=== PATIENT | male | born 1935 | race Caucasian/White ===

== ENCOUNTER 2019-09-13 02:08 | Day surgery (SDC) | payer OTHER, MEDICARE, SELFPAY ==
[2019-08-30 09:38] VITALS: BMI 29.2
--- NOTE | 2019-09-11 16:21 | PM.IMHP ---
H&P: HPI History of Present Illness Chief complaint: BPH with obstruction Narrative: Doni Cavazos is a 84 year old male who's been a part of our practice since 08/1993 with both obstructive and irritable voiding symptoms refractory to both BPH and OAB meds. Recent urodynamics show obstruction without overactive bladder. Cystoscopy shows lateral lobe prostate enlargement without median lobe enlargement. We've discussed options, including TURP, Rezum, Green light laser and Urolift and he's elected for the later. He's aware of risks including, but not limited to, failure to correct his symptoms, hematuria, incontinence. Review of Systems Constitutional: Constitutional: Denies chills, Denies fatigue, Denies fever(s) and Denies headache(s) Eyes: Eyes: Denies blurry vision ENT: Denies vertigo, Denies dizziness, Denies headache(s) and Denies sore throat Cardiovascular: Cardiovascular: Denies chest pain, Denies syncope, Denies lightheadedness, Denies palpitations, Denies dyspnea and Denies dyspnea on exertion Respiratory: Respiratory: Denies hemoptysis, Denies dyspnea and Denies dyspnea on exertion Gastrointestinal: Gastrointestinal: Denies melena, Denies bloating, Denies hematochezia, Denies change in bowel habits, Denies change in stool character, Denies constipation, Denies diarrhea and Denies vomiting Genitourinary: Genitourinary: Denies hematuria, Denies dysuria, Denies testicular pain, Denies urinary frequency, Denies urinary hesitancy and Denies urinary urgency Integumentary/Breasts: Skin/Breast: Denies pruritus, Denies lesions and Denies rash Neurologic: Denies confusion, Denies vertigo, Denies dizziness, Denies syncope and Denies headache(s) Psychiatric: Psychiatric: Denies anxiety, Denies change in appetite and Denies confusion Endocrine: Endocrine: Denies fatigue and Denies palpitations PMFSH Family History Family History Sibling Carcinoma of colon Social History Social History Smoking status: Former smoker Smoking end date: 07/11/94 Alcohol intake: never Gender identity (if verbalized by the patient): Male Meds Home Medications and Allergies Home Medications Medication Instructions Recorded Confirmed Type aspirin 81 mg PO DAILY 08/30/19 08/30/19 History cholecalciferol (vitamin D3) 4,000 unit PO DAILY 08/30/19 08/30/19 History [Vitamin D3] hydroxyurea 500 mg PO DAILY 08/30/19 08/30/19 History lisinopril 20 mg PO DAILY 08/30/19 08/30/19 History tamsulosin 0.4 mg PO DAILY 08/30/19 08/30/19 History vitamin B complex [B 1 tablet PO DAILY 08/30/19 08/30/19 History Complex-Vitamin B12] Allergies Allergy/AdvReac Type Severity Reaction Status Date / Time No Known Allergies Allergy Verified 08/30/19 09:38 Exam Const: General: healthy appearing, comfortable, no acute distress and well developed; No confusion Nutritional Appearance: well nourished Orientation/consciousness: patient oriented x3 and No confusion HENMT: Head: normocephalic and atraumatic Ears: external ears normal Face and sinus: normal facial exam Mouth: Yes lip normal Teeth and gingiva: dentition normal Eyes: General: appearance normal, both eyes and all related structures Alignment and Position: alignment normal Eyelids: eyelids normal Cornea: corneas normal Pupils: Equal, round and reactive pupils present EOM: EOMs intact bilaterally Neck: Neck: normal visual inspection, full ROM and no JVD Chest: Chest palpation & inspection: normal inspection of the chest Resp: Effort & Inspection: normal respiratory effort and no use of accessory muscles Auscultation: clear to auscultation bilaterally Cardio: Jugular venous distension: no JVD Rate: regular rate Rhythm: regular rhythm GI: Inspection: normal to inspection GI Palp: No abdominal tenderness, No Guarding due to palpation present (GI) and No Rebound
--- NOTE | 2019-09-11 16:29 | PM.IMHP ---
H&P: HPI History of Present Illness Chief complaint: BPH with obstruction Narrative: Doni Cavazos is a 84 year old male We've discussed alternative treatment options for bladder outlet obstruction, including TURP, Rezum, Green light laser and Urolift and he's elected for the later. He's aware of risks including, but not limited to, failure to correct his symptoms, hematuria, incontinence and retrograde ejaculation. PMFSH Family History Family History Sibling Carcinoma of colon Social History Social History Smoking status: Former smoker Smoking end date: 07/11/94 Alcohol intake: never Gender identity (if verbalized by the patient): Male Meds Home Medications and Allergies Home Medications Medication Instructions Recorded Confirmed Type aspirin 81 mg PO DAILY 08/30/19 08/30/19 History cholecalciferol (vitamin D3) 4,000 unit PO DAILY 08/30/19 08/30/19 History [Vitamin D3] hydroxyurea 500 mg PO DAILY 08/30/19 08/30/19 History lisinopril 20 mg PO DAILY 08/30/19 08/30/19 History tamsulosin 0.4 mg PO DAILY 08/30/19 08/30/19 History vitamin B complex [B 1 tablet PO DAILY 08/30/19 08/30/19 History Complex-Vitamin B12] Allergies Allergy/AdvReac Type Severity Reaction Status Date / Time No Known Allergies Allergy Verified 08/30/19 09:38
--- NOTE | 2019-09-13 06:36 | WPDHPUPDATE1 ---
History and Physical Update Update Date/Time: 09/13/19 06:36 History and Physical has been reviewed, including an updated exam of the patient. There are NO changes in the patient's condition. Risks, benefits, and alternatives have been discussed and questions answered. Patient agrees to proceed with procedure.
--- NOTE | 2019-09-13 08:07 | P.PNAN_ITS ---
Anes - Initial Pre Proc Eval Procedure: Operation Date: 09/13/19 10:00 Proposed Procedures p Urolift - Griffin Odom MD Date/Time: 09/13/19 08:07 Surgeon: Griffin Odom MD Pre Op Diagnosis: BPH with obstruction Patient Data Age: 84 Gender: M Height: 1.75 m Weight: 89.81 kg Allergies Allergy/AdvReac Type Severity Reaction Status Date / Time No Known Allergies Allergy Verified 08/30/19 09:38 Home Medications Medication Instructions Recorded Confirmed Type aspirin 81 mg PO DAILY 08/30/19 08/30/19 History cholecalciferol (vitamin D3) 4,000 unit PO DAILY 08/30/19 08/30/19 History [Vitamin D3] hydroxyurea 500 mg PO DAILY 08/30/19 08/30/19 History lisinopril 20 mg PO DAILY 08/30/19 08/30/19 History tamsulosin 0.4 mg PO DAILY 08/30/19 08/30/19 History vitamin B complex [B 1 tablet PO DAILY 08/30/19 08/30/19 History Complex-Vitamin B12] Other Studies: Holter/Event Monitor Holter/Event Monitor Date of procedure: 08/03/19 Procedure Type: 24 hour holter monitor Indications: PAF; AV block Conclusion: 1. 24 hour holter monitor on 08/03/19. 2. Predominant rhythm is sinus rhythm. HR range 50-129 bpm; average HR 81 bpm. 3. There are 20 premature supraventricular complexes and 6 supraventricular trigeminy. No supraventricular tachycardia. 4. There are 5,110 premature ventricular complexes, 103 ventricular bigeminy, 3,671 ventricular trigeminy, 295 ventricular couplets, 3 ventricular triplets, one 4 beat polymorphic ventricular tachycardia with variable rate and average HR 124 bpm. 5. 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 No significant pauses greater than 2 seconds. 6. No symptoms available for correlation. Report Initialized date/time: Roldan Bond DO 08/05/19 / 1322 Patient hx anesthesia problems: none Family hx anesthesia problems: none [facility] Past Medical History Medical History (Updated 09/13/19 @ 08:10 by Cl White MD) Aneurysm AAA REPAIR 2016 Arthritis Atrial fibrillation NEW ONSET 07/2019, SAW BPH (benign prostatic hyperplasia) Colon cancer COLON 2001, s/p COLON RESECTION HTN (hypertension) Overweight (BMI 25.0-29.9) Family History Family History Sibling Carcinoma of colon Social History Social History Smoking status: Former smoker Smoking end date: 07/11/94 Alcohol intake: never Gender identity (if verbalized by the patient): Male Anes - Eval Final PreProcedure Day of Procedure 09/13/19 08:07 Patient weight: overweight Heart: regular rate and rhythm Lungs: clear to auscultation and normal air movement Airway: Mallampati scale class II Neurological: alert and oriented Last oral intake: >/= 8 hours ASA classification: III Emergent: no Anesthetic plan: proceed Anesthesia type and monitoring: general GIVS Informed Consent: The patient's anesthetic plan and its attendant risks and benefits were discussed with the patient/family/POA. Questions were solicited and answers provided to the satisfaction of the patient/family/POA.
[2019-09-13] MEDS: LACTATED RINGERS 1,000 ML 30 ML IV CONT (08:39)
[2019-09-13 08:42] VITALS: BP 135/96; PULSE 72; RESP 20; TEMP 36.8; O2SAT 97
[2019-09-13] MEDS: ceFAZolin 2 GM/D5W 50 ML 2 GM/50 ML BAG IVPB (08:57)
[2019-09-13] MEDS: LIDOCAINE HCL 2% GEL UROJET 10 ML PKG MUCOUS MEM (09:10)
--- NOTE | 2019-09-13 09:20 | PM.PROC ---
Procedure Note - Detailed Date of procedure: 09/13/19 Pre-op diagnosis: BPH with obstruction Post-op diagnosis: same Procedure performed: Urolift Description of procedure: The patient was prepped and draped in a routine fashion after the uneventful induction of a general LMA anesthetic. A 20F cystoscope was inserted into the bladder. The cystoscopy bridge was replaced with a UroLift delivery device. The first treatment site was the patient's right side approximately 1.5cm distal to the bladder neck. The distal tip of the delivery device was then angled laterally approximately 20 degrees at this position to compress the lateral lobe. The trigger was pulled, thereby deploying a needle containing the implant through the prostate. The needle was then retracted, allowing one end of the implant to be delivered to the capsular surface of the prostate. The implant was then tensioned to assure capsular seating and removal of slack monofilament. The device was then angled back toward midline and slowly advanced proximally (typically 3 to 4 mm) until cystoscopic verification of the monofilament being centered in the delivery bay. The urethral end piece was then affixed to the monofilament thereby tailoring the size of the implant. Excess filament was then severed. The delivery device was then re-advanced into the bladder. The delivery device was then replaced with cystoscope and bridge and the implant location and opening effect was confirmed cystoscopically. The same procedure was then repeated on the left side, and two additional implants were delivered just proximal to the verumontanum, again one on right and one on left side of the prostate, following the same technique. Therefore, a total of 4 implants were delivered. A final cystoscopy was conducted first to inspect the location and state of each implant and second, to confirm the presence of a continuous anterior channel was present through the prostatic urethra with irrigation flow turned off. The bladder was then filled with 150 cc irrigation fluid to assist the patient in void trial after the procedure, and all instruments were removed. At this point the cystoscope was removed and the patient was taken to the PACU in good condition. Anesthesia: GLMA Surgeon: Griffin Odom MD Estimated blood loss (mL): 0 Drains: No Packing: No Pathology: none sent Complications: No immediate complications Condition: stable Disposition: PACU
[2019-09-13 09:23] VITALS: BP 95/50; PULSE 64; RESP 12
[2019-09-13 09:45] VITALS: BP 98/58; PULSE 52
[2019-09-13 10:10] VITALS: BP 101/68; PULSE 58
== END 2019-09-13 10:17 | disposition home or self-care (01) ==
PROVIDERS: PCP Internal Medicine; Visit Provider Urology
PROC: 0T7D8DZ Dilation of Urethra with Intraluminal Device, Via Natural or Artificial Opening Endoscopic (ICD-10-PCS; CPT 52441; principal; 2019-09-13 10:00)
DX: N40.1 Benign prostatic hyperplasia with lower urinary tract symptoms (principal); N13.8 Other obstructive and reflux uropathy; I48.91 Unspecified atrial fibrillation; I10 Essential (primary) hypertension; M19.90 Unspecified osteoarthritis, unspecified site; Z85.038 Personal history of other malignant neoplasm of large intestine; Z90.49 Acquired absence of other specified parts of digestive tract; Z87.891 Personal history of nicotine dependence; Z79.82 Long term (current) use of aspirin
CPT/HCPCS: C9740; A9270; J0690; J1100; J2405; J2704; J3010; J7120; L8699

== ENCOUNTER 2019-10-16 13:06 | Outpatient (CLI) | payer OTHER, MEDICARE, SELFPAY ==
[2019-10-16 13:19] LABS: Basophils Absolute Auto 0.1 K/mm3 (0.0-0.1); Basophils Percent Auto 1.5 % (0.2-1.2); Eosinophils Absolute Auto 0.2 K/mm3 (0-0.3); Hematocrit 43.6 % (42.0-52.0); Hemoglobin 13.7 g/dL (14.0-18.0); Immature Granulocyte Absolute 0.07 K/mm3 (0.00-0.031); Immature Granulocyte Percent A 0.9 % (0-0.5); Lymphocytes Absolute Auto 0.64 K/mm3 (0.9-3.2); Lymphocytes Percent Auto 7.9 % (18.3-44.2); Mean Corpuscular HGB Conc 31.4 g/dl (32-36); Mean Corpuscular Hemoglobin 29.9 pg (26-34); Mean Corpuscular Volume 95.2 fl (80-100); Monocytes Absolute Auto 0.6 K/mm3 (0.1-0.6); Monocytes Percent Auto 6.8 % (2.6-8.5); Neutrophils Absolute Auto 6.6 K/mm3 (1.3-6.7); Neutrophils Percent Auto 80.9 % (45.5-73.1); Platelet Count Result 289 k/mm3 (150-375); Red Blood Count 4.58 M/mm3 (4.6-6.20); Red Cell Distribution Width 23.7 % (11.5-14.5); White Blood Count 8.1 K/mm3 (4.5-10.0)
[2019-10-16 13:24] LABS: Blood Urea Nitrogen 25 mg/dL (8-26); Carbon Dioxide 28 mmol/L (22-30); Chloride 104 mmol/L (98-109); Estimated Glomerular Filt Rate 26; Glucose 106 mg/dL (70-105); Potassium 4.4 mmol/L (3.5-4.9); Sodium 139 mmol/L (138-146)
== END 2019-10-16 13:07 | disposition home or self-care (01) ==
LOC: ANHLAB 13:07
PROVIDERS: PCP Internal Medicine; Visit Provider Internal Medicine Hematology & Oncology
DX: D47.3 Essential (hemorrhagic) thrombocythemia (principal)
CPT/HCPCS: 36415; 80048; 85025

== ENCOUNTER 2020-01-22 11:12 | Outpatient (CLI) | payer OTHER, MEDICARE, SELFPAY ==
[2020-01-22 11:30] LABS: Basophils Absolute Auto 0.2 K/mm3 (0.0-0.1); Basophils Percent Auto 1.6 % (0.2-1.2); Eosinophils Absolute Auto 0.3 K/mm3 (0-0.3); Eosinophils Percent Auto 2.3 % (0-4.4); Hematocrit 45.8 % (42.0-52.0); Hemoglobin 14.3 g/dL (14.0-18.0); Immature Granulocyte Absolute 0.14 K/mm3 (0.00-0.031); Immature Granulocyte Percent A 1.3 % (0-0.5); Lymphocytes Absolute Auto 0.78 K/mm3 (0.9-3.2); Lymphocytes Percent Auto 7.1 % (18.3-44.2); Mean Corpuscular HGB Conc 31.2 g/dl (32-36); Mean Corpuscular Hemoglobin 29.1 pg (26-34); Mean Corpuscular Volume 93.1 fl (80-100); Monocytes Absolute Auto 0.9 K/mm3 (0.1-0.6); Monocytes Percent Auto 8.3 % (2.6-8.5); Neutrophils Absolute Auto 8.7 K/mm3 (1.3-6.7); Neutrophils Percent Auto 79.4 % (45.5-73.1); Platelet Count Result 808 k/mm3 (150-375); Red Blood Count 4.92 M/mm3 (4.6-6.20); Red Cell Distribution Width 20.4 % (11.5-14.5); White Blood Count 10.9 K/mm3 (4.5-10.0)
[2020-01-22 11:37] LABS: Blood Urea Nitrogen 34 mg/dL (8-26); Carbon Dioxide 24 mmol/L (22-30); Chloride 105 mmol/L (98-109); Estimated Glomerular Filt Rate 53; Glucose 99 mg/dL (70-105); Sodium 140 mmol/L (138-146)
== END 2020-01-22 11:13 | disposition home or self-care (01) ==
PROVIDERS: PCP Internal Medicine; Visit Provider Internal Medicine Hematology & Oncology
DX: D47.3 Essential (hemorrhagic) thrombocythemia (principal)
CPT/HCPCS: 36415; 80048; 85025

== ENCOUNTER 2020-03-28 09:49 | Outpatient (CLI) | payer OTHER, MEDICARE, SELFPAY ==
[2020-03-28 10:15] LABS: Basophils Absolute Auto 0.2 K/mm3 (0.0-0.1); Basophils Percent Auto 1.9 % (0.2-1.2); Eosinophils Absolute Auto 0.3 K/mm3 (0-0.3); Eosinophils Percent Auto 2.5 % (0-4.4); Hematocrit 43.6 % (42.0-52.0); Hemoglobin 13.7 g/dL (14.0-18.0); Immature Granulocyte Absolute 0.21 K/mm3 (0.00-0.031); Immature Granulocyte Percent A 1.7 % (0-0.5); Lymphocytes Absolute Auto 0.66 K/mm3 (0.9-3.2); Lymphocytes Percent Auto 5.3 % (18.3-44.2); Mean Corpuscular HGB Conc 31.4 g/dl (32-36); Mean Corpuscular Hemoglobin 28.1 pg (26-34); Mean Corpuscular Volume 89.5 fl (80-100); Mean Platelet Volume 9.7 fl (7.4-10.4); Monocytes Absolute Auto 0.9 K/mm3 (0.1-0.6); Monocytes Percent Auto 6.8 % (2.6-8.5); Neutrophils Absolute Auto 10.3 K/mm3 (1.3-6.7); Neutrophils Percent Auto 81.8 % (45.5-73.1); Platelet Count Result 701 k/mm3 (150-375); Red Blood Count 4.87 M/mm3 (4.6-6.20); Red Cell Distribution Width 24.3 % (11.5-14.5); White Blood Count 12.6 K/mm3 (4.5-10.0)
[2020-03-28 12:01] LABS: Anion Gap 5 mmol/L (8-16); Blood Urea Nitrogen 28 mg/dL (9-20); Calcium 9.5 mg/dL (8.4-10.2); Carbon Dioxide 28 mmol/L (22-30); Chloride 107 mmol/L (98-107); Estimated Glomerular Filt Rate > 60; Glucose 106 mg/dL (75-110); Lactate Dehydrogenase 626 U/L (313-618); Potassium 5.6 mmol/L (3.4-5.0); Sodium 140 mmol/L (137-145)
== END 2020-03-28 09:50 | disposition home or self-care (01) ==
PROVIDERS: PCP Internal Medicine; Visit Provider Internal Medicine Hematology & Oncology
DX: D47.3 Essential (hemorrhagic) thrombocythemia (principal)
CPT/HCPCS: 36415; 80048; 83615; 85025

== ENCOUNTER 2020-05-22 13:05 | Outpatient (CLI) | payer OTHER, MEDICARE, SELFPAY ==
--- NOTE | 2020-05-22 14:12 | ECHO_ITS ---
Patient Info Name: Doni Cavazos Age: 84 years : 1935 Gender: Male Ht: 69 in Wt: 186 lbs BSA: 2.04 m2 HR: 70 bpm BP: 120 / 62 mmHg Technical Quality: Good Exam Date: 05/22/2020 2:30 PM Exam Location: [facility] Patient Status: Outpatient Admit Date: 05/22/2020 Staff Ordering Physician: Marvin Payan MD Bilingual Sales Assistant: Mundo Adams RDCS, RT Attending Provider: Marvin Payan MD Referring Physician: Schuyler CALVERT; Exam Type: CA echo doppler color flow Study Info Indications I35.0 - Nonrheumatic aortic (valve) stenosis Complete two-dimensional, color flow and Doppler transthoracic echocardiogram is performed. Strain analysis performed. Summary 1. Complete two-dimensional, color flow and Doppler transthoracic echocardiogram is performed. 2. Left ventricular chamber dimension is normal. 3. Left ventricular systolic function is normal, estimated at 55-60%. 4. The left ventricular diastolic function is normal. 5. E/e' 8 is minimally elevated. 6. Left atrial chamber dimension is mildly enlarged. 7. There is moderate aortic valve sclerosis. 8. There is moderate aortic valve stenosis based on a peak velocity of 207 cm/s, mean gradient of 10 mmHg, and aortic valve area of 1.0 cm2. 9. The mitral valve has mildly calcified annulus. 10. There is trace tricuspid valve regurgitation. Left Ventricle E/e' 8 is minimally elevated. Left ventricular chamber dimension is normal. Left ventricular systolic function is normal, estimated at 55-60%. The left ventricular diastolic function is normal. Right Ventricle Right ventricular chamber dimension is normal. Right ventricular systolic function is normal. Left Atria Left atrial chamber dimension is mildly enlarged. Right Atria Right atrial chamber dimension is normal. Aortic Valve There is moderate aortic valve stenosis based on a peak velocity of 207 cm/s, mean gradient of 10 mmHg, and aortic valve area of 1.0 cm2. The aortic valve is probable trileaflet. There is moderate aortic valve sclerosis. There is no aortic valve regurgitation. Pulmonic Valve There is no pulmonic regurgitation. Mitral Valve The mitral valve has mildly calcified annulus. There is no mitral valve stenosis. There is no mitral valve regurgitation. Tricuspid Valve RVSP is not calculated due to an inadequate TR jet. There is trace tricuspid valve regurgitation. Pericardium/Pleural There is no pericardial effusion. Inferior Vena Cava Normal inferior vena cava with >50% collapse upon inspiration consistent with normal right atrial pressure, 5 mmHg. Aorta The aortic root size at the sinus of Valsalva is normal. Left Ventricular Outflow Tract Name Value Normal LVOT 2D LVOT Diameter 2.1 cm LVOT Doppler LVOT Peak Velocity 63 cm/s LVOT Peak Gradient 2 mmHg LVOT Mean Gradient 1 mmHg LVOT VTI 13 cm LVOT VTI/AV VTI Ratio 0.3 LVOT Stroke Volume 46 ml Mitral Valve
== END 2020-05-22 13:06 | disposition home or self-care (01) ==
LOC: CHSIMG 13:09
PROVIDERS: PCP Internal Medicine; Visit Provider Internal Medicine
DX: I35.0 Nonrheumatic aortic (valve) stenosis (principal)
CPT/HCPCS: 93306

== ENCOUNTER 2020-05-30 08:55 | Outpatient (CLI) | payer OTHER, MEDICARE, SELFPAY ==
[2020-05-30 09:30] LABS: Basophils Absolute Auto 0.2 K/mm3 (0.0-0.1); Basophils Percent Auto 1.9 % (0.2-1.2); Eosinophils Absolute Auto 0.3 K/mm3 (0-0.3); Eosinophils Percent Auto 2.9 % (0-4.4); Hematocrit 46.2 % (42.0-52.0); Hemoglobin 14.1 g/dL (14.0-18.0); Immature Granulocyte Absolute 0.14 K/mm3 (0.00-0.031); Immature Granulocyte Percent A 1.4 % (0-0.5); Lymphocytes Absolute Auto 0.53 K/mm3 (0.9-3.2); Lymphocytes Percent Auto 5.4 % (18.3-44.2); Mean Corpuscular HGB Conc 30.5 g/dl (32-36); Mean Corpuscular Hemoglobin 27.1 pg (26-34); Mean Corpuscular Volume 88.8 fl (80-100); Mean Platelet Volume 9.7 fl (7.4-10.4); Monocytes Absolute Auto 0.6 K/mm3 (0.1-0.6); Monocytes Percent Auto 6.5 % (2.6-8.5); Neutrophils Percent Auto 81.9 % (45.5-73.1); Platelet Count Result 589 k/mm3 (150-375); Red Cell Distribution Width 24.9 % (11.5-14.5); White Blood Count 9.8 K/mm3 (4.5-10.0)
[2020-05-30 12:43] LABS: Anion Gap 8 mmol/L (8-16); Blood Urea Nitrogen 27 mg/dL (9-20); Calcium 9.1 mg/dL (8.4-10.2); Carbon Dioxide 30 mmol/L (22-30); Chloride 104 mmol/L (98-107); Estimated Glomerular Filt Rate > 60; Glucose 92 mg/dL (75-110); Lactate Dehydrogenase 564 U/L (313-618); Potassium 4.9 mmol/L (3.4-5.0); Sodium 142 mmol/L (137-145)
== END 2020-05-30 08:56 | disposition home or self-care (01) ==
PROVIDERS: PCP Internal Medicine; Visit Provider Internal Medicine Hematology & Oncology
DX: D47.3 Essential (hemorrhagic) thrombocythemia (principal)
CPT/HCPCS: 36415; 80048; 83615; 85025

== ENCOUNTER 2020-08-05 09:21 | Outpatient (CLI) | payer OTHER, MEDICARE, SELFPAY ==
[2020-08-05 09:42] LABS: Basophils Absolute Auto 0.2 K/mm3 (0.0-0.1); Basophils Percent Auto 1.8 % (0.2-1.2); Eosinophils Absolute Auto 0.2 K/mm3 (0-0.3); Eosinophils Percent Auto 1.9 % (0-4.4); Hematocrit 45.6 % (42.0-52.0); Hemoglobin 13.9 g/dL (14.0-18.0); Immature Granulocyte Absolute 0.11 K/mm3 (0.00-0.031); Lymphocytes Absolute Auto 0.52 K/mm3 (0.9-3.2); Lymphocytes Percent Auto 4.5 % (18.3-44.2); Mean Corpuscular HGB Conc 30.5 g/dl (32-36); Mean Corpuscular Hemoglobin 26.9 pg (26-34); Mean Corpuscular Volume 88.4 fl (80-100); Mean Platelet Volume 9.6 fl (7.4-10.4); Monocytes Absolute Auto 0.4 K/mm3 (0.1-0.6); Monocytes Percent Auto 3.6 % (2.6-8.5); Neutrophils Percent Auto 87.2 % (45.5-73.1); Platelet Count Result 584 k/mm3 (150-375); Red Blood Count 5.16 M/mm3 (4.6-6.20); Red Cell Distribution Width 26.3 % (11.5-14.5); White Blood Count 11.5 K/mm3 (4.5-10.0)
== END 2020-08-05 09:22 | disposition home or self-care (01) ==
PROVIDERS: PCP Internal Medicine; Visit Provider Internal Medicine Hematology & Oncology
DX: D47.3 Essential (hemorrhagic) thrombocythemia (principal)
CPT/HCPCS: 36415; 85025

== ENCOUNTER 2020-10-31 10:14 | Outpatient (CLI) | payer OTHER, MEDICARE, SELFPAY ==
[2020-10-31 11:21] LABS: Basophils Absolute Auto 0.3 K/mm3 (0.0-0.1); Basophils Percent Auto 2.2 % (0.2-1.2); Eosinophils Absolute Auto 0.4 K/mm3 (0-0.3); Eosinophils Percent Auto 2.7 % (0-4.4); Hematocrit 45.1 % (42.0-52.0); Hemoglobin 13.9 g/dL (14.0-18.0); Immature Granulocyte Absolute 0.43 K/mm3 (0.00-0.031); Immature Granulocyte Percent A 3.2 % (0-0.5); Lymphocytes Absolute Auto 0.72 K/mm3 (0.9-3.2); Lymphocytes Percent Auto 5.4 % (18.3-44.2); Mean Corpuscular HGB Conc 30.8 g/dl (32-36); Mean Corpuscular Volume 90.7 fl (80-100); Mean Platelet Volume 9.9 fl (7.4-10.4); Monocytes Absolute Auto 1.1 K/mm3 (0.1-0.6); Monocytes Percent Auto 8.3 % (2.6-8.5); Neutrophils Absolute Auto 10.4 K/mm3 (1.3-6.7); Neutrophils Percent Auto 78.2 % (45.5-73.1); Platelet Count Result 741 k/mm3 (150-375); Red Blood Count 4.97 M/mm3 (4.6-6.20); Red Cell Distribution Width 26.4 % (11.5-14.5); White Blood Count 13.3 K/mm3 (4.5-10.0)
[2020-10-31 14:30] LABS: Alanine Aminotransferase 13 U/L (4-50); Albumin Level 4.3 g/dL (3.5-5.1); Alkaline Phosphatase 56 U/L (38-126); Anion Gap 6 mmol/L (8-16); Aspartate Amino Transferase 22 U/L (17-59); Bilirubin,Total 0.4 mg/dL (0.2-1.3); Blood Urea Nitrogen 30 mg/dL (9-20); Carbon Dioxide 29 mmol/L (22-30); Chloride 107 mmol/L (98-107); Estimated Glomerular Filt Rate > 60; Glucose 95 mg/dL (75-110); Lactate Dehydrogenase 620 U/L (313-618); Potassium 5.6 mmol/L (3.4-5.0); Sodium 142 mmol/L (137-145)
== END 2020-10-31 10:15 | disposition home or self-care (01) ==
LOC: ANHLAB 10:16
PROVIDERS: PCP Internal Medicine; Visit Provider Internal Medicine Hematology & Oncology
DX: D47.3 Essential (hemorrhagic) thrombocythemia (principal)
CPT/HCPCS: 36415; 80053; 83615; 85025

== ENCOUNTER 2021-02-04 09:03 | Outpatient (CLI) | payer OTHER, MEDICARE, SELFPAY ==
[2021-02-04 09:42] LABS: Basophils Absolute Auto 0.2 K/mm3 (0.0-0.1); Basophils Percent Auto 1.8 % (0.2-1.2); Eosinophils Absolute Auto 0.3 K/mm3 (0-0.3); Eosinophils Percent Auto 2.3 % (0-4.4); Hematocrit 40.9 % (42.0-52.0); Hemoglobin 12.7 g/dL (14.0-18.0); Immature Granulocyte Absolute 0.28 K/mm3 (0.00-0.031); Immature Granulocyte Percent A 2.1 % (0-0.5); Lymphocytes Absolute Auto 0.62 K/mm3 (0.9-3.2); Lymphocytes Percent Auto 4.8 % (18.3-44.2); Mean Corpuscular HGB Conc 31.1 g/dl (32-36); Mean Corpuscular Hemoglobin 28.2 pg (26-34); Mean Corpuscular Volume 90.9 fl (80-100); Mean Platelet Volume 10.2 fl (7.4-10.4); Monocytes Percent Auto 7.6 % (2.6-8.5); Neutrophils Absolute Auto 10.6 K/mm3 (1.3-6.7); Neutrophils Percent Auto 81.4 % (45.5-73.1); Platelet Count Result 762 k/mm3 (150-375); Red Cell Distribution Width 25.9 % (11.5-14.5); White Blood Count 13.1 K/mm3 (4.5-10.0)
[2021-02-04 10:35] LABS: Alanine Aminotransferase 12 U/L (4-50); Albumin Level 4.1 g/dL (3.5-5.1); Alkaline Phosphatase 54 U/L (38-126); Anion Gap 8 mmol/L (8-16); Aspartate Amino Transferase 21 U/L (17-59); Bilirubin,Total 0.6 mg/dL (0.2-1.3); Blood Urea Nitrogen 32 mg/dL (9-20); Calcium 9.2 mg/dL (8.4-10.2); Carbon Dioxide 28 mmol/L (22-30); Chloride 103 mmol/L (98-107); Estimated Glomerular Filt Rate 48; Glucose 89 mg/dL (65-110); Lactate Dehydrogenase 580 U/L (313-618); Sodium 139 mmol/L (137-145)
== END 2021-02-04 09:04 | disposition home or self-care (01) ==
LOC: ANHLAB 09:11
PROVIDERS: PCP Internal Medicine; Visit Provider Internal Medicine Hematology & Oncology
DX: D47.3 Essential (hemorrhagic) thrombocythemia (principal)
CPT/HCPCS: 36415; 80053; 83615; 85025

== ENCOUNTER 2021-05-05 10:13 | Outpatient (CLI) | payer OTHER, MEDICARE, SELFPAY ==
[2021-05-05 10:26] LABS: Basophils Absolute Auto 0.3 K/mm3 (0.0-0.1); Eosinophils Absolute Auto 0.3 K/mm3 (0-0.3); Hematocrit 43.8 % (42.0-52.0); Hemoglobin 13.5 g/dL (14.0-18.0); Immature Granulocyte Absolute 0.33 K/mm3 (0.00-0.031); Immature Granulocyte Percent A 2.4 % (0-0.5); Lymphocytes Absolute Auto 0.78 K/mm3 (0.9-3.2); Lymphocytes Percent Auto 5.8 % (18.3-44.2); Mean Corpuscular HGB Conc 30.8 g/dl (32-36); Mean Corpuscular Hemoglobin 29.8 pg (26-34); Mean Corpuscular Volume 96.7 fl (80-100); Monocytes Absolute Auto 0.9 K/mm3 (0.1-0.6); Monocytes Percent Auto 6.9 % (2.6-8.5); Neutrophils Percent Auto 80.9 % (45.5-73.1); Platelet Count Result 800 k/mm3 (150-375); Red Blood Count 4.53 M/mm3 (4.6-6.20); Red Cell Distribution Width 25.2 % (11.5-14.5); White Blood Count 13.6 K/mm3 (4.5-10.0)
[2021-05-05 12:19] LABS: Anion Gap 9 mmol/L (8-16); Blood Urea Nitrogen 32 mg/dL (9-20); Calcium 9.1 mg/dL (8.4-10.2); Carbon Dioxide 29 mmol/L (22-30); Chloride 104 mmol/L (98-107); Estimated Glomerular Filt Rate 58; Glucose 93 mg/dL (65-110); Lactate Dehydrogenase 589 U/L (313-618); Potassium 4.5 mmol/L (3.4-5.0); Sodium 142 mmol/L (137-145)
== END 2021-05-05 10:14 | disposition home or self-care (01) ==
LOC: ANHLAB 10:16
PROVIDERS: PCP Internal Medicine; Visit Provider Internal Medicine Hematology & Oncology
DX: D47.3 Essential (hemorrhagic) thrombocythemia (principal)
CPT/HCPCS: 36415; 80048; 83615; 85025

== ENCOUNTER 2021-06-11 12:20 | Outpatient (CLI) | payer OTHER, MEDICARE, SELFPAY ==
--- NOTE | 2021-06-11 12:28 | ECHO_ITS ---
Patient Info Name: Doni Cavazos Age: 85 years : 1935 Gender: Male Ht: 69 in Wt: 182 lbs BSA: 2.02 m2 HR: 80 bpm BP: 105 / 55 mmHg Exam Date: 06/11/2021 1:17 PM Exam Location: [facility] Patient Status: Outpatient Admit Date: 06/11/2021 Staff Ordering Physician: Marvin Payan MD Cloth Sander: Natalie Yepez Attending Provider: Marvin Payan MD Referring Physician: Schuyler CALVERT; Exam Type: CA echo doppler color flow Study Info Indications I35.0 - Nonrheumatic aortic (valve) stenosis Complete two-dimensional, color flow and Doppler transthoracic echocardiogram is performed. Strain analysis performed. Summary 1. Complete two-dimensional, color flow and Doppler transthoracic echocardiogram is performed. 2. Left ventricular chamber dimension is normal. 3. Left ventricular systolic function is normal, estimated at 60-65%. 4. The left ventricular diastolic function is grade I diastolic dysfunction. 5. E/e' 9 is minimally elevated. 6. Global longitudinal strain is abnormal at -13.6%. 7. There is moderate aortic valve sclerosis. 8. There is mild aortic valve stenosis with a peak velocity of 195 cm/s, mean gradient of 9 mmHg, and aortic valve area of 1.7 cm2. 9. No pulmonary hypertension, estimated pulmonary arterial systolic pressure is 30 mmHg. Left Ventricle E/e' 9 is minimally elevated. Global longitudinal strain is abnormal at -13.6%. Left ventricular chamber dimension is normal. Left ventricular systolic function is normal, estimated at 60-65%. The left ventricular diastolic function is grade I diastolic dysfunction. Right Ventricle Right ventricular systolic function is normal and with normal TAPSE 2.0 cm. Right ventricular chamber dimension is normal. Left Atria Left atrial chamber dimension is normal. Right Atria Right atrial chamber dimension is normal. Aortic Valve The aortic valve is trileaflet. There is moderate aortic valve sclerosis. There is mild aortic valve stenosis with a peak velocity of 195 cm/s, mean gradient of 9 mmHg, and aortic valve area of 1.7 cm2. There is no aortic valve regurgitation. Pulmonic Valve There is no pulmonic regurgitation. Mitral Valve There is no mitral valve stenosis. There is no mitral valve regurgitation. Tricuspid Valve There is no tricuspid valve regurgitation. No pulmonary hypertension, estimated pulmonary arterial systolic pressure is 30 mmHg. Pericardium/Pleural There is no pericardial effusion. Inferior Vena Cava Normal inferior vena cava with >50% collapse upon inspiration consistent with normal right atrial pressure, 5 mmHg. Aorta The aortic root size at the sinus of Valsalva is normal. Left Ventricular Outflow Tract Name Value Normal LVOT 2D LVOT Diameter 1.8 cm LVOT Doppler LVOT Peak Velocity 147 cm/s LVOT Peak Gradient 9 mmHg LVOT Mean Gradient 5 mmHg LVOT VTI 28 cm LVOT VTI/AV VTI Ratio 0.7 LVOT Stroke Volume 68 ml Mitral Valve
== END 2021-06-11 12:21 | disposition home or self-care (01) ==
LOC: CHSIMG 12:21
PROVIDERS: PCP Internal Medicine; Visit Provider Internal Medicine
DX: I35.0 Nonrheumatic aortic (valve) stenosis (principal)
CPT/HCPCS: 93306

== ENCOUNTER 2021-07-28 12:52 | Outpatient (CLI) | payer OTHER, MEDICARE, SELFPAY ==
[2021-07-28 13:22] LABS: Basophils Absolute Auto 0.4 K/mm3 (0.0-0.1); Basophils Percent Auto 2.9 % (0.2-1.2); Eosinophils Absolute Auto 0.3 K/mm3 (0-0.3); Eosinophils Percent Auto 2.4 % (0-4.4); Hematocrit 50.9 % (42.0-52.0); Hemoglobin 15.2 g/dL (14.0-18.0); Immature Granulocyte Absolute 0.16 K/mm3 (0.00-0.031); Immature Granulocyte Percent A 1.3 % (0-0.5); Lymphocytes Absolute Auto 0.69 K/mm3 (0.9-3.2); Lymphocytes Percent Auto 5.7 % (18.3-44.2); Mean Corpuscular HGB Conc 29.9 g/dl (32-36); Mean Corpuscular Volume 90.6 fl (80-100); Mean Platelet Volume 10.3 fl (7.4-10.4); Monocytes Absolute Auto 0.8 K/mm3 (0.1-0.6); Monocytes Percent Auto 6.6 % (2.6-8.5); Neutrophils Absolute Auto 9.8 K/mm3 (1.3-6.7); Neutrophils Percent Auto 81.1 % (45.5-73.1); Platelet Count Result 571 k/mm3 (150-375); Red Blood Count 5.62 M/mm3 (4.6-6.20); Red Cell Distribution Width 24.6 % (11.5-14.5); White Blood Count 12.1 K/mm3 (4.5-10.0)
[2021-07-28 16:23] LABS: Anion Gap 9 mmol/L (8-16); Blood Urea Nitrogen 17 mg/dL (9-20); Calcium 9.2 mg/dL (8.4-10.2); Carbon Dioxide 29 mmol/L (22-30); Chloride 103 mmol/L (98-107); Estimated Glomerular Filt Rate 58; Glucose 96 mg/dL (65-110); Potassium 4.3 mmol/L (3.4-5.0); Sodium 141 mmol/L (137-145)
== END 2021-07-28 12:53 | disposition home or self-care (01) ==
LOC: ANHLAB 12:55
PROVIDERS: PCP Internal Medicine; Visit Provider Internal Medicine Hematology & Oncology
DX: D47.3 Essential (hemorrhagic) thrombocythemia (principal)
CPT/HCPCS: 36415; 80048; 85025

== ENCOUNTER 2021-11-26 09:16 | Outpatient (CLI) | payer OTHER, MEDICARE, SELFPAY ==
[2021-11-26 09:36] LABS: Basophils Absolute Auto 0.7 K/mm3 (0.0-0.1); Basophils Percent Auto 3.1 % (0.2-1.2); Eosinophils Absolute Auto 0.6 K/mm3 (0-0.3); Eosinophils Percent Auto 2.7 % (0-4.4); Hematocrit 49.1 % (42.0-52.0); Hemoglobin 14.5 g/dL (14.0-18.0); Immature Granulocyte Percent A 4.1 % (0-0.5); Lymphocytes Absolute Auto 1.29 K/mm3 (0.9-3.2); Lymphocytes Percent Auto 5.8 % (18.3-44.2); Mean Corpuscular HGB Conc 29.5 g/dl (32-36); Mean Corpuscular Hemoglobin 21.7 pg (26-34); Mean Corpuscular Volume 73.5 fl (80-100); Monocytes Absolute Auto 1.3 K/mm3 (0.1-0.6); Monocytes Percent Auto 5.8 % (2.6-8.5); Neutrophils Absolute Auto 17.3 K/mm3 (1.3-6.7); Neutrophils Percent Auto 78.5 % (45.5-73.1); Nucleated Red Blood Cells Perc 0.1 % (0.0-0.2); Platelet Count Result 1592 k/mm3 (150-375); Red Blood Count 6.68 M/mm3 (4.6-6.20); Red Cell Distribution Width 26.1 % (11.5-14.5); White Blood Count 22.1 K/mm3 (4.5-10.0)
[2021-11-26 09:40] LABS: Blood Urea Nitrogen 30 mg/dL (8-26); Carbon Dioxide 24 mmol/L (22-30); Chloride 107 mmol/L (98-109); Estimated Glomerular Filt Rate 22; Glucose 110 mg/dL (70-105); Ionized Calcium (POC) 1.17 mmol/L (1.11-1.31); Potassium 5.2 mmol/L (3.5-4.9); Sodium 140 mmol/L (138-146)
[2021-11-26 09:48] LABS: Giant Platelets Present; Hypochromasia 1+ (NORMAL); Ovalocytes 1+ (NORMAL); Platelet Estimate Increased (Adequate)
[2021-11-26 09:50] LABS: Poikilocytosis 1+ (NORMAL)
== END 2021-11-26 09:17 | disposition home or self-care (01) ==
PROVIDERS: PCP Internal Medicine; Visit Provider Internal Medicine Hematology & Oncology
DX: D47.3 Essential (hemorrhagic) thrombocythemia (principal)
CPT/HCPCS: 36415; 80047; 85025

== ENCOUNTER 2021-12-14 14:52 | Outpatient (CLI) | payer OTHER, MEDICARE, SELFPAY ==
[2021-12-14 16:16] LABS: Appearance Urine Clear (Clear); Bilirubin Urine 1+ (Negative); Blood Urine 2+ (Negative); Color Urine Yellow (Yellow); Glucose Urine UA Negative (Negative); Ketones Urine Trace mg/dL (Negative); Leukocyte Esterase Ur Negative LEU/UL (Negative); Nitrate Urine Negative (Negative); Protein Urine Negative (Negative); pH Urine 5.5 (5.0-9.0)
[2021-12-14 16:18] LABS: Hematocrit 41.1 % (42.0-52.0); Hemoglobin 11.8 g/dL (14.0-18.0); Immature Platelet Fraction Pct 16.9 % (0.9-11.2); Mean Corpuscular HGB Conc 28.7 g/dl (32-36); Mean Corpuscular Hemoglobin 21.5 pg (26-34); Mean Corpuscular Volume 74.7 fl (80-100); Platelet Count Result 835 k/mm3 (150-375); Red Cell Distribution Width 27.3 % (11.5-14.5); White Blood Count 15.6 K/mm3 (4.5-10.0)
[2021-12-14 16:27] LABS: Mucus Urine Rare /lpf; RBC Urine 51-75 /hpf (0-2); Squamous Epithelial Cell Urine Few /hpf (Few)
[2021-12-14 16:29] LABS: Add Urine Microscopic? YES; Albumin Level 3.9 g/dL (3.5-5.1); Anion Gap 6 mmol/L (8-16); Blood Urea Nitrogen 24 mg/dL (9-20); Calcium 8.5 mg/dL (8.4-10.2); Carbon Dioxide 27 mmol/L (22-30); Chloride 107 mmol/L (98-107); Creatine Kinase 69 U/L (55-170); Estimated Glomerular Filt Rate 52; Glucose 96 mg/dL (65-110); Phosphorus 3.5 mg/dL (2.5-4.5); Potassium 4.1 mmol/L (3.4-5.0); Sodium 140 mmol/L (137-145)
[2021-12-14 16:31] LABS: Creatinine Urine 150.2 mg/dL
[2021-12-14 16:37] LABS: Complement C3 103 mg/dL (88-165)
[2021-12-14 16:40] LABS: Parathyroid Intact 52.4 pg/mL (7.5-53.5)
[2021-12-14 16:49] LABS: Sodium Urine Random 91 meq/L
[2021-12-14 16:56] LABS: Erythrocyte Sedimentation Rate 5 mm/hr (0-20)
[2021-12-15 11:24] LABS: Total Protein Urine Random 7 mg/dL; Ur Ttl Prot Creatinine Ratio 0.05 mg/mg (0-0.20)
[2021-12-18 19:34] LABS: Complement Total CH50 >60 U/mL (31-60)
[2021-12-19 04:07] LABS: Kappa\\Lambda Light Chains 1.33 (0.26-1.65); Lambda Light Chain 15.6 mg/L (5.7-26.3)
== END 2021-12-14 14:53 | disposition home or self-care (01) ==
PROVIDERS: PCP Internal Medicine; Visit Provider Internal Medicine Nephrology
DX: N18.31 Chronic kidney disease, stage 3a (principal); N17.9 Acute kidney failure, unspecified
CPT/HCPCS: 36415; 80069; 81001; 82550; 82570; 83883; 83970; 84156; 84300; 85027; 85055; 85652; 86038; 86160; 86162; 86334

== ENCOUNTER 2021-12-15 10:11 | Outpatient (CLI) | payer OTHER, MEDICARE, SELFPAY ==
[2021-12-15 10:33] LABS: Blood Urea Nitrogen 26 mg/dL (8-26); Carbon Dioxide 23 mmol/L (22-30); Chloride 107 mmol/L (98-109); Estimated Glomerular Filt Rate 48; Glucose 94 mg/dL (70-105); Ionized Calcium (POC) 1.19 mmol/L (1.11-1.31); Potassium 4.5 mmol/L (3.5-4.9); Sodium 141 mmol/L (138-146)
[2021-12-15 10:34] LABS: Basophils Absolute Auto 0.4 K/mm3 (0.0-0.1); Basophils Percent Auto 2.5 % (0.2-1.2); Eosinophils Absolute Auto 0.4 K/mm3 (0-0.3); Eosinophils Percent Auto 2.1 % (0-4.4); Hemoglobin 12.3 g/dL (14.0-18.0); Immature Granulocyte Absolute 0.58 K/mm3 (0.00-0.031); Immature Granulocyte Percent A 3.5 % (0-0.5); Immature Platelet Fraction Pct 14.6 % (0.9-11.2); Lymphocytes Absolute Auto 0.78 K/mm3 (0.9-3.2); Lymphocytes Percent Auto 4.7 % (18.3-44.2); Mean Corpuscular HGB Conc 29.3 g/dl (32-36); Mean Corpuscular Hemoglobin 21.3 pg (26-34); Mean Corpuscular Volume 72.7 fl (80-100); Monocytes Absolute Auto 1.2 K/mm3 (0.1-0.6); Monocytes Percent Auto 7.2 % (2.6-8.5); Neutrophils Absolute Auto 13.4 K/mm3 (1.3-6.7); Nucleated Red Blood Cells Perc 0.1 % (0.0-0.2); Platelet Count Result 868 k/mm3 (150-375); Red Blood Count 5.78 M/mm3 (4.6-6.20); Red Cell Distribution Width 27.7 % (11.5-14.5); White Blood Count 16.8 K/mm3 (4.5-10.0)
[2021-12-15 10:37] LABS: Giant Platelets Present; Hypochromasia 1+ (NORMAL); Ovalocytes 1+ (NORMAL); Platelet Estimate Increased (Adequate)
[2021-12-15 10:38] LABS: Atypical Lymphocytes Present; Poikilocytosis 1+ (NORMAL)
== END 2021-12-15 10:12 | disposition home or self-care (01) ==
PROVIDERS: PCP Internal Medicine; Visit Provider Internal Medicine Hematology & Oncology
DX: D47.3 Essential (hemorrhagic) thrombocythemia (principal)
CPT/HCPCS: 36415; 80047; 85025; 85055

== ENCOUNTER 2021-12-16 09:42 | Outpatient (CLI) | payer OTHER, MEDICARE, SELFPAY ==
[2021-12-16 10:59] LABS: Total Volume 24 Hour Urine 1500 ml
[2021-12-21 15:22] LABS: Measured Kappa Chains 1.01 mg/dL (<2.00); Measured Lambda Chains <1.00 mg/dL (<2.00); Pro/Creat Ratio 145 mg/g creat (<=114); Total Kappa Chains 15.15 mg/24 h
[2022-01-01 15:37] LABS: Protein,total, 24 Hr Ur 180 mg/24h
== END 2021-12-16 09:43 | disposition home or self-care (01) ==
LOC: ANHLAB 09:48
PROVIDERS: PCP Internal Medicine; Visit Provider Internal Medicine Nephrology
DX: N18.31 Chronic kidney disease, stage 3a (principal); N17.9 Acute kidney failure, unspecified
CPT/HCPCS: 81050; 84540; 86335

== ENCOUNTER 2021-12-23 12:16 | Outpatient (CLI) | payer OTHER, MEDICARE, SELFPAY ==
--- NOTE | ~2021-12-23 | US_ITS ---
EXAMINATION: US renal BI DATE: 12/23/2021 13:06 INDICATION: Acute renal failure TECHNIQUE: Multiple ultrasound grayscale images of the kidneys were obtained. COMPARISON: None. FINDINGS: The right kidney measures 10.8 x 5.8 x 5.8 cm. The left kidney measures 11.1 x 5.0 x 6.5 cm cm. The k idneys demonstrate normal echogenicity. There is scattered mild cortical scarring at both kidneys mos t prominent along a portion of the lower pole of the left kidney. 1.8 cm anechoic right renal cyst. T here is no hydronephrosis in either kidney. No stones identified. The bladder is normal. Prostatomeg domonique measuring 4.5 x 4.1 cm. IMPRESSION: 1. Scattered mild cortical scarring at both kidneys most prominent at the lower pole of the left kid anne. No hydronephrosis. Reviewed, dictated and finalized at location A. IMPRESSION: 1. Scattered mild cortical scarring at both kidneys most prominent at the lowe r pole of the left kidney. No hydronephrosis.
== END 2021-12-23 12:17 | disposition home or self-care (01) ==
PROVIDERS: PCP Internal Medicine; Visit Provider Internal Medicine Nephrology
DX: N17.9 Acute kidney failure, unspecified (principal)
CPT/HCPCS: 76775

== ENCOUNTER 2022-01-05 06:15 | Inpatient (IN) | payer OTHER, MEDICARE, SELFPAY ==
[2022-01-05] VITALS (27 sets, daily range): BP systolic 103–136; BP diastolic 53–91; PULSE 96–132; RESP 9–33; TEMP 36.7–37.1; O2SAT 86–99
--- NOTE | 2022-01-05 | ECHO_ITS ---
Patient Info Name: Doni Cavazos Age: 86 years : 1935 Gender: Male Ht: 69 in Wt: 175 lbs BSA: 1.98 m2 HR: 96 bpm BP: 122 / 65 mmHg Heart Rhythm: Atrial Fibrillation Technical Quality: Fair Exam Date: 01/05/2022 4:47 PM Exam Location: [facility] Patient Status: Inpatient Admit Date: 01/05/2022 Staff Ordering Physician: John He MD Escapement Matcher: Nanda Serrato RDCS Attending Provider: John He MD Exam Type: CA echo doppler color flow Study Info Indications - congestive heart failure Complete two-dimensional, color flow and Doppler transthoracic echocardiogram is performed. Summary 1. Complete two-dimensional, color flow and Doppler transthoracic echocardiogram is performed. 2. Normal left ventricular size and thickness. Left ventricular systolic function at the lower end of normal with superimposed basal inferoseptal hypokinesis. Grade 2 diastolic dysfunction is present. 3. Left atrial chamber dimension is mildly enlarged. 4. Severe aortic valve calcification is present, but the leaflets are not well seen. There is probably moderate aortic valve stenosis with a peak velocity of 262 cm/s, mean gradient of 12 mmHg, and aortic valve area of 0.9 cm2. Consider serial Echo evaluation or evaluation of aortic stenosis with another modality such as transesophageal echo to determine the severity of stenosis, if clinically appropriate. 5. There is mild mitral valve regurgitation. 6. No pulmonary hypertension, estimated pulmonary arterial systolic pressure is 27 mmHg. 7. Underlying rhythm appears to be atrial fibrillation. Left Ventricle Left ventricular chamber dimension is normal. Left ventricular systolic function is normal, estimated at 50-55%. There is no increased left ventricular wall thickness. Left ventricular septal wall motion is normal. The left ventricular diastolic function is grade II diastolic dysfunction. Right Ventricle Right ventricular chamber dimension is normal. Right ventricular systolic function is normal. Left Atria Left atrial chamber dimension is mildly enlarged. Right Atria Right atrial chamber dimension is normal. Aortic Valve The aortic valve is trileaflet. There is no aortic valve sclerosis. Severe aortic valve calcification is present, but the leaflets are not well seen. There is probably moderate aortic valve stenosis with a peak velocity of 262 cm/s, mean gradient of 12 mmHg, and aortic valve area of 0.9 cm2. Consider serial Echo evaluation or evaluation of aortic stenosis with another modality such as transesophageal echo to determine the severity of stenosis, if clinically appropriate. There is no aortic valve regurgitation. There is severe aortic valve calcification. Pulmonic Valve The pulmonic valve is normal. There is no pulmonic valve stenosis. There is no pulmonic regurgitation. Mitral Valve The mitral valve has thickened leaflets. There is no mitral valve stenosis. There is mild mitral valve regurgitation. Tricuspid Valve The tricuspid valve leaflets are normal. There is no significant tricuspid valve stenosis. There is trace tricuspid valve regurgitation. No pulmonary hypertension, estimated pulmonary arterial systolic pressure is 27 mmHg. Pericardium/Pleural The pericardium appears normal. There is no pericardial effusion. Inferior Vena Cava Normal inferior vena cava with <50% collapse upon inspiration consistent with Empty right atrial pressure, 10 mmHg. Aorta Th
--- NOTE | ~2022-01-05 | XR_ITS ---
EXAMINATION: XR chest 2V DATE: 01/05/2022 06:46 INDICATION: Tachycardia TECHNIQUE: PA and lateral views of the chest were obtained. COMPARISON: Chest radiograph dated 07/15/2015 FINDINGS: Chronic mild elevation the right hemidiaphragm. Small left pleural effusion with blunting at the post erior sulcus and costophrenic angle. Pulmonary vascular congestion with a few bilateral peripheral Ke rley B-lines consistent with minimal pulmonary edema. No pneumothorax or right-sided pleural effusion . The cardiomediastinal silhouette is normal. Posterior spinal fusion with bilateral Godfrey carson a nd laminar hook fixation extending from the midthoracic spine caudally beyond the inferior margin of the [id number]. 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 Multiple additional o ld left rib fractures. IMPRESSION: 1. Prevascular congestion, minimal pulmonary edema and small left pleural effusion. Reviewed, dictated and finalized at location A. IMPRESSION: 1. Prevascular congestion, minimal pulmonary edema and small left pleural effus ion.
--- NOTE | ~2022-01-05 | XR_ITS ---
EXAMINATION: XR chest 1V portable DATE: 01/07/2022 06:01 INDICATION: Congestive heart failure TECHNIQUE: frontal view of the chest was obtained. COMPARISON: Chest radiograph dated 01/05/22 FINDINGS: Chronic mild elevation the right hemidiaphragm. Decrease in the prior increased interstitial pattern and peripheral Rebecca B-lines consistent with nearly resolved mild pulmonary edema. No pleural effusi on or pneumothorax. The cardiomediastinal silhouette is normal. Likely cholecystectomy clips in right upper quadrant. Wire fixation at chronic malunited left clavicle fracture. Posterior spinal fusion w ith bilateral Godfrey carson and laminar fixation extending from the midthoracic spine caudally beyon d the inferior margin of the [id number]. Multiple old left rib fractures. IMPRESSION: 1. Improvement in now minimal residual pulmonary edema. Reviewed, dictated and finalized at location A.
--- NOTE | 2022-01-05 06:37 | ECG_ITS ---
Measurements Intervals [place] Rate: 133 P: 18 [place]: 156 QRS: 8 QRSD: 130 T: 6 QT: 323 QTc: 480 Interpretive Statements SINUS TACHYCARDIA WITH FREQUENT ECTOPIC PREMATURE COMPLEXES INDETERMINATE AXIS RIGHT BUNDLE BRANCH BLOCK Electronically Signed On 01-05-2022 10:55:58 CDT by Kenney Magallanes M.D.
--- NOTE | 2022-01-05 06:53 | ED.GENADULT ---
HPI - General Adult General Chief complaint: Shortness of Breath/Dyspnea Stated complaint: SOB Time Seen by Provider: 01/05/22 06:33 History of Present Illness HPI narrative: 86-year-old male presenting the emergency department for evaluation of tachycardia. Patient states over the last few days he has had increased exertion and possible dehydration. Patient states this morning he went to urinate and felt like he had to pee significantly but then the stream ceased. Patient does have history of enlarged prostate and does have follow-up with urology, Dr Parham. Patient denies any current lower abdominal pain. Patient's primary complaint is heart palpitations. Patient denies any associated chest pain with this. Patient has no prior history of ID. Patient does take medications for blood pressure. Related Data Home Medications Medication Instructions Recorded Confirmed aspirin 81 mg chewable tablet 81 mg PO DAILY 08/30/19 01/05/22 cholecalciferol (vitamin D3) 100 4,000 unit PO DAILY 08/30/19 01/05/22 mcg (4,000 unit) capsule (Vitamin D3) hydroxyurea 500 mg capsule 1,000 mg PO EVERY OTHER DAY 08/30/19 01/05/22 lisinopril 20 mg tablet 20 mg PO DAILY 08/30/19 01/05/22 tamsulosin 0.4 mg capsule 0.4 mg PO DAILY 08/30/19 01/05/22 vitamin B complex (B 1 tablet PO DAILY 08/30/19 01/05/22 Complex-Vitamin B12 tablet) allopurinol 300 mg tablet 300 tablet DAILY 01/05/22 01/05/22 anagrelide 1 mg capsule 1 mg BID 01/05/22 01/05/22 ketorolac 10 mg tablet 10 mg PO TID 01/05/22 01/05/22 Allergies Allergy/AdvReac Type Severity Reaction Status Date / Time No Known Allergies Allergy Verified 01/05/22 06:30 Review of Systems Review of Systems: CONSTITUTIONAL: Denies fever, chills, or sweats. EYES: Denies visual changes, redness, or discharge. ENT: Denies rhinorrhea, congestion, sore throat, or otalgia. CARDIOVASCULAR: Rapid heart rate but denies any chest pain RESPIRATORY: Denies cough or dyspnea. GASTROINTESTINAL: Denies abdominal pain, nausea, vomiting, or diarrhea. GENITOURINARY: Increasing difficulty with urinary retention SKIN: Denies rash or itching. MUSCULOSKELETAL: Denies back pain, joint pain, or myalgia. NEUROLOGIC: Denies headache, numbness, or weakness. [facility] Past Medical History Medical History (Updated 01/05/22 @ 16:29 by John He MD) Aneurysm AAA REPAIR 2017 Arthritis Atrial fibrillation NEW ONSET 07/2019, SAW BPH (benign prostatic hyperplasia) Colon cancer COLON 2001, s/p COLON RESECTION HTN (hypertension) Overweight (BMI 25.0-29.9) Family History Family History Sibling Carcinoma of colon Social History Social History Smoking packs per day: 2 Smoking cigarettes per day: 40.0 Years smoked: 40 Smoking pack-years: 80.00 Smoking status: Former smoker Tobacco type: cigarettes Smoking end date: 07/11/94 Alcohol intake: former Substance use: never Gender identity (if verbalized by the patient): Male Spiritual care concerns: No Exam Narrative: APPEARANCE: Well appearing, no pain, no distress, well-nourished. HEAD: normocephalic, atraumatic. EYES: PERRLA/EOMI, conjunctivae clear. NOSE: Normal no drainage THROAT: Pharynx clear, no exudate. NECK: Supple. No adenopathy, no masses. RESPIRATORY: Airway patent, respirations nonlabored. Clear to auscultation bilaterally, no rales, rhonchi, wheezing. CARDIOVASCULAR: Tachycardia, no edema ABDOMINAL: Soft, nontender, nondistended, normal bowel sounds MUSCULOSKELETAL: Moves all extremities. No edema NEURO: Alert. Cranial nerves II through XII intact. Grossly intact SKIN: Warm, dry. Normal Color Course Course Emergency Course: Labs, bladder scan and response to rehydration are pending at time of signout to Dr. Garcia. Vital Signs Vital signs: Vital Signs Pulse Rate 124 H 01/05/22 06:22 Respiratory Rat
[2022-01-05 07:01] LABS: Basophils Absolute Auto 0.5 K/mm3 (0.0-0.1); Basophils Percent Auto 2.2 % (0.2-1.2); Eosinophils Absolute Auto 0.2 K/mm3 (0-0.3); Eosinophils Percent Auto 0.7 % (0-4.4); Hemoglobin 10.9 g/dL (14.0-18.0); Immature Granulocyte Absolute 1.12 K/mm3 (0.00-0.031); Immature Granulocyte Percent A 4.9 % (0-0.5); Immature Platelet Fraction Pct 17.5 % (0.9-11.2); Lymphocytes Absolute Auto 0.75 K/mm3 (0.9-3.2); Lymphocytes Percent Auto 3.3 % (18.3-44.2); Mean Corpuscular HGB Conc 29.5 g/dl (32-36); Mean Corpuscular Hemoglobin 21.8 pg (26-34); Mean Corpuscular Volume 73.9 fl (80-100); Monocytes Absolute Auto 0.9 K/mm3 (0.1-0.6); Monocytes Percent Auto 3.8 % (2.6-8.5); Neutrophils Absolute Auto 19.4 K/mm3 (1.3-6.7); Neutrophils Percent Auto 85.1 % (45.5-73.1); Nucleated Red Blood Cells Perc 0.1 % (0.0-0.2); Platelet Count Result 878 k/mm3 (150-375); Red Blood Count 5.01 M/mm3 (4.6-6.20); White Blood Count 22.8 K/mm3 (4.5-10.0)
[2022-01-05 07:14] LABS: INR 1.2
[2022-01-05 07:15] LABS: Partial Thromboplastin Time 44.2 SECONDS (22.3-36.8)
[2022-01-05 07:16] LABS: Anisocytosis 1+ (NORMAL); Hypochromasia 1+ (NORMAL); Ovalocytes 1+ (NORMAL); Platelet Estimate Increased (Adequate)
[2022-01-05] MEDS: SODIUM CHLORIDE 0.9% IV 1,000 ML 999 ML IV CONT (07:16)
[2022-01-05 07:25] LABS: Alanine Aminotransferase 18 U/L (6-50); Albumin Level 3.8 g/dL (3.5-5.1); Alkaline Phosphatase 75 U/L (38-126); Anion Gap 7 mmol/L (8-16); Aspartate Amino Transferase 29 U/L (17-59); Blood Urea Nitrogen 24 mg/dL (9-20); Calcium 8.4 mg/dL (8.4-10.2); Carbon Dioxide 27 mmol/L (22-30); Chloride 107 mmol/L (98-107); Estimated CRCL calculation 34 ml/min; Estimated Glomerular Filt Rate 48; Glucose 128 mg/dL (65-110); NT Pro B Type Natriuretic Pept 2840 pg/mL (5-100); Potassium 4.3 mmol/L (3.4-5.0); Sodium 141 mmol/L (137-145)
[2022-01-05 07:31] LABS: Troponin I 0.209 ng/mL (0.000-0.034)
--- NOTE | 2022-01-05 07:41 | PC.NURSE ---
Pt urinated 100 ml. Post void bladder scan showed 140-198 ml of urine in bladder.
[2022-01-05 07:47] LABS: Appearance Urine Clear (Clear); Bilirubin Urine Negative (Negative); Color Urine Yellow (Yellow); Glucose Urine UA Negative (Negative); Ketones Urine Negative (Negative); Leukocyte Esterase Ur Trace LEU/UL (Negative); Nitrate Urine Negative (Negative); Protein Urine Negative (Negative); pH Urine 5.5 (5.0-9.0)
[2022-01-05 07:51] LABS: Bacteria Urine Trace /hpf; Mucus Urine Rare /lpf; WBC Urine 0-3 /hpf
[2022-01-05 07:52] LABS: Add Urine Microscopic? YES; Blood Urine Trace-Intact (Negative)
[2022-01-05] MEDS: cefTRIAXone 2 GM in SODIUM CHLORIDE 0.9% IV 100 ML 200 ML IVPB (09:13)
[2022-01-05] MEDS: ENOXAPARIN 80 MG/0.8 ML SYRINGE SUB-Q ×2 (09:19→21:34)
[2022-01-05] MEDS: FUROSEMIDE INJ 40 MG/4 ML VIAL IV PUSH (09:19)
--- NOTE | 2022-01-05 10:17 | ADMGEN ---
This patient, Doni Cavazos, was admitted to IMU Room 214-01. Patient/family oriented to hospital policies and general routines including ID bracelet, bed and alarms, visiting hours, pain management, procedures, bathroom and other care routines, personal items, smoking policy, room service/diet, and visiting hours. Information on how to activate the Rapid Response Team has been discussed. Patient/Family are encouraged to report perceived risks to care and to ask questions if they do not understand what they are told or what they should do.
[2022-01-05 13:57] LABS: Troponin I 0.212 ng/mL (0.000-0.034)
--- NOTE | 2022-01-05 16:00 | PM.IMHP ---
H&P: HPI History of Present Illness Date/Time: 01/05/22 16:00 Chief Complaint: Palpitation Narrative: 86 year old male presenting the emergency department for evaluation for shortness of breath. A shortness of breath started earlier today he tried laying down and tossed and turned all night which did help. He got up eventually and that helped a little bit when he laid down again he got short of breath. He denies any leg swelling or any chest pain. He felt like his heart was racing he has been having urinary problem due to his enlarged prostate off and on and has been following up with his urologist. He currently denies any abdominal pain or nausea vomiting. He also denies any urinary symptoms. He also sees a birth attendant for his hematological problem. Denies any cough or fever chills. In the ER he was noted to be tachycardic with sinus tachycardia. His initial troponin was elevated at 0.209. Chest x-ray with congestive changes. He got a dose of Lasix. He also had urinary retention when he hit medical floor here with 600 cc in his bladder on bladder scan. He had a Gutierrez catheter placed. He is seen after this and is currently doing and feeling a lot better. He is breathing much better now. Review of Systems Review of Systems: - CONSTITUTIONAL: Denies weight loss, fever and chills. - HEENT: Denies changes in vision and hearing - RESPIRATORY: Reports SOB and denies cough. - CV: Reports palpitations and denies CP. - GI: Denies abdominal pain, nausea, vomiting and diarrhea. - : Denies dysuria and urinary frequency. Chronic urinary problem with retention due to BPH - MSK: Denies myalgia and joint pain. - SKIN: Denies rash and pruritus. - NEUROLOGICAL: Denies headache and syncope. - PSYCHIATRIC: Denies recent changes in mood. Denies anxiety and depression. All systems reviewed & are unremarkable except as noted in HPI and below Constitutional: Constitutional: Reports fatigue and Reports weakness Neurologic: Reports weakness Endocrine: Endocrine: Reports fatigue PMFSH Past Medical History Medical History (Updated 01/05/22 @ 16:29 by John He MD) Aneurysm AAA REPAIR 2017 Arthritis Atrial fibrillation NEW ONSET 07/2019, SAW BPH (benign prostatic hyperplasia) Colon cancer COLON 2001, s/p COLON RESECTION HTN (hypertension) Overweight (BMI 25.0-29.9) Family History Family History Sibling Carcinoma of colon Social History Social History Smoking packs per day: 2 Smoking cigarettes per day: 40.0 Years smoked: 40 Smoking pack-years: 80.00 Smoking status: Former smoker Tobacco type: cigarettes Smoking end date: 07/11/94 Alcohol intake: former Substance use: never Gender identity (if verbalized by the patient): Male Spiritual care concerns: No Meds Home Medications and Allergies Home Medications Medication Instructions Recorded Confirmed Type aspirin 81 mg chewable tablet 81 mg PO DAILY 08/30/19 01/05/22 History cholecalciferol (vitamin D3) 100 4,000 unit PO DAILY 08/30/19 01/05/22 History mcg (4,000 unit) capsule (Vitamin D3) hydroxyurea 500 mg capsule 1,000 mg PO EVERY OTHER DAY 08/30/19 01/05/22 History lisinopril 20 mg tablet 20 mg PO DAILY 08/30/19 01/05/22 History tamsulosin 0.4 mg capsule 0.4 mg PO DAILY 08/30/19 01/05/22 History vitamin B complex (B 1 tablet PO DAILY 08/30/19 01/05/22 History Complex-Vitamin B12 tablet) allopurinol 300 mg tablet 300 tablet DAILY 01/05/22 01/05/22 History anagrelide 1 mg capsule 1 mg BID 01/05/22 01/05/22 History ketorolac 10 mg tablet 10 mg PO TID 01/05/22 01/05/22 History Allergies Allergy/AdvReac Type Severity Reaction Status Date / Time No Known Allergies Allergy Verified 01/05/22 06:30 Vital Signs Vital Signs - 24 hr 01/05/22 06:22 01/05/22 06:25 01/05/22 06:22 Te
[2022-01-05 17:11] LABS: Cholesterol 119 mg/dL (0-200); HDL Direct 27 mg/dL; Triglycerides 101 mg/dL (<150)
[2022-01-05 17:22] LABS: LDL Cholesterol Direct 57 mg/dL
--- NOTE | 2022-01-05 18:15 | PCCPR ---
CHF teaching given to patient.
--- NOTE | 2022-01-05 18:26 | PHAR ---
The patient's home med of Anagrelide 1mg has been verified.
[2022-01-05] MEDS: ATORVASTATIN 20 MG TABLET PO (21:34)
[2022-01-06] VITALS (12 sets, daily range): BP systolic 90–128; BP diastolic 45–64; PULSE 101–116; RESP 18–24; TEMP 36.6–37.2; O2SAT 90–95
[2022-01-06 05:16] LABS: Basophils Absolute Auto 0.4 K/mm3 (0.0-0.1); Basophils Percent Auto 2.1 % (0.2-1.2); Eosinophils Absolute Auto 0.1 K/mm3 (0-0.3); Eosinophils Percent Auto 0.4 % (0-4.4); Hematocrit 35.2 % (42.0-52.0); Hemoglobin 10.4 g/dL (14.0-18.0); Immature Granulocyte Absolute 0.94 K/mm3 (0.00-0.031); Immature Granulocyte Percent A 5.2 % (0-0.5); Immature Platelet Fraction Pct 16.9 % (0.9-11.2); Lymphocytes Absolute Auto 0.64 K/mm3 (0.9-3.2); Lymphocytes Percent Auto 3.5 % (18.3-44.2); Mean Corpuscular HGB Conc 29.5 g/dl (32-36); Mean Corpuscular Hemoglobin 21.5 pg (26-34); Mean Corpuscular Volume 72.9 fl (80-100); Monocytes Absolute Auto 0.9 K/mm3 (0.1-0.6); Monocytes Percent Auto 4.7 % (2.6-8.5); Neutrophils Absolute Auto 15.3 K/mm3 (1.3-6.7); Neutrophils Percent Auto 84.1 % (45.5-73.1); Platelet Count Result 829 k/mm3 (150-375); Red Blood Count 4.83 M/mm3 (4.6-6.20); Red Cell Distribution Width 28.5 % (11.5-14.5); White Blood Count 18.1 K/mm3 (4.5-10.0)
[2022-01-06 05:25] LABS: Alanine Aminotransferase 16 U/L (6-50); Albumin Level 3.6 g/dL (3.5-5.1); Alkaline Phosphatase 69 U/L (38-126); Anion Gap 3 mmol/L (8-16); Aspartate Amino Transferase 30 U/L (17-59); Bilirubin,Total 0.9 mg/dL (0.2-1.3); Blood Urea Nitrogen 21 mg/dL (9-20); Calcium 8.3 mg/dL (8.4-10.2); Carbon Dioxide 30 mmol/L (22-30); Chloride 104 mmol/L (98-107); Estimated CRCL calculation 39 ml/min; Estimated Glomerular Filt Rate 57; Glucose 101 mg/dL (65-110); Magnesium 2.1 mg/dL (1.6-2.3); Potassium 4.2 mmol/L (3.4-5.0); Sodium 137 mmol/L (137-145)
--- NOTE | 2022-01-06 09:00 | PM.IMPN ---
Progress Note: A&P Assessment and Plan (1) CHF (congestive heart failure): Code(s): I50.9 - Heart failure, unspecified Status: Acute (2) Elevated troponin: Code(s): R77.8 - Other specified abnormalities of plasma proteins Status: Acute (3) BPH (benign prostatic hyperplasia): Code(s): N40.0 - Benign prostatic hyperplasia without lower urinary tract symptoms Status: Acute (4) Atrial fibrillation: Code(s): I48.91 - Unspecified atrial fibrillation Status: Acute (5) Urinary retention: Code(s): R33.9 - Retention of urine, unspecified Status: Acute (6) Leukocytosis: Code(s): D72.829 - Elevated white blood cell count, unspecified Status: Acute Plan # Shortness of breath/Palpitation EKG found to be sinus tachycardia. Continue on telemetry monitoring. Chest x-ray with congestive heart failure. Not hypoxic. Likely due to CHF exacerbation. Improved will recheck chest x-ray in the morning. Continue diuresis. Renal function stable/improved # Acute on chronic congestive heart failure diastolic IV diuresis. BNP elevated at 2840 Cardiology consultation. Reorder echo with moderate aortic stenosis with no other valvular abnormality noted. He will need outpatient follow-up pain workup for his moderate aortic stenosis. # Elevated troponin start full-dose Lovenox. Initial troponin 0.209. On aspirin. Lipid profile LDL is 57. Start atorvastatin. Ischemic evaluation per Cardiology. No prior history of ischemic heart disease. Elevated troponin could be related to his underlying atrial fibrillation and congestive heart failure. # Leukocytosis 26,000. Unclear etiology cover with Rocephin and azithromycin. Patient does have chronic leukocytosis due his underlying history of hematological disorder. Less likely to be infectious. If cultures negative will stop antibiotics tomorrow # CKD stage 3 creatinine 1.4 stable continue to monitor. Plan to see Dr. Prescott as an outpatient basis # Urinary retention acute placed Gutierrez. History of prostate problem in the past.. 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 Repeat echo 01/05/2022 with EF 50-55% grade 2 diastolic dysfunction basal inferoseptal hypokinesis moderate aortic valve stenosis underlying rhythm atrial fibrillation # Atrial fibrillation noted on echo. Telemetry currently reveals mild sinus tachycardia. Overnight telemetry review reveal intermittent atrial fibrillation. Currently on full-dose Lovenox. Consider to switch to Eliquis for paroxysmal atrial fibrillation. This could be the trigger for his congestive heart failure. # DVT prophylaxis Lovenox # Code status full code Subjective Date/time seen: 01/06/22 09:00 Interval history: HPI:86 year old male presenting the emergency department for evaluation for shortness of breath.? A shortness of breath started earlier today he tried laying down and tossed and turned all night which did help.? He got up eventually and that helped a little bit when he laid down again he got short of breath.? He denies any leg swelling or any chest pain.? He felt like his heart was racing he has been having urinary problem due to his enlarged prostate off and on and has been following up with his urologist.? He currently denies any abdominal pain or nausea vomiting.? He also denies any urinary symptoms.? He also sees a wind turbine performance engineer for his hematological problem.? Denies any cough or fever chills.? In the ER he was noted to be tachycardic with sinus tachycardia.? His initial troponin was elevated at 0.209.? Chest x-ray with congestive changes.? He got a dose of Lasix.? He also had urinary retention when he hit medical floor here with 600 cc in his bladder on bladder scan.? He had a Gutierrez catheter placed.? He is seen after this and is currently doing
[2022-01-06] MEDS: ENOXAPARIN 80 MG/0.8 ML SYRINGE SUB-Q ×2 (10:27→21:16)
[2022-01-06] MEDS: allopurinoL 300 MG TABLET BY MOUTH (10:27)
[2022-01-06] MEDS: CHOLECALCIFEROL 1,000 UNITS TABLET 4000 UNITS PO (10:28)
[2022-01-06] MEDS: METOPROLOL TARTRATE 12.5 MG TABLET PO ×2 (10:28→21:16)
[2022-01-06] MEDS: TAMSULOSIN HCL 0.4 MG CAPSULE PO (10:29)
[2022-01-06] MEDS: FUROSEMIDE INJ 40 MG/4 ML VIAL IV PUSH (10:30)
[2022-01-06] MEDS: lisinopriL 20 MG TABLET PO (10:30)
[2022-01-06] MEDS: ASPIRIN 81 MG CHEWABLE TABLET PO (10:30)
[2022-01-06] MEDS: VITAMIN B COMPLEX CAPSULE 1 CAP PO (10:31)
--- NOTE | 2022-01-06 15:52 | PM.CNCAR ---
Assessment and Plan Assessment and plan (1) Acute diastolic CHF (congestive heart failure): Code(s): I50.31 - Acute diastolic (congestive) heart failure Status: Acute Assessment and Plan: Patient was admitted with new onset of diastolic CHF Likely due to aging and chronic diastolic dysfunction However, the echo shows some discrepant valve measurements with a low mean gradient but possibly severe aortic stenosis with small valve area of 0.8 cm2. It is possible he could have low gradient aortic stenosis The patient's murmur is not terribly impressive Recommended transesophageal echo for further evaluation of the aortic valve area, since the patient has new onset CHF. Continue IV Lasix, switch to p.o. on discharge. Agree w/ adding metoprolol if blood pressure tolerates; may need to reduce lisinopril dose Add Farxiga or Jardiance Low-sodium diet Daily BMP (2) Elevated troponin: Code(s): R77.8 - Other specified abnormalities of plasma proteins Status: Acute Assessment and Plan: Elevated but flat troponin curve, due to congestive heart failure. No evidence of ACS. (3) Aortic stenosis: Code(s): I35.0 - Nonrheumatic aortic (valve) stenosis Status: Acute Assessment and Plan: As above, recommend PADDY to planimetry of the valve area and make sure the patient does not have more significant aortic stenosis than is apparent by his mean gradient and his physical exam. (4) Sinus tachycardia: Code(s): R00.0 - Tachycardia, unspecified Status: Acute Assessment and Plan: Recent problems with sinus tachycardia, perhaps due to his CHF. He has frequent APCs as well. I do not see any sustained atrial fibrillation but recommend continuing to monitor for significant AFib. Check TSH Agree with adding metoprolol. History of Present Illness History of Present Illness Consult date/time: 01/06/22 15:52 Reason For Visit: chf/elevated troponin Narrative: Doni marcial is an 86-year-old male whom we were asked to see at the request of Dr. Krystal celaya for advice and opinion regarding his elevated troponin consultation. The patient has noted increasing shortness of breath and BURKS for the past 3 weeks much as blames on working in the heat and cleaning up the garage. However he got worse the day or 2 prior to admission and he had problems with orthopnea as well as fast heartbeats for 1 day. There was no dizziness, chest pain or swelling. He came to the emergency room with shortness of breath, heart racing and urinary problems. He was in sinus tachycardia. He was thought to have new onset CHF with a proBNP of 2800. [place] count was [address]. His troponins have been: 0.209, 0.200, 0.212. Echo as below. Since admission had a Gutierrez catheter placed, given IV Lasix, started on IV antibiotics and is feeling better. Telemetry shows sinus tachycardia with frequent APCs. There is a question as to whether not he is having some atrial fibrillation as well. He does have some very brief spells of some supraventricular tachycardia lasting for a few seconds but no sustained atrial fibrillation. The patient is followed by Dr. Almanza for his aortic stenosis. He was last seen in October 2021 stable. His echo in June 2021 showed a peak aortic valve velocity of 1.95 m/sec, mean gradient of 9 mmHg and a valve area of 1.7 cm2. His echo this admission shows a peak velocity of 2.6 m/sec, mean gradient of 12 mmHg and aortic valve area 0.9 cm2 with heavy aortic valve calcification. Review of Systems Constitutional: Constitutional: Denies fever(s) Cardiovascular: Cardiovascular: Denies chest pain, Denies pedal edema, Denies leg edema, Denies lightheadedness and Reports palpitations Respiratory: Respiratory: Denies chest congestion, Reports dyspnea and Reports dyspnea on exertion Gastrointestinal: Gastrointestinal: Denies abdominal pain and Denies hematochezia Comments: Orthopn
--- NOTE | 2022-01-06 17:16 | WPDURCON ---
Assessment and Plan Assessment and plan (1) Urinary retention: Code(s): R33.9 - Retention of urine, unspecified Status: Acute Assessment and Plan: Keep lucas in for remainder of hospital stay, remove prior to discharge and do a voiding trial to see if patient is able to urinate. IF unable to urinate, call the office and re-place lucas. (2) BPH (benign prostatic hyperplasia): Code(s): N40.0 - Benign prostatic hyperplasia without lower urinary tract symptoms Status: Acute Assessment and Plan: Urolift performed two years ago in 09/27, it is unlikely that BPH is contributing to his retention. However, we will have him follow up in the office for a cystoscopy to further evaluate with Dr. Odom. (3) OAB (overactive bladder): Code(s): N32.81 - Overactive bladder Status: Acute Assessment and Plan: Stop Gemtesa, it is likely causing retention. We discussed that failure of two medications and retention as a side effect doesn't allow him to be a candidate for any other OAB medications or Botox. I did suggest pelvic floor physical therapy or INterstim as those would be the only other options for his OAB. We had a long discussion at the bedside about OAB and that it is something he will have to live with and that sometimes patient's fail all therapies without relief. They will f/u in the office to discuss these options further with Dr. Odom. No further evaluation needed. Urology Consult Note HPI Date Seen: 01/06/22 Time Seen: 16:00 Requesting Physician: John He MD Primary Care Provider: Marvin Payan MD Consult Narrative Reason for consult: Retention Narrative: Doni Cavazos is a 86 year old male who presented to the ER for tachycardia, dehydration, fatigue, urinary hesitancy and straining x 1 day. He was found to have 600cc of urine in his bladder via bladder scan and a lucas was placed on the floor upon arrival. He has a urologic history of BPH and severe OAB and is a patient of Dr. Odom'. He was seen recently in the office to treat epididymitis on 12/14/21 and to trial Gemtesa for his OAB, that has been refractory to Oxybutynin d/t constipation as a side effect. He took Gemtesa for 3 weeks but states it didn't help his frequency or urgency. He had a Urolift on 09/13/2019. He and his are frustrated with his OAB symptoms that are not well controlled and failure of two medications. His creatinine is 1.20, WBC 18.1 and SHASHANK is negative on 12/23/21. Review of Systems Cardiovascular: Cardiovascular: Denies chest pain Respiratory: Respiratory: Reports no additional respiratory complaints Gastrointestinal: Gastrointestinal: Denies abdominal pain, Denies nausea and Denies vomiting Genitourinary: Genitourinary: Denies dysuria, Denies flank pain, Reports urinary frequency, Reports urinary hesitancy, Denies urinary incontinence and Reports urinary urgency [facility] Past Medical History Medical History Aneurysm AAA REPAIR 2016 Arthritis Atrial fibrillation NEW ONSET 07/2019, SAW BPH (benign prostatic hyperplasia) Colon cancer COLON 2001, s/p COLON RESECTION HTN (hypertension) Overweight (BMI 25.0-29.9) Family History Family History Sibling Carcinoma of colon Social History Social History Smoking packs per day: 2 Smoking cigarettes per day: 40.0 Years smoked: 40 Smoking pack-years: 80.00 Smoking status: Former smoker Tobacco type: cigarettes Smoking end date: 07/11/94 Alcohol intake: former Substance use: never Gender identity (if verbalized by the patient): Male Spiritual care concerns: No Meds Home Medications and Allergies Home Medications Medication Instructions Recorded Confirmed Type aspirin 81 mg chewable tablet 81 mg PO DAILY 08/30/19
[2022-01-06] MEDS: ATORVASTATIN 20 MG TABLET PO (21:16)
[2022-01-07] VITALS (15 sets, daily range): BP systolic 82–121; BP diastolic 43–75; PULSE 94–104; RESP 14–31; TEMP 36.5–37.3; O2SAT 92–98
[2022-01-07 05:17] LABS: Anion Gap 4 mmol/L (8-16); Blood Urea Nitrogen 27 mg/dL (9-20); Calcium 8.2 mg/dL (8.4-10.2); Carbon Dioxide 30 mmol/L (22-30); Chloride 104 mmol/L (98-107); Estimated CRCL calculation 37 ml/min; Estimated Glomerular Filt Rate 52; Glucose 103 mg/dL (65-110); Sodium 138 mmol/L (137-145)
[2022-01-07] MEDS: ASPIRIN 81 MG CHEWABLE TABLET PO (08:19)
[2022-01-07] MEDS: METOPROLOL TARTRATE 12.5 MG TABLET PO ×2 (08:19→20:11)
[2022-01-07] MEDS: HYDROXYUREA (*CHEMO) 500 MG CAPSULE 1000 MG PO (08:20)
[2022-01-07] MEDS: TAMSULOSIN HCL 0.4 MG CAPSULE PO (08:20)
[2022-01-07] MEDS: FUROSEMIDE INJ 40 MG/4 ML VIAL IV PUSH (08:20)
[2022-01-07] MEDS: EMPAGLIFLOZIN 10 MG TABLET PO (08:20)
[2022-01-07] MEDS: ENOXAPARIN 80 MG/0.8 ML SYRINGE SUB-Q (08:20)
[2022-01-07] MEDS: lisinopriL 20 MG TABLET PO (08:20)
[2022-01-07] MEDS: allopurinoL 300 MG TABLET BY MOUTH (08:20)
[2022-01-07] MEDS: CHOLECALCIFEROL 1,000 UNITS TABLET 4000 UNITS PO (08:20)
[2022-01-07] MEDS: VITAMIN B COMPLEX CAPSULE 1 CAP PO (08:21)
--- NOTE | 2022-01-07 09:19 | PM.IMPN ---
Progress Note: A&P Assessment and Plan (1) CHF (congestive heart failure): Code(s): I50.9 - Heart failure, unspecified Status: Acute (2) Elevated troponin: Code(s): R77.8 - Other specified abnormalities of plasma proteins Status: Acute (3) BPH (benign prostatic hyperplasia): Code(s): N40.0 - Benign prostatic hyperplasia without lower urinary tract symptoms Status: Acute (4) Atrial fibrillation: Code(s): I48.91 - Unspecified atrial fibrillation Status: Acute (5) Urinary retention: Code(s): R33.9 - Retention of urine, unspecified Status: Acute (6) Leukocytosis: Code(s): D72.829 - Elevated white blood cell count, unspecified Status: Acute Plan # Shortness of breath/Palpitation EKG found to be sinus tachycardia. Continue on telemetry monitoring. Chest x-ray with congestive heart failure. Not hypoxic. Likely due to CHF exacerbation. Improved. Recheck chest x-ray 01/07/2022 with improved congestion. Continue diuresis. Renal function stable/improved # Acute on chronic congestive heart failure diastolic IV diuresis. BNP elevated at 2840 Cardiology consultation. Reorder echo with moderate aortic stenosis with no other valvular abnormality noted. He will need outpatient follow-up pain workup for his moderate aortic stenosis. Plan for manoj today per Cardiology # Elevated troponin start full-dose Lovenox. Initial troponin 0.209. On aspirin. Lipid profile LDL is 57. Started on atorvastatin. Ischemic evaluation per Cardiology. No prior history of ischemic heart disease. Elevated troponin could be related to his underlying atrial fibrillation and congestive heart failure. # Leukocytosis 26,000. Unclear etiology cover with Rocephin and azithromycin. Patient does have chronic leukocytosis due his underlying history of hematological disorder. Less likely to be infectious. If cultures negative will stop antibiotics tomorrow. Awaiting CBC today if improved will stop IV antibiotics # CKD stage 3 creatinine 1.4 stable continue to monitor. Plan to see Dr. Prescott as an outpatient basis # Urinary retention acute placed Gutierrez. History of prostate problem in the past.. Consulted Urology. Appreciate his recommendations # hematuria noted today traumatic versus anticoagulation related. 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 Repeat echo 01/05/2022 with EF 50-55% grade 2 diastolic dysfunction basal inferoseptal hypokinesis moderate aortic valve stenosis underlying rhythm atrial fibrillation # Atrial fibrillation noted on echo. Telemetry currently reveals mild sinus tachycardia. Overnight telemetry review reveal intermittent atrial fibrillation. Currently on full-dose Lovenox. Consider to switch to Eliquis for paroxysmal atrial fibrillation. This could be the trigger for his congestive heart failure. Cardiology note reviewed regarding atrial fibrillation. Will hold Lovenox currently due to hematuria # DVT prophylaxis Lovenox # Code status full code Subjective Date/time seen: 01/07/22 09:19 Interval history: HPI:86 year old male presenting the emergency department for evaluation for shortness of breath.? A shortness of breath started earlier today he tried laying down and tossed and turned all night which did help.? He got up eventually and that helped a little bit when he laid down again he got short of breath.? He denies any leg swelling or any chest pain.? He felt like his heart was racing he has been having urinary problem due to his enlarged prostate off and on and has been following up with his urologist.? He currently denies any abdominal pain or nausea vomiting.? He also denies any urinary symptoms.? 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 Denies a
[2022-01-07 09:36] LABS: Hematocrit 37.3 % (42.0-52.0); Hemoglobin 10.7 g/dL (14.0-18.0); Immature Platelet Fraction Pct 18.6 % (0.9-11.2); Mean Corpuscular HGB Conc 28.7 g/dl (32-36); Mean Corpuscular Hemoglobin 21.4 pg (26-34); Mean Corpuscular Volume 74.6 fl (80-100); Platelet Count Result 848 k/mm3 (150-375); Red Cell Distribution Width 29.1 % (11.5-14.5); White Blood Count 16.1 K/mm3 (4.5-10.0)
[2022-01-07 10:28] LABS: Anisocytosis 2+ (NORMAL); Band Neutrophils Percent 6 % (0-6); Eosinophils Absolute Manual 0.48 K/mm3 (0.02-0.5); Eosinophils Percent Manual 3 % (0-4); Giant Platelets Present; Large Platelets Present; Lymphocytes Absolute Manual 1.28 K/mm3 (1.1-4.5); Monocytes Absolute Manual 0.96 K/mm3 (0.1-0.90); Monocytes Percent Manual 6 % (3-9); Neutrophils Absolute Manual 13.36 K/mm3 (1.3-6.7); Neutrophils Percent Manual 77 % (46-73); Ovalocytes 2+ (NORMAL); Platelet Estimate Increased (Adequate); Total Cells Counted 100
[2022-01-07 10:29] LABS: Atypical Lymphocytes Present; Hypochromasia 2+ (NORMAL)
--- NOTE | 2022-01-07 13:47 | WPDHPUPDATE1 ---
History and Physical Update Update Date/Time: 01/07/22 13:47 History and Physical has been reviewed, including an updated exam of the patient. There are NO changes in the patient's condition. Risks, benefits, and alternatives have been discussed and questions answered. Patient agrees to proceed with procedure.
--- NOTE | 2022-01-07 13:47 | WPDMODSED ---
Moderate Sedation Note-Pt Data Patient Data Diagnosis: aortic stenosis -- Echo has disparate measurements for valve w/ DIONICIO 0.8 but mean gradient of only 12 mmHg New onset CHF Present Complaint: Aortic stenosis, CHF Procedure to be performed/Plan: Conscious sedation Transesophageal echo Allergies Allergy/AdvReac Type Severity Reaction Status Date / Time No Known Allergies Allergy Verified 01/05/22 06:30 Home Medications Medication Instructions Recorded Confirmed Type aspirin 81 mg chewable tablet 81 mg PO DAILY 08/30/19 01/05/22 History cholecalciferol (vitamin D3) 100 4,000 unit PO DAILY 08/30/19 01/05/22 History mcg (4,000 unit) capsule (Vitamin D3) hydroxyurea 500 mg capsule 1,000 mg PO EVERY OTHER DAY 08/30/19 01/05/22 History lisinopril 20 mg tablet 20 mg PO DAILY 08/30/19 01/05/22 History tamsulosin 0.4 mg capsule 0.4 mg PO DAILY 08/30/19 01/05/22 History vitamin B complex (B 1 tablet PO DAILY 08/30/19 01/05/22 History Complex-Vitamin B12 tablet) allopurinol 300 mg tablet 300 tablet DAILY 01/05/22 01/05/22 History anagrelide 1 mg capsule 1 mg BID 01/05/22 01/05/22 History ketorolac 10 mg tablet 10 mg PO TID 01/05/22 01/05/22 History Current Medications: Active Medications Allopurinol (Allopurinol 300 Mg Tablet) 300 mg BY MOUTH DAILY [facility] Last Admin: 01/07/22 08:20 Dose: 300 mg Aspirin (Aspirin 81 Mg Chewable Tablet) 81 mg PO DAILY [facility] Last Admin: 01/07/22 08:19 Dose: 81 mg Atorvastatin Calcium (Atorvastatin 20 Mg Tablet) 20 mg PO HS [facility] Last Admin: 01/06/22 21:16 Dose: 20 mg Empagliflozin (Empagliflozin 10 Mg Tablet) 10 mg PO DAILY [facility] Last Admin: 01/07/22 08:20 Dose: 10 mg Enoxaparin Sodium (Enoxaparin 80 Mg/0.8 Ml Syringe) 80 mg SUB-Q Q12HR [facility] Last Admin: 01/07/22 08:20 Dose: 80 mg Furosemide (Furosemide Inj 40 Mg/4 Ml Vial) 40 mg IV PUSH DAILY [facility] Last Admin: 01/07/22 08:20 Dose: 40 mg Home Med (Home Med Anagrelide 1 Mg Capsule) 1 each PO BID [facility] Stop: 02/04/22 16:59 Last Admin: 01/07/22 08:21 Dose: 1 each Hydroxyurea (Hydroxyurea (*Chemo) 500 Mg Capsule) 1,000 mg PO Q48HR [facility] Last Admin: 01/07/22 08:20 Dose: 1,000 mg Azithromycin (Zithromax) 500 mg in 250 mls @ 250 mls/hr IVPB Q24H [facility] Last Admin: 01/07/22 08:19 Dose: 250 mls/hr Ceftriaxone Sodium/Dextrose (Rocephin 1 Gm/D5w 50 Ml) 1 gm in 50 mls @ 100 mls/hr IVPB DAILY [facility] Last Admin: 01/07/22 08:18 Dose: 100 mls/hr Ketorolac Tromethamine (Ketorolac 10 Mg Tablet) 10 mg PO TIDWM PRN PRN Reason: pain Lisinopril (Lisinopril 20 Mg Tablet) 20 mg PO DAILY [facility] Last Admin: 01/07/22 08:20 Dose: 20 mg Metoprolol Tartrate (Metoprolol Tartrate 12.5 Mg Tablet) 12.5 mg PO Q12HR [facility] Last Admin: 01/07/22 08:19 Dose: 12.5 mg Perflutren Lipid Microsphere (Perflutren Lipid Microspheres 1.5 Ml Vial Diluted To 10 Ml Total Volume) 0 ml IV PUSH ONCE PRN; Protocol PRN Reason: adequate visualization Tamsulosin HCl (Tamsulosin Hcl 0.4 Mg Capsule) 0.4 mg PO DAILY [facility] Last Admin: 01/07/22 08:20 Dose: 0.4 mg Vitamin B Complex (Vitamin B Complex Capsule) 1 cap PO DAILY [facility] Last Admin: 01/07/22 08:21 Dose: 1 cap Vitamin D (Cholecalciferol 1,000 Units Tablet) 4,000 units PO DAILY [facility] Last Admin: 01/07/22 08:20 Dose: 4,000 units Sedation/Anesthesia: No previous sedation/anesthesia problems (including family history). [facility] Past Medical History Medical History Aneurysm AAA REPAIR 2016 Arthritis Atrial fibrillation NEW ONSET 07/2019, SAW BPH (benign prostatic hyperplasia) Colon cancer COLON 2001, s/p COLON RESECTION HTN (hypertension) Overweight (BMI 25.0-29.9) Family History Family History Sibling Carcinoma of colon Social History Social History Smoking packs per day: 2 Smoking cigarettes per day:
--- NOTE | 2022-01-07 14:43 | PM.OP ---
Procedure Note - Brief Procedure Note - Brief Date of procedure: 01/07/22 Pre-op diagnosis: chf/elevated troponin New onset CHF, aortic stenosis Procedure performed: Conscious sedation Transesophageal echo Description of procedure: Uneventful procedure Surgeon: Rashmi Sharma MD Findings: Overall good left ventricular function Preliminary aortic valve area is 1.6 cm2
--- NOTE | 2022-01-07 14:48 | W.PM.PROC2 ---
Procedure Note - Detailed Date of Procedure 01/07/22 Pre-op Diagnosis chf/elevated troponin with a degree of aortic stenosis and disparate echo measurements of aortic stenosis Post-op Diagnosis Same Procedure Performed Conscious sedation Transesophageal echo Surgeon Rashmi Sharma MD Indications New onset of congestive heart failure with a degree of aortic stenosis, being evaluated by this study Findings Normal left ventricular systolic function, ejection fraction 60%, no segmental wall motion abnormalities noted. Left atrial enlargement Moderate aortic stenosis, aortic valve area 1.2-1.3 cm2. Functionally a bicuspid aortic valve with moderate calcification. [id number] mitral regurgitation Mild aortic atherosclerosis Description of Procedure Conscious sedation: Assessment: The patient has no history of anesthesia problems. The patient's oropharynx is clear. The patient was deemed to be a good candidate for conscious sedation. The patient had continuous hemodynamic and oximetric monitoring during the procedure. Start time: 1425 Completion time: 1441 Total conscious sedation time: 16 minutes Medications Used: Versed 2 mg, fentanyl 25 mcg IV push Trained observer: Mateus Felix RN Outcome: The patient tolerated the procedure well with no complications. Procedure: After informed consent the patient had Hurricaine spray the hypopharynx. The patient had conscious sedation as described above. The transesophageal echo probe was introduced in the esophagus without difficulty. Imaging was obtained in multiplane views. Agitated saline was injected to evaluate for intracardiac shunting. The patient tolerated the procedure well with no complications. Findings: The left atrium was mildly enlarged. There is no thrombus present in the left atrium or left atrial appendage. The atrial septum appeared intact. Mitral valve appeared normal, with no stenosis or prolapse. The left ventricle had had normal size and thickness with good contractility of all segments. The ejection fraction is estimated to be: 60%. The aortic root was normal. The aortic valve is moderately calcified and a functionally bileaflet as the left and non coronary cusps are nearly fused. Aortic valve area by planimetry was 1.2-1.3 cm2. Ascending aorta and aortic arch were normal, and descending thoracic aorta had mild atherosclerosis. The right atrium, tricuspid valve, right ventricle, pulmonic valve and pulmonic artery were all normal. There is no pericardial effusion. When agitated saline was injected intravenously there was no evidence of intracardiac shunting during normal respiration and cough. Colorflow Doppler Findings: Mild to moderate mitral regurgitation. In a degree of aortic stenosis is present as there is some color-flow aliasing through the valve. Urine Output 330
[2022-01-07] MEDS: ATORVASTATIN 20 MG TABLET PO (20:12)
[2022-01-08] VITALS (8 sets, daily range): BP systolic 90–104; BP diastolic 41–56; PULSE 88–116; RESP 16–32; TEMP 36.4–37.2; O2SAT 93–96
[2022-01-08 05:05] LABS: Immature Platelet Fraction Pct 17.6 % (0.9-11.2); Mean Corpuscular HGB Conc 29.7 g/dl (32-36); Mean Corpuscular Hemoglobin 21.2 pg (26-34); Mean Corpuscular Volume 71.3 fl (80-100); Platelet Count Result 907 k/mm3 (150-375); Red Blood Count 5.19 M/mm3 (4.6-6.20); Red Cell Distribution Width 29.5 % (11.5-14.5); White Blood Count 17.3 K/mm3 (4.5-10.0)
[2022-01-08 05:15] LABS: Alanine Aminotransferase 19 U/L (6-50); Albumin Level 3.7 g/dL (3.5-5.1); Alkaline Phosphatase 73 U/L (38-126); Anion Gap 5 mmol/L (8-16); Aspartate Amino Transferase 33 U/L (17-59); Bilirubin,Total 0.6 mg/dL (0.2-1.3); Blood Urea Nitrogen 31 mg/dL (9-20); Calcium 8.3 mg/dL (8.4-10.2); Carbon Dioxide 30 mmol/L (22-30); Chloride 103 mmol/L (98-107); Estimated CRCL calculation 34 ml/min; Estimated Glomerular Filt Rate 48; Glucose 92 mg/dL (65-110); Magnesium 2.4 mg/dL (1.6-2.3); Potassium 4.3 mmol/L (3.4-5.0); Sodium 138 mmol/L (137-145)
[2022-01-08 05:38] LABS: Anisocytosis 2+ (NORMAL); Atypical Lymphocytes Present; Band Neutrophils Percent 1 % (0-6); Basophils Absolute Manual 0.69 K/mm3 (0.0-0.1); Basophils Percent Manual 4 % (0-1); Eosinophils Absolute Manual 0.86 K/mm3 (0.02-0.5); Eosinophils Percent Manual 5 % (0-4); Hypochromasia 1+ (NORMAL); Lymphocytes Absolute Manual 0.51 K/mm3 (1.1-4.5); Metamyelocytes Percent 1 %; Monocytes Absolute Manual 0.17 K/mm3 (0.1-0.90); Monocytes Percent Manual 1 % (3-9); Neutrophils Absolute Manual 14.87 K/mm3 (1.3-6.7); Neutrophils Percent Manual 85 % (46-73); Ovalocytes 1+ (NORMAL); Platelet Estimate Increased (Adequate); Total Cells Counted 100
[2022-01-08] MEDS: CHOLECALCIFEROL 1,000 UNITS TABLET 4000 UNITS PO (09:11)
[2022-01-08] MEDS: TAMSULOSIN HCL 0.4 MG CAPSULE PO (09:12)
[2022-01-08] MEDS: VITAMIN B COMPLEX CAPSULE 1 CAP PO (09:12)
[2022-01-08] MEDS: ASPIRIN 81 MG CHEWABLE TABLET PO (09:12)
[2022-01-08] MEDS: METOPROLOL TARTRATE 12.5 MG TABLET PO ×2 (09:12→21:23)
[2022-01-08] MEDS: EMPAGLIFLOZIN 10 MG TABLET PO (09:13)
[2022-01-08] MEDS: allopurinoL 300 MG TABLET BY MOUTH (09:13)
--- NOTE | 2022-01-08 11:12 | PM.IMPN ---
Progress Note: A&P Assessment and Plan (1) CHF (congestive heart failure): Code(s): I50.9 - Heart failure, unspecified Status: Acute (2) Elevated troponin: Code(s): R77.8 - Other specified abnormalities of plasma proteins Status: Acute (3) BPH (benign prostatic hyperplasia): Code(s): N40.0 - Benign prostatic hyperplasia without lower urinary tract symptoms Status: Acute (4) Atrial fibrillation: Code(s): I48.91 - Unspecified atrial fibrillation Status: Acute (5) Urinary retention: Code(s): R33.9 - Retention of urine, unspecified Status: Acute (6) Leukocytosis: Code(s): D72.829 - Elevated white blood cell count, unspecified Status: Acute Plan # Shortness of breath/Palpitation EKG found to be sinus tachycardia. Continue on telemetry monitoring. Chest x-ray with congestive heart failure. Not hypoxic. Likely due to CHF exacerbation. Improved. Recheck chest x-ray 01/07/2022 with improved congestion. Continue diuresis. Renal function stable/improved. Will switch Lasix IV to oral # Acute on chronic congestive heart failure diastolic IV diuresis. BNP elevated at 2840 Cardiology consultation. Reorder echo with moderate aortic stenosis with no other valvular abnormality noted. He will need outpatient follow-up pain workup for his moderate aortic stenosis. Status post PADDY per Cardiology 01/07/2022: Good left ventricular function preliminary aortic valve area 1.6 sq cm suggestive of mild aortic stenosis Change IV Lasix to oral today # Elevated troponin start full-dose Lovenox. Initial troponin 0.209. On aspirin. Lipid profile LDL is 57. Started on atorvastatin. Ischemic evaluation per Cardiology. No prior history of ischemic heart disease. Elevated troponin could be related to his underlying atrial fibrillation and congestive heart failure. # Leukocytosis 26,000. Unclear etiology cover with Rocephin and azithromycin. Patient does have chronic leukocytosis due his underlying history of hematological disorder. Less likely to be infectious. Cultures remain negative. Has chronic leukocytosis. Will stop antibiotics today # CKD stage 3 creatinine 1.4 stable continue to monitor. Plan to see Dr. Prescott as an outpatient basis # Urinary retention acute placed Gutierrez. History of prostate problem in the past.. Consulted Urology. Appreciate his recommendations # hematuria noted today traumatic versus anticoagulation related. Will hold Lovenox given the fact that questionable atrial fibrillation. Patient continues to have hematuria. 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 Repeat echo 01/05/2022 with EF 50-55% grade 2 diastolic dysfunction basal inferoseptal hypokinesis moderate aortic valve stenosis underlying rhythm atrial fibrillation # Atrial fibrillation noted on echo. Telemetry currently reveals mild sinus tachycardia. Overnight telemetry review reveal intermittent atrial fibrillation. Currently on full-dose Lovenox. Consider to switch to Eliquis for paroxysmal atrial fibrillation. This could be the trigger for his congestive heart failure. Cardiology note reviewed regarding atrial fibrillation. Will hold Lovenox currently due to hematuria # DVT prophylaxis Lovenox currently on hold # Code status full code Subjective Date/time seen: 01/08/22 11:12 Interval history: HPI:86 year old male presenting the emergency department for evaluation for shortness of breath.? A shortness of breath started earlier today he tried laying down and tossed and turned all night which did help.? He got up eventually and that helped a little bit when he laid down again he got short of breath.? He denies any leg swelling or any chest pain.? He felt like his heart was racing he has been having u
--- NOTE | 2022-01-08 11:35 | PM.PNCARD ---
Progress Note: A&P Assessment and Plan (1) Aortic stenosis: Code(s): I35.0 - Nonrheumatic aortic (valve) stenosis Status: Acute Plan This is an 86-year-old man with chronic aortic valve stenosis that is being followed longitudinally in the office. There was some discrepancy in terms of exam and transthoracic echo regarding the severity of this. Torey yesterday confirms mild aortic valve stenosis. At this point he clearly does not require aortic valve replacement. From my perspective he can be discharged we will continue provide follow-up in the office longitudinally regarding his aortic valve stenosis. Billy Almanza MD [facility] Subjective Date/time seen: Date of service: 01/08/22 11:35 Interval history: HPI:86 year old male presenting the emergency department for evaluation for shortness of breath.? A shortness of breath started earlier today he tried laying down and tossed and turned all night which did help.? He got up eventually and that helped a little bit when he laid down again he got short of breath.? He denies any leg swelling or any chest pain.? He felt like his heart was racing he has been having urinary problem due to his enlarged prostate off and on and has been following up with his urologist.? He currently denies any abdominal pain or nausea vomiting.? He also denies any urinary symptoms.? 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 Denies any cough or fever chills.? In the ER he was noted to be tachycardic with sinus tachycardia.? His initial troponin was elevated at 0.209.? Chest x-ray with congestive changes.? He got a dose of Lasix.? He also had urinary retention when he hit medical floor here with 600 cc in his bladder on bladder scan.? He had a Gutierrez catheter placed.? He is seen after this and is currently doing and feeling a lot better.? He is breathing much better now. 01/08/2022: Follow-up after transesophageal echocardiogram yesterday. Patient is comfortable today and not experiencing any shortness of breath. Told the patient that TOREY results demonstrate mild aortic valve stenosis at this point he does not require aortic valve replacement. After a lengthy discussion I believe he understands that well. He is seeing Urology for evaluation because of gross hematuria noted in his Gutierrez catheter drainage. Exam Const: General: comfortable and no acute distress Other: Elderly gentleman comfortable no complaints at the moment HENMT: Mouth: Yes moist mucous membranes Eyes: Sclera: sclerae normal Neck: Neck: supple and no JVD Resp: Effort & Inspection: normal respiratory effort Auscultation: clear to auscultation bilaterally Cardio: Rate: regular rate Rhythm: regular rhythm Other: Grade 2/6 crescendo decrescendo murmur audible at the base without radiation no diastolic murmur. GI: GI Palp: Yes Soft to palpation Auscultation: normal bowel sounds Skin: General skin exam: normal color Extrem: General: normal to inspection Objective Data Vital Signs Vital Signs: Vital Signs - 24 hr 01/07/22 14:21 01/07/22 14:25 01/07/22 14:30 Temperature 37.3 C Pulse Rate 94 94 97 Respiratory Rate 24 H 21 H 22 H Blood Pressure 106/61 98/63 L 116/75 Pulse Oximetry 94 94 96 Oxygen Delivery Room Air Nasal Cannula Nasal Cannula Oxygen Flow Rate 3 3 01/07/22 14:35 01/07/22 14:40 01/07/22 14:51 Temperature Pulse Rate 97 97 104 H Respiratory Rate 22 H 21 H 31 H Blood Pressure 109/57 L 104/63 100/67 Pulse Oximetry 98 98 92 Oxygen Delivery Nasal Cannula Room Air Room Air Oxygen Flow Rate 3 01/07/22 15:05 01/07/22 14:55 01/07/22 17:01 Temperature 36.6 C Pulse Rate 98 99 Respiratory Rate 26 H 20 Blood Pressure 82/58 L 117/48 L Pulse Oximetry 93 94 96 Oxygen Delivery Room Air Room Air Oxygen Flow Rate 01/07/22 15:10 01/07/22 20:00 01/07/22 15:25 Temperature Pulse Rate 97 97 Respiratory Rate 24 H 24 H Blood Pressure 105/59 L 110/63 Pulse Oximetry
--- NOTE | 2022-01-08 11:38 | WPDUROPN2 ---
Progress Note: A&P Assessment and Plan (1) Urinary retention: Code(s): R33.9 - Retention of urine, unspecified Status: Acute Assessment and Plan: Overactive bladder medications have been stopped. He has had a procedure done on his prostate in the past. Plan was for voiding trial. This can be done at the discretion of the hospitalist team. If unable void please replace Gutierrez catheter and have him follow-up in the office (2) Gross hematuria: Code(s): R31.0 - Gross hematuria Status: Acute Assessment and Plan: I irrigated out his catheter. There is no clots. The blood the urine is likely a combination of anticoagulation, presence of Gutierrez catheter, BPH. You can proceed with a voiding trial as scheduled. I informed him he will likely have blood in the urine for several days. I encouraged increased hydration to dilute the urine. He should follow-up with Dr Ilene rivero Subjective Subjective Date/Time Seen: 01/08/22 11:38 This is a gentleman with BPH status post prostate procedure. He is anticoagulated. He has a Gutierrez catheter in place. I was asked to evaluate his hematuria. I irrigated his bladder. There is no clots. His urine is blood tinged but flows and irrigates freely. Exam Narrative: No acute distress. Normal phallus. Gutierrez in place. Blood-tinged urine. Irrigates freely Objective Data Vital Signs Vital Signs: Vital Signs - 24 hr 01/07/22 14:21 01/07/22 14:25 01/07/22 14:30 Temperature 99.2 F Pulse Rate 94 94 97 Respiratory Rate 24 H 21 H 22 H Blood Pressure 106/61 98/63 L 116/75 Pulse Oximetry 94 94 96 Oxygen Delivery Room Air Nasal Cannula Nasal Cannula Oxygen Flow Rate 3 3 01/07/22 14:35 01/07/22 14:40 01/07/22 14:51 Temperature Pulse Rate 97 97 104 H Respiratory Rate 22 H 21 H 31 H Blood Pressure 109/57 L 104/63 100/67 Pulse Oximetry 98 98 92 Oxygen Delivery Nasal Cannula Room Air Room Air Oxygen Flow Rate 3 01/07/22 15:05 01/07/22 14:55 01/07/22 17:01 Temperature 97.8 F Pulse Rate 98 99 Respiratory Rate 26 H 20 Blood Pressure 82/58 L 117/48 L Pulse Oximetry 93 94 96 Oxygen Delivery Room Air Room Air Oxygen Flow Rate 01/07/22 15:10 01/07/22 20:00 01/07/22 15:25 Temperature Pulse Rate 97 97 Respiratory Rate 24 H 24 H Blood Pressure 105/59 L 110/63 Pulse Oximetry 92 92 Oxygen Delivery Room Air Room Air Room Air Oxygen Flow Rate 01/07/22 15:45 01/07/22 16:15 01/08/22 00:00 Temperature 97.9 F Pulse Rate 98 97 88 Respiratory Rate 24 H 24 H 16 Blood Pressure 102/61 110/61 104/56 L Pulse Oximetry 92 93 95 Oxygen Delivery Room Air Room Air Oxygen Flow Rate 01/08/22 08:00 01/08/22 09:12 Temperature 97.6 F Pulse Rate 97 104 H Respiratory Rate 16 Blood Pressure 97/55 L Pulse Oximetry 96 Oxygen Delivery Oxygen Flow Rate Intake/Output Intake/Output: Intake & Output 01/05/22 01/06/22 01/07/22 01/08/22 23:59 23:59 23:59 23:59 Intake Total 1830 2110 2260 550 Output Total 2680 3450 4305 1250 [facility] [phone] Meds/Results Medications: Active Medications Generic Name Dose Route Start Last Admin Trade Name Realq PRN Reason Stop Dose Admin Allopurinol 300 mg 01/06/22 09:00 01/08/22 09:13 Allopurinol 300 Mg Tablet BY MOUTH 300 mg DAILY JEFF Administration Aspirin 81 mg 01/06/22 09:00 01/08/22 09:12 Aspirin 81 Mg Chewable Tablet PO 81 mg DAILY JEFF Administration Atorvastatin Calcium 20 mg 01/05/22 21:00 01/07/22 20:12 Atorvastatin 20 Mg Tablet PO 20 mg HS JEFF Administration Empagliflozin 10 mg 01/07/22 09:00 01/08/22 09:13 Empagliflozin 10 Mg Tablet PO 10 mg DAILY JEFF Administration Furosemide 40 mg 01/09/22 09:00 Furosemide 40 Mg Tablet PO DAILY JEFF Home Med 1 each 01/05/22 17:00 01/08/22 09:13 Home Med Anagrelide 1 Mg Capsule PO 02/04/22 16:59 1 each BID JEFF Administration Hydroxy
[2022-01-08] MEDS: ATORVASTATIN 20 MG TABLET PO (21:23)
[2022-01-09] VITALS: BP 100/55; PULSE 98; RESP 16; TEMP 36.3; O2SAT 95
[2022-01-09 04:55] VITALS: BP 98/50; PULSE 61; RESP 24; TEMP 36.4; O2SAT 95
[2022-01-09 05:56] LABS: Alanine Aminotransferase 23 U/L (6-50); Albumin Level 3.4 g/dL (3.5-5.1); Alkaline Phosphatase 70 U/L (38-126); Anion Gap 5 mmol/L (8-16); Aspartate Amino Transferase 39 U/L (17-59); Bilirubin,Total 0.4 mg/dL (0.2-1.3); Blood Urea Nitrogen 32 mg/dL (9-20); Carbon Dioxide 27 mmol/L (22-30); Chloride 107 mmol/L (98-107); Estimated CRCL calculation 34 ml/min; Estimated Glomerular Filt Rate 48; Glucose 99 mg/dL (65-110); Magnesium 2.5 mg/dL (1.6-2.3); Potassium 4.4 mmol/L (3.4-5.0); Sodium 139 mmol/L (137-145)
[2022-01-09 06:00] LABS: Basophils Absolute Auto 0.4 K/mm3 (0.0-0.1); Basophils Percent Auto 2.8 % (0.2-1.2); Eosinophils Absolute Auto 0.4 K/mm3 (0-0.3); Eosinophils Percent Auto 2.9 % (0-4.4); Hemoglobin 10.4 g/dL (14.0-18.0); Immature Granulocyte Absolute 1.18 K/mm3 (0.00-0.031); Immature Granulocyte Percent A 7.8 % (0-0.5); Immature Platelet Fraction Pct 15.6 % (0.9-11.2); Lymphocytes Absolute Auto 0.71 K/mm3 (0.9-3.2); Lymphocytes Percent Auto 4.7 % (18.3-44.2); Mean Corpuscular HGB Conc 29.7 g/dl (32-36); Mean Corpuscular Hemoglobin 21.4 pg (26-34); Monocytes Absolute Auto 0.7 K/mm3 (0.1-0.6); Monocytes Percent Auto 4.7 % (2.6-8.5); Neutrophils Absolute Auto 11.6 K/mm3 (1.3-6.7); Neutrophils Percent Auto 77.1 % (45.5-73.1); Nucleated Red Blood Cells Perc 0.1 % (0.0-0.2); Platelet Count Result 906 k/mm3 (150-375); Red Blood Count 4.86 M/mm3 (4.6-6.20); Red Cell Distribution Width 29.3 % (11.5-14.5); White Blood Count 15.1 K/mm3 (4.5-10.0)
[2022-01-09 07:22] LABS: Hyperchromasia 1+ (NORMAL); Large Platelets Present; Platelet Estimate Increased (Adequate)
[2022-01-09 07:23] LABS: Anisocytosis 1+ (NORMAL); Atypical Lymphocytes Present; Macrocytosis 1+ (NORMAL); Ovalocytes 1+ (NORMAL); Poikilocytosis 1+ (NORMAL)
[2022-01-09 08:00] VITALS: BP 111/58; PULSE 92; RESP 16; TEMP 36.3; O2SAT 95
[2022-01-09] MEDS: HYDROXYUREA (*CHEMO) 500 MG CAPSULE 1000 MG PO (10:07)
[2022-01-09] MEDS: CHOLECALCIFEROL 1,000 UNITS TABLET 4000 UNITS PO (10:07)
[2022-01-09 10:08] VITALS: PULSE 97
[2022-01-09] MEDS: FUROSEMIDE 40 MG TABLET PO (10:08)
[2022-01-09] MEDS: METOPROLOL TARTRATE 12.5 MG TABLET PO (10:08)
[2022-01-09] MEDS: VITAMIN B COMPLEX CAPSULE 1 CAP PO (10:08)
[2022-01-09] MEDS: allopurinoL 300 MG TABLET BY MOUTH (10:08)
[2022-01-09] MEDS: TAMSULOSIN HCL 0.4 MG CAPSULE PO (10:09)
[2022-01-09] MEDS: ASPIRIN 81 MG CHEWABLE TABLET PO (10:09)
[2022-01-09] MEDS: EMPAGLIFLOZIN 10 MG TABLET PO (10:10)
--- NOTE | 2022-01-09 12:23 | PM.DS ---
DS: Admitting Diagnosis Discharge Date 01/09/2022 Admitting Diagnosis shortness of breath DS: Discharge Diagnosis Discharge Diagnosis (1) CHF (congestive heart failure): Code(s): I50.9 - Heart failure, unspecified Status: Acute (2) Elevated troponin: Code(s): R77.8 - Other specified abnormalities of plasma proteins Status: Acute (3) BPH (benign prostatic hyperplasia): Code(s): N40.0 - Benign prostatic hyperplasia without lower urinary tract symptoms Status: Acute (4) Atrial fibrillation: Code(s): I48.91 - Unspecified atrial fibrillation Status: Acute (5) Urinary retention: Code(s): R33.9 - Retention of urine, unspecified Status: Acute (6) Leukocytosis: Code(s): D72.829 - Elevated white blood cell count, unspecified Status: Acute Plan # Shortness of breath/Palpitation EKG found to be sinus tachycardia. Continue on telemetry monitoring. Chest x-ray with congestive heart failure. Not hypoxic. Likely due to CHF exacerbation. Improved. Recheck chest x-ray 01/07/2022 with improved congestion. Continue diuresis. Renal function stable/improved. Will switch Lasix IV to oral which he is tolerating okay. Recheck BMP in 1 week # Acute on chronic congestive heart failure diastolic IV diuresis. BNP elevated at 2840 Cardiology consultation. Reorder echo with moderate aortic stenosis with no other valvular abnormality noted. He will need outpatient follow-up pain workup for his moderate aortic stenosis. Status post PADDY per Cardiology 01/07/2022: Good left ventricular function preliminary aortic valve area 1.6 sq cm suggestive of mild aortic stenosis IV Lasix changed to oral and will follow up with Cardiology on outpatient basis. # Elevated troponin started full-dose Lovenox. Initial troponin 0.209. On aspirin. Lipid profile LDL is 57. Started on atorvastatin. Ischemic evaluation per Cardiology. No prior history of ischemic heart disease. Elevated troponin could be related to his underlying atrial fibrillation and congestive heart failure. # Leukocytosis 26,000. Unclear etiology cover with Rocephin and azithromycin. Patient does have chronic leukocytosis due his underlying history of hematological disorder. Less likely to be infectious. Cultures remain negative. Has chronic leukocytosis. Events today his IV antibiotics were stopped # CKD stage 3 creatinine 1.4 stable continue to monitor. Plan to see Dr. Prescott as an outpatient basis # Urinary retention acute placed Gutierrez. History of prostate problem in the past.. Consulted Urology. Appreciate his recommendations # hematuria noted 01/07/2022 traumatic versus anticoagulation related. held Lovenox given the fact that questionable atrial fibrillation. Patient continues to have hematuria. urology evaluated and flushed and ultimately removed the Gutierrez catheter. 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 Repeat echo 01/05/2022 with EF 50-55% grade 2 diastolic dysfunction basal inferoseptal hypokinesis moderate aortic valve stenosis underlying rhythm atrial fibrillation # Atrial fibrillation noted on echo. Telemetry currently reveals mild sinus tachycardia. Overnight telemetry review reveal intermittent atrial fibrillation. Currently on full-dose Lovenox. Consider to switch to Eliquis for paroxysmal atrial fibrillation. This could be the trigger for his congestive heart failure. Cardiology note reviewed regarding atrial fibrillation in suggest no evidence of atrial fibrillation.. Held Lovenox currently due to hematuria. Since no atrial fibrillation no further need for anticoagulation chronically # DVT prophylaxis Lovenox currently on hold # Code status full code DS: Summary Hospital
== END 2022-01-09 13:40 | disposition home or self-care (01) | DRG 291 ==
LOC: ANHED 09:04 → ANHIMU 09:30
PROVIDERS: Internal Medicine Cardiovascular Disease; Admitting Provider Internal Medicine; Emergency Provider Emergency Medicine; PCP Internal Medicine; Visit Provider Internal Medicine
PROC: B24BZZ4 Ultrasonography of Heart with Aorta, Transesophageal (ICD-10-PCS; CPT 93312; principal; 2022-01-07 14:30)
DX: I13.0 Hypertensive heart and chronic kidney disease with heart failure and stage 1 through stage 4 chronic kidney disease, or unspecified chronic kidney disease (principal); I50.33 Acute on chronic diastolic (congestive) heart failure; N18.30 Chronic kidney disease, stage 3 unspecified; M19.90 Unspecified osteoarthritis, unspecified site; N40.0 Benign prostatic hyperplasia without lower urinary tract symptoms; I48.0 Paroxysmal atrial fibrillation; I35.0 Nonrheumatic aortic (valve) stenosis; N32.81 Overactive bladder; R33.8 Other retention of urine; R31.0 Gross hematuria; D47.3 Essential (hemorrhagic) thrombocythemia; D72.829 Elevated white blood cell count, unspecified; Z85.038 Personal history of other malignant neoplasm of large intestine; Z87.891 Personal history of nicotine dependence; Z79.82 Long term (current) use of aspirin
CPT/HCPCS: 36415; 71045; 71046; 80048; 80053; 80061; 81001; 83735; 83880; 84443; 84484; 85025; 85055; 85610; 85730; 87040; 93005; 93306; 93312; 93320; 93325; 96365; 96366; 96368; 96372; 96375; 99285; A9270; G0378; J0456; J0696; J1650; J1940; J2250; J2310; J3010; J7030; J7040

== ENCOUNTER 2022-01-14 10:41 | Observation (INO) | payer OTHER, MEDICARE, SELFPAY ==
[2022-01-14] VITALS (41 sets, daily range): BP systolic 77–123; BP diastolic 41–95; PULSE 72–101; RESP 12–27; TEMP 36.2–36.8; O2SAT 93–100; BMI 24.4; BMI 25.9
--- NOTE | ~2022-01-14 | XR_ITS ---
XR chest 1V portable 01/14/2022 11:56 Indication: Weakness. History of CHF. Procedure: AP portable chest Comparison: Comparison to multiple prior studies sequentially, with oldest reviewed study dated 04/03. Findings: There are synostosis between multiple left ribs. There are healed left rib fractures. Heart size normal. Godfrey rods partially visualized. No focal air space disease, pulmonary edema, pleu ral effusion or suspected pneumothorax. Impression: 1: No acute cardiopulmonary disease. Reviewed, dictated and finalized at location A. Impression: 1: No acute cardiopulmonary disease.
--- NOTE | 2022-01-14 11:17 | ECG_ITS ---
Measurements Intervals Winder Rate: 80 P: 28 MI: 189 QRS: 3 QRSD: 89 T: 82 QT: 376 QTc: 436 Interpretive Statements SINUS RHYTHM ATRIAL PREMATURE COMPLEX BORDERLINE T WAVE ABNORMALITY- HIGH LATERAL LEADS BASELINE ARTIFACT- I, II, III BORDERLINE ECG Electronically Signed On 01-14-2022 13:03:16 CDT by Roldan Bond D.O.
--- NOTE | 2022-01-14 11:20 | ED.GENADULT ---
HPI - General Adult General Chief complaint: Weakness Stated complaint: low blood pressure Time Seen by Provider: 01/14/22 10:52 History of Present Illness HPI narrative: 86-year-old male brought in to the emergency room secondary to weakness. Patient had recent hospitalization secondary congestive heart failure. Now he is extremely weak at home to the point that if he stands up he feels like he is dizzy and he might fall down. He is noted to be hypotensive. Reviewing the patient's discharge summary he is on Lasix 40 mg a day. He denies any swelling to his lower extremities. Denies any chest pain denies any shortness of breath. He has been taking all his medication as prescribed. Had no associated fevers. He states that prior to coming the hospital last time he was able get up and ambulate around the house without any difficulty. Now when he tries to get up and even get to the bathroom he feels like he is so weak that he might fall. He has not actually had any falls. He does have a walker at home. Related Data Home Medications Medication Instructions Recorded Confirmed aspirin 81 mg chewable tablet 81 mg PO DAILY 08/30/19 01/05/22 cholecalciferol (vitamin D3) 100 4,000 unit PO DAILY 08/30/19 01/05/22 mcg (4,000 unit) capsule (Vitamin D3) hydroxyurea 500 mg capsule 1,000 mg PO EVERY OTHER DAY 08/30/19 01/05/22 tamsulosin 0.4 mg capsule 0.4 mg PO DAILY 08/30/19 01/05/22 vitamin B complex (B 1 tablet PO DAILY 08/30/19 01/05/22 Complex-Vitamin B12 tablet) allopurinol 300 mg tablet 300 tablet DAILY 01/05/22 01/05/22 anagrelide 1 mg capsule 1 mg BID 01/05/22 01/05/22 ketorolac 10 mg tablet 10 mg PO TID 01/05/22 01/05/22 Allergies Allergy/AdvReac Type Severity Reaction Status Date / Time No Known Allergies Allergy Verified 01/05/22 06:30 Review of Systems Review of Systems: CONSTITUTIONAL: Denies fever, chills, or sweats. EYES: Denies visual changes, redness, or discharge. ENT: Denies rhinorrhea, congestion, sore throat, or otalgia. CARDIOVASCULAR: Denies chest pain, palpitations, or edema. RESPIRATORY: Denies cough or dyspnea. GASTROINTESTINAL: Denies abdominal pain, nausea, vomiting, or diarrhea. GENITOURINARY: Denies dysuria or hematuria. SKIN: Denies rash or itching. MUSCULOSKELETAL: Denies back pain, joint pain, or myalgia. NEUROLOGIC: Denies headache, numbness, or weakness. PSYCHIATRIC: Denies anxiety or depression. [facility] Past Medical History Medical History Aneurysm AAA REPAIR 2017 Arthritis Atrial fibrillation NEW ONSET 07/2019, SAW BPH (benign prostatic hyperplasia) Colon cancer COLON 2001, s/p COLON RESECTION HTN (hypertension) Overweight (BMI 25.0-29.9) Family History Family History Sibling Carcinoma of colon Social History Social History Smoking packs per day: 2 Smoking cigarettes per day: 40.0 Years smoked: 40 Smoking pack-years: 80.00 Smoking status: Former smoker Tobacco type: cigarettes Smoking end date: 07/11/94 Alcohol intake: former Substance use: never Gender identity (if verbalized by the patient): Male Spiritual care concerns: No Exam Narrative: APPEARANCE: Well appearing, no pain or distress, well-nourished. More discharge appears extremely fatigued Head normocephalic and atraumatic. EYES: PERRLA/EOMI, conjunctivae very clear. NOSE: Normal with no drainage EARS:TMS clear Laurie Gutierrez, with good light reflex. THROAT: Pharynx clear, no exudate. NECK: Supple. No adenopathy, no masses. RESPIRATORY: Airway patent, respirations nonlabored. Clear to auscultation bilaterally, no rales, rhonchi, wheezing. CARDIOVASCULAR: Regular rate and rhythm without murmurs, rubs, or gallops. ABDOMINAL: Soft, nontender, nondistended, no hepatosplenomegaly Musculoskeletal: Moves all extremities. Strengt
[2022-01-14] MEDS: SODIUM CHLORIDE 0.9% IV 500 ML 999 ML IV CONT (11:45)
--- NOTE | 2022-01-14 11:45 | PC.NURSE ---
PT DOZING OFF AND DESAT TO 87-88% RA. O2 APPLIED AT 2L FOR SUPPORT WHILE SLEEPING
[2022-01-14 11:47] LABS: Basophils Absolute Auto 0.5 K/mm3 (0.0-0.1); Basophils Percent Auto 3.1 % (0.2-1.2); Eosinophils Absolute Auto 0.3 K/mm3 (0-0.3); Eosinophils Percent Auto 1.7 % (0-4.4); Hematocrit 31.4 % (42.0-52.0); Hemoglobin 9.1 g/dL (14.0-18.0); Immature Granulocyte Absolute 1.07 K/mm3 (0.00-0.031); Immature Granulocyte Percent A 7.1 % (0-0.5); Lymphocytes Absolute Auto 1.06 K/mm3 (0.9-3.2); Lymphocytes Percent Auto 7.1 % (18.3-44.2); Mean Corpuscular Hemoglobin 21.8 pg (26-34); Mean Corpuscular Volume 75.1 fl (80-100); Monocytes Absolute Auto 0.8 K/mm3 (0.1-0.6); Monocytes Percent Auto 5.1 % (2.6-8.5); Neutrophils Absolute Auto 11.4 K/mm3 (1.3-6.7); Neutrophils Percent Auto 75.9 % (45.5-73.1); Nucleated Red Blood Cells Perc 0.3 % (0.0-0.2); Platelet Count Result 790 k/mm3 (150-375); Red Blood Count 4.18 M/mm3 (4.6-6.20)
[2022-01-14 12:14] LABS: Hypersegmented Neutrophils Present
[2022-01-14 12:15] LABS: Anisocytosis 1+ (NORMAL); Atypical Lymphocytes Present; Large Platelets Present; Ovalocytes 1+ (NORMAL); Poikilocytosis 1+ (NORMAL)
[2022-01-14 12:17] LABS: Platelet Estimate Increased (Adequate)
[2022-01-14 12:19] LABS: Alanine Aminotransferase 29 U/L (6-50); Albumin Level 3.4 g/dL (3.5-5.1); Alkaline Phosphatase 61 U/L (38-126); Anion Gap 5 mmol/L (8-16); Aspartate Amino Transferase 27 U/L (17-59); Bilirubin,Total 0.4 mg/dL (0.2-1.3); Blood Urea Nitrogen 50 mg/dL (9-20); Calcium 8.3 mg/dL (8.4-10.2); Carbon Dioxide 27 mmol/L (22-30); Chloride 105 mmol/L (98-107); Estimated CRCL calculation 25 ml/min; Estimated Glomerular Filt Rate 32; Glucose 151 mg/dL (65-110); NT Pro B Type Natriuretic Pept 2650 pg/mL (5-100); Sodium 137 mmol/L (137-145)
[2022-01-14 12:32] LABS: Troponin I 0.032 ng/mL (0.000-0.034)
[2022-01-14 12:56] LABS: SARS-CoV-2 RNA PCR Negative
[2022-01-14] MEDS: SODIUM CHLORIDE 0.9% IV 2,300 ML/1,000 ML BAG 999 ML IV CONT ×3 (13:14→15:48)
[2022-01-14 13:29] LABS: CRP 0.7 mg/dL (<1.0)
[2022-01-14 13:30] LABS: INR 1.3; Prothrombin Time 15.2 Seconds (11.1-14.7)
[2022-01-14 13:31] LABS: Partial Thromboplastin Time 37.5 SECONDS (22.3-36.8)
[2022-01-14 13:50] LABS: Appearance Urine Clear (Clear); Bilirubin Urine Negative (Negative); Color Urine Yellow (Yellow); Glucose Urine UA 1+ mg/dL (Negative); Ketones Urine Negative (Negative); Leukocyte Esterase Ur Negative LEU/UL (Negative); Nitrate Urine Negative (Negative); Protein Urine Negative (Negative); Urobilinogen Urine 0.2 mg/dL (<2.0)
[2022-01-14 13:54] LABS: Mucus Urine Rare /lpf; Squamous Epithelial Cell Urine Rare /hpf (Few); WBC Urine 0-3 /hpf
[2022-01-14 13:56] LABS: Add Urine Microscopic? YES; Blood Urine Trace-Intact (Negative)
--- NOTE | 2022-01-14 14:15 | PM.IMHP ---
H&P: HPI History of Present Illness Date/Time: 01/14/22 14:15 Chief Complaint: Weakness. Narrative: This is a very pleasant 86-year-old male with congestive heart failure, aortic stenosis, chronic kidney disease, paroxysmal atrial fibrillation, benign prostatic hyperplasia, essential thrombocytosis, and other comorbidities who presented to the ED from home for evaluation of weakness. He was admitted to the hospital couple of weeks ago with new onset congestive heart failure after presenting with shortness of breath. Echocardiogram at that time showed LV systolic function at the lower end of normal with superimposed basal inferoseptal hypokinesis and grade 2 diastolic dysfunction. He also had a PADDY for evaluation of aortic stenosis which was found to be moderate with an aortic valve area of 1.2 to 1.3 cm2. He was started on furosemide and metoprolol in addition to lisinopril that he was on at home and he was discharged feeling much better in regards to shortness of breath. It is my understanding that he had a couple of episodes of dizziness while in the hospital but it does not sound like he told anyone, and since that time he has had progressive weakness and frequent dizziness/lightheadedness with position changes. Blood pressures have been low at home, anywhere between the 70s to 90s systolic and he came in today for evaluation as he was feeling increasingly weak. Blood pressure was as low as 77/41 the emergency department and he was cautiously hydrated with improvement. His BUN and creatinine are elevated from his baseline and in this setting he is being admitted for further evaluation. Currently he is feeling better after receiving IV fluids. He has no specific concerns aside from the fact that he is hungry. Review of Systems Review of Systems: Twelve systems were reviewed. No fall or syncope. No cold or flu symptoms. No sick contacts. No chest pain or significant shortness of breath. He denies palpitations. No orthopnea, paroxysmal nocturnal dyspnea, or edema. Appetite has been good. No nausea, vomiting, or diarrhea. No dysuria. He has urinary frequency and also endorses nocturia which has been an ongoing problem for many years. At times he feels like he cannot empty his bladder and he reports having a Gutierrez catheter during his most recent stay due to retention. Except as documented, all other systems were reviewed and are negative. [facility] Past Medical History Medical History (Updated 01/14/22 @ 21:03 by Sary Ospina PA-C) Aortic stenosis Arthritis Basal cell carcinoma Benign prostatic hyperplasia Chronic kidney disease Diastolic congestive heart failure Echocardiogram in December 2021 showed low end of normal LV systolic function and diastolic dysfunction with superimposed basal inferoseptal hypokinesis. Essential thrombocytosis Glaucoma Hypertension Paroxysmal atrial fibrillation Vitamin D deficiency Surgical History Surgical History (Updated 01/14/22 @ 20:58 by Sary Ospina PA-C) History of abdominal aortic aneurysm repair (2016) History of basal cell carcinoma excision History of colon resection (2001) History of incisional hernia repair History of left hip replacement (2006) History of right hip replacement (2004) Family History Family History Sibling Carcinoma of colon Social History Social History (Updated 01/14/22 @ 20:59 by Sary Ospina PA-C) Social History: Surrogate decision maker: Vianey Carmen, spouse. Code status: Full code. Smoking packs per day: 2 Smoking cigarettes per day: 40.0 Years smoked: 40 Smoking pack-years: 80.00 Smoking status: Former smoker Tobacco type: cigarettes Second hand tobacco smoke exposure: No Smoking end date: 07/11/94 Alcohol intake: former Substance use: never Living arrangements: with family Additional living arrangements comments: The patient lives with his in [place]. Donte
[2022-01-14 14:16] LABS: Lactic Acid Reflex 1.2 mmol/L (0.7-2.0)
[2022-01-14 21:25] LABS: Hematocrit 30.9 % (42.0-52.0)
[2022-01-14 21:56] LABS: Iron 97 ug/dL (49-181)
[2022-01-14] MEDS: METOPROLOL TARTRATE 12.5 MG TABLET PO (21:59)
[2022-01-14 22:05] LABS: Percent Iron Saturation 37 % (20-50)
[2022-01-14 23:39] LABS: Folic Acid 9.3 ng/mL (2.76->20)
[2022-01-15] VITALS (13 sets, daily range): BP systolic 98–121; BP diastolic 41–58; PULSE 8–94; RESP 16–20; TEMP 36.3–36.7; O2SAT 95–99; BMI 25.3
[2022-01-15 05:03] LABS: Hematocrit 32.2 % (42.0-52.0); Hemoglobin 9.5 g/dL (14.0-18.0); Immature Platelet Fraction Pct 10.9 % (0.9-11.2); Mean Corpuscular HGB Conc 29.5 g/dl (32-36); Mean Corpuscular Volume 74.5 fl (80-100); Mean Platelet Volume 10.2 fl (7.4-10.4); Platelet Count Result 852 k/mm3 (150-375); Red Blood Count 4.32 M/mm3 (4.6-6.20); Red Cell Distribution Width 28.9 % (11.5-14.5); White Blood Count 13.3 K/mm3 (4.5-10.0)
[2022-01-15 05:15] LABS: Anion Gap 3 mmol/L (8-16); Blood Urea Nitrogen 41 mg/dL (9-20); Calcium 7.9 mg/dL (8.4-10.2); Carbon Dioxide 24 mmol/L (22-30); Chloride 110 mmol/L (98-107); Estimated CRCL calculation 32 ml/min; Estimated Glomerular Filt Rate 44; Glucose 85 mg/dL (65-110); Magnesium 2.4 mg/dL (1.6-2.3); Potassium 4.9 mmol/L (3.4-5.0); Sodium 137 mmol/L (137-145)
[2022-01-15] MEDS: METOPROLOL TARTRATE 12.5 MG TABLET PO (09:55)
[2022-01-15] MEDS: EMPAGLIFLOZIN 10 MG TABLET PO (09:56)
[2022-01-15] MEDS: TAMSULOSIN HCL 0.4 MG CAPSULE PO (09:56)
[2022-01-15] MEDS: ASPIRIN 81 MG CHEWABLE TABLET PO (09:56)
[2022-01-15] MEDS: CHOLECALCIFEROL 1,000 UNITS TABLET 4000 UNITS PO (09:56)
[2022-01-15] MEDS: VITAMIN B COMPLEX CAPSULE 1 CAP PO (09:56)
[2022-01-15] MEDS: allopurinoL 300 MG TABLET BY MOUTH (09:56)
--- NOTE | 2022-01-15 10:36 | PM.IMPN ---
Progress Note: A&P Assessment and Plan (1) Hypotension: Code(s): I95.9 - Hypotension, unspecified Status: Acute (2) Diastolic congestive heart failure: Code(s): I50.30 - Unspecified diastolic (congestive) heart failure Status: Acute (3) Acute on chronic kidney failure: Code(s): N17.9 - Acute kidney failure, unspecified; N18.9 - Chronic kidney disease, unspecified Status: Acute (4) Microcytic anemia: Code(s): D50.9 - Iron deficiency anemia, unspecified Status: Acute (5) Paroxysmal atrial fibrillation: Code(s): I48.0 - Paroxysmal atrial fibrillation Status: Acute (6) Benign prostatic hyperplasia: Code(s): N40.0 - Benign prostatic hyperplasia without lower urinary tract symptoms Status: Acute (7) Essential thrombocytosis: Code(s): D47.3 - Essential (hemorrhagic) thrombocythemia Status: Acute (8) Aortic stenosis: Code(s): I35.0 - Nonrheumatic aortic (valve) stenosis Status: Acute Plan Patient presents to emergency room with complaints weakness. Systolic blood pressure was in the 70-80 range. Patient is given IV fluids. Blood pressure improved. Lasix and lisinopril were held. He does have diastolic CHF. He was continued on his metoprolol and tolerated this well. Maintaining NSR by tele. Continue to hold Lisinopril. Consider adding lower dose lasix back in 1-2 days given the SILVESTRE. Creatinine 2.0 on admission felt related to SILVESTRE from dehydration. Cr better with IV fluids. Creatinine back to baseline. Repeat labs after discharge. White count was elevated at 15K felt to be chronic and has improved on no antibiotics. Chest x-ray was clear. UA was not consistent with UTI. Microcytic anemia noted. Iron studies normal. Folate and TSH normal. B12 pending. He has chronically elevated platelet count and within his baseline here. He follows with Dr. Lu. We continued his anagrelide and hydroxyurea. He has BPH and tamsulosin was continued. No clinical evidence of urine retention. Plan to monitor today. If he remains hemodynamically stable, plan discharge home later this afternoon. Subjective Date/time seen: 01/15/22 10:36 Interval history: 86yo male with history of CHF, , CKD, pAFib and essential thrombocytosis presents with weakness and found to be hypotensive. Assuming care. Chart reviewed. Patient feels well today. He has been up walking to the bathroom. No symptoms with walking to the bathroom. No nausea or vomiting. No chest pain, shortness of breath or lightheadedness. He has been compliant with his medications at home. Exam Narrative: AF 97.9 121/57 87 16 95% ra Gen - NARD Chest - CTA bilaterally, nml RR CV -irregularly irregular. 2/6 systolic murmur heard loudest in the rightUSB. Telemetry showing PVCs and PACs. Abd - Soft, NT/ND, Positive BS Ext - No pedal edema Psych - Nml mood and affect Skin - Warm and dry Objective Data Vital Signs Vital Signs: Vital Signs - 24 hr 01/14/22 10:47 01/14/22 10:51 01/14/22 11:19 Temperature 97.6 F Pulse Rate 82 85 Respiratory Rate 20 13 Blood Pressure 80/45 L Pulse Oximetry 95 93 Oxygen Delivery Room Air 01/14/22 11:34 01/14/22 11:42 01/14/22 11:45 Temperature Pulse Rate 81 78 78 Respiratory Rate 18 21 H 12 Blood Pressure 77/41 L Pulse Oximetry 93 97 97 Oxygen Delivery 01/14/22 11:46 01/14/22 12:00 01/14/22 12:01 Temperature Pulse Rate 77 76 76 Respiratory Rate 21 H 18 19 Blood Pressure 78/44 L 80/46 L Pulse Oximetry 99 100 Oxygen Delivery 01/14/22 12:15 01/14/22 12:16 01/14/22 12:30 Temperature Pulse Rate 72 82 81 Respiratory Rate 18 14 19 Blood Pressure 81/45 L Pulse Oximetry 100 99 96 Oxygen Delivery 01/14/22 12:45 01/14/22 12:46 01/14/22 13:01 Temperature Pulse Rate 75 81 74 Respiratory Rate 21 H 19 15 Blood Pressure 86/45 L 85/51 L Pulse Oximetry 96 98 98 Oxygen Delivery 0
[2022-01-15 12:36] LABS: Vitamin B12 > 1000.0 pg/mL (239-931)
--- NOTE | 2022-01-15 13:55 | PCNSR ---
On 01/15/22, the student, Андрей Jordan, provided care and completed [facility] documentation on this patient. I have reviewed the student's documentation and agree with the findings.
--- NOTE | 2022-01-15 15:13 | PM.DS ---
DS: Admitting Diagnosis Discharge Date 01/15/22 Admitting Diagnosis Hypotension. DS: Discharge Diagnosis Discharge Diagnosis (1) Hypotension: Code(s): I95.9 - Hypotension, unspecified Status: Acute (2) Diastolic congestive heart failure: Code(s): I50.30 - Unspecified diastolic (congestive) heart failure Status: Acute (3) Acute on chronic kidney failure: Code(s): N17.9 - Acute kidney failure, unspecified; N18.9 - Chronic kidney disease, unspecified Status: Acute (4) Microcytic anemia: Code(s): D50.9 - Iron deficiency anemia, unspecified Status: Acute (5) Paroxysmal atrial fibrillation: Code(s): I48.0 - Paroxysmal atrial fibrillation Status: Acute (6) Benign prostatic hyperplasia: Code(s): N40.0 - Benign prostatic hyperplasia without lower urinary tract symptoms Status: Acute (7) Essential thrombocytosis: Code(s): D47.3 - Essential (hemorrhagic) thrombocythemia Status: Acute (8) Aortic stenosis: Code(s): I35.0 - Nonrheumatic aortic (valve) stenosis Status: Acute DS: Summary Hospital Course Reason for hospitalization: 86yo male with history of CHF, , CKD, pAFib and essential thrombocytosis presents with weakness and found to be hypotensive. Please see H&P for details. Hospital Course: Patient presents to emergency room with complaints of weakness. Systolic blood pressure was in the 70-80 range. Patient was given IV fluids. Blood pressure improved. Lasix and lisinopril were held. He does have diastolic CHF. He was continued on his metoprolol and tolerated this well. He maintained NSR by telemetry. Creatinine 2.0 on admission felt related to SILVESTRE from dehydration. Cr better with IV fluids and now back to baseline. IV fluids stopped. White count was elevated at 15K felt to be chronic and has improved on no antibiotics. Chest x-ray was clear. UA was not consistent with UTI. Microcytic anemia noted. Iron studies normal. B12, Folate and TSH normal. He has chronically elevated platelet count and within his baseline here. He follows with Dr. Lu. We continued his anagrelide and hydroxyurea.He has BPH and tamsulosin was continued. No clinical evidence of urine retention. He remained hemodynamically stable off fluids on only on metoprolol. He had orthostatic vital signs showing low but stable; patient remained asymptomatic. Home today. Status at Discharge Cognitive/behavioral status at discharge: Stable Time Spent with Patient Time attestation: Total time spent providing and/or coordinating discharge services: 35 minutes Time spent: Greater than 30 minutes Exam Narrative: AF 97.9 121/57 87 16 95% ra Gen - NARD Chest - CTA bilaterally, nml RR CV -irregularly irregular. 2/6 systolic murmur heard loudest in the rightUSB. Telemetry showing PVCs and PACs. Abd - Soft, NT/ND, Positive BS Ext - No pedal edema Psych - Nml mood and affect Skin - Warm and dry DS: Data Data Completed and Pending Labs on day of discharge: Labs from last 24 hours 01/15/22 01/15/22 01/14/22 04:40 04:40 21:17 WBC 13.3 H RBC 4.32 L Hgb 9.5 L Hct 32.2 L MCV 74.5 L MCH 22.0 L MCHC 29.5 L RDW 28.9 H Plt Count 852 H MPV 10.2 % Immature Plt Fraction 10.9 Sodium 137 Potassium 4.9 Chloride 110 H Carbon Dioxide 24 Anion Gap 3 L BUN 41 H Creatinine 1.50 H Estim Creat Clear Calc 32 Estimated GFR 44 L Glucose 85 Calcium 7.9 L Magnesium 2.4 H Iron TIBC % Saturation Ferritin Vitamin B12 Folate TSH (Reflex) 2.300 01/14/22 01/14/22 01/14/22 21:17 21:17 21:16 WBC RBC Hgb 9.0 L Hct 30.9 L MCV MCH MCHC RDW Plt Count MPV % Immature Plt Fraction Sodium Potassium Chloride Carbon Dioxide Anion Gap BUN Creatinine Estim Creat Clear Calc Estimated GFR Glu
--- NOTE | 2022-01-26 10:14 | PC.NURSE ---
Blood cx are negative. Dr. John kemp.
== END 2022-01-15 17:03 | disposition home or self-care (01) ==
LOC: ANHED 11:44 → ANHIMU 15:15
PROVIDERS: Physician Assistant; Admitting Provider Internal Medicine; Emergency Provider Emergency Medicine; PCP Internal Medicine; Visit Provider Internal Medicine
DX: I95.9 Hypotension, unspecified (principal); N17.9 Acute kidney failure, unspecified; I13.0 Hypertensive heart and chronic kidney disease with heart failure and stage 1 through stage 4 chronic kidney disease, or unspecified chronic kidney disease; I50.30 Unspecified diastolic (congestive) heart failure; N18.9 Chronic kidney disease, unspecified; D50.9 Iron deficiency anemia, unspecified; D72.829 Elevated white blood cell count, unspecified; I48.0 Paroxysmal atrial fibrillation; R53.1 Weakness; I35.0 Nonrheumatic aortic (valve) stenosis; D47.3 Essential (hemorrhagic) thrombocythemia; N40.0 Benign prostatic hyperplasia without lower urinary tract symptoms; E55.9 Vitamin D deficiency, unspecified; H40.9 Unspecified glaucoma; Z85.038 Personal history of other malignant neoplasm of large intestine; Z90.49 Acquired absence of other specified parts of digestive tract; Z79.82 Long term (current) use of aspirin; Z87.891 Personal history of nicotine dependence; Z20.822 Contact with and (suspected) exposure to COVID-19
CPT/HCPCS: 36415; 71045; 80048; 80053; 81001; 82607; 82728; 82746; 83540; 83550; 83605; 83735; 83880; 84443; 84484; 85014; 85018; 85025; 85027; 85055; 85610; 85730; 86140; 87040; 93005; 96361; 96365; 99285; A9270; C9803; G0378; J0696; J7030; J7040; U0003; U0005

== ENCOUNTER 2022-01-16 08:26 | Outpatient (CLI) | payer OTHER, MEDICARE, SELFPAY ==
[2022-01-16 08:53] LABS: Basophils Absolute Auto 0.5 K/mm3 (0.0-0.1); Basophils Percent Auto 3.2 % (0.2-1.2); Eosinophils Absolute Auto 0.3 K/mm3 (0-0.3); Hematocrit 33.5 % (42.0-52.0); Hemoglobin 10.1 g/dL (14.0-18.0); Immature Granulocyte Percent A 6.5 % (0-0.5); Lymphocytes Absolute Auto 0.93 K/mm3 (0.9-3.2); Mean Corpuscular HGB Conc 30.1 g/dl (32-36); Mean Corpuscular Hemoglobin 22.3 pg (26-34); Mean Platelet Volume 10.5 fl (7.4-10.4); Monocytes Absolute Auto 0.8 K/mm3 (0.1-0.6); Monocytes Percent Auto 4.9 % (2.6-8.5); Neutrophils Percent Auto 77.4 % (45.5-73.1); Nucleated Red Blood Cells Perc 0.2 % (0.0-0.2); Platelet Count Result 872 k/mm3 (150-375); Red Blood Count 4.53 M/mm3 (4.6-6.20); Red Cell Distribution Width 29.4 % (11.5-14.5); White Blood Count 15.5 K/mm3 (4.5-10.0)
[2022-01-16 08:55] LABS: Anion Gap 6 mmol/L (8-16); Blood Urea Nitrogen 34 mg/dL (9-20); Calcium 8.5 mg/dL (8.4-10.2); Carbon Dioxide 28 mmol/L (22-30); Chloride 105 mmol/L (98-107); Estimated Glomerular Filt Rate 44; Glucose 140 mg/dL (65-110); Potassium 4.6 mmol/L (3.4-5.0); Sodium 139 mmol/L (137-145)
[2022-01-16 09:16] LABS: Anisocytosis 1+ (NORMAL); Ovalocytes 1+ (NORMAL); Platelet Estimate Increased (Adequate)
== END 2022-01-16 08:27 | disposition home or self-care (01) ==
PROVIDERS: PCP Internal Medicine; Visit Provider Internal Medicine
DX: I50.31 Acute diastolic (congestive) heart failure (principal); R31.0 Gross hematuria
CPT/HCPCS: 36415; 80048; 85025

== ENCOUNTER 2022-01-16 08:51 | Emergency (ER) | payer OTHER, MEDICARE, SELFPAY ==
[2022-01-16] VITALS (8 sets, daily range): BP systolic 92–103; BP diastolic 47–68; PULSE 95–102; RESP 13–26; TEMP 36.8; O2SAT 93–100
--- NOTE | 2022-01-16 09:24 | PC.NURSE ---
Contacting lab to see if the labs that were drawn outpatient can be changed to STAT status.
--- NOTE | 2022-01-16 09:55 | ED.DIZZY ---
HPI - Dizziness General Chief Complaint: Weakness Stated Complaint: hypotenstion Time Seen by Provider: 01/16/22 09:02 History of Present Illness HPI Narrative: 86-year-old male presents emergency room accompanied by his . I actually saw this patient a few days ago admitted to the hospital secondary to some persistent hypotension. At that time was also had of elevated white count and had fluid resuscitation done for possible sepsis. However it was determined that he is This chronic elevation his white blood cell count and there is no signs of sepsis. After stay in the hospital for approximately 24 to 36 hours he was able to be discharged to home care. It was felt that a lot of his hypotension was medication induced because he was on Lasix and lisinopril. Those medications are due to be held. Came back to the hospital today to have some outpatient lab work done. And the checked his blood pressure this morning the systolic pressure was about 88 and so she went to have it rechecked. They could not recheck in the lab so she came back down to the emergency room. His blood pressure at this time is running 98/47. His heart rates are approximately 95. He just has minimal symptoms associated with this. Advised the patient to call his regular physician to get a prompt follow-up. I printed the discharge instructions from when he left the hospital went through each one of the medications to make sure that is not taking the Lasix or the lisinopril. Related Data Home Medications Medication Instructions Recorded Confirmed aspirin 81 mg chewable tablet 81 mg PO DAILY 08/30/19 01/14/22 cholecalciferol (vitamin D3) 100 4,000 unit PO DAILY 08/30/19 01/14/22 mcg (4,000 unit) capsule (Vitamin D3) hydroxyurea 500 mg capsule 1,000 mg PO EVERY OTHER DAY 08/30/19 01/14/22 tamsulosin 0.4 mg capsule 0.4 mg PO DAILY 08/30/19 01/14/22 vitamin B complex (B 1 tablet PO DAILY 08/30/19 01/14/22 Complex-Vitamin B12 tablet) allopurinol 300 mg tablet 300 tablet DAILY 01/05/22 01/14/22 anagrelide 1 mg capsule 1 mg BID 01/05/22 01/14/22 Allergies Allergy/AdvReac Type Severity Reaction Status Date / Time No Known Allergies Allergy Verified 01/16/22 09:15 Review of Systems Review of Systems: CONSTITUTIONAL: Denies fever, chills, or sweats. EYES: Denies visual changes, redness, or discharge. ENT: Denies rhinorrhea, congestion, sore throat, or otalgia. CARDIOVASCULAR: Denies chest pain, palpitations, or edema. RESPIRATORY: Denies cough or dyspnea. GASTROINTESTINAL: Denies abdominal pain, nausea, vomiting, or diarrhea. GENITOURINARY: Denies dysuria or hematuria. SKIN: Denies rash or itching. MUSCULOSKELETAL: Denies back pain, joint pain, or myalgia. NEUROLOGIC: Denies headache, numbness, or weakness. Mild dizziness at times PSYCHIATRIC: Denies anxiety or depression. [facility]LY [facility] Past Medical History Medical History Aortic stenosis Arthritis Basal cell carcinoma Benign prostatic hyperplasia Chronic kidney disease Diastolic congestive heart failure Echocardiogram in December 2021 showed low end of normal LV systolic function and diastolic dysfunction with superimposed basal inferoseptal hypokinesis. Essential thrombocytosis Glaucoma Hypertension Paroxysmal atrial fibrillation Vitamin D deficiency Surgical History Surgical History History of abdominal aortic aneurysm repair (2016) History of basal cell carcinoma excision History of colon resection (2001) History of incisional hernia repair History of left hip replacement (2006) History of right hip replacement (2004) Family History Family History Sibling Carcinoma of colon Social History Social History Social History: Surrogate decision maker: Vianey Carmen, spouse. Code sta
== END 2022-01-16 10:08 | disposition home or self-care (01) ==
PROVIDERS: Emergency Provider Emergency Medicine; PCP Internal Medicine
DX: I95.9 Hypotension, unspecified (principal); I35.0 Nonrheumatic aortic (valve) stenosis; I13.0 Hypertensive heart and chronic kidney disease with heart failure and stage 1 through stage 4 chronic kidney disease, or unspecified chronic kidney disease; N18.9 Chronic kidney disease, unspecified; I50.30 Unspecified diastolic (congestive) heart failure; I48.0 Paroxysmal atrial fibrillation; N40.0 Benign prostatic hyperplasia without lower urinary tract symptoms; E55.9 Vitamin D deficiency, unspecified; H40.9 Unspecified glaucoma; Z85.828 Personal history of other malignant neoplasm of skin; Z87.891 Personal history of nicotine dependence; Z79.84 Long term (current) use of oral hypoglycemic drugs; Z79.82 Long term (current) use of aspirin
CPT/HCPCS: 99283

== ENCOUNTER 2022-01-22 07:37 | Outpatient (CLI) | payer OTHER, MEDICARE, SELFPAY ==
[2022-01-22 08:34] LABS: Anion Gap 2 mmol/L (8-16); Blood Urea Nitrogen 26 mg/dL (9-20); Calcium 8.6 mg/dL (8.4-10.2); Carbon Dioxide 30 mmol/L (22-30); Chloride 109 mmol/L (98-107); Estimated Glomerular Filt Rate 48; Glucose 101 mg/dL (65-110); Potassium 4.4 mmol/L (3.4-5.0); Sodium 141 mmol/L (137-145)
== END 2022-01-22 07:38 | disposition home or self-care (01) ==
PROVIDERS: PCP Internal Medicine; Visit Provider Internal Medicine
DX: N17.9 Acute kidney failure, unspecified (principal); N18.9 Chronic kidney disease, unspecified
CPT/HCPCS: 36415; 80048

== ENCOUNTER 2022-03-06 14:39 | Emergency (ER) | payer OTHER, MEDICARE, SELFPAY ==
--- NOTE | ~2022-03-06 | CT_ITS ---
EXAMINATION: CT pelvis wo con DATE: 03/06/2022 16:46 INDICATION: TECHNIQUE: Computed tomography (CT) of the pelvis was performed without intravenous contrast. Automat ed exposure control and iterative reconstruction technique were employed. The dose-length product was 670.79 mGy-cm. COMPARISON: CT abdomen pelvis 11/05/2015. FINDINGS: Incompletely visualized bilateral hip arthroplasties create metal artifact in the pelvis. V isualized portions are intact. No definite perihardware fracture. No osseous fracture. Osteopenia. Ao rtobifemoral graft. Incompletely visualized thoracolumbar fusion hardware. Surgically absent appendix . Diverticulosis without diverticulitis. Renal hypodensities that are too small to characterize. Punc hanley nonobstructive left renal calcification. Uncomplicated appearing rectal anastomosis. Bladder dis tention likely secondary to outlet compromise from prostatomegaly. IMPRESSION: Bilateral total hip arthroplasties without definite hardware-related complication. No osseous pelvic fracture detected. Reviewed, dictated and finalized at location K. IMPRESSION: Bilateral total hip arthroplasties without definite hardware-related complicati on. No osseous pelvic fracture detected.
--- NOTE | ~2022-03-06 | XR_ITS ---
EXAM: XR elbow LT min 3V DATE: 03/06/2022 17:26 HISTORY: LEFT ELBOW PAIN AFTER FALL. . COMPARISON: None available. FINDINGS: Decreased mineralization. No fracture or dislocation. No lytic or blastic lesion. Degenera tive changes in the elbow joint. No erosion or periosteal change. Possible soft tissue swelling and/l aceration. Displaced anterior fat pad. IMPRESSION: Left elbow joint effusion, which may herald the presence of an occult radial head fractur e. Reviewed, dictated and finalized at location K. IMPRESSION: Left elbow joint effusion, which may herald the presence of an occu lt radial head fracture.
--- NOTE | ~2022-03-06 | CT_ITS ---
EXAMINATION: CT brain wo con DATE: 03/06/2022 16:45 INDICATION: FALL. . TECHNIQUE: Computed tomography (CT) of the head was performed without intravenous contrast. The mA wa s adjusted according to patient size. Iterative reconstruction technique was employed. The dose-lengt h product was 605.33 mGy-cm. COMPARISON: None FINDINGS: No acute intracranial hemorrhage or extra-axial fluid collection. No hydrocephalus, mass, or herniation. No acute ischemic infarct. Unremarkable dural venous sinus attenuation. No acute osseous abnormality. Minimal right ethmoid air cell mucosal thickening. Trace right mastoid fluid, otherwise the aerated s paces are clear. Mild atrophy and chronic white matter change. Atherosclerotic intracranial calcification. Bilateral v ascular calcification. Bilateral lens replacements. IMPRESSION: No acute intracranial process. Reviewed, dictated and finalized at location K.
--- NOTE | ~2022-03-06 | XR_ITS ---
EXAM: XR forearm LT 2V DATE: 03/06/2022 16:47 HISTORY: FALL, BANDAGED LACERATION TO LEFT ELBOW. . COMPARISON: None available. FINDINGS: Decreased mineralization. Degenerative changes in the elbow and wrist. Possible displaceme nt of the anterior fat pad in the elbow. No definite acute fracture or dislocation. Olecranon entheso manolo. Old ulnar styloid fracture. IMPRESSION: Possible elbow joint effusion, recommend dedicated elbow radiographs for further evaluati on. Reviewed, dictated and finalized at location K. IMPRESSION: Possible elbow joint effusion, recommend dedicated elbow radiograph s for further evaluation.
--- NOTE | ~2022-03-06 | XR_ITS ---
EXAM: XR shoulder LT min 2V DATE: 03/06/2022 16:48 HISTORY: LATERAL LEFT SHOULDER PAIN AFTER FALL. . COMPARISON: CT chest, same date. FINDINGS: Osteopenia. Old left clavicular fracture with intact cerclage wires. The glenohumeral join t is aligned. Degenerative change in the acromioclavicular and glenohumeral joints. Slightly displace d triangular fragment off the medial aspect of the acromion likely extending to the AC joint, partial ly visualized prior CT with apparent osseous bridging, probably representing old fracture. IMPRESSION: No definite acute finding in the left shoulder. Slightly displaced medial condyle fractur e, likely chronic, unless accompanied by point tenderness at the AC joint. Reviewed, dictated and finalized at location K. IMPRESSION: No definite acute finding in the left shoulder. Slightly displaced medial condyle fracture, likely chronic, unless accompanied by point tenderness at the AC joint.
--- NOTE | ~2022-03-06 | CT_ITS ---
EXAMINATION: CT diagnostic chest wo con DATE: 03/06/2022 16:46 INDICATION: left melita-lateral ribs painful AFTER FALL. TECHNIQUE: Computed tomography (CT) of the chest was performed with 100 mL Omnipaque-350 intravenous contrast. Automated exposure control and iterative reconstruction technique were employed. The dose-l ength product was 468.29 mGy-cm. COMPARISON: None. FINDINGS: CHEST: Thoracic aorta: Mild arch ectasia. Moderate arch calcification.. Lung parenchyma and airways: Emphysematous and senescent changes. Bilateral dependent atelectasis. Thoracic inlet, axillae and chest wall: No thyroid or soft tissue mass. No axillary lymphadenopathy. Mediastinum: No mass or lymphadenopathy. Heart and pericardium: Normal heart size. No pericardial effusion. Aortic valve calcification. Coronary artery calcifications: Heavy. Pleura: No effusion or mass. Upper abdomen: Hepatosplenomegaly. Cholecystectomy. Right adrenal adenoma. Thoracic bones: Nondisplaced anterolateral rib fractures on the left at ribs 4 and 6. Nondisplaced po sterior left second rib fracture. Multiple old healed rib fractures. Incompletely visualized thoracol umbar fusion hardware. Visualized portions are intact. IMPRESSION: Nondisplaced anterolateral left fourth and sixth rib fractures. Nondisplaced left second posterior ri b fracture. No other acute traumatic finding in the chest. Reviewed, dictated and finalized at location K. IMPRESSION: Nondisplaced anterolateral left fourth and sixth rib fractures. Nondisplaced le ft second posterior rib fracture. No other acute traumatic finding in the chest .
[2022-03-06 14:50] VITALS: BP 151/81; PULSE 94; RESP 18; TEMP 36.6; O2SAT 97
--- NOTE | 2022-03-06 15:30 | ECG_ITS ---
Measurements Intervals [place] Rate: 102 P: 133 DC: 192 QRS: -33 QRSD: 99 T: 101 QT: 329 QTc: 429 Interpretive Statements SINUS TACHYCARDIA WITH OCCASIONAL VENTRICULAR PREMATURE COMPLEXES WITH OCCASIONAL SUPRAVENTRICULAR PREMATURE COMPLEXES INDETERMINATE AXIS ABNORMAL ECG Electronically Signed On 03-06-2022 17:20:47 CDT by Tonio Damon M.D.
[2022-03-06] MEDS: SODIUM CHLORIDE 0.9% IV 500 ML 999 ML IV CONT (15:54)
[2022-03-06] MEDS: ONDANSETRON INJ 4 MG/2 ML VIAL IV PUSH (15:55)
[2022-03-06 15:56] LABS: Hematocrit 37.7 % (37.0-46.0); Hemoglobin 11.3 g/dL (12.4-15.3); Immature Platelet Fraction Pct 10.6 % (1.0-7.0); Mean Corpuscular Hemoglobin 24.7 pg (27.0-31.0); Mean Corpuscular Volume 82.5 fL (78.0-102.0); Mean Platelet Volume 10.7 fl (8.7-11.0); Platelet Count Result 749 K/mm3 (150-420); Red Blood Count 4.57 M/mm3 (4.70-6.10); White Blood Count 18.9 K/mm3 (4.8-10.8)
[2022-03-06] MEDS: MORPHINE SULFATE (*CRX) 2 MG/ML INJ IV PUSH (15:56)
[2022-03-06 16:00] VITALS: BP 150/76; PULSE 88; RESP 16; O2SAT 97
[2022-03-06 16:14] LABS: Alanine Aminotransferase 16 U/L (16-63); Albumin Level 3.6 g/dL (3.4-5.0); Alkaline Phosphatase 60 U/L (46-116); Anion Gap 5 mmol/L (8-16); Aspartate Amino Transferase 20 U/L (15-37); Bilirubin,Total 0.7 mg/dL (0.00-1.00); Blood Urea Nitrogen 20 mg/dL (7-18); Calcium 8.7 mg/dL (8.5-10.1); Carbon Dioxide 26 mmol/L (21-32); Chloride 107 mmol/L (98-108); Estimated CRCL calculation 36 ml/min; Estimated Glomerular Filt Rate 56; Glucose 108 mg/dL (70-99); Lactic Acid Reflex 0.8 mmol/L (0.4-2.0); Osmolality Calculated 289 mOsm/kg (285-295); Sodium 138 mmol/L (136-145); Total Protein 6.5 g/dL (6.4-8.2); Troponin I 22.8 ng/L (0.00-60.4)
[2022-03-06 16:19] LABS: Band Neutrophils Percent 4 % (0-6); Basophils Absolute Manual 0.18 K/mm3 (0-0.1); Basophils Percent Manual 1 % (0-1); Eosinophils Absolute Manual 0.18 K/mm3 (0.02-0.5); Eosinophils Percent Manual 1 % (1-6); Lymphocytes Absolute Manual 1.51 K/mm3 (1.1-4.5); Lymphocytes Percent Manual 8 % (18-44); Monocytes Absolute Manual 0.56 K/mm3 (0.1-0.90); Monocytes Percent Manual 3 % (3-9); Neutrophils Absolute Manual 16.44 K/mm3 (1.3-6.7); Neutrophils Percent Manual 83 % (46-73); Platelet Estimate Increased (Adequate); Total Cells Counted 100
[2022-03-06 16:20] LABS: Anisocytosis 3+ (NORMAL); Large Platelets Present; Microcytosis 2+ (NORMAL); Poikilocytosis 3+ (NORMAL); Schistocytes 2+ (NORMAL)
[2022-03-06 17:07] LABS: Appearance Urine Clear (Clear); Bilirubin Urine Negative (Negative); Color Urine Yellow (Yellow); Glucose Urine UA Negative (Negative); Ketones Urine 1+ (Negative); Leukocyte Esterase Ur Trace (Negative); Nitrate Urine Negative (Negative); Protein Urine Negative (Negative); Urobilinogen Urine 0.2 mg/dL (0.2-1.0)
[2022-03-06 17:10] LABS: Add Urine Microscopic? YES; Blood Urine Trace-Intact (Negative)
[2022-03-06 17:12] VITALS: BP 140/87; PULSE 91; RESP 16; TEMP 36.6; O2SAT 99
[2022-03-06 17:18] LABS: Amorphous Sediment Urine Few; RBC Urine 0-2 /hpf (0-2); Squamous Epithelial Cell Urine Moderate /hpf (Few); WBC Clumps Urine Present /hpf
[2022-03-06 17:19] LABS: Bacteria Urine Trace /hpf; Mucus Urine Few /lpf
[2022-03-06] MEDS: ACETAMINOPHEN 325 MG TABLET 650 MG PO (17:22)
--- NOTE | 2022-03-06 18:26 | ED.FALL ---
HPI - Fall General Chief Complaint: Fall Stated Complaint: Left arm/shoulder/side pain-Fall Time Seen by Provider: 03/06/22 14:44 Source: patient and RN notes reviewed Mode of arrival: wheelchair Limitations: no limitations History of Present Illness HPI Narrative: Pt fell while doing yard work. denied chest pain, dizziness MD complaint: fall Onset (ago): hour(s) (2) Fall from: standing Fall witnessed: no Place fall occurred: street Loss of consciousness: none Prolonged down time: no Symptoms prior to fall: none Context: tripped/slipped Location of injury: chest Location of injury - extremities: Left: shoulder, elbow and forearm Severity: moderate Severity scale (1-10): 7 Quality: dull and aching Related Data Home Medications Medication Instructions Recorded Confirmed aspirin 81 mg chewable tablet 81 mg PO DAILY 08/30/19 03/06/22 cholecalciferol (vitamin D3) 100 4,000 unit PO DAILY 08/30/19 03/06/22 mcg (4,000 unit) capsule (Vitamin D3) vitamin B complex (B 1 tablet PO DAILY 08/30/19 03/06/22 Complex-Vitamin B12 tablet) allopurinol 300 mg tablet 300 tablet PO DAILY 01/05/22 03/06/22 anagrelide 1 mg capsule 1 mg PO BID 01/05/22 03/06/22 Allergies Allergy/AdvReac Type Severity Reaction Status Date / Time No Known Allergies Allergy Verified 03/06/22 15:13 Review of Systems Review of Systems: All systems reviewed & are unremarkable except as noted in HPI and below Constitutional: Constitutional: Reports no additional constitutional complaints Eyes: Eyes: Reports no additional eye complaints ENT: Reports system reviewed and no additional complaints, except as documented Cardiovascular: Cardiovascular: Reports no additional cardiovascular complaints Respiratory: Respiratory: Reports no additional respiratory complaints Gastrointestinal: Gastrointestinal: Reports no additional gastrointestinal complaints Musculoskeletal: Musculoskeletal: Reports arthralgias Integumentary/Breasts: Skin/Breast: Reports system reviewed and no additional complaints, except as docu Neurologic: Reports system reviewed and no additional complaints, except as documented Psychiatric: Psychiatric: Reports no additional psychiatric complaints Endocrine: Endocrine: Reports no additional endocrine complaints Hematologic/Lymphatic: Hematologic/Lymphatic: Reports no additional hematologic/lymphatic complaints Allergic/Immunologic: Allergic/Immunologic: Reports no additional allergic/immunologic complaints PMFSH Past Medical History Medical History Aortic stenosis Arthritis Basal cell carcinoma Benign prostatic hyperplasia Chronic kidney disease Closed fracture of left elbow Diastolic congestive heart failure Echocardiogram in December 2021 showed low end of normal LV systolic function and diastolic dysfunction with superimposed basal inferoseptal hypokinesis. Essential thrombocytosis Fracture of left shoulder Glaucoma Hypertension Paroxysmal atrial fibrillation Vitamin D deficiency Surgical History Surgical History History of abdominal aortic aneurysm repair (2016) History of basal cell carcinoma excision History of colon resection (2001) History of incisional hernia repair History of left hip replacement (2006) History of right hip replacement (2004) Family History Family History Sibling Carcinoma of colon Social History Social History Social History: Surrogate decision maker: Vianey RodriguezNeil, spouse. Code status: Full code. Smoking packs per day: 2 Smoking cigarettes per day: 40.0 Years smoked: 40 Smoking pack-years: 80.00 Smoking status: Former smoker Tobacco type: cigarettes Second hand tobacco smoke exposure: No Smoking end date: 07/11/94 Alcohol intake: former S
[2022-03-06 18:30] VITALS: BP 159/88; PULSE 89; RESP 18; TEMP 36.6; O2SAT 97
[2022-03-06] MEDS: cefTRIAXone 1 GM, LIDOCAINE HCL 1% LOCAL INJ 2.1 ML IM (18:41)
== END 2022-03-06 18:47 | disposition home or self-care (01) ==
PROVIDERS: Emergency Provider Emergency Medicine; PCP Internal Medicine
DX: N39.0 Urinary tract infection, site not specified (principal); S42.92XA Fracture of left shoulder girdle, part unspecified, initial encounter for closed fracture; S42.402A Unspecified fracture of lower end of left humerus, initial encounter for closed fracture; S22.32XA Fracture of one rib, left side, initial encounter for closed fracture; S51.812A Laceration without foreign body of left forearm, initial encounter; W19.XXXA Unspecified fall, initial encounter; I12.9 Hypertensive chronic kidney disease with stage 1 through stage 4 chronic kidney disease, or unspecified chronic kidney disease; N18.9 Chronic kidney disease, unspecified; I48.0 Paroxysmal atrial fibrillation; E55.9 Vitamin D deficiency, unspecified; Z87.891 Personal history of nicotine dependence
CPT/HCPCS: 36415; 70450; 71250; 72192; 73030; 73080; 73090; 80053; 81001; 83605; 84484; 85025; 85055; 93005; 96361; 96372; 96374; 96375; 99284; A4565; A9270; J0696; J2270; J2405; J7040

== ENCOUNTER 2022-04-05 07:59 | Outpatient (CLI) | payer OTHER, MEDICARE, SELFPAY ==
--- NOTE | ~2022-04-05 | XR_ITS ---
EXAMINATION: XR elbow LT min 3V DATE: 04/05/2022 08:51 INDICATION: Left elbow pain TECHNIQUE: Anteroposterior, oblique and lateral views of the left elbow were obtained. COMPARISON: 03/06/2022. FINDINGS: Bone alignment is normal. No fracture is identified. An elbow joint effusion is present. 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 Posterior soft tissue swelling is present. IMPRESSION: 1. Persistent elbow joint effusion which could reflect radiographically occult fracture. Reviewed, dictated and finalized at location A.
--- NOTE | ~2022-04-05 | XR_ITS ---
EXAMINATION: XR shoulder LT min 2V INDICATION: Left shoulder pain TECHNIQUE: Four views of the left shoulder are submitted. COMPARISON: 03/06/2022 FINDINGS: No acute fracture is identified. There is an old healed fracture of the mid clavicle. There is moderate osteoarthritis of the glenohumeral joint and mild osteoarthritis of the acromioclavicula r joint. Healed left rib fractures are also noted. There are surgical changes in the thoracic spine. Soft tissues are unremarkable. IMPRESSION: 1. No acute osseous abnormality. Reviewed, dictated and finalized at location A.
== END 2022-04-05 08:00 | disposition home or self-care (01) ==
LOC: CHSIMG 08:01
PROVIDERS: PCP Internal Medicine; Visit Provider Orthopaedic Surgery
DX: M25.522 Pain in left elbow (principal); M25.512 Pain in left shoulder
CPT/HCPCS: 73030; 73080

== ENCOUNTER 2022-04-07 08:18 | Outpatient (CLI) | payer OTHER, MEDICARE, SELFPAY ==
[2022-04-07 08:38] LABS: Basophils Absolute Auto 0.4 K/mm3 (0.0-0.1); Basophils Percent Auto 2.6 % (0.2-1.2); Eosinophils Absolute Auto 0.4 K/mm3 (0-0.3); Eosinophils Percent Auto 2.7 % (0-4.4); Hematocrit 40.9 % (42.0-52.0); Hemoglobin 12.2 g/dL (14.0-18.0); Immature Granulocyte Absolute 0.87 K/mm3 (0.00-0.031); Immature Granulocyte Percent A 5.5 % (0-0.5); Immature Platelet Fraction Pct 13.8 % (0.9-11.2); Lymphocytes Absolute Auto 0.63 K/mm3 (0.9-3.2); Mean Corpuscular HGB Conc 29.8 g/dl (32-36); Mean Corpuscular Hemoglobin 24.8 pg (26-34); Mean Corpuscular Volume 83.1 fl (80-100); Monocytes Absolute Auto 0.8 K/mm3 (0.1-0.6); Monocytes Percent Auto 4.7 % (2.6-8.5); Neutrophils Absolute Auto 12.8 K/mm3 (1.3-6.7); Neutrophils Percent Auto 80.5 % (45.5-73.1); Nucleated Red Blood Cells Perc 0.3 % (0.0-0.2); Platelet Count Result 757 k/mm3 (150-375); Red Blood Count 4.92 M/mm3 (4.6-6.20); Red Cell Distribution Width 27.4 % (11.5-14.5); White Blood Count 15.9 K/mm3 (4.5-10.0)
[2022-04-07 08:40] LABS: Blood Urea Nitrogen 21 mg/dL (8-26); Carbon Dioxide 28 mmol/L (22-30); Chloride 104 mmol/L (98-109); Estimated Glomerular Filt Rate 52; Glucose 131 mg/dL (70-105); Ionized Calcium (POC) 1.19 mmol/L (1.11-1.31); Potassium 4.1 mmol/L (3.5-4.9); Sodium 143 mmol/L (138-146)
[2022-04-07 08:41] LABS: Platelet Estimate Increased (Adequate)
[2022-04-07 08:42] LABS: Hypochromasia 1+ (NORMAL); Ovalocytes 1+ (NORMAL); Poikilocytosis 1+ (NORMAL); Schistocytes None Seen (NORMAL)
== END 2022-04-07 08:19 | disposition home or self-care (01) ==
PROVIDERS: PCP Internal Medicine; Visit Provider Internal Medicine Hematology & Oncology
DX: D47.3 Essential (hemorrhagic) thrombocythemia (principal)
CPT/HCPCS: 36415; 80047; 85025; 85055

== ENCOUNTER 2022-05-19 16:53 | Emergency (ER) | payer OTHER, MEDICARE, SELFPAY ==
--- NOTE | 2022-05-19 17:43 | PC.NURSE ---
patient left with out being seen
== END 2022-05-19 17:30 | disposition left against medical advice (07) ==
LOC: CHSED 05-20 07:53
PROVIDERS: Emergency Provider Family Medicine; PCP Internal Medicine
DX: Z53.8 Procedure and treatment not carried out for other reasons (principal)
CPT/HCPCS: 99199

== ENCOUNTER 2022-05-20 11:15 | Outpatient (CLI) | payer OTHER, MEDICARE, SELFPAY ==
--- NOTE | ~2022-05-20 | XR_ITS ---
EXAMINATION: XR elbow LT min 3V DATE: 05/20/2022 11:42 INDICATION: Left elbow pain TECHNIQUE: Anteroposterior, two oblique and lateral views of the left elbow were obtained. COMPARISON: 04/05/2022 FINDINGS: There are no productive changes of bony healing. The previously described elbow joint effus ion is nearly completely resolved. 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 There is do rsal soft tissue swelling overlying the olecranon. IMPRESSION: 1. Near complete resolution of elbow joint effusion without acute or healing osseous abnormality iden tified. 2. Posterior soft tissue swelling over the olecranon. Reviewed, dictated and finalized at location B. PER FEEDER IMPRESSION: 1. Near complete resolution of elbow joint effusion without acute or healing os seous abnormality identified. 2. Posterior soft tissue swelling over the olecranon.
== END 2022-05-20 11:16 | disposition home or self-care (01) ==
PROVIDERS: PCP Internal Medicine; Visit Provider Internal Medicine
DX: M25.522 Pain in left elbow (principal)
CPT/HCPCS: 73080

== ENCOUNTER 2022-06-08 09:48 | Outpatient (CLI) | payer OTHER, MEDICARE, SELFPAY ==
[2022-06-08 10:10] LABS: Hematocrit 38.7 % (42.0-52.0); Hemoglobin 11.6 g/dL (14.0-18.0); Mean Corpuscular Hemoglobin 23.9 pg (26-34); Mean Corpuscular Volume 79.6 fl (80-100); Mean Platelet Volume 10.9 fl (7.4-10.4); Platelet Count Result 780 k/mm3 (150-375); Red Blood Count 4.86 M/mm3 (4.6-6.20); Red Cell Distribution Width 26.9 % (11.5-14.5); White Blood Count 18.3 K/mm3 (4.5-10.0)
[2022-06-08 10:25] LABS: Band Neutrophils Percent 2 % (0-6); Lymphocytes Absolute Manual 0.73 K/mm3 (1.1-4.5); Monocytes Absolute Manual 0.54 K/mm3 (0.1-0.90); Monocytes Percent Manual 3 % (3-9); Neutrophils Absolute Manual 17.01 K/mm3 (1.3-6.7); Neutrophils Percent Manual 91 % (46-73); Platelet Estimate Increased (Adequate); Schistocytes None Seen (NORMAL); Total Cells Counted 100
[2022-06-08 10:26] LABS: Ovalocytes 1+ (NORMAL); Poikilocytosis 1+ (NORMAL)
[2022-06-08 11:08] LABS: INR 1.3; Prothrombin Time 15.2 Seconds (11.1-14.7)
[2022-06-08 11:09] LABS: Fibrinogen 475 mg/dl (215-510); Partial Thromboplastin Time 41.3 SECONDS (22.3-36.8)
[2022-06-08 11:12] LABS: Anion Gap 9 mmol/L (8-16); Blood Urea Nitrogen 23 mg/dL (9-20); Calcium 8.5 mg/dL (8.4-10.2); Carbon Dioxide 28 mmol/L (22-30); Chloride 104 mmol/L (98-107); Estimated Glomerular Filt Rate 57; Glucose 113 mg/dL (65-110); Potassium 4.1 mmol/L (3.4-5.0); Sodium 141 mmol/L (137-145)
== END 2022-06-08 09:49 | disposition home or self-care (01) ==
PROVIDERS: PCP Internal Medicine; Visit Provider Internal Medicine Hematology & Oncology
DX: D47.3 Essential (hemorrhagic) thrombocythemia (principal)
CPT/HCPCS: 36415; 80048; 85025; 85240; 85245; 85246; 85247; 85384; 85610; 85730

== ENCOUNTER 2022-06-15 14:53 | Outpatient (CLI) | payer OTHER, MEDICARE, SELFPAY ==
--- NOTE | ~2022-06-15 | XR_ITS ---
XR chest 2V 06/15/2022 15:36 Indication: Productive cough and drainage. Procedure: PA and lateral views of the chest Comparison: Comparison to multiple prior studies sequentially, with oldest reviewed study dated 11/2015. Findings: The lungs are hyperinflated which is consistent with, but not diagnostic of chronic obstruc tive pulmonary disease. No focal air space disease, pulmonary edema, pleural effusion or suspected pn eumothorax. There are Godfrey rods overlying the lower thoracic spine. There are multiple healed l eft rib fractures. Impression: 1: No acute cardiopulmonary disease. Reviewed, dictated and finalized at location A. OM PAINTER Impression: 1: No acute cardiopulmonary disease.
[2022-06-15 15:50] LABS: Hematocrit 41.9 % (37.0-46.0); Hemoglobin 12.3 g/dL (12.4-15.3); Immature Platelet Fraction Pct 8.7 % (1.0-7.0); Mean Corpuscular HGB Conc 29.4 g/dL (32.0-36.0); Mean Corpuscular Hemoglobin 23.2 pg (27.0-31.0); Mean Corpuscular Volume 78.9 fL (78.0-102.0); Mean Platelet Volume 10.6 fl (8.7-11.0); Platelet Count Result 1257 K/mm3 (150-420); Red Blood Count 5.31 M/mm3 (4.70-6.10); Red Cell Distribution Width 27.2 % (11.6-14.4)
[2022-06-15 15:58] LABS: White Blood Count 25.1 K/mm3 (4.8-10.8)
[2022-06-15 16:08] LABS: Alanine Aminotransferase 18 U/L (16-63); Albumin Level 3.6 g/dL (3.4-5.0); Alkaline Phosphatase 79 U/L (46-116); Anion Gap 8 mmol/L (8-16); Aspartate Amino Transferase 15 U/L (15-37); Bilirubin,Total 0.5 mg/dL (0.00-1.00); Blood Urea Nitrogen 21 mg/dL (7-18); Calcium 9.2 mg/dL (8.5-10.1); Carbon Dioxide 31 mmol/L (21-32); Chloride 105 mmol/L (98-108); Estimated Glomerular Filt Rate 51; Glucose 103 mg/dL (70-99); Osmolality Calculated 301 mOsm/kg (285-295); Potassium 4.6 mmol/L (3.5-5.1); Sodium 144 mmol/L (136-145); Total Protein 7.3 g/dL (6.4-8.2)
[2022-06-15 16:55] LABS: Band Neutrophils Percent 3 % (0-6); Basophils Absolute Manual 0.25 K/mm3 (0-0.1); Basophils Percent Manual 1 % (0-1); Eosinophils Percent Manual 2 % (1-6); Lymphocytes Absolute Manual 0.75 K/mm3 (1.1-4.5); Lymphocytes Percent Manual 3 % (18-44); Metamyelocytes Percent 3 %; Monocytes Absolute Manual 0.75 K/mm3 (0.1-0.90); Monocytes Percent Manual 3 % (3-9); Myelocytes Percent 5 %; Neutrophils Absolute Manual 20.83 K/mm3 (1.3-6.7); Neutrophils Percent Manual 80 % (46-73); Total Cells Counted 100
[2022-06-15 16:56] LABS: Platelet Estimate Increased (Adequate)
== END 2022-06-15 14:54 | disposition home or self-care (01) ==
LOC: CHSLAB 14:56
PROVIDERS: PCP Internal Medicine; Visit Provider Internal Medicine
DX: R05.9 Cough, unspecified (principal)
CPT/HCPCS: 36415; 71046; 80053; 85025; 85055; 87040

== ENCOUNTER 2022-06-21 09:20 | Outpatient (CLI) | payer OTHER, MEDICARE, SELFPAY ==
[2022-06-21 09:58] LABS: Basophils Absolute Auto 0.7 K/mm3 (0.0-0.1); Basophils Percent Auto 3.1 % (0.2-1.2); Eosinophils Absolute Auto 0.1 K/mm3 (0-0.3); Eosinophils Percent Auto 0.3 % (0-4.4); Hematocrit 40.8 % (42.0-52.0); Hemoglobin 12.2 g/dL (14.0-18.0); Immature Granulocyte Absolute 2.37 K/mm3 (0.00-0.031); Immature Granulocyte Percent A 10.3 % (0-0.5); Lymphocytes Percent Auto 4.4 % (18.3-44.2); Mean Corpuscular HGB Conc 29.9 g/dl (32-36); Mean Corpuscular Hemoglobin 23.5 pg (26-34); Mean Corpuscular Volume 78.5 fl (80-100); Mean Platelet Volume 9.9 fl (7.4-10.4); Monocytes Absolute Auto 1.2 K/mm3 (0.1-0.6); Monocytes Percent Auto 5.4 % (2.6-8.5); Neutrophils Absolute Auto 17.6 K/mm3 (1.3-6.7); Neutrophils Percent Auto 76.5 % (45.5-73.1); Nucleated Red Blood Cells Perc 0.2 % (0.0-0.2); Platelet Count Result 1097 k/mm3 (150-375); Red Cell Distribution Width 27.2 % (11.5-14.5)
[2022-06-21 10:07] LABS: Hypochromasia 1+ (NORMAL); Platelet Estimate Increased (Adequate); Schistocytes None Seen (NORMAL)
[2022-06-21 10:08] LABS: Anisocytosis 1+ (NORMAL); Ovalocytes 1+ (NORMAL); Poikilocytosis 1+ (NORMAL)
== END 2022-06-21 09:21 | disposition home or self-care (01) ==
LOC: ANHLAB 09:21
PROVIDERS: PCP Internal Medicine; Visit Provider Internal Medicine Hematology & Oncology
DX: D47.3 Essential (hemorrhagic) thrombocythemia (principal)
CPT/HCPCS: 36415; 85025

== ENCOUNTER 2022-06-24 01:00 | Emergency (ER) | payer OTHER, MEDICARE, SELFPAY ==
[2022-06-24 01:06] VITALS: BP 128/77; PULSE 100; RESP 16; O2SAT 100
--- NOTE | 2022-06-24 01:20 | ED.EPISTAXIS ---
HPI - Epistaxis General Chief complaint: Epistaxis Stated complaint: epitaxis Time Seen by Provider: 06/24/22 01:10 Source: patient Mode of arrival: ambulatory Limitations: no limitations History of Present Illness HPI Narrative: 86-year-old male presents today with complaints of bleeding from a wound to his nose. Patient in May had surgery to remove cancer from his nose and has intermittently had some bleeding issues. Patient has had sutures put in his nares due to bleeding. Patient saw Dr. Tao at [place] with original surgery. Patient states this evening he was gently cleaning his nose when it started bleeding. He denies any anticoagulant usage. Denies any lightheadedness, dizziness, chest pain. Wound noted to nose with bleeding currently not under control. Related Data Home Medications Medication Instructions Recorded Confirmed aspirin 81 mg chewable tablet 81 mg PO DAILY 08/30/19 04/05/22 cholecalciferol (vitamin D3) 100 4,000 unit PO DAILY 08/30/19 04/05/22 mcg (4,000 unit) capsule (Vitamin D3) vitamin B complex (B 1 tablet PO DAILY 08/30/19 04/05/22 Complex-Vitamin B12 tablet) allopurinol 300 mg tablet 300 tablet PO DAILY 01/05/22 04/05/22 anagrelide 1 mg capsule 1 mg PO BID 01/05/22 04/05/22 Allergies Allergy/AdvReac Type Severity Reaction Status Date / Time No Known Allergies Allergy Verified 04/05/22 09:03 Review of Systems Review of Systems: CONSTITUTIONAL: Denies fever, chills, or sweats. EYES: Denies visual changes, redness, or discharge. ENT: Bleeding from wound on nose. Denies rhinorrhea, congestion, sore throat, or otalgia. CARDIOVASCULAR: Denies chest pain, palpitations, or edema. RESPIRATORY: Denies cough or dyspnea. SKIN: Denies rash or itching. [facility] Past Medical History Medical History Acromioclavicular (joint) (ligament) sprain Aortic stenosis Arthritis Basal cell carcinoma Benign prostatic hyperplasia Chronic kidney disease Closed fracture of left elbow Diastolic congestive heart failure Echocardiogram in December 2021 showed low end of normal LV systolic function and diastolic dysfunction with superimposed basal inferoseptal hypokinesis. Elbow abrasion Essential thrombocytosis Fracture of left shoulder Glaucoma Hypertension Left elbow pain Left shoulder pain Left wrist pain Paroxysmal atrial fibrillation Rib fractures Vitamin D deficiency Surgical History Surgical History History of abdominal aortic aneurysm repair (2017) History of basal cell carcinoma excision History of colon resection (2001) History of incisional hernia repair History of left hip replacement (2006) History of right hip replacement (2004) Family History Family History Sibling Carcinoma of colon Social History Social History Social History: Surrogate decision maker: Vianey Carmen, spouse. Code status: Full code. Smoking packs per day: 2 Smoking cigarettes per day: 40.0 Years smoked: 40 Smoking pack-years: 80.00 Smoking status: Former smoker Tobacco type: cigarettes Second hand tobacco smoke exposure: No Smoking end date: 07/11/94 Alcohol intake: former Substance use: never Additional living arrangements comments: The patient lives with his in [place]. 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 Spiritual care concerns: No Exam Narrative: GENERAL: Well-appearing, well-nourished, and in no acute distress. HEAD: Normocephalic, atraumatic. EYES: PERRLA and EOMI. ENT: Bleeding noted from wound at the medial aileen. Per patient this is where he has had issues in the past. Nares clear, no rhinorrhea or epistaxis. Mucous membranes moist. Oropharynx without tonsillar hypertrophy exudate or other
[2022-06-24] MEDS: CELLULOSE OXIDIZED 2 x 14 INCH 1 PKT XX (01:34)
--- NOTE | 2022-06-24 02:23 | PC.NURSE ---
noted no longer bleeding at this time dressing in place
== END 2022-06-24 02:25 | disposition home or self-care (01) ==
PROVIDERS: Emergency Provider Nurse Practitioner Family; PCP Internal Medicine
DX: L76.22 Postprocedural hemorrhage of skin and subcutaneous tissue following other procedure (principal); I35.0 Nonrheumatic aortic (valve) stenosis; I13.0 Hypertensive heart and chronic kidney disease with heart failure and stage 1 through stage 4 chronic kidney disease, or unspecified chronic kidney disease; N18.9 Chronic kidney disease, unspecified; I50.30 Unspecified diastolic (congestive) heart failure; I48.0 Paroxysmal atrial fibrillation; N40.0 Benign prostatic hyperplasia without lower urinary tract symptoms; H40.9 Unspecified glaucoma; E55.9 Vitamin D deficiency, unspecified; M19.90 Unspecified osteoarthritis, unspecified site; Z96.643 Presence of artificial hip joint, bilateral; Z90.49 Acquired absence of other specified parts of digestive tract; Z85.828 Personal history of other malignant neoplasm of skin; Z87.891 Personal history of nicotine dependence; Z79.82 Long term (current) use of aspirin; Z79.84 Long term (current) use of oral hypoglycemic drugs
CPT/HCPCS: 99281

== ENCOUNTER 2022-07-08 08:31 | Outpatient (CLI) | payer OTHER, MEDICARE, SELFPAY ==
[2022-07-08 08:46] LABS: Basophils Absolute Auto 0.4 K/mm3 (0.0-0.1); Basophils Percent Auto 1.8 % (0.2-1.2); Eosinophils Absolute Auto 0.3 K/mm3 (0-0.3); Eosinophils Percent Auto 1.7 % (0-4.4); Hematocrit 35.5 % (42.0-52.0); Hemoglobin 10.5 g/dL (14.0-18.0); Immature Granulocyte Absolute 0.47 K/mm3 (0.00-0.031); Immature Granulocyte Percent A 2.3 % (0-0.5); Immature Platelet Fraction Pct 13.6 % (0.9-11.2); Lymphocytes Absolute Auto 0.69 K/mm3 (0.9-3.2); Lymphocytes Percent Auto 3.4 % (18.3-44.2); Mean Corpuscular HGB Conc 29.6 g/dl (32-36); Mean Corpuscular Volume 77.7 fl (80-100); Monocytes Absolute Auto 0.9 K/mm3 (0.1-0.6); Monocytes Percent Auto 4.5 % (2.6-8.5); Neutrophils Absolute Auto 17.5 K/mm3 (1.3-6.7); Neutrophils Percent Auto 86.3 % (45.5-73.1); Nucleated Red Blood Cells Perc 0.1 % (0.0-0.2); Platelet Count Result 558 k/mm3 (150-375); Red Blood Count 4.57 M/mm3 (4.6-6.20); Red Cell Distribution Width 27.5 % (11.5-14.5); White Blood Count 20.2 K/mm3 (4.5-10.0)
[2022-07-08 08:47] LABS: Blood Urea Nitrogen 21 mg/dL (8-26); Carbon Dioxide 25 mmol/L (22-30); Chloride 105 mmol/L (98-109); Estimated Glomerular Filt Rate 52; Glucose 146 mg/dL (70-105); Ionized Calcium (POC) 1.18 mmol/L (1.11-1.31); Potassium 3.9 mmol/L (3.5-4.9); Sodium 142 mmol/L (138-146)
[2022-07-08 08:47] LABS: Atypical Lymphocytes Present; Platelet Estimate Increased (Adequate); Schistocytes None Seen (NORMAL)
[2022-07-08 08:48] LABS: Anisocytosis 1+ (NORMAL); Ovalocytes 1+ (NORMAL); Poikilocytosis 1+ (NORMAL)
== END 2022-07-08 08:32 | disposition home or self-care (01) ==
PROVIDERS: PCP Internal Medicine; Visit Provider Internal Medicine Hematology & Oncology
DX: D47.3 Essential (hemorrhagic) thrombocythemia (principal)
CPT/HCPCS: 36415; 80047; 85025; 85055

== ENCOUNTER 2022-07-16 08:56 | Outpatient (CLI) | payer OTHER, MEDICARE, SELFPAY ==
[2022-07-16 09:15] LABS: Hematocrit 33.4 % (42.0-52.0); Hemoglobin 9.9 g/dL (14.0-18.0); Immature Platelet Fraction Pct 16.8 % (0.9-11.2); Mean Corpuscular HGB Conc 29.6 g/dl (32-36); Mean Corpuscular Hemoglobin 22.2 pg (26-34); Mean Corpuscular Volume 75.1 fl (80-100); Platelet Count Result 709 k/mm3 (150-375); Red Blood Count 4.45 M/mm3 (4.6-6.20); Red Cell Distribution Width 28.1 % (11.5-14.5); White Blood Count 20.1 K/mm3 (4.5-10.0)
[2022-07-16 09:15] LABS: Blood Urea Nitrogen 21 mg/dL (8-26); Carbon Dioxide 25 mmol/L (22-30); Chloride 105 mmol/L (98-109); Estimated Glomerular Filt Rate 52; Glucose 135 mg/dL (70-105); Ionized Calcium (POC) 1.14 mmol/L (1.11-1.31); Potassium 4.2 mmol/L (3.5-4.9); Sodium 142 mmol/L (138-146)
[2022-07-16 09:17] LABS: Band Neutrophils Percent 3 % (0-6); Hypochromasia 2+ (NORMAL); Monocytes Percent Manual 2 % (3-9); Neutrophils Absolute Manual 18.89 K/mm3 (1.3-6.7); Neutrophils Percent Manual 91 % (46-73); Platelet Estimate Increased (Adequate); Schistocytes None Seen (NORMAL); Total Cells Counted 100
[2022-07-16 09:18] LABS: Anisocytosis 1+ (NORMAL); Ovalocytes 1+ (NORMAL); Poikilocytosis 1+ (NORMAL)
[2022-07-16 12:58] LABS: Iron 13 ug/dL (49-181)
[2022-07-16 13:08] LABS: Percent Iron Saturation 3 % (20-50)
== END 2022-07-16 08:57 | disposition home or self-care (01) ==
PROVIDERS: PCP Internal Medicine; Visit Provider Internal Medicine Hematology & Oncology
DX: D47.3 Essential (hemorrhagic) thrombocythemia (principal)
CPT/HCPCS: 36415; 80047; 82607; 82728; 83540; 83550; 85025; 85055

== ENCOUNTER 2022-08-25 12:15 | Outpatient (CLI) | payer OTHER, MEDICARE, SELFPAY ==
[2022-08-25 12:38] LABS: Add Urine Microscopic? NO; Appearance Urine Clear (Clear); Bilirubin Urine Negative (Negative); Blood Urine Negative (Negative); Color Urine Light Yellow (Yellow); Glucose Urine UA Negative (Negative); Ketones Urine Negative (Negative); Leukocyte Esterase Ur Negative (Negative); Nitrate Urine Negative (Negative); Protein Urine Negative (Negative); Urobilinogen Urine 0.2 mg/dL (0.2-1.0); pH Urine 5.5 (5.0-8.0)
== END 2022-08-25 12:16 | disposition home or self-care (01) ==
LOC: CHSLAB 12:20
PROVIDERS: PCP Internal Medicine; Visit Provider Internal Medicine
DX: N39.0 Urinary tract infection, site not specified (principal)
CPT/HCPCS: 81003; 87086

== ENCOUNTER 2022-08-31 09:23 | Outpatient (CLI) | payer OTHER, MEDICARE, SELFPAY ==
[2022-08-31 09:57] LABS: Hematocrit 39.4 % (42.0-52.0); Hemoglobin 11.4 g/dL (14.0-18.0); Immature Platelet Fraction Pct 16.1 % (0.9-11.2); Mean Corpuscular HGB Conc 28.9 g/dl (32-36); Mean Corpuscular Hemoglobin 21.7 pg (26-34); Mean Corpuscular Volume 74.9 fl (80-100); Platelet Count Result 678 k/mm3 (150-375); Red Blood Count 5.26 M/mm3 (4.6-6.20); Red Cell Distribution Width 31.1 % (11.5-14.5); White Blood Count 19.1 K/mm3 (4.5-10.0)
[2022-08-31 09:59] LABS: Band Neutrophils Percent 6 % (0-6); Lymphocytes Absolute Manual 1.33 K/mm3 (1.1-4.5); Metamyelocytes Percent 1 %; Monocytes Absolute Manual 0.57 K/mm3 (0.1-0.90); Monocytes Percent Manual 3 % (3-9); Neutrophils Absolute Manual 16.99 K/mm3 (1.3-6.7); Neutrophils Percent Manual 83 % (46-73); Total Cells Counted 100
[2022-08-31 10:00] LABS: Giant Platelets Present; Hypochromasia 1+ (NORMAL); Ovalocytes 1+ (NORMAL); Platelet Estimate Increased (Adequate); Poikilocytosis 1+ (NORMAL); Schistocytes None Seen (NORMAL)
[2022-08-31 12:18] LABS: Anion Gap 5 mmol/L (8-16); Blood Urea Nitrogen 22 mg/dL (9-20); Calcium 8.7 mg/dL (8.4-10.2); Carbon Dioxide 29 mmol/L (22-30); Chloride 108 mmol/L (98-107); Estimated Glomerular Filt Rate 52; Glucose 90 mg/dL (65-110); Potassium 4.4 mmol/L (3.4-5.0); Sodium 142 mmol/L (137-145)
[2022-08-31 12:26] LABS: Iron 99 ug/dL (49-181)
[2022-08-31 12:37] LABS: Percent Iron Saturation 22 % (20-50)
== END 2022-08-31 09:24 | disposition home or self-care (01) ==
LOC: ANHLAB 09:25
PROVIDERS: PCP Internal Medicine; Visit Provider Internal Medicine Hematology & Oncology
DX: D47.3 Essential (hemorrhagic) thrombocythemia (principal)
CPT/HCPCS: 36415; 80048; 82607; 82728; 83540; 83550; 85025; 85055

== ENCOUNTER 2022-11-05 11:04 | Outpatient (CLI) | payer OTHER, MEDICARE, SELFPAY ==
[2022-11-05 11:25] LABS: Hematocrit 40.5 % (42.0-52.0); Immature Platelet Fraction Pct 22.9 % (0.9-11.2); Mean Corpuscular HGB Conc 29.6 g/dl (32-36); Mean Corpuscular Hemoglobin 22.1 pg (26-34); Mean Corpuscular Volume 74.7 fl (80-100); Platelet Count Result 385 k/mm3 (150-375); Red Blood Count 5.42 M/mm3 (4.6-6.20); White Blood Count 16.7 K/mm3 (4.5-10.0)
[2022-11-05 12:39] LABS: Iron 21 ug/dL (49-181)
[2022-11-05 12:40] LABS: Anion Gap 6 mmol/L (8-16); Blood Urea Nitrogen 25 mg/dL (9-20); Calcium 8.7 mg/dL (8.4-10.2); Carbon Dioxide 26 mmol/L (22-30); Chloride 107 mmol/L (98-107); Estimated Glomerular Filt Rate 57; Glucose 90 mg/dL (65-110); Potassium 4.2 mmol/L (3.4-5.0); Sodium 139 mmol/L (137-145)
[2022-11-05 12:49] LABS: Percent Iron Saturation 5 % (20-50)
[2022-11-05 13:53] LABS: Folic Acid > 20.0 ng/mL (2.76->20); Vitamin B12 > 1000.0 pg/mL (239-931)
== END 2022-11-05 11:05 | disposition home or self-care (01) ==
LOC: ANHLAB 11:06
PROVIDERS: PCP Family Medicine; Visit Provider Internal Medicine Hematology & Oncology
DX: D47.3 Essential (hemorrhagic) thrombocythemia (principal)
CPT/HCPCS: 36415; 80048; 82607; 82728; 82746; 83540; 83550; 85027; 85055

== ENCOUNTER 2022-11-09 11:06 | Inpatient (IN) | payer OTHER, MEDICARE, SELFPAY ==
[2022-11-09] VITALS (32 sets, daily range): BP systolic 96–152; BP diastolic 65–91; PULSE 83–109; RESP 16–28; TEMP 36.3–36.8; O2SAT 89–98; BMI 57.9
--- NOTE | ~2022-11-09 | XR_ITS ---
Clinical Indication: Shortness of breath PA and lateral views of the chest: Comparison: 06/15/2022 Findings: Probable minimal right pleural effusion present. Left lung clear. Cardiomediastinal silhou ette is within normal limits. Stable thoracolumbar spinal fixation hardware. Impression: Minimal right pleural effusion. Stable spinal fixation hardware. Reviewed, dictated and finalized at [facility]. Impression: Minimal right pleural effusion. Stable spinal fixation hardware.
--- NOTE | 2022-11-09 11:16 | ECG_ITS ---
Measurements Intervals [place] Rate: 107 P: 14 [place]: 190 QRS: -32 QRSD: 84 T: 60 QT: 190 QTc: 254 Interpretive Statements SINUS TACHYCARDIA ATRIAL AND VENTRICULAR PREMATURE COMPLEXES POSSIBLE LEFT ATRIAL ENLARGEMENT INCOMPLETE RIGHT BUNDLE BRANCH BLOCK BORDERLINE T WAVE ABNORMALITY- DIFFUSE LEADS BASELINE ARTIFACT- I, II, AVR, AVL, AVF ABNORMAL ECG COMPARED TO ECG 03/06/2022 15:44:10 NO SIGNIFICANT CHANGES Electronically Signed On 11-09-2022 11:28:48 CDT by Roldan Bond D.O.
[2022-11-09 11:35] LABS: Hematocrit 41.9 % (42.0-52.0); Hemoglobin 12.3 g/dL (14.0-18.0); Immature Platelet Fraction Pct 26.5 % (0.9-11.2); Mean Corpuscular HGB Conc 29.4 g/dl (32-36); Mean Corpuscular Hemoglobin 22.2 pg (26-34); Mean Corpuscular Volume 75.6 fl (80-100); Platelet Count Result 374 k/mm3 (150-375); Red Blood Count 5.54 M/mm3 (4.6-6.20); Red Cell Distribution Width 32.3 % (11.5-14.5); White Blood Count 16.4 K/mm3 (4.5-10.0)
[2022-11-09 11:43] LABS: Alanine Aminotransferase 21 U/L (6-50); Albumin Level 3.8 g/dL (3.5-5.1); Alkaline Phosphatase 102 U/L (38-126); Anion Gap 7 mmol/L (8-16); Aspartate Amino Transferase 35 U/L (17-59); Bilirubin,Total 1.1 mg/dL (0.2-1.3); Blood Urea Nitrogen 24 mg/dL (9-20); Calcium 8.3 mg/dL (8.4-10.2); Carbon Dioxide 28 mmol/L (22-30); Chloride 106 mmol/L (98-107); Estimated CRCL calculation 36 ml/min; Estimated Glomerular Filt Rate 52; Glucose 102 mg/dL (65-110); Potassium 4.4 mmol/L (3.4-5.0); Sodium 141 mmol/L (137-145)
[2022-11-09 11:44] LABS: Band Neutrophils Percent 3 % (0-6); Eosinophils Absolute Manual 0.32 K/mm3 (0.02-0.5); Eosinophils Percent Manual 2 % (0-4); Lymphocytes Absolute Manual 0.49 K/mm3 (1.1-4.5); Monocytes Absolute Manual 1.47 K/mm3 (0.1-0.90); Monocytes Percent Manual 9 % (3-9); Myelocytes Percent 1 %; Neutrophils Absolute Manual 13.94 K/mm3 (1.3-6.7); Neutrophils Percent Manual 82 % (46-73); Platelet Estimate Adequate (Adequate); Total Cells Counted 100
[2022-11-09 11:45] LABS: Anisocytosis 2+ (NORMAL); Large Platelets Present; Schistocytes None Seen (NORMAL)
[2022-11-09 11:46] LABS: Burr Cells 1+ (NORMAL); Ovalocytes 1+ (NORMAL); Poikilocytosis 1+ (NORMAL); Target Cells 1+ (NORMAL)
[2022-11-09] MEDS: FUROSEMIDE INJ 40 MG/4 ML VIAL IV PUSH (12:48)
[2022-11-09 12:49] LABS: NT Pro B Type Natriuretic Pept 12500 pg/mL (19.9-100)
--- NOTE | 2022-11-09 13:32 | ED.SOB ---
HPI - SOB/Dyspnea General Chief Complaint: Shortness of Breath/Dyspnea Stated Complaint: abnormal ekg, sob Time Seen by Provider: 11/09/22 11:39 History of Present Illness HPI Narrative: Patient sent by PCP due to concern for EKG changes, patient has been having increasing shortness of breath, abdominal distention, bilateral lower extremity edema for the past month, he denies chest pain at any point in time. Related Data Home Medications Medication Instructions Recorded Confirmed aspirin 81 mg chewable tablet 81 mg PO DAILY 08/30/19 11/09/22 vitamin B complex (B 1 tablet PO DAILY 08/30/19 11/09/22 Complex-Vitamin B12 tablet) anagrelide 1 mg capsule 1 mg PO BID 01/05/22 11/09/22 ascorbate calcium (vitamin C) 500 500 mg PO DAILY 09/03/22 11/09/22 mg tablet cholecalciferol (vitamin D3) 100 25 mcg PO DAILY 09/03/22 11/09/22 mcg (4,000 unit) capsule (Vitamin D3) ferrous sulfate 325 mg (65 mg 325 mg PO DAILY 09/03/22 11/09/22 iron) tablet (iron) anagrelide 1 mg capsule 1 mg PO Q12H 11/09/22 11/09/22 vibegron 75 mg tablet (Gemtesa) 75 mg PO DAILY 11/09/22 11/09/22 Allergies Allergy/AdvReac Type Severity Reaction Status Date / Time No Known Allergies Allergy Verified 11/09/22 09:54 Review of Systems Review of Systems: CONST: No fever. HEENT: No sore throat C/V: No chest pain RESP: Shortness of breath GI: Reports abdominal distention : No dysuria. M/S: Bilateral lower extremity edema SKIN: No rash. NEURO: [No headache or focal numbness or weakness] PSYCH: [No depression] [facility] Past Medical History Medical History Acromioclavicular (joint) (ligament) sprain Aortic stenosis Arthritis Basal cell carcinoma Benign prostatic hyperplasia Chronic fatigue Chronic kidney disease Closed fracture of left elbow Colon cancer screening Decreased hearing of left ear Diastolic congestive heart failure Echocardiogram in December 2021 showed low end of normal LV systolic function and diastolic dysfunction with superimposed basal inferoseptal hypokinesis. Elbow abrasion Encounter for screening for cardiovascular disorders Essential hypertension Essential thrombocytosis Fracture of left shoulder Glaucoma Hordeolum externum right upper eyelid Hypertension Impacted cerumen of left ear Left chronic serous otitis media Left elbow pain Left shoulder pain Left wrist pain Non-recurrent acute serous otitis media of left ear Paroxysmal atrial fibrillation Rib fractures Vitamin D deficiency Surgical History Surgical History History of abdominal aortic aneurysm repair (2016) History of basal cell carcinoma excision History of colon resection (2001) History of incisional hernia repair History of left hip replacement (2006) History of right hip replacement (2004) Previous back surgery lower thoracic spine moyer's rods S/P AAA repair Family History Family History Sibling Carcinoma of colon Social History Social History Social History: Surrogate decision maker: Vianey RodriguezNeil, spouse. Code status: Full code. Smoking packs per day: 2 Smoking cigarettes per day: 40.0 Years smoked: 40 Smoking pack-years: 80.00 Smoking status: Former smoker Tobacco type: cigarettes Second hand tobacco smoke exposure: No Smoking end date: 07/11/94 Alcohol intake: former Substance use: never Substance use type: does not use Living arrangements: with family Additional living arrangements comments: The patient lives with his in [place]. 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 Gender identity (if verbalized by the patient): Male Sexual Orientation (if Verbalized by the Patient): Straight or Heterosexual Spiritual care co
--- NOTE | 2022-11-09 18:04 | PC.NURSE ---
This patient, Doni Cavazos, was admitted to IMU Room 206-01 From ED at 1658 . Patient/family oriented to hospital policies and general routines including ID bracelet, bed and alarms, visiting hours, pain management, procedures, bathroom and other care routines, personal items, smoking policy, room service/diet, and visiting hours. Information on how to activate the Rapid Response Team has been discussed. Patient/Family are encouraged to report perceived risks to care and to ask questions if they do not understand what they are told or what they should do.
[2022-11-09 18:22] LABS: Troponin I 0.099 ng/mL (0.000-0.034)
--- NOTE | 2022-11-09 19:02 | PM.IMHP ---
H&P: HPI History of Present Illness Date/Time: 11/09/22 17:00 Chief Complaint: Shortness of breath. Narrative: This is a very pleasant 87-year-old male with diastolic congestive heart failure, aortic stenosis, chronic kidney disease, paroxysmal atrial fibrillation, benign prostatic hyperplasia, essential thrombocytosis, and other comorbidities who presented to the ED from home for evaluation of shortness of breath. The patient provides the following history. He saw his doctor in office today for evaluation of progressive shortness of breath over the past month or so. He is now getting short of breath with everyday activities. Shortness of breath is worse when lying flat and he has been sleeping in a recliner. His appetite has been poor though he has not had any nausea or vomiting. His thinks that his abdomen looks like it is more distended than usual. Additionally he reports some swelling of his ankles. EKG done in office was reportedly abnormal and he was sent to the ER. EKG did show sinus tachycardia with both atrial and ventricular premature complexes and some borderline T-wave abnormalities throughout all leads; this is not significantly changed when compared to prior tracings. Labs were significant for a troponin of 0.[address] [place] [address]. Chest x-ray showed minimal right pleural effusion. He was given a dose of furosemide 40 mg x 1 in the ED and he is being admitted to the IMU in this setting for close monitoring and diuresis. At the time my evaluation he does not have any specific complaints. He states compliance with his home medications. He has not noticed any significant weight gain but he has had some swelling as above. No fever, chills, or sweats. He denies recent cold and flu symptoms. He has an occasional cough but not anything significant. He denies calf pain. No syncope or near syncope. He has not had chest pain, pleuritic pain, or sensations of racing heart. Review of Systems Review of Systems: Twelve systems were reviewed and are negative except for as per HPI. [facility] Past Medical History Medical History (Updated 11/09/22 @ 22:49 by Sary Ospina PA-C) Aortic stenosis Arthritis Basal cell carcinoma Benign prostatic hyperplasia Chronic kidney disease Decreased hearing of left ear Diastolic congestive heart failure Echocardiogram in December 2021 showed low end of normal LV systolic function and diastolic dysfunction with superimposed basal inferoseptal hypokinesis. Essential thrombocytosis Glaucoma Hypertension Iron deficiency anemia Overactive bladder Paroxysmal atrial fibrillation Vitamin D deficiency Surgical History Surgical History (Updated 11/09/22 @ 22:44 by Sary Ospina PA-C) History of abdominal aortic aneurysm repair (2016) History of back surgery Godfrey rods in the lower thoracic spine. History of basal cell carcinoma excision History of colon resection (2001) History of incisional hernia repair History of left hip replacement (2006) History of right hip replacement (2004) Family History Family History Sibling Carcinoma of colon Social History Social History (Updated 11/09/22 @ 22:45 by Sary Ospina PA-C) Social History: Surrogate decision maker: Vianey Carmen, spouse. Code status: Full code. Smoking packs per day: 40 Smoking cigarettes per day: 800.0 Years smoked: 35 Smoking pack-years: 1400.00 Smoking status: Former smoker Tobacco type: cigarettes Second hand tobacco smoke exposure: No Smoking end date: 07/11/94 Alcohol intake: never Substance use: never Substance use type: does not use Lack of Transportation: No Lack of Food: Never True Current Housing: I Have Housing Concerned About Future Housing: No Difficulty Paying Gas/Electric Bills: No Difficulty Paying for Meds: No Currently Unemployed: No Education: High School Diploma/GED Difficulty w/ Childcar
[2022-11-10] VITALS (11 sets, daily range): BP systolic 105–119; BP diastolic 64–75; PULSE 99–112; RESP 18–20; TEMP 36.3–36.6; O2SAT 93–97
[2022-11-10] MEDS: ACETAMINOPHEN 325 MG TABLET 650 MG PO ×2 (00:38→20:10)
[2022-11-10] MEDS: FUROSEMIDE INJ 40 MG/4 ML VIAL 20 MG IV PUSH ×3 (00:38→17:29)
[2022-11-10 05:17] LABS: Hematocrit 43.1 % (42.0-52.0); Hemoglobin 12.8 g/dL (14.0-18.0); Mean Corpuscular HGB Conc 29.7 g/dl (32-36); Mean Corpuscular Hemoglobin 22.2 pg (26-34); Mean Corpuscular Volume 74.7 fl (80-100); Platelet Count Result 374 k/mm3 (150-375); Red Blood Count 5.77 M/mm3 (4.6-6.20); White Blood Count 15.2 K/mm3 (4.5-10.0)
[2022-11-10 05:35] LABS: Anion Gap 5 mmol/L (8-16); Blood Urea Nitrogen 24 mg/dL (9-20); Calcium 8.7 mg/dL (8.4-10.2); Carbon Dioxide 30 mmol/L (22-30); Chloride 104 mmol/L (98-107); Estimated CRCL calculation 33 ml/min; Estimated Glomerular Filt Rate 48; Glucose 96 mg/dL (65-110); Magnesium 2.2 mg/dL (1.6-2.3); Potassium 4.5 mmol/L (3.4-5.0); Sodium 139 mmol/L (137-145)
[2022-11-10] MEDS: CHOLECALCIFEROL 1,000 UNITS TABLET 1000 UNITS PO (08:25)
[2022-11-10] MEDS: POTASSIUM CHLORIDE 20 MEQ TABLET.ER 40 MEQ PO (08:25)
[2022-11-10] MEDS: ASCORBIC ACID 500 MG TABLET PO (08:25)
[2022-11-10] MEDS: VITAMIN B COMPLEX CAPSULE 1 CAP PO (08:25)
[2022-11-10] MEDS: FERROUS SULFATE 324 MG TABLET PO ×2 (08:26→17:29)
--- NOTE | 2022-11-10 12:59 | PHAR ---
HOME MED VERIFIED = [facility] [id number] ANAGRELIDE 1 MG CAPSULE (WHITE CAPSULE IMPRINTED 5240 1MG)
--- NOTE | 2022-11-10 14:35 | PM.IMPN ---
Progress Note: A&P Assessment and Plan (1) Acute on chronic diastolic heart failure: Code(s): I50.33 - Acute on chronic diastolic (congestive) heart failure Status: Acute Assessment and Plan: Patient has acute on chronic congestive heart failure and has been increasingly symptomatic over the last month with progressive dyspnea, increasing lower extremity edema, and orthopnea. continue to watch bmp and bnp watch daily weights continue diuresis with iv lasix sparingly due to (2) Elevated troponin: Code(s): R77.8 - Other specified abnormalities of plasma proteins Status: Acute Assessment and Plan: Troponin is elevated but has remained flat. These are likely elevated in the setting of congestive heart failure. (3) Aortic stenosis: Code(s): I35.0 - Nonrheumatic aortic (valve) stenosis Status: Acute Assessment and Plan: He has moderate aortic stenosis by PADDY in January 2022 with an DIONICIO of 1.2 to 1.3 centimeter squared (functionally a bicuspid aortic valve with moderate calcification as the left and non coronary cusps are nearly fused). Avoid over-diuresis. (4) Essential thrombocytosis: Code(s): D47.3 - Essential (hemorrhagic) thrombocythemia Status: Acute Assessment and Plan: Platelet count is well within normal limits. Continue anagrelide. (5) Iron deficiency anemia: Code(s): D50.9 - Iron deficiency anemia, unspecified Status: Acute Assessment and Plan: Hemoglobin is stable on review of previous labs. Continue ferrous sulfate. (6) Overactive bladder: Code(s): N32.81 - Overactive bladder Status: Acute Assessment and Plan: No evidence of urinary retention at this time. Continue vibegron. Subjective Date/time seen: 11/10/22 14:35 Interval history: 87-year-old male with diastolic congestive heart failure, aortic stenosis, chronic kidney disease, paroxysmal atrial fibrillation, benign prostatic hyperplasia, essential thrombocytosis, and other comorbidities who presented to the ED from home for evaluation of shortness of breath. The patient provides the following history. He saw his doctor in office today for evaluation of progressive shortness of breath over the past month or so. He is now getting short of breath with everyday activities. Shortness of breath is worse when lying flat and he has been sleeping in a recliner. His appetite has been poor though he has not had any nausea or vomiting. His thinks that his abdomen looks like it is more distended than usual. Additionally he reports some swelling of his ankles. Admitted for shortness of breath secondary to chf exacerbation, with and elevated troponin. Pt is having alot of swelling of abdomen and legs. Review of Systems Review of Systems: Twelve systems were reviewed and are negative except for as per HPI. Exam Narrative: General:?Well-developed male sitting up in bed eating in no distress. Neck:??Supple. No significant JVD. Respiratory:?Lungs are clear to auscultation bilaterally. Cardiovascular:??Regular rate and rhythm with S1-S2. Occasional ectopy. High-pitched 2/6 systolic murmur at upper sternal border. Gastrointestinal:??Abdomen is soft, nontender, and nondistended with positive bowel sounds. Skin:??Warm and dry.? No rash or lesions on limited exam. Extremities:??No cyanosis or clubbing. 1+ hansel ankle edema bilaterally. Neurological:??Alert.? Cranial nerves 2-12 are grossly intact. No gross focal deficits to casual conversation. Psychiatric:??Pleasant and cooperative with normal mood and affect. Objective Data Vital Signs Vital Signs: Vital Signs - 24 hr 11/09/22 14:36 11/09/22 14:49 11/09/22 15:02 Temperature Pulse Rate 92 Respiratory Rate Blood Pressure 138/91 H 114/65 Pulse Oximetry 95 93 11/09/22 15:05 11/09/22 15:15 11/09/22 15:33 Temperature Pulse Rate Respiratory Rate Bl
--- NOTE | 2022-11-10 18:44 | ADMGEN ---
This patient, Doni Cavazos, was admitted to Medical Room 346-. Patient/family oriented to hospital policies and general routines including ID bracelet, bed and alarms, visiting hours, pain management, procedures, bathroom and other care routines, personal items, smoking policy, room service/diet, and visiting hours. Information on how to activate the Rapid Response Team has been discussed. Patient/Family are encouraged to report perceived risks to care and to ask questions if they do not understand what they are told or what they should do.
[2022-11-11] VITALS (9 sets, daily range): BP systolic 96–123; BP diastolic 63–80; PULSE 102–130; RESP 14–18; TEMP 36.2–37; O2SAT 92–94
--- NOTE | 2022-11-11 | ECHO_ITS ---
Patient Info Name: Doni Cavazos Age: 87 years : 1935 Gender: Male Ht: 69 in Wt: 165 lbs BSA: 1.92 m2 HR: 108 bpm BP: 123 / 79 mmHg Heart Rhythm: Sinus Rhythm Technical Quality: Good Exam Date: 11/11/2022 2:51 PM Exam Location: [facility]monary Patient Status: Inpatient Admit Date: 11/10/2022 Staff Ordering Physician: John He MD Clinical Cytogeneticist Scientist: Evelyn Betancourt RDCS Attending Provider: Linda Segovia MD Exam Type: CA echo doppler color flow Study Info Indications I50.9 - Heart failure, unspecified Complete two-dimensional, color flow and Doppler transthoracic echocardiogram is performed. Summary 1. Complete two-dimensional, color flow and Doppler transthoracic echocardiogram is performed. 2. Left ventricular chamber dimension is normal. 3. Left ventricular systolic function is normal, estimated at 45-50%. 4. There is moderately increased left ventricular wall thickness. 5. Left ventricular septal wall motion is abnormal with septal motion related to bundle branch block. 6. Right ventricular chamber dimension is severely enlarged. 7. Right ventricular systolic function is reduced. 8. Flattening of the septum in diastole and systole consistent with right ventricular volume and pressure overload. 9. Left atrial chamber dimension is moderately enlarged. 10. Right atrial chamber dimension is severely enlarged. 11. There is severe aortic valve calcification. 12. There is moderate aortic valve stenosis with a peak velocity of 239 cm/s, mean gradient of 14 mmHg, and aortic valve area of 1.3 cm2. 13. There is mild mitral valve regurgitation. 14. There is mild tricuspid valve regurgitation. 15. Dilated inferior vena cava with <50% collapse upon inspiration consistent with elevated right atrial pressure, 15 mmHg. Left Ventricle Left ventricular chamber dimension is normal. Left ventricular systolic function is normal, estimated at 45-50%. There is moderately increased left ventricular wall thickness. Left ventricular septal wall motion is abnormal with septal motion related to bundle branch block. Global longitudinal strain is abnormal at -10 %. Right Ventricle Flattening of the septum in diastole and systole consistent with right ventricular volume and pressure overload. Right ventricular chamber dimension is severely enlarged. Right ventricular systolic function is reduced. Left Atria Left atrial chamber dimension is moderately enlarged. Right Atria Right atrial chamber dimension is severely enlarged. Atrial Septum Intact interatrial septum visualized by color flow imaging. Aortic Valve There is moderate aortic valve stenosis with a peak velocity of 239 cm/s, mean gradient of 14 mmHg, and aortic valve area of 1.3 cm2. There is no aortic valve regurgitation. There is severe aortic valve calcification. Pulmonic Valve The pulmonic valve is not well visualized. Mitral Valve The mitral valve has thickened leaflets. There is mild mitral valve regurgitation. Tricuspid Valve There is mild tricuspid valve regurgitation. Pericardium/Pleural There is no pericardial effusion. Inferior Vena Cava Dilated inferior vena cava with <50% collapse upon inspiration consistent with elevated right atrial pressure, 15 mmHg. Aorta The aortic root size at the sinus of Valsalva is normal. Left Ventricular Outflow Tract Name Value Normal LVOT 2D
[2022-11-11 06:31] LABS: Anion Gap 2 mmol/L (8-16); Blood Urea Nitrogen 26 mg/dL (9-20); Calcium 8.5 mg/dL (8.4-10.2); Carbon Dioxide 34 mmol/L (22-30); Chloride 104 mmol/L (98-107); Estimated CRCL calculation 31 ml/min; Estimated Glomerular Filt Rate 44; Glucose 99 mg/dL (65-110); Potassium 4.3 mmol/L (3.4-5.0); Sodium 140 mmol/L (137-145)
[2022-11-11 06:40] LABS: NT Pro B Type Natriuretic Pept 15000 pg/mL (19.9-100)
--- NOTE | 2022-11-11 09:25 | PM.IMPN ---
Progress Note: A&P Assessment and Plan (1) Acute on chronic diastolic heart failure: Code(s): I50.33 - Acute on chronic diastolic (congestive) heart failure Status: Acute Assessment and Plan: Patient has acute on chronic congestive heart failure and has been increasingly symptomatic over the last month with progressive dyspnea, increasing lower extremity edema, and orthopnea. continue to watch bmp and bnp watch daily weights continue diuresis with iv lasix sparingly due to Resume metoprolol (2) Elevated troponin: Code(s): R77.8 - Other specified abnormalities of plasma proteins Status: Acute Assessment and Plan: Troponin is elevated but has remained flat. These are likely elevated in the setting of congestive heart failure. (3) Aortic stenosis: Code(s): I35.0 - Nonrheumatic aortic (valve) stenosis Status: Acute Assessment and Plan: He has moderate aortic stenosis by PADDY in January 2022 with an DIONICIO of 1.2 to 1.3 centimeter squared (functionally a bicuspid aortic valve with moderate calcification as the left and non coronary cusps are nearly fused). Avoid over-diuresis. (4) Essential thrombocytosis: Code(s): D47.3 - Essential (hemorrhagic) thrombocythemia Status: Acute Assessment and Plan: Platelet count is well within normal limits. Continue anagrelide. (5) Iron deficiency anemia: Code(s): D50.9 - Iron deficiency anemia, unspecified Status: Acute Assessment and Plan: Hemoglobin is stable on review of previous labs. Continue ferrous sulfate. (6) Overactive bladder: Code(s): N32.81 - Overactive bladder Status: Acute Assessment and Plan: No evidence of urinary retention at this time. Continue vibegron. Subjective Date/time seen: 11/11/22 09:25 Interval history: 87-year-old male with diastolic congestive heart failure, aortic stenosis, chronic kidney disease, paroxysmal atrial fibrillation, benign prostatic hyperplasia, essential thrombocytosis, and other comorbidities who presented to the ED from home for evaluation of shortness of breath. The patient provides the following history. He saw his doctor in office today for evaluation of progressive shortness of breath over the past month or so. He is now getting short of breath with everyday activities. Shortness of breath is worse when lying flat and he has been sleeping in a recliner. His appetite has been poor though he has not had any nausea or vomiting. His thinks that his abdomen looks like it is more distended than usual. Additionally he reports some swelling of his ankles. Admitted for shortness of breath secondary to chf exacerbation, with and elevated troponin. Pt is having alot of swelling of abdomen and legs. No 11/11/2022: Feeling better. No leg swelling. Overnight he has been tachycardic 120 s to 1 50s at times. Medication reviewed and takes metoprolol at home. Recently saw Dr. Diaz. No cough or chest pain Review of Systems Review of Systems: Twelve systems were reviewed and are negative except for as per HPI. Exam Narrative: General:?Well-developed male sitting up in bed eating in no distress. Neck:??Supple. No significant JVD. Respiratory:?Lungs are clear to auscultation bilaterally. Cardiovascular:??Regular rate and rhythm with S1-S2. Occasional ectopy. High-pitched 2/6 systolic murmur at upper sternal border. Gastrointestinal:??Abdomen is soft, nontender, and nondistended with positive bowel sounds. Skin:??Warm and dry.? No rash or lesions on limited exam. Extremities:??No cyanosis or clubbing. No edema Neurological:??Alert.? Cranial nerves 2-12 are grossly intact. No gross focal deficits to casual conversation. Psychiatric:??Pleasant and cooperative with normal mood and affect. Objective Data Vital Signs Vital Signs: Vital Signs - 24 hr 11/10/22 11:39 11/10/22 10:00 11/10/22 12:00 Temper
[2022-11-11] MEDS: POTASSIUM CHLORIDE 20 MEQ TABLET.ER 40 MEQ PO (09:54)
[2022-11-11] MEDS: VITAMIN B COMPLEX CAPSULE 1 CAP PO (09:54)
[2022-11-11] MEDS: ASCORBIC ACID 500 MG TABLET PO (09:54)
[2022-11-11] MEDS: FERROUS SULFATE 324 MG TABLET PO ×2 (09:55→17:48)
[2022-11-11] MEDS: FUROSEMIDE INJ 40 MG/4 ML VIAL 20 MG IV PUSH ×2 (09:55→17:48)
[2022-11-11] MEDS: CHOLECALCIFEROL 1,000 UNITS TABLET 1000 UNITS PO (09:55)
[2022-11-11] MEDS: METOPROLOL TARTRATE 12.5 MG TABLET PO ×2 (10:07→20:17)
--- NOTE | 2022-11-11 12:29 | PM.CNCAR ---
Assessment and Plan Assessment and plan (1) Acute on chronic diastolic heart failure: Code(s): I50.33 - Acute on chronic diastolic (congestive) heart failure Status: Acute Assessment and Plan: Improving with intermittent IV Lasix, continue for now. Please monitor strict I/Os. Restart home beta anjali. (2) Aortic stenosis: Code(s): I35.0 - Nonrheumatic aortic (valve) stenosis Status: Acute Assessment and Plan: PADDY 01/07/2022: Moderate aortic stenosis, aortic valve area 1.2-1.3 cm2.? Functionally a bicuspid aortic valve with moderate calcification. Patient to continue follow-up with Dr. Almanza. History of Present Illness History of Present Illness Consult date/time: 11/11/22 12:29 Requesting physician: John He MD Consult reason: congestive heart failure Reason For Visit: CHF Exacerbation Narrative: We are consulted for congestive heart failure. This is an 87-year-old male who follows with Dr. Almanza in clinic. Patient was initially referred to Dr. Almanza for aortic stenosis. He had an echocardiogram done in 2018 which demonstrated mild . Patient also has RBBB and first-degree AV block. In the summer of 2021, he was hospitalized a couple times with dyspnea and was felt to have some CHF. A PADDY was done which demonstrated his aortic valve stenosis to be moderate, not severe. He was felt to have some diastolic dysfunction and placed on GDMT. HE then had problematic hypotension for which ACEi was stopped. Patient last saw Dr. Almanza on 10/14/2022. Patient presented to [facility] for shortness of breath that has been progressive over the past month. Gets short of breath with activity. Has been having lower extremity edema as well. BNP of 12,500. Patient admitted 11/09. Since admission he has been getting intermittent IV Lasix with improvement in his symptoms. He states his lower extremity swelling has improved and he is much less short of breath now. Never had any chest pain. Review of Systems Review of Systems: All systems reviewed & are unremarkable except as noted in HPI and below (HPI) FORMERLY [facility], [facility] Past Medical History Medical History Aortic stenosis Arthritis Basal cell carcinoma Benign prostatic hyperplasia Chronic kidney disease Decreased hearing of left ear Diastolic congestive heart failure Echocardiogram in December 2021 showed low end of normal LV systolic function and diastolic dysfunction with superimposed basal inferoseptal hypokinesis. Essential thrombocytosis Glaucoma Hypertension Iron deficiency anemia Overactive bladder Paroxysmal atrial fibrillation Vitamin D deficiency Surgical History Surgical History History of abdominal aortic aneurysm repair (2016) History of back surgery Godfrey rods in the lower thoracic spine. History of basal cell carcinoma excision History of colon resection (2001) History of incisional hernia repair History of left hip replacement (2006) History of right hip replacement (2004) Family History Family History Sibling Carcinoma of colon Social History Social History Social History: Surrogate decision maker: Vianey Carmen, spouse. Code status: Full code. Smoking packs per day: 40 Smoking cigarettes per day: 800.0 Years smoked: 35 Smoking pack-years: 1400.00 Smoking status: Former smoker Tobacco type: cigarettes Second hand tobacco smoke exposure: No Smoking end date: 07/11/94 Alcohol intake: never Substance use: never Substance use type: does not use Lack of Transportation: No Lack of Food: Never True Current Housing: I Have Housing Concerned About Future Housing: No Difficulty Paying Gas/Electric Bills: No Difficulty Paying for Meds: No Currently Unemployed: No Education: Hi
[2022-11-11] MEDS: ACETAMINOPHEN 325 MG TABLET 650 MG PO (20:17)
[2022-11-12] VITALS (15 sets, daily range): BP systolic 102–121; BP diastolic 58–71; PULSE 62–115; RESP 16–18; TEMP 36.1–36.8; O2SAT 93–96
[2022-11-12 05:47] LABS: Hematocrit 43.4 % (42.0-52.0); Hemoglobin 12.7 g/dL (14.0-18.0); Immature Platelet Fraction Pct 26.9 % (0.9-11.2); Mean Corpuscular HGB Conc 29.3 g/dl (32-36); Mean Corpuscular Hemoglobin 21.9 pg (26-34); Mean Corpuscular Volume 74.7 fl (80-100); Platelet Count Result 379 k/mm3 (150-375); Red Blood Count 5.81 M/mm3 (4.6-6.20); Red Cell Distribution Width 31.7 % (11.5-14.5); White Blood Count 16.1 K/mm3 (4.5-10.0)
[2022-11-12 05:54] LABS: Alanine Aminotransferase 20 U/L (6-50); Albumin Level 3.9 g/dL (3.5-5.1); Alkaline Phosphatase 114 U/L (38-126); Anion Gap 6 mmol/L (8-16); Aspartate Amino Transferase 30 U/L (17-59); Blood Urea Nitrogen 27 mg/dL (9-20); Calcium 8.2 mg/dL (8.4-10.2); Carbon Dioxide 31 mmol/L (22-30); Chloride 103 mmol/L (98-107); Estimated CRCL calculation 33 ml/min; Estimated Glomerular Filt Rate 48; Glucose 103 mg/dL (65-110); Magnesium 2.2 mg/dL (1.6-2.3); Sodium 140 mmol/L (137-145)
[2022-11-12 06:57] LABS: Band Neutrophils Percent 2 % (0-6); Eosinophils Absolute Manual 0.64 K/mm3 (0.02-0.5); Eosinophils Percent Manual 4 % (0-4); Lymphocytes Absolute Manual 0.16 K/mm3 (1.1-4.5); Lymphocytes Percent Manual 1 % (18-44); Metamyelocytes Percent 1 %; Monocytes Absolute Manual 0.32 K/mm3 (0.1-0.90); Monocytes Percent Manual 2 % (3-9); Neutrophils Absolute Manual 14.81 K/mm3 (1.3-6.7); Neutrophils Percent Manual 90 % (46-73); Total Cells Counted 100
[2022-11-12 06:58] LABS: Anisocytosis 3+ (NORMAL); Hypochromasia 1+ (NORMAL); Microcytosis 1+ (NORMAL); Platelet Estimate Adequate (Adequate); Schistocytes None Seen (NORMAL)
[2022-11-12 06:59] LABS: Ovalocytes 1+ (NORMAL)
[2022-11-12] MEDS: FERROUS SULFATE 324 MG TABLET PO ×2 (08:11→17:00)
[2022-11-12] MEDS: ASCORBIC ACID 500 MG TABLET PO (08:11)
[2022-11-12] MEDS: POTASSIUM CHLORIDE 20 MEQ TABLET.ER 40 MEQ PO (08:11)
[2022-11-12] MEDS: VITAMIN B COMPLEX CAPSULE 1 CAP PO (08:11)
[2022-11-12] MEDS: CHOLECALCIFEROL 1,000 UNITS TABLET 1000 UNITS PO (08:11)
[2022-11-12] MEDS: FUROSEMIDE INJ 40 MG/4 ML VIAL 20 MG IV PUSH (08:13)
[2022-11-12] MEDS: METOPROLOL TARTRATE 12.5 MG TABLET PO ×2 (08:13→20:52)
--- NOTE | 2022-11-12 10:29 | PM.IMPN ---
Progress Note: A&P Assessment and Plan (1) Acute on chronic diastolic heart failure: Code(s): I50.33 - Acute on chronic diastolic (congestive) heart failure Status: Acute Assessment and Plan: Patient has acute on chronic congestive heart failure and has been increasingly symptomatic over the last month with progressive dyspnea, increasing lower extremity edema, and orthopnea. continue to watch bmp and bnp watch daily weights continue diuresis with iv lasix sparingly due to Resume metoprolol Echo 11/11/2022: EF 45-50% moderate aortic stenosis. Slightly reduced right ventricular systolic function. Right ventricular chamber severely enlarged. Change Lasix to oral (2) Elevated troponin: Code(s): R77.8 - Other specified abnormalities of plasma proteins Status: Acute Assessment and Plan: Troponin is elevated but has remained flat. These are likely elevated in the setting of congestive heart failure. (3) Aortic stenosis: Code(s): I35.0 - Nonrheumatic aortic (valve) stenosis Status: Acute Assessment and Plan: He has moderate aortic stenosis by PADDY in January 2022 with an DIONICIO of 1.2 to 1.3 centimeter squared (functionally a bicuspid aortic valve with moderate calcification as the left and non coronary cusps are nearly fused). Avoid over-diuresis. Echo with moderate aortic stenosis 11/11/2022: Aortic valve area 1.3 cm2 (4) Essential thrombocytosis: Code(s): D47.3 - Essential (hemorrhagic) thrombocythemia Status: Acute Assessment and Plan: Platelet count is well within normal limits. Continue anagrelide. (5) Iron deficiency anemia: Code(s): D50.9 - Iron deficiency anemia, unspecified Status: Acute Assessment and Plan: Hemoglobin is stable on review of previous labs. Continue ferrous sulfate. (6) Overactive bladder: Code(s): N32.81 - Overactive bladder Status: Acute Assessment and Plan: No evidence of urinary retention at this time. Continue vibegron. Subjective Date/time seen: 11/12/22 10:29 Interval history: 87-year-old male with diastolic congestive heart failure, aortic stenosis, chronic kidney disease, paroxysmal atrial fibrillation, benign prostatic hyperplasia, essential thrombocytosis, and other comorbidities who presented to the ED from home for evaluation of shortness of breath. The patient provides the following history. He saw his doctor in office today for evaluation of progressive shortness of breath over the past month or so. He is now getting short of breath with everyday activities. Shortness of breath is worse when lying flat and he has been sleeping in a recliner. His appetite has been poor though he has not had any nausea or vomiting. His thinks that his abdomen looks like it is more distended than usual. Additionally he reports some swelling of his ankles. Admitted for shortness of breath secondary to chf exacerbation, with and elevated troponin. Pt is having alot of swelling of abdomen and legs. No 11/11/2022: Feeling better. No leg swelling. Overnight he has been tachycardic 120 s to 1 50s at times. Medication reviewed and takes metoprolol at home. Recently saw Dr. Diaz. No cough or chest pain 11/12/2022: Feeling better. No new complaints. Heart is improved. Discussed with director learning. Echo with EF 45-50% moderate aortic valve stenosis. Systolic function right-sided used. Review of Systems Review of Systems: Twelve systems were reviewed and are negative except for as per HPI. Exam Narrative: General:?Well-developed male sitting up in bed eating in no distress. Neck:??Supple. No significant JVD. Respiratory:?Lungs are clear to auscultation bilaterally. Cardiovascular:??Regular rate and rhythm with S1-S2. Occasional ectopy. High-pitched 2/6 systolic murmur at upper sternal border. Gastrointestinal:??Abdomen is soft, nontender, and nondistended with
--- NOTE | 2022-11-12 10:55 | PM.PNCARD ---
Progress Note: A&P Assessment and Plan (1) Acute on chronic diastolic heart failure: Code(s): I50.33 - Acute on chronic diastolic (congestive) heart failure Status: Acute Assessment and Plan: Echocardiogram this admission showed LVEF 45-50%, his RV is now severely enlarged with reduced RVSF, which are new findings compared to his prior echocardiogram. Improved with intermittent IV Lasix. Change IV Lasix to oral 20mg PO daily. Continue beta anjali. Will not start ACEi/ARB at this time given his CKD. Okay to discharge home from a cardiac standpoint today. Will arrange outpatient follow up with Dr. Almanza. (2) Aortic stenosis: Code(s): I35.0 - Nonrheumatic aortic (valve) stenosis Status: Acute Assessment and Plan: Moderate on echo. Outpatient follow up. Subjective Date/time seen: 11/12/22 10:55 Interval history: Reason for visit: Congestive heart failure HPI: This is an 87-year-old male who follows with Dr. Almanza in clinic. Patient was initially referred to Dr. Almanza for aortic stenosis. He had an echocardiogram done in 2018 which demonstrated mild . Patient also has RBBB and first-degree AV block. In the summer of 2021, he was hospitalized a couple times with dyspnea and was felt to have some CHF. A PADDY was done which demonstrated his aortic valve stenosis to be moderate, not severe. He was felt to have some diastolic dysfunction and placed on GDMT. HE then had problematic hypotension for which ACEi was stopped. Patient last saw Dr. Almanza on 10/14/2022. Patient presented to [facility] for shortness of breath that has been progressive over the past month. Gets short of breath with activity. Has been having lower extremity edema as well. BNP of 12,500. Patient admitted 11/09. Since admission he has been getting intermittent IV Lasix with improvement in his symptoms. He states his lower extremity swelling has improved and he is much less short of breath now. Never had any chest pain. Date of service: Feeling much better. No shortness of breath. Review of Systems Review of Systems: 8 point ROS obtained. Negative, unless stated in HPI. Exam Const: General: comfortable and no acute distress Other: Elderly man who is hard of hearing HENMT: Mouth: Yes moist mucous membranes Eyes: General: appearance normal, both eyes and all related structures Sclera: sclerae normal Neck: Neck: supple Resp: Effort & Inspection: normal respiratory effort Auscultation: clear to auscultation bilaterally Cardio: Rate: regular rate Rhythm: regular rhythm Heart sounds: Murmur heart sound present systolic Other: Trace bilateral lower extremity edema GI: GI Palp: Yes Soft to palpation and No Tenderness to palpation present (GI) Neuro: Speech: normal speech Other: Hard of hearing Psych: Mental Status: mental status grossly normal Affect: normal affect Objective Data Vital Signs Vital Signs: Vital Signs - 24 hr 11/11/22 12:00 11/11/22 12:00 11/11/22 16:00 Temperature 37.0 C Pulse Rate 110 H 107 H 103 H Respiratory Rate 18 Blood Pressure 96/63 L Pulse Oximetry 92 Oxygen Delivery 11/11/22 16:00 11/11/22 20:00 11/11/22 20:17 Temperature 36.8 C Pulse Rate 106 H 116 H 116 H Respiratory Rate 14 Blood Pressure 111/73 Pulse Oximetry 92 Oxygen Delivery 11/11/22 20:00 11/12/22 00:11 11/12/22 05:32 Temperature 36.4 C 36.3 C L Pulse Rate 94 62 Respiratory Rate 18 16 Blood Pressure 105/64 110/70 Pulse Oximetry 96 95 Oxygen Delivery Room Air 11/11/22 20:00 11/12/22 00:00 11/12/22 04:00 Temperature Pulse Rate 130 H 96 111 H Respiratory Rate Blood Pressure Pulse Oximetry Oxygen Delivery 11/12/22 08:13 Temperature Pulse Rate 104 H Respiratory Rate Blood Pressure Pulse Oximetry Oxygen Delivery Intake/Output Intake/Output: Intake & Output 11/09/22 11/10/22 11/11/22 11/12/22
[2022-11-12] MEDS: ACETAMINOPHEN 325 MG TABLET 650 MG PO (20:52)
[2022-11-13] VITALS: PULSE 118
[2022-11-13 04:00] VITALS: BP 111/76; PULSE 104; PULSE 110; RESP 18; TEMP 36.9; O2SAT 92
[2022-11-13 05:44] LABS: Hematocrit 43.7 % (42.0-52.0); Hemoglobin 12.7 g/dL (14.0-18.0); Immature Platelet Fraction Pct 24.8 % (0.9-11.2); Mean Corpuscular HGB Conc 29.1 g/dl (32-36); Mean Corpuscular Volume 75.7 fl (80-100); Platelet Count Result 479 k/mm3 (150-375); Red Blood Count 5.77 M/mm3 (4.6-6.20); Red Cell Distribution Width 31.8 % (11.5-14.5); White Blood Count 15.8 K/mm3 (4.5-10.0)
[2022-11-13 06:08] LABS: Alanine Aminotransferase 19 U/L (6-50); Albumin Level 3.8 g/dL (3.5-5.1); Alkaline Phosphatase 110 U/L (38-126); Anion Gap 5 mmol/L (8-16); Aspartate Amino Transferase 40 U/L (17-59); Blood Urea Nitrogen 26 mg/dL (9-20); Calcium 8.3 mg/dL (8.4-10.2); Carbon Dioxide 32 mmol/L (22-30); Chloride 105 mmol/L (98-107); Estimated CRCL calculation 33 ml/min; Estimated Glomerular Filt Rate 48; Glucose 102 mg/dL (65-110); Magnesium 2.2 mg/dL (1.6-2.3); Potassium 4.1 mmol/L (3.4-5.0); Sodium 142 mmol/L (137-145)
[2022-11-13 07:10] LABS: Band Neutrophils Percent 4 % (0-6); Basophils Absolute Manual 0.79 K/mm3 (0.0-0.1); Basophils Percent Manual 5 % (0-1); Lymphocytes Absolute Manual 0.94 K/mm3 (1.1-4.5); Lymphocytes Percent Manual 6 % (18-44); Metamyelocytes Percent 2 %; Monocytes Absolute Manual 0.79 K/mm3 (0.1-0.90); Monocytes Percent Manual 5 % (3-9); Myelocytes Percent 1 %; Neutrophils Absolute Manual 12.79 K/mm3 (1.3-6.7); Neutrophils Percent Manual 77 % (46-73); Total Cells Counted 100
[2022-11-13 07:11] LABS: Anisocytosis 3+ (NORMAL); Hypochromasia 1+ (NORMAL); Microcytosis 1+ (NORMAL); Ovalocytes 2+ (NORMAL); Platelet Estimate Increased (Adequate); Schistocytes None Seen (NORMAL)
[2022-11-13 08:00] VITALS: BP 120/80; PULSE 104; RESP 20; TEMP 36.6; O2SAT 93
[2022-11-13] MEDS: POTASSIUM CHLORIDE 20 MEQ TABLET.ER 40 MEQ PO (09:00)
[2022-11-13] MEDS: FERROUS SULFATE 324 MG TABLET PO (09:00)
[2022-11-13 09:01] VITALS: PULSE 107
[2022-11-13] MEDS: FUROSEMIDE 20 MG TABLET PO (09:01)
[2022-11-13] MEDS: METOPROLOL TARTRATE 12.5 MG TABLET PO (09:01)
[2022-11-13] MEDS: CHOLECALCIFEROL 1,000 UNITS TABLET 1000 UNITS PO (09:02)
[2022-11-13] MEDS: VITAMIN B COMPLEX CAPSULE 1 CAP PO (09:02)
[2022-11-13] MEDS: ASCORBIC ACID 500 MG TABLET PO (09:02)
--- NOTE | 2022-11-13 11:09 | PM.DS ---
DS: Admitting Diagnosis Discharge Date 11/13/2022 Admitting Diagnosis shortness of breath DS: Discharge Diagnosis Discharge Diagnosis (1) Acute on chronic diastolic heart failure: Code(s): I50.33 - Acute on chronic diastolic (congestive) heart failure Status: Acute (2) Elevated troponin: Code(s): R77.8 - Other specified abnormalities of plasma proteins Status: Acute (3) Aortic stenosis: Code(s): I35.0 - Nonrheumatic aortic (valve) stenosis Status: Acute (4) Essential thrombocytosis: Code(s): D47.3 - Essential (hemorrhagic) thrombocythemia Status: Acute (5) Iron deficiency anemia: Code(s): D50.9 - Iron deficiency anemia, unspecified Status: Acute (6) Overactive bladder: Code(s): N32.81 - Overactive bladder Status: Acute DS: Summary Hospital Course Hospital Course: # acute on chronic diastolic heart failure: Echocardiogram showed LVEF 45-50% RV severely enlarged with reduced systolic function which are new compared to prior echocardiogram. He was diuresed with IV Lasix with marked improvement in his symptoms. Is more treat aortic stenosis of looked stable on the repeat echocardiogram. His Lasix is transition to oral. Continue beta-anjali. Due to CKD ASHLEE inhibitor or Arb was not started during the hospital stay and will be followed up as an outpatient basis. # moderate aortic stenosis: stable on echocardiogram. Moderate aortic stenosis by PADDY in January of 2022 with a DIONICIO of 1.2-1.3 centimeter sq. Repeat echo on 11/11/2022 with aortic valve area of 1.3 centimeter sq # essential thrombocytosis: Platelet count within normal limit. Continue anagrelide # iron deficiency anemia: Hemoglobin stable continue ferrous sulfate # overactive bladder: Continue Viva grown. Time Spent with Patient Time attestation: Total time spent providing and/or coordinating discharge services:35 minutes Exam Narrative: General:?Well-developed male sitting up in bed eating in no distress. Neck:??Supple. No significant JVD. Respiratory:?Lungs are clear to auscultation bilaterally. Cardiovascular:??Regular rate and rhythm with S1-S2. Occasional ectopy. High-pitched 2/6 systolic murmur at upper sternal border. Gastrointestinal:??Abdomen is soft, nontender, and nondistended with positive bowel sounds. Skin:??Warm and dry.? No rash or lesions on limited exam. Extremities:??No cyanosis or clubbing. No edema Neurological:??Alert.? Cranial nerves 2-12 are grossly intact. No gross focal deficits to casual conversation. Psychiatric:??Pleasant and cooperative with normal mood and affect. DS: Data Data Completed and Pending Completed studies during hospitalization: Exam Type: ? ? CA echo doppler color flow Study Info Indications ? ? I50.9 - Heart failure,? unspecified Complete two-dimensional, color flow and Doppler transthoracic echocardiogram is performed. Account #: ? ? [id number] Summary ? 1. Complete two-dimensional, color flow and Doppler transthoracic echocardiogram is performed. ? 2. Left ventricular chamber dimension is normal. ? 3. Left ventricular systolic function is normal, estimated at 45-50%. ? 4. There is moderately increased left ventricular wall thickness. ? 5. Left ventricular septal wall motion is abnormal with septal motion related to bundle branch block. ? 6. Right ventricular chamber dimension is severely enlarged. ? 7. Right ventricular systolic function is reduced. ? 8. Flattening of the septum in diastole and systole consistent with right ventricular volume and pressure overload. ? 9. Left atrial chamber dimension is moderately enlarged. ? 10. Right atrial chamber dimension is severely enlarged. ? 11. There is severe aortic valve calcification. ? 12. There is moderate aortic valve stenosis with a peak velocity of 239 cm/s, mean gradient of 14 mmHg, and aortic valve area of 1.3 cm2. ? 13. There is mild mitral valve regurgi
--- NOTE | 2022-11-13 11:39 | PCOTNOTE ---
Attempted OT evaluation, RN reports discharge orders in and was independent.
== END 2022-11-13 13:11 | disposition home or self-care (01) | DRG 291 ==
LOC: ANHED 13:43 → ANHIMU 15:34 → ANH3MED 11-12 15:57 → ANHIMU 11-15 11:05
PROVIDERS: Family Medicine; Physician Assistant; Admitting Provider Family Medicine; Emergency Provider Emergency Medicine; PCP Family Medicine; Visit Provider Internal Medicine
DX: I13.0 Hypertensive heart and chronic kidney disease with heart failure and stage 1 through stage 4 chronic kidney disease, or unspecified chronic kidney disease (principal); I50.33 Acute on chronic diastolic (congestive) heart failure; N18.9 Chronic kidney disease, unspecified; I48.0 Paroxysmal atrial fibrillation; I35.0 Nonrheumatic aortic (valve) stenosis; D50.9 Iron deficiency anemia, unspecified; D47.3 Essential (hemorrhagic) thrombocythemia; E55.9 Vitamin D deficiency, unspecified; N40.0 Benign prostatic hyperplasia without lower urinary tract symptoms; N32.81 Overactive bladder; R53.82 Chronic fatigue, unspecified; Z79.82 Long term (current) use of aspirin; Z87.891 Personal history of nicotine dependence
CPT/HCPCS: 36415; 71046; 80048; 80053; 83735; 83880; 84443; 84484; 85025; 85027; 85055; 93005; 93306; 96374; 96376; 97161; 99285; A9270; G0378; J1940

== ENCOUNTER 2022-11-24 09:48 | Outpatient (RCR) | payer OTHER, MEDICARE, SELFPAY ==
--- NOTE | 2022-11-24 13:58 | PTOPEVAL1 ---
Assessment and note entered by JT File, PT Evaluation Information Assessment Status Evaluation Diagnosis malaise, generalized weakness, fatigue Onset 11/19/22 Subjective Information patient reports he is not able to move his legs too well. he reports he just got out of the hosptial this past tuesday. he reports he was in the hopsital for several days due to an exxacerbation of CHF. he reports he feels weak. he reports he did not have any therapy while he was in the hospital. he reports he has not had any falls since being home. he reports he feels he cannot move as quick as he did befor.e. he reports he was in the hospital for 5 days. he reports he was at [facility]. he reports he lives at home with his . he reports she just had knee surgery yesterday. he reports her daughter is living in home with the two of them currently. he reports he does not use any AD. he reports he has a ramp into the back of the home and steps in the front of the home. he reports he has a finished basement where the laundry room is. he reports prior to his most recent hospital he was getting around slow and was weak in the legs. he reports he has been weaker and slower moving for a couple of months since an injury with a falling tree in his yard. he reports he had no therapy after this accident. Reported Pain Level Pain Score 8: Self Report Assessment PT Clinical Summary mr. barrett is an 87 yo man who presents to skilled PT services for evaluation and treatment of weakness, decreased balance, and malaise. he presents this date with deficits in balance, strength, endurance, and functional activity participation. he would benefit from continued skilled PT to improve his objective/functional deficits and progress towards a return to his prior level functional activity performance and quality of life. Plan of Care Interventions Gait Training,Neuro Re-education,Patient/Caregiver Educati,Therapeutic Activities,Therapeutic Exercise PT Services Indicated Yes Treatment Frequency and 3x weekly for 12 visits Duration These treatments will address the objective and functional deficits as defined above. The patient will be advanced safely and appropriately in order for the patient to progress towards his/her prior level of function. Additional exercises will be int
--- NOTE | 2022-12-27 08:49 | PTOPPROG ---
Assessment and note entered by JT File, PT Evaluation Information Assessment Status Progress Diagnosis malaise, generalized weakness, fatigue Onset 11/19/22 Subjective Information patient reports he has not been to therapy in a few weeks due to a reaction on the R LE from a bandage. he reports the leg was red and swollen but is now much better. he reports he is moving slow since his R LE issues. Assessment PT Clinical Summary mr. barrett has not been to therapy in a little over 2 weeks. he had some complications with a wound on his R LE and a reaction to the dressing. he is now back to therapy and reports still feeling fatigued and weak. he has met goals for pain and HEP education as of today, but continues to lack achievement of goals from strength, endurance, and balance. he would benefit from continued skilled PT with update POC to achieve his remaining goals and functional deficits. Plan of Care Interventions Gait Training,Neuro Re-education,Patient/Caregiver Educati,Therapeutic Activities,Therapeutic Exercise PT Services Indicated Yes Treatment Frequency and continue skilled PT 3x weekly for 8 more visits Duration These treatments will address the objective and functional deficits as defined above. The patient will be advanced safely and appropriately in order for the patient to progress towards his/her prior level of function. Additional exercises will be introduced and as well as a comprehensive home exercise program upon discharge, if needed, ?to ensure carryover of functional gains achieved in the clinic. This treatment plan has been reviewed and agreement upon by the patient.
== END 2023-01-14 13:43 | disposition home or self-care (01) ==
LOC: CHSPT 09:48
PROVIDERS: PCP Family Medicine; Visit Provider Family Medicine
DX: I50.9 Heart failure, unspecified (principal); I35.0 Nonrheumatic aortic (valve) stenosis; I48.0 Paroxysmal atrial fibrillation; R53.81 Other malaise; R33.9 Retention of urine, unspecified
CPT/HCPCS: 97110; 97112; 97150; 97161; 97530

== ENCOUNTER 2022-12-13 15:12 | Outpatient (CLI) | payer OTHER, MEDICARE, SELFPAY ==
--- NOTE | ~2022-12-13 | XR_ITS ---
EXAMINATION: XR tibia fibula RT 2V INDICATION: Right leg pain, contusion TECHNIQUE: Two views of the right tibia and fibula are obtained. COMPARISON: None available FINDINGS: Bone alignment is normal. There is no fracture. There is anterior soft tissue swelling over lying the distal leg. No underlying osseous abnormality is identified. There is moderate osteoarthrit is of the ankle. IMPRESSION: 1. Soft tissue swelling overlying the distal leg without acute osseous abnormality. Reviewed, dictated and finalized at location F. IMPRESSION: 1. Soft tissue swelling overlying the distal leg without acute osseous abnormal ity.
== END 2022-12-13 15:13 | disposition home or self-care (01) ==
PROVIDERS: PCP Family Medicine; Visit Provider Nurse Practitioner Gerontology
DX: S80.10XA Contusion of unspecified lower leg, initial encounter (principal); X58.XXXA Exposure to other specified factors, initial encounter
CPT/HCPCS: 73590

== ENCOUNTER 2023-01-18 07:34 | Inpatient (IN) | payer OTHER, MEDICARE, SELFPAY ==
[2023-01-18] VITALS (33 sets, daily range): BP systolic 90–109; BP diastolic 62–80; PULSE 99–128; RESP 17–29; TEMP 36.3–37.4; O2SAT 82–98; BMI 25.7
--- NOTE | ~2023-01-18 | XR_ITS ---
XR ankle LT min 3V DATE: 01/25/2023 14:45 INDICATION: Left ankle swelling TECHNIQUE: 4 views including crosstable lateral COMPARISON: None FINDINGS: No soft tissue swelling is appreciated. No fracture or dislocation, periosteal reaction or bone destruction of the ankle or disruption of the ankle mortise is detected. Mild plantar and posterior calcaneal enthesopathy. IMPRESSION: Mild plantar and posterior calcaneal enthesopathy Reviewed, dictated and finalized at location L.
--- NOTE | ~2023-01-18 | US_ITS ---
US abdomen limited DATE: 01/23/2023 13:33 INDICATION: Elevated liver function tests. Nausea. TECHNIQUE: Real-time imaging of liver, pancreas, gallbladder fossa COMPARISON: 01/18/2023 CT abdomen pelvis FINDINGS: Right pleural effusion and ascites are noted. Status post cholecystectomy. The common bile duct measures 5 mm, within normal range. No hepatic space-occupying mass lesion is evident. No surface nodularity of the liver is detected. No rmal hepatopedal portal venous flow direction. No pancreatic mass lesion is detected. IMPRESSION: Status post cholecystectomy Right pleural effusion and ascites Reviewed, dictated and finalized at Location A. Reviewed, dictated and finalized at location A.
--- NOTE | ~2023-01-18 | XR_ITS ---
XR abdomen/kub 1V DATE: 01/23/2023 08:22 INDICATION: Vomiting TECHNIQUE: Portable supine AP view on 01/23/2023 at 0800 hours COMPARISON: 01/18/2023 CT abdomen pelvis FINDINGS: Surgical clips overlie the right upper quadrant due to cholecystectomy. Prominent gaseous distention of the stomach. No bowel obstruction is evident. Aorto-biiliac endovascular stent. Osteopenia. Thoracolumbar spinal rods and pedicle screws. Degenerative change of the lumbar spine. Status post bilateral total hip arthroplasty. IMPRESSION: Nonspecific abdomen Reviewed, dictated and finalized at Location A. Reviewed, dictated and finalized at location A. IMPRESSION: Nonspecific abdomen
--- NOTE | ~2023-01-18 | XR_ITS ---
EXAMINATION: XR chest 1V portable DATE: 01/23/2023 15:15 INDICATION: Shortness of breath. TECHNIQUE: A single frontal view of the chest was obtained. COMPARISON: Chest single view at 8:02 AM, CT abdomen and pelvis 01/18/2023 FINDINGS: There is a small right pleural effusion. There are mild airspace opacities in the lower michele g zones. No pneumothorax. The heart size is normal. There are rods in the spine. Surgical clips in th e right upper quadrant are likely from cholecystectomy. There are old healed left rib fractures. IMPRESSION: 1. Small right pleural effusion. 2. Stable airspace opacities in the lower lung zones, likely atelectasis. Reviewed, dictated and finalized at location E.
--- NOTE | ~2023-01-18 | XR_ITS ---
EXAMINATION: XR md joint inject/asp w image DATE: 01/26/2023 15:51 INDICATION: Left ankle swelling. Leukocytosis. TECHNIQUE: The procedure including the risks, benefits, and alternatives was discussed with the patie nt. Risks discussed included bleeding and infection. The patient understood the risks and agreed to p roceed. The skin overlying the left ankle joint was prepped and draped in usual sterile fashion. An esthetic was administered with 1% lidocaine subcutaneously. An 18 G needle was advanced under fluoro scopic guidance into the joint. Fluid was aspirated. The needle was removed and the entry site was cleaned and dressed. There were no immediate complications. Fluoroscopy exposure time was 0.1 minute s. The total number of images was 1. FINDINGS: Real-time fluoroscopy demonstrates the needle in the left ankle joint. IMPRESSION: 1. Fluoroscopy guided left ankle joint aspiration yielding 3 mL opaque, dark red fluid. Reviewed, dictated and finalized at location A. IMPRESSION: 1. Fluoroscopy guided left ankle joint aspiration yielding 3 mL opaque, dark re d fluid.
--- NOTE | ~2023-01-18 | XR_ITS ---
EXAMINATION: XR chest 1V portable DATE: 01/25/2023 09:51 INDICATION: Shortness of breath. TECHNIQUE: A single frontal view of the chest was obtained. COMPARISON: Chest single view 01/23/2023 FINDINGS: There are airspace opacities in the lower lung zones. There is a small right pleural effusi on. No pneumothorax. The heart size is normal. There are old healed left rib fractures. There are fix ation rods in the spine. IMPRESSION: 1. Worsened airspace opacities in the lower lung zones, consistent with atelectasis versus pneumonia. 2. Small right pleural effusion. Reviewed, dictated and finalized at location A. IMPRESSION: 1. Worsened airspace opacities in the lower lung zones, consistent with atelect asis versus pneumonia. 2. Small right pleural effusion.
--- NOTE | ~2023-01-18 | CT_ITS ---
EXAMINATION: CT abdomen pelvis wo con DATE: 01/18/2023 08:41 INDICATION: Abdominal distention TECHNIQUE: Computed tomography (CT) of the abdomen and pelvis was performed without intravenous contr ast. Automated exposure control and iterative reconstruction technique were employed. The dose-length product was 1002.46 mGy-cm. COMPARISON: 11/05/2015 and 03/06/2022 FINDINGS: Moderate-sized right and trace left pleural effusions with with passive dependent atelectasis in the visualized lower lungs. Heart size is normal. Atherosclerotic coronary artery calcific location. Aort ic valve calcification. No pericardial effusion. Cholecystectomy clips at the gallbladder fossa. 7 mm hepatic cyst near the gallbladder fossa. Splenomegaly measuring 15 cm in craniocaudal length. There are few small dystrophic calcifications at the head and uncinate process of the pancreas which are li clint sequela of chronic pancreatitis. No significant interval change in bilateral adrenal adenomas at herosclerotic calcifications at the bilateral renal kelton. 1 cm high attenuation complex proteinaceous /hemorrhagic cyst at the lower pole of the left kidney. Small region of cortical scarring anteriorly at the lower pole of the left kidney likely sequela of prior infarction. Again seen is an aortobiilia c stent graft beginning between the takeoff of the superior mesenteric artery and the bilateral renal arteries and extending to the bifurcation of the common iliac arteries. The prior aneurysmal dilatio n of the infrarenal aorta has significantly improved with maximal diameter decreasing from 5.3 cm to currently measuring 3.3 cm. Portions of the posterior bladder and prostate are obscured by dense meta llic streak artifact from bilateral total hip arthroplasties. There appear to be several surgical cli ps versus brachytherapy seeds region of the prostate. Prior colon surgery with rectosigmoid anastomot ic suture line. There are a few scattered colonic diverticula without adjacent inflammatory stranding to suggest diverticulitis. No bowel obstruction. There is diffuse body wall, mesenteric and retroper itoneal edema along with small amount of ascites scattered throughout the abdomen and pelvis. No absc ess or free intraperitoneal gas. No pathologically enlarged abdominal or pelvic lymphadenopathy. Inst rumented thoracolumbar posterior spinal fusion with bilateral vertical rods beginning at L2 where the re are laminar hooks, bilateral pedicle screws at L1 and extending a few additional lumbar hooks thro ugh at least level of T7 at the cephalad margin of the [id number]. There is anterior fusion at T11 -L1 spanning a chronic T12 burst fracture. Additional chronic L4 compression fracture with 20% right- sided vertebral body height loss. Right-sided L5 pars interarticularis defect with L5 anteriorly fuse d to S1 with 7 mm anterolisthesis. IMPRESSION: 1. Anasarca with diffuse body wall, mesenteric and retroperitoneal edema, moderate right and trace le ft pleural effusions and small amount of ascites. 2. Splenomegaly. 3. Dystrophic calcifications at the head and uncinate process of the pancreas likely sequela of chron ic pancreatitis. 4. Significant improvement post aortobiiliac stent grafting of an infrarenal abdominal aortic aneurys m which is decreased from 5.3 to 3.3 cm in maximal diameter. Reviewed, dictated and finalized at location A. IMPRESSION: 1. Anasarca with diffuse body wall, mesenteric and retroperitoneal edema, moder ate right and trace left pleural effusions and small amount of ascites. 2. Splenomegaly. 3. Dystrophic calcifications at the head and uncinate process of the pancreas l ikely sequela of chronic pancreatitis. 4. Significant improvement post aortobiiliac stent grafting of an infrarenal ab dominal aortic aneurysm which is dec
--- NOTE | ~2023-01-18 | XR_ITS ---
XR chest 1V portable DATE: 01/23/2023 08:22 INDICATION: Wheezing. Vomiting. TECHNIQUE: Portable upright AP chest on 01/23/2023 at 0802 hours COMPARISON: 01/18/2023 2 view chest FINDINGS: Cardiomegaly. Aortic calcification. There is pulmonary vascular congestion. There is bilateral pulmonary interstitial prominence includin g Rebecca B-lines, consistent with pulmonary interstitial edema. Bilateral lower lung infiltrate and/or atelectasis. Thoracolumbar spinal rods. Osteopenia. IMPRESSION: Congestive heart failure, pulmonary interstitial edema Bibasilar infiltrate and/atelectasis Reviewed, dictated and finalized at location A.
--- NOTE | ~2023-01-18 | XR_ITS ---
Clinical Indication: Shortness of breath PA and lateral views of the chest: Comparison: 11/09/2022 Findings: There is minimal blunting of the costophrenic angles. There is mild haziness at the right l dionisio base. Cardiomediastinal silhouette is stable. Extensive thoracolumbar spinal fixation hardware is unchanged. Impression: Probable minimal pleural effusions and minimal right basilar pulmonary edema/atelectasis. Correlate c linically for pneumonia. Stable extensive thoracolumbar spinal fixation hardware. Reviewed, dictated and finalized at location M. Impression: Probable minimal pleural effusions and minimal right basilar pulmonary edema/at electasis. Correlate clinically for pneumonia. Stable extensive thoracolumbar spinal fixation hardware.
--- NOTE | 2023-01-18 07:54 | ECG_ITS ---
Measurements Intervals [place] Rate: 114 P: 70 UT: 200 QRS: 236 QRSD: 93 T: 103 QT: 357 QTc: 492 Interpretive Statements MULTIFOCAL ATRIAL TACHYCARDIA ATRIAL PREMATURE COMPLEXES INCOMPLETE RIGHT BUNDLE BRANCH BLOCK CANNOT RULE OUT SEPTAL INFARCT, AGE INDETERMINATE BORDERLINE T WAVE ABNORMALITY- ANTEROLAT/HIGH LAT LEADS BASELINE ARTIFACT- I, II, III, AVR, AVL, AVF, V1, V4 ABNORMAL ECG COMPARED TO ECG 11/09/2022 11:25:40 NO SIGNIFICANT CHANGES Electronically Signed On 01-18-2023 8:45:16 CDT by Roldan Bond D.O.
[2023-01-18 08:17] LABS: INR 1.4; Partial Thromboplastin Time 36.7 SECONDS (22.3-36.8); Prothrombin Time 17.7 Seconds (11.1-14.7)
[2023-01-18 08:24] LABS: Alanine Aminotransferase 22 U/L (6-50); Albumin Level 3.7 g/dL (3.5-5.1); Alkaline Phosphatase 128 U/L (38-126); Anion Gap 2 mmol/L (8-16); Aspartate Amino Transferase 38 U/L (17-59); Bilirubin,Total 1.3 mg/dL (0.2-1.3); Blood Urea Nitrogen 34 mg/dL (9-20); Calcium 8.3 mg/dL (8.4-10.2); Carbon Dioxide 28 mmol/L (22-30); Chloride 106 mmol/L (98-107); Estimated Glomerular Filt Rate 44; Glucose 131 mg/dL (65-110); Sodium 136 mmol/L (137-145)
[2023-01-18 08:31] LABS: NT Pro B Type Natriuretic Pept 16600 pg/mL (19.9-100)
[2023-01-18 08:52] LABS: Basophils Absolute Auto 0.4 K/mm3 (0.0-0.1); Basophils Percent Auto 2.3 % (0.2-1.2); Eosinophils Absolute Auto 0.2 K/mm3 (0-0.3); Hematocrit 44.9 % (42.0-52.0); Hemoglobin 13.3 g/dL (14.0-18.0); Lymphocytes Absolute Auto 0.51 K/mm3 (0.9-3.2); Lymphocytes Percent Auto 3.2 % (18.3-44.2); Mean Corpuscular HGB Conc 29.6 g/dl (32-36); Mean Corpuscular Hemoglobin 23.5 pg (26-34); Mean Corpuscular Volume 79.2 fl (80-100); Monocytes Absolute Auto 0.7 K/mm3 (0.1-0.6); Monocytes Percent Auto 4.1 % (2.6-8.5); Neutrophils Absolute Auto 13.4 K/mm3 (1.3-6.7); Neutrophils Percent Auto 84.4 % (45.5-73.1); Nucleated Red Blood Cells Perc 0.1 % (0.0-0.2); Platelet Count Result 239 k/mm3 (150-375); Red Blood Count 5.67 M/mm3 (4.6-6.20); Red Cell Distribution Width 31.1 % (11.5-14.5); White Blood Count 15.9 K/mm3 (4.5-10.0)
[2023-01-18 09:14] LABS: Giant Platelets Present; Platelet Estimate Adequate (Adequate)
[2023-01-18 09:15] LABS: Anisocytosis 2+ (NORMAL)
[2023-01-18 09:16] LABS: Macrocytosis 1+ (NORMAL); Ovalocytes 2+ (NORMAL); Schistocytes None Seen (NORMAL)
--- NOTE | 2023-01-18 09:17 | PC.NURSE ---
no change in pt condition. remains at bedside. all results back. pending further orders.
--- NOTE | 2023-01-18 10:12 | ED.SOB ---
HPI - SOB/Dyspnea General Chief Complaint: Shortness of Breath/Dyspnea Stated Complaint: ABD SWELLING, HX CHF Time Seen by Provider: 01/18/23 07:59 History of Present Illness HPI Narrative: This is an 87-year-old male with past history of CHF, brought in by family for a 10 pound weight gain over the past day and abdominal swelling. The patient notes his abdomen became enlarged and causing some shortness of breath. He denies pain, nausea or vomiting. His , at bedside notes he has gained 10 pounds in the last day. She states she is otherwise compliant with his medications. He has no other complaints today. Related Data Home Medications Medication Instructions Recorded Confirmed anagrelide 1 mg capsule 1 mg PO BID 01/05/22 01/14/23 ascorbate calcium (vitamin C) 500 500 mg PO DAILY 09/03/22 01/14/23 mg tablet cholecalciferol (vitamin D3) 100 25 mcg PO DAILY 09/03/22 01/14/23 mcg (4,000 unit) capsule (Vitamin D3) ferrous sulfate 325 mg (65 mg 325 mg PO BID 09/03/22 01/14/23 iron) tablet (iron) acetaminophen 325 mg capsule 650 mg PO HS 11/09/22 01/14/23 (Tylenol) vibegron 75 mg tablet (Gemtesa) 75 mg PO DAILY 11/09/22 01/14/23 Allergies Allergy/AdvReac Type Severity Reaction Status Date / Time No Known Allergies Allergy Verified 01/18/23 07:48 Review of Systems Review of Systems: CONSTITUTIONAL: Denies fever, chills, or sweats. CARDIOVASCULAR: Denies chest pain, palpitations, or edema. RESPIRATORY: Dyspnea denies cough GASTROINTESTINAL: Abdominal distention denies abdominal pain, nausea, vomiting, or diarrhea. GENITOURINARY: Denies dysuria or hematuria. SKIN: Denies rash or itching. MUSCULOSKELETAL: Denies back pain, joint pain, or myalgia. NEUROLOGIC: Denies headache, numbness, dizziness, or weakness. PSYCHIATRIC: Denies anxiety or depression. [facility] Past Medical History Medical History Aortic stenosis Arthritis Basal cell carcinoma Benign prostatic hyperplasia Chronic kidney disease Decreased hearing of left ear Diastolic congestive heart failure Echocardiogram in December 2021 showed low end of normal LV systolic function and diastolic dysfunction with superimposed basal inferoseptal hypokinesis. Essential thrombocytosis Glaucoma Hypertension Iron deficiency anemia Overactive bladder Paroxysmal atrial fibrillation Vitamin D deficiency Surgical History Surgical History History of abdominal aortic aneurysm repair (2016) History of back surgery Godfrey rods in the lower thoracic spine. History of basal cell carcinoma excision History of colon resection (2001) History of incisional hernia repair History of left hip replacement (2006) History of right hip replacement (2004) Family History Family History Sibling Carcinoma of colon Social History Social History Social History: Surrogate decision maker: Vianey Carmen, spouse. Code status: Full code. Smoking packs per day: 2 Smoking cigarettes per day: 40.0 Years smoked: 45 Smoking pack-years: 90.00 Smoking status: Former smoker Tobacco type: cigarettes Second hand tobacco smoke exposure: No Smoking end date: 07/11/94 Alcohol intake: never Substance use: never Substance use type: does not use Lack of Transportation: No Lack of Food: Never True Current Housing: I Have Housing Concerned About Future Housing: No Difficulty Paying Gas/Electric Bills: No Difficulty Paying for Meds: No Currently Unemployed: No Education: Grade School Difficulty w/ Childcare or Family Care: No Living arrangements: with family Additional living arrangements comments: The patient lives with his in [place]. Occupation/Education: retired Additional occupation/education comments: Ret
[2023-01-18] MEDS: FUROSEMIDE INJ 40 MG/4 ML VIAL 20 MG IV PUSH (10:45)
[2023-01-18 10:59] LABS: Troponin I 0.109 ng/mL (0.000-0.034)
--- NOTE | 2023-01-18 11:27 | ADMGEN ---
This patient, Doni Cavazos, was admitted to IMU Room 202-. Patient/family oriented to hospital policies and general routines including ID bracelet, bed and alarms, visiting hours, pain management, procedures, bathroom and other care routines, personal items, smoking policy, room service/diet, and visiting hours. Information on how to activate the Rapid Response Team has been discussed. Patient/Family are encouraged to report perceived risks to care and to ask questions if they do not understand what they are told or what they should do.
[2023-01-18 11:56] LABS: Troponin I 0.104 ng/mL (0.000-0.034)
--- NOTE | 2023-01-18 13:10 | PM.IMHP ---
H&P: HPI History of Present Illness Date/Time: 01/18/23 13:10 Chief Complaint: Shortness of breath. Narrative: This is a very pleasant 87-year-old male with diastolic congestive heart failure, aortic stenosis, chronic kidney disease, paroxysmal atrial fibrillation, benign prostatic hyperplasia, essential thrombocytosis, and other comorbidities who presented to the ED from home for evaluation of shortness of breath. The patient provides the following history. He had a routine follow-up appointment with Dr. Almanza at the end of December at which time he indicated that he had been out of his metoprolol and furosemide for a couple of weeks. His prescriptions were refilled and he states compliance with his medications since that time. He is diligent about monitoring his weight and diet and over the past 36 hours he has put on almost 12 lb. With further questioning he endorses chronic orthopnea and mild lower extremity edema however it has been worse the last couple of days and swelling is now up into his abdomen. He is also feeling more short of breath than usual. He denies syncope, near syncope, chest pain, pleuritic pain, palpitations, nausea, and vomiting. Preliminary workup is consistent with acute CHF exacerbation with a moderately elevated troponin. He is being admitted in this setting for diuresis and Cardiology consultation. Review of Systems Review of Systems: Twelve systems were reviewed and are negative except for as per HPI. [facility] Past Medical History Medical History Aortic stenosis Arthritis Basal cell carcinoma Benign prostatic hyperplasia Chronic kidney disease Decreased hearing of left ear Diastolic congestive heart failure Echocardiogram in December 2021 showed low end of normal LV systolic function and diastolic dysfunction with superimposed basal inferoseptal hypokinesis. Essential thrombocytosis Glaucoma Hypertension Iron deficiency anemia Overactive bladder Paroxysmal atrial fibrillation Vitamin D deficiency Surgical History Surgical History History of abdominal aortic aneurysm repair (2016) History of back surgery Godfrey rods in the lower thoracic spine. History of basal cell carcinoma excision History of colon resection (2001) History of incisional hernia repair History of left hip replacement (2006) History of right hip replacement (2004) Family History Family History Sibling Carcinoma of colon Social History Social History Social History: Surrogate decision maker: Vianey Carmen, spouse. Code status: Full code. Smoking packs per day: 2 Smoking cigarettes per day: 40.0 Years smoked: 45 Smoking pack-years: 90.00 Smoking status: Former smoker Tobacco type: cigarettes Second hand tobacco smoke exposure: No Smoking end date: 07/11/94 Alcohol intake: never Substance use: never Substance use type: does not use Lack of Transportation: No Lack of Food: Never True Current Housing: I Have Housing Concerned About Future Housing: No Difficulty Paying Gas/Electric Bills: No Difficulty Paying for Meds: No Currently Unemployed: No Education: Grade School Difficulty w/ Childcare or Family Care: No Living arrangements: with family Additional living arrangements comments: The patient lives with his in [place]. 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 Spiritual care concerns: No Meds Home Medications and Allergies Home Medications Medication Instructions Recorded Confirmed Type anagrelide 1 mg capsule 1 mg PO BID 01/05/22 01/18/23 History ascorbate calcium (vitamin C) 500 500 mg PO DAILY 09/03/22 01/18/23 History mg tablet cholecalciferol (vitami
--- NOTE | 2023-01-18 14:57 | PM.CNCAR ---
Assessment and Plan Assessment and plan (1) Acute exacerbation of CHF (congestive heart failure): Code(s): I50.9 - Heart failure, unspecified Status: Acute Assessment and Plan: Started on IV Lasix 20mg BID, will increase to 40mg BID. Please monitor strict I/Os and monitor renal function and electrolytes closely. (2) Elevated troponin: Code(s): R77.8 - Other specified abnormalities of plasma proteins Status: Acute Assessment and Plan: Minimally elevated and flat. No chest pain. Likely due to decompensated heart failure rather than an acute coronary syndrome. History of Present Illness History of Present Illness Consult date/time: 01/18/23 14:57 Requesting physician: Wilmer Boyle MD Consult reason: congestive heart failure Reason For Visit: CHF exacerbation Narrative: We are consulted for congestive heart failure. This is an 87 year old male who follows with Dr. Almanza. He was last admitted in November 2022 for decompensated heart failure. Echocardiogram at that time showed mildly reduced LVEF 45-50% with reduced RV function. He had improvement with IV Lasix and was discharged on Lasix 20mg PO. He also has chronic moderate aortic stenosis. He followed up with Dr. Almanza in clinic on 12/28/2022. Patient stated at that visit, he had run out of his Metoprolol and Lasix becuase he was only given 30 day supply with no refills and had been out of them for about 2 weeks, and had recurrence of shortness of breath, orthopnea. His Metoprolol and Lasix was refilled at that visit. Patient reports swelling in his abdomen and shortness of breath over the past couple of days. Patient's reports that he gained 10 pounds just over the past day. BNP significantly elevated at 16,600. Abdomen/Pelvis CT showed anasarca with diffuse body wall, mesenteric and retroperitoneal edema, moderate right and trace left pleural effusions and small amount of ascites. CXR with minimal pleural effusions and minimal right basilar pulmonary edema/atelectasis. Review of Systems Review of Systems: All systems reviewed & are unremarkable except as noted in HPI and below (HPI) [facility], [facility] Past Medical History Medical History Aortic stenosis Arthritis Basal cell carcinoma Benign prostatic hyperplasia Chronic kidney disease Decreased hearing of left ear Diastolic congestive heart failure Echocardiogram in December 2021 showed low end of normal LV systolic function and diastolic dysfunction with superimposed basal inferoseptal hypokinesis. Essential thrombocytosis Glaucoma Hypertension Iron deficiency anemia Overactive bladder Paroxysmal atrial fibrillation Vitamin D deficiency Surgical History Surgical History History of abdominal aortic aneurysm repair (2016) History of back surgery Godfrey rods in the lower thoracic spine. History of basal cell carcinoma excision History of colon resection (2001) History of incisional hernia repair History of left hip replacement (2006) History of right hip replacement (2004) Family History Family History Sibling Carcinoma of colon Social History Social History Social History: Surrogate decision maker: Vianey RodriguezNeil, spouse. Code status: Full code. Smoking packs per day: 2 Smoking cigarettes per day: 40.0 Years smoked: 45 Smoking pack-years: 90.00 Smoking status: Former smoker Tobacco type: cigarettes Second hand tobacco smoke exposure: No Smoking end date: 07/11/94 Alcohol intake: never Substance use: never Substance use type: does not use Lack of Transportation: No Lack of Food: Never True Current Housing: I Have Housing Concerned About Future Housing: No Difficulty Paying Gas/Electric Bills: No Difficulty Paying for Meds: No Currently Un
[2023-01-18 16:29] LABS: Troponin I 0.083 ng/mL (0.000-0.034)
[2023-01-18] MEDS: FUROSEMIDE INJ 40 MG/4 ML VIAL IV PUSH (18:05)
[2023-01-18] MEDS: METOPROLOL TARTRATE 12.5 MG TABLET PO (21:32)
[2023-01-18] MEDS: ACETAMINOPHEN 325 MG TABLET 650 MG PO (21:32)
[2023-01-19] VITALS (14 sets, daily range): BP systolic 93–115; BP diastolic 56–73; PULSE 79–128; RESP 15–19; TEMP 36.2–36.8; O2SAT 92–100
[2023-01-19 05:11] LABS: Basophils Absolute Auto 0.4 K/mm3 (0.0-0.1); Basophils Percent Auto 2.8 % (0.2-1.2); Eosinophils Absolute Auto 0.2 K/mm3 (0-0.3); Eosinophils Percent Auto 1.5 % (0-4.4); Hematocrit 45.5 % (42.0-52.0); Hemoglobin 13.4 g/dL (14.0-18.0); Immature Granulocyte Absolute 0.84 K/mm3 (0.00-0.031); Immature Granulocyte Percent A 5.3 % (0-0.5); Immature Platelet Fraction Pct 33.7 % (0.9-11.2); Lymphocytes Absolute Auto 0.65 K/mm3 (0.9-3.2); Lymphocytes Percent Auto 4.1 % (18.3-44.2); Mean Corpuscular HGB Conc 29.5 g/dl (32-36); Mean Corpuscular Hemoglobin 23.1 pg (26-34); Mean Corpuscular Volume 78.4 fl (80-100); Monocytes Absolute Auto 0.9 K/mm3 (0.1-0.6); Monocytes Percent Auto 5.5 % (2.6-8.5); Neutrophils Absolute Auto 12.9 K/mm3 (1.3-6.7); Neutrophils Percent Auto 80.8 % (45.5-73.1); Nucleated Red Blood Cells Perc 0.1 % (0.0-0.2); Platelet Count Result 250 k/mm3 (150-375); Red Cell Distribution Width 30.7 % (11.5-14.5)
[2023-01-19 05:26] LABS: Anion Gap 3 mmol/L (8-16); Blood Urea Nitrogen 40 mg/dL (9-20); Calcium 8.4 mg/dL (8.4-10.2); Carbon Dioxide 29 mmol/L (22-30); Chloride 105 mmol/L (98-107); Estimated CRCL calculation 28 ml/min; Estimated Glomerular Filt Rate 38; Glucose 100 mg/dL (65-110); Magnesium 2.2 mg/dL (1.6-2.3); Potassium 3.8 mmol/L (3.4-5.0); Sodium 137 mmol/L (137-145)
[2023-01-19 05:40] LABS: Ovalocytes 2+ (NORMAL); Platelet Estimate Adequate (Adequate)
[2023-01-19 05:41] LABS: Hypochromasia 2+ (NORMAL); Schistocytes None Seen (NORMAL)
--- NOTE | 2023-01-19 08:10 | PM.IMPN ---
Progress Note: A&P Assessment and Plan (1) Acute on chronic diastolic heart failure: Code(s): I50.33 - Acute on chronic diastolic (congestive) heart failure Status: Acute Assessment and Plan: improving, strict Is/Os, daily weights appreciate cardio consult, cont IV diuresis (2) Elevated troponin: Code(s): R77.8 - Other specified abnormalities of plasma proteins Status: Acute Assessment and Plan: flattened, do not suspect acs (3) Aortic stenosis: Qualifiers: Cardiac valve disease etiology: nonrheumatic Qualified Code(s): I35.0 - Nonrheumatic aortic (valve) stenosis Code(s): I35.0 - Nonrheumatic aortic (valve) stenosis Status: Acute (4) Essential thrombocytosis: Code(s): D47.3 - Essential (hemorrhagic) thrombocythemia Status: Acute (5) Iron deficiency anemia: Qualifiers: Iron deficiency anemia type: other iron deficiency Qualified Code(s): D50.8 - Other iron deficiency anemias Code(s): D50.9 - Iron deficiency anemia, unspecified Status: Acute (6) Overactive bladder: Code(s): N32.81 - Overactive bladder Status: Acute (7) Chronic kidney disease: Code(s): N18.9 - Chronic kidney disease, unspecified Status: Acute Plan DVT prophylaxis with lovenox GI prophylaxis not indicated Code status full code Subjective Date/time seen: 01/19/23 08:10 Interval history: No overnight events noted. No chest pain or shortness of breath. No nausea, vomiting or diarrhea. No fevers or chills. Still with swelling in his abdomen and legs. Review of Systems Review of Systems: 12 point review of systems was assessed and was negative except as noted in the HPI Exam Narrative: General: No acute distress, alert and oriented per baseline HEENT: Atraumatic, normocephalic, mucous membranes moist CV: Regular rate and rhythm, S1, S2 Lungs: Clear to auscultation bilaterally, no rales or crackles noted, no wheezes, good air entry Abdomen: Soft, nontender, nondistended Extremities: Normal to inspection, 2+ pitting edema B/L Skin: No rashes noted, no lesions or wounds seen Psych: Euthymic, normal affect Objective Data Vital Signs Vital Signs: Vital Signs - 24 hr 01/18/23 08:15 01/18/23 08:16 01/18/23 08:30 Temperature Pulse Rate 104 H 117 H 104 H Respiratory Rate 29 H 23 H 25 H Blood Pressure 103/71 Pulse Oximetry 91 92 92 Oxygen Delivery Oxygen Flow Rate 01/18/23 08:31 01/18/23 08:52 01/18/23 09:00 Temperature Pulse Rate 120 H 128 H 104 H Respiratory Rate 23 H 25 H 17 Blood Pressure 92/62 L Pulse Oximetry 92 82 L 93 Oxygen Delivery Oxygen Flow Rate 01/18/23 09:15 01/18/23 09:16 01/18/23 09:30 Temperature Pulse Rate 111 H 115 H 110 H Respiratory Rate 28 H 26 H 27 H Blood Pressure 99/68 L Pulse Oximetry 97 95 94 Oxygen Delivery Oxygen Flow Rate 01/18/23 09:31 01/18/23 09:45 01/18/23 09:46 Temperature Pulse Rate 108 H 107 H 109 H Respiratory Rate 29 H 28 H 24 H Blood Pressure 95/75 L 97/73 L Pulse Oximetry 94 94 92 Oxygen Delivery Oxygen Flow Rate 01/18/23 10:01 01/18/23 10:03 01/18/23 10:16 Temperature Pulse Rate Respiratory Rate Blood Pressure 90/69 L 96/72 L Pulse Oximetry 92 Oxygen Delivery Oxygen Flow Rate 01/18/23 10:31 01/18/23 10:46 01/18/23 11:01 Temperature Pulse Rate 126 H Respiratory Rate 18 Blood Pressure 98/68 L 103/77 103/77 Pulse Oximetry 94 Oxygen Delivery Oxygen Flow Rate 01/18/23 11:57 01/18/23 12:00 01/18/23 12:00 Temperature 97.3 F L Pulse Rate 102 H 108 H Respiratory Rate 22 H Blood Pressure 103/80 Pulse Oximetry 94 Oxygen Delivery Room Air Oxygen Flow Rate 01/18/23 14:00 01/18/23 17:20 01/18/23 16:00 Temperature 98.4 F Pulse Rate 108 H 103 H 112 H Respiratory Rate 20 Blood Pressure 97/68 L Pulse Oximetry
[2023-01-19] MEDS: METOPROLOL SUCCINATE EXT REL 25 MG TABCR PO (08:50)
[2023-01-19] MEDS: POTASSIUM CHLORIDE 20 MEQ ER TABLET PO (08:50)
[2023-01-19] MEDS: FERROUS SULFATE 325 MG TABLET DR 324 MG PO (08:50)
[2023-01-19] MEDS: ASCORBIC ACID 500 MG TABLET PO (08:50)
[2023-01-19] MEDS: ENOXAPARIN 40 MG/0.4 ML SYRINGE SUB-Q (08:50)
[2023-01-19] MEDS: CHOLECALCIFEROL 1,000 UNITS TABLET 1000 UNITS PO (08:50)
[2023-01-19] MEDS: FUROSEMIDE INJ 40 MG/4 ML VIAL IV PUSH (08:51)
--- NOTE | 2023-01-19 10:00 | PHAR ---
HOME MEDICATION VERIFIED BY PHARMACY: ANAGRELIDE 1MG CAPSULES TAKE 1 CAPSULES PO TWICE DAILY RX#[id number]
--- NOTE | 2023-01-19 12:12 | PM.PNCARD ---
Progress Note: A&P Assessment and Plan (1) Acute exacerbation of CHF (congestive heart failure): Code(s): I50.9 - Heart failure, unspecified Status: Acute Assessment and Plan: Continue Lasix IV 40mg BID. Please monitor strict I/Os and monitor renal function and electrolytes closely. (2) Elevated troponin: Code(s): R77.8 - Other specified abnormalities of plasma proteins Status: Acute Assessment and Plan: Minimally elevated and flat. No chest pain. Likely due to decompensated heart failure rather than an acute coronary syndrome. (3) Chronic kidney disease: Code(s): N18.9 - Chronic kidney disease, unspecified Status: Acute Assessment and Plan: Monitor renal function closely while diuresing. Subjective Date/time seen: 01/19/23 12:12 Interval history: Reason For Visit: Congestive heart failure HPI: We are consulted for congestive heart failure. This is an 87 year old male who follows with Dr. Almanza. He was last admitted in November 2022 for decompensated heart failure. Echocardiogram at that time showed mildly reduced LVEF 45-50% with reduced RV function. He had improvement with IV Lasix and was discharged on Lasix 20mg PO. He also has chronic moderate aortic stenosis. He followed up with Dr. Almanza in clinic on 12/28/2022. Patient stated at that visit, he had run out of his Metoprolol and Lasix because he was only given 30 day supply with no refills and had been out of them for about 2 weeks, and had recurrence of shortness of breath, orthopnea.? His Metoprolol and Lasix was refilled at that visit. Patient reports swelling in his abdomen and shortness of breath over the past couple of days. Patient's reports that he gained 10 pounds just over the past day.? BNP significantly elevated at 16,600. Abdomen/Pelvis CT showed anasarca with diffuse body wall, mesenteric and retroperitoneal edema, moderate right and trace left pleural effusions and small amount of ascites. CXR with minimal pleural effusions and minimal right basilar pulmonary edema/atelectasis. Date of service 01/19: Making urine. No chest pain. Feeling a little better. Review of Systems Review of Systems: All systems reviewed & are unremarkable except as noted in HPI and below (HPI) Exam Const: General: comfortable and no acute distress Other: Elderly frail gentleman. Eyes: General: appearance normal, both eyes and all related structures Sclera: sclerae normal Resp: Effort & Inspection: normal respiratory effort Auscultation: diminished lung sounds Cardio: Rate: regular rate Rhythm: regular rhythm Heart sounds: Murmur heart sound present systolic Other: 2+ bilateral lower extremity edema GI: Inspection: distended GI Palp: No Tenderness to palpation present (GI) Skin: General skin exam: normal color Neuro: Speech: normal speech Psych: Mental Status: mental status grossly normal Affect: normal affect Objective Data Vital Signs Vital Signs: Vital Signs - 24 hr 01/18/23 14:00 01/18/23 17:20 01/18/23 16:00 Temperature 36.9 C Pulse Rate 108 H 103 H 112 H Respiratory Rate 20 Blood Pressure 97/68 L Pulse Oximetry 95 Oxygen Delivery Oxygen Flow Rate 01/18/23 18:00 01/18/23 20:00 01/18/23 21:32 Temperature 37.4 C Pulse Rate 116 H 117 H 110 H Respiratory Rate 20 Blood Pressure 100/65 Pulse Oximetry 92 Oxygen Delivery Oxygen Flow Rate 01/18/23 20:00 01/19/23 00:00 01/19/23 00:00 Temperature 36.2 C L Pulse Rate 115 H 98 98 Respiratory Rate 18 18 Blood Pressure 94/67 L Pulse Oximetry 95 95 Oxygen Delivery Nasal Cannula Oxygen Flow Rate 2 01/18/23 22:00 01/19/23 00:00 01/19/23 04:00 Temperature 36.4 C L Pulse Rate 110 H 97 79 Respiratory Rate 18 Blood Pressure 93/65 L Pulse Oximetry 100 Oxygen Delivery Oxygen Flow Rate 01/19/23 02:00 01/19/23 04:00 01/19/23 04:00 Temperature Pulse Rate 101 H 10
[2023-01-19] MEDS: ACETAMINOPHEN 325 MG TABLET 650 MG PO (20:04)
[2023-01-20] VITALS (8 sets, daily range): BP systolic 100–109; BP diastolic 58–66; PULSE 93–113; RESP 20–22; TEMP 36.4–37.6; O2SAT 94–96
[2023-01-20] MEDS: OPTI-GEN TAB 1 TABLET PO (09:15)
[2023-01-20] MEDS: ASCORBIC ACID 500 MG TABLET PO (09:15)
[2023-01-20] MEDS: POTASSIUM CHLORIDE 20 MEQ ER TABLET PO (09:15)
[2023-01-20] MEDS: FOLIC ACID 0.4 MG TABLET PO (09:16)
[2023-01-20] MEDS: METOPROLOL SUCCINATE EXT REL 25 MG TABCR PO (09:16)
[2023-01-20] MEDS: FERROUS SULFATE 325 MG TABLET DR 324 MG PO (09:16)
[2023-01-20] MEDS: FUROSEMIDE 20 MG TABLET PO (09:16)
[2023-01-20] MEDS: ENOXAPARIN 40 MG/0.4 ML SYRINGE SUB-Q (09:17)
[2023-01-20] MEDS: CHOLECALCIFEROL 1,000 UNITS TABLET 1000 UNITS PO (09:17)
--- NOTE | 2023-01-20 09:59 | PM.IMPN ---
Progress Note: A&P Assessment and Plan (1) Acute on chronic diastolic heart failure: Code(s): I50.33 - Acute on chronic diastolic (congestive) heart failure Status: Acute Assessment and Plan: improving, strict Is/Os, daily weights appreciate cardio consult, cont IV diuresis monitor creat with lasix, increase dose 01/20 due to unchanged edema (2) Elevated troponin: Code(s): R77.8 - Other specified abnormalities of plasma proteins Status: Acute Assessment and Plan: flattened, do not suspect acs (3) Aortic stenosis: Qualifiers: Cardiac valve disease etiology: nonrheumatic Qualified Code(s): I35.0 - Nonrheumatic aortic (valve) stenosis Code(s): I35.0 - Nonrheumatic aortic (valve) stenosis Status: Acute Assessment and Plan: per outpatient management (4) Essential thrombocytosis: Code(s): D47.3 - Essential (hemorrhagic) thrombocythemia Status: Acute Assessment and Plan: stable (5) Iron deficiency anemia: Qualifiers: Iron deficiency anemia type: other iron deficiency Qualified Code(s): D50.8 - Other iron deficiency anemias Code(s): D50.9 - Iron deficiency anemia, unspecified Status: Acute Assessment and Plan: stable (6) Overactive bladder: Code(s): N32.81 - Overactive bladder Status: Acute Assessment and Plan: stable (7) Chronic kidney disease: Code(s): N18.9 - Chronic kidney disease, unspecified Status: Acute Assessment and Plan: worsening with diuresis, monitor closely Plan DVT prophylaxis with lovenox GI prophylaxis not indicated Code status full code Subjective Date/time seen: 01/20/23 09:59 Interval history: 87-year-old male with diastolic congestive heart failure, aortic stenosis, chronic kidney disease, paroxysmal atrial fibrillation, benign prostatic hyperplasia, essential thrombocytosis, and other comorbidities who presented to the ED from home for evaluation of shortness of breath and being treated for heart failure exacerbation. No overnight events noted. No chest pain or shortness of breath. No nausea, vomiting or diarrhea. No fevers or chills. Swelling noted B/L LE, similar to yesterday. Review of Systems Review of Systems: 12 point review of systems was assessed and was negative except as noted in the HPI Exam Narrative: General: No acute distress, alert and oriented per baseline HEENT: Atraumatic, normocephalic, mucous membranes moist CV: Regular rate and rhythm, S1, S2 Lungs: Clear to auscultation bilaterally, no rales or crackles noted, no wheezes, good air entry Abdomen: Soft, nontender, nondistended Extremities: Normal to inspection, 2+ pitting edema B/L Skin: No rashes noted, no lesions or wounds seen Psych: Euthymic, normal affect Objective Data Vital Signs Vital Signs: Vital Signs - 24 hr 01/19/23 10:10 01/19/23 12:00 01/19/23 10:00 Temperature 97.5 F L Pulse Rate 87 101 H Respiratory Rate 19 Blood Pressure 115/70 Pulse Oximetry 93 93 Oxygen Delivery Room Air 01/19/23 12:00 01/19/23 14:00 01/19/23 12:00 Temperature Pulse Rate 92 98 Respiratory Rate Blood Pressure Pulse Oximetry Oxygen Delivery Room Air 01/19/23 16:00 01/19/23 16:00 01/19/23 19:41 Temperature 97.7 F 98.3 F Pulse Rate 100 98 114 H Respiratory Rate 17 18 Blood Pressure 101/67 105/67 Pulse Oximetry 97 93 Oxygen Delivery 01/19/23 20:00 01/19/23 20:00 01/19/23 23:27 Temperature 98.3 F Pulse Rate 110 H 110 H 114 H Respiratory Rate 18 18 Blood Pressure 106/56 L Pulse Oximetry 93 94 Oxygen Delivery Room Air 01/20/23 00:00 01/20/23 04:00 01/20/23 08:00 Temperature 98.1 F Pulse Rate 113 H 107 H 98 Respiratory Rate 22 H Blood Pressure 106/66 Pulse Oximetry 94 Oxygen Delivery 01/20/23 09:16 Temperature Pulse Rate 107 H Respiratory Rate Blood Pr
[2023-01-20] MEDS: LORATADINE 10 MG TABLET PO (10:10)
[2023-01-20 10:24] LABS: Hematocrit 45.3 % (42.0-52.0); Hemoglobin 13.4 g/dL (14.0-18.0); Immature Platelet Fraction Pct 32.2 % (0.9-11.2); Mean Corpuscular HGB Conc 29.6 g/dl (32-36); Mean Corpuscular Hemoglobin 23.6 pg (26-34); Mean Corpuscular Volume 79.6 fl (80-100); Platelet Count Result 262 k/mm3 (150-375); Red Blood Count 5.69 M/mm3 (4.6-6.20); Red Cell Distribution Width 31.3 % (11.5-14.5); White Blood Count 13.7 K/mm3 (4.5-10.0)
[2023-01-20 10:35] LABS: Alanine Aminotransferase 22 U/L (6-50); Albumin Level 3.8 g/dL (3.5-5.1); Alkaline Phosphatase 129 U/L (38-126); Anion Gap 4 mmol/L (8-16); Aspartate Amino Transferase 30 U/L (17-59); Bilirubin,Total 1.5 mg/dL (0.2-1.3); Blood Urea Nitrogen 41 mg/dL (9-20); Calcium 8.6 mg/dL (8.4-10.2); Carbon Dioxide 31 mmol/L (22-30); Chloride 101 mmol/L (98-107); Estimated CRCL calculation 31 ml/min; Estimated Glomerular Filt Rate 44; Glucose 176 mg/dL (65-110); Potassium 4.3 mmol/L (3.4-5.0); Sodium 136 mmol/L (137-145)
[2023-01-20 11:23] LABS: Band Neutrophils Percent 5 % (0-6); Basophils Absolute Manual 0.54 K/mm3 (0.0-0.1); Basophils Percent Manual 4 % (0-1); Lymphocytes Absolute Manual 1.37 K/mm3 (1.1-4.5); Monocytes Absolute Manual 0.41 K/mm3 (0.1-0.90); Monocytes Percent Manual 3 % (3-9); Neutrophils Absolute Manual 11.37 K/mm3 (1.3-6.7); Neutrophils Percent Manual 78 % (46-73); Platelet Estimate Adequate (Adequate); Total Cells Counted 100
[2023-01-20 11:24] LABS: Anisocytosis 2+ (NORMAL); Ovalocytes 2+ (NORMAL); Schistocytes None Seen (NORMAL)
[2023-01-20] MEDS: FUROSEMIDE INJ 40 MG/4 ML VIAL 80 MG IV PUSH ×2 (12:48→17:59)
--- NOTE | 2023-01-20 13:03 | PM.PNCARD ---
Progress Note: A&P Assessment and Plan (1) Acute exacerbation of CHF (congestive heart failure): Code(s): I50.9 - Heart failure, unspecified Status: Acute Assessment and Plan: Improving with diuresis, however was a little net positive yesterday. Will increase Lasix IV to 80mg BID. Please monitor strict I/Os and monitor renal function and electrolytes closely. (2) Elevated troponin: Code(s): R77.8 - Other specified abnormalities of plasma proteins Status: Acute Assessment and Plan: Minimally elevated and flat. No chest pain. Likely due to decompensated heart failure rather than an acute coronary syndrome. (3) Chronic kidney disease: Code(s): N18.9 - Chronic kidney disease, unspecified Status: Acute Assessment and Plan: Monitor renal function closely while diuresing. Subjective Date/time seen: 01/20/23 13:03 Interval history: Reason For Visit: Congestive heart failure HPI: We are consulted for congestive heart failure. This is an 87 year old male who follows with Dr. Almanza. He was last admitted in November 2022 for decompensated heart failure. Echocardiogram at that time showed mildly reduced LVEF 45-50% with reduced RV function. He had improvement with IV Lasix and was discharged on Lasix 20mg PO. He also has chronic moderate aortic stenosis. He followed up with Dr. Almanza in clinic on 12/28/2022. Patient stated at that visit, he had run out of his Metoprolol and Lasix because he was only given 30 day supply with no refills and had been out of them for about 2 weeks, and had recurrence of shortness of breath, orthopnea.? His Metoprolol and Lasix was refilled at that visit. Patient reports swelling in his abdomen and shortness of breath over the past couple of days. Patient's reports that he gained 10 pounds just over the past day.? BNP significantly elevated at 16,600. Abdomen/Pelvis CT showed anasarca with diffuse body wall, mesenteric and retroperitoneal edema, moderate right and trace left pleural effusions and small amount of ascites. CXR with minimal pleural effusions and minimal right basilar pulmonary edema/atelectasis. Date of service 01/19: Making urine. No chest pain. Feeling a little better. Date of service 01/20: Feeling okay, abdomen feels a little less swollen. No shortness of breath. No chest pain. Review of Systems Review of Systems: 8 point ROS obtained. Negative, unless stated in HPI. Exam Const: General: comfortable and no acute distress Other: Elderly frail gentleman. Eyes: General: appearance normal, both eyes and all related structures Sclera: sclerae normal Resp: Effort & Inspection: normal respiratory effort Auscultation: diminished lung sounds Cardio: Rate: regular rate Rhythm: regular rhythm Heart sounds: Murmur heart sound present systolic Other: 2+ bilateral lower extremity edema GI: Inspection: distended GI Palp: No Tenderness to palpation present (GI) Skin: General skin exam: normal color Neuro: Speech: normal speech Psych: Mental Status: mental status grossly normal Affect: normal affect Objective Data Vital Signs Vital Signs: Vital Signs - 24 hr 01/19/23 14:00 01/19/23 16:00 01/19/23 16:00 Temperature 36.5 C Pulse Rate 98 100 98 Respiratory Rate 17 Blood Pressure 101/67 Pulse Oximetry 97 Oxygen Delivery 01/19/23 19:41 01/19/23 20:00 01/19/23 20:00 Temperature 36.8 C Pulse Rate 114 H 110 H 110 H Respiratory Rate 18 18 Blood Pressure 105/67 Pulse Oximetry 93 93 Oxygen Delivery Room Air 01/19/23 23:27 01/20/23 00:00 01/20/23 04:00 Temperature 36.8 C Pulse Rate 114 H 113 H 107 H Respiratory Rate 18 Blood Pressure 106/56 L Pulse Oximetry 94 Oxygen Delivery 01/20/23 08:00 01/20/23 09:16 01/20/23 08:00 Temperature 36.7 C Pulse Rate 98 107 H 106 H Respiratory Rate 22 H Blood Pressure 106/66 Pulse Oximetry 94 Oxygen Delivery 07
[2023-01-20 14:08] LABS: Glucose Point of Care 110 mg/dl (65-105)
[2023-01-20 17:16] LABS: Glucose Point of Care 118 mg/dl (65-105)
[2023-01-20] MEDS: ACETAMINOPHEN 325 MG TABLET 650 MG PO (20:38)
[2023-01-21] VITALS (10 sets, daily range): BP systolic 91–109; BP diastolic 54–72; PULSE 103–139; RESP 16–20; TEMP 36.1–36.9; O2SAT 93–95
[2023-01-21 05:13] LABS: Basophils Absolute Auto 0.4 K/mm3 (0.0-0.1); Basophils Percent Auto 2.9 % (0.2-1.2); Eosinophils Absolute Auto 0.2 K/mm3 (0-0.3); Eosinophils Percent Auto 1.7 % (0-4.4); Hematocrit 43.3 % (42.0-52.0); Immature Granulocyte Absolute 0.85 K/mm3 (0.00-0.031); Immature Granulocyte Percent A 6.4 % (0-0.5); Immature Platelet Fraction Pct 32.6 % (0.9-11.2); Lymphocytes Absolute Auto 0.57 K/mm3 (0.9-3.2); Lymphocytes Percent Auto 4.3 % (18.3-44.2); Mean Corpuscular Hemoglobin 23.3 pg (26-34); Mean Corpuscular Volume 77.6 fl (80-100); Monocytes Absolute Auto 0.7 K/mm3 (0.1-0.6); Monocytes Percent Auto 5.4 % (2.6-8.5); Neutrophils Absolute Auto 10.5 K/mm3 (1.3-6.7); Neutrophils Percent Auto 79.3 % (45.5-73.1); Platelet Count Result 277 k/mm3 (150-375); Red Blood Count 5.58 M/mm3 (4.6-6.20); Red Cell Distribution Width 30.8 % (11.5-14.5); White Blood Count 13.3 K/mm3 (4.5-10.0)
[2023-01-21 05:30] LABS: Alanine Aminotransferase 21 U/L (6-50); Albumin Level 3.7 g/dL (3.5-5.1); Alkaline Phosphatase 126 U/L (38-126); Anion Gap 6 mmol/L (8-16); Aspartate Amino Transferase 39 U/L (17-59); Bilirubin,Total 1.6 mg/dL (0.2-1.3); Blood Urea Nitrogen 45 mg/dL (9-20); Calcium 9.2 mg/dL (8.4-10.2); Carbon Dioxide 32 mmol/L (22-30); Chloride 98 mmol/L (98-107); Estimated CRCL calculation 29 ml/min; Estimated Glomerular Filt Rate 41; Glucose 84 mg/dL (65-110); Potassium 3.8 mmol/L (3.4-5.0); Sodium 136 mmol/L (137-145)
[2023-01-21 05:39] LABS: Anisocytosis 1+ (NORMAL); Platelet Estimate Adequate (Adequate); Poikilocytosis 1+ (NORMAL); Schistocytes Rare (NORMAL)
[2023-01-21] MEDS: METOPROLOL SUCCINATE EXT REL 25 MG TABCR PO (09:36)
[2023-01-21] MEDS: OPTI-GEN TAB 1 TABLET PO (09:36)
[2023-01-21] MEDS: CHOLECALCIFEROL 1,000 UNITS TABLET 1000 UNITS PO (09:37)
[2023-01-21] MEDS: FERROUS SULFATE 325 MG TABLET DR 324 MG PO (09:37)
[2023-01-21] MEDS: FOLIC ACID 0.4 MG TABLET PO (09:37)
[2023-01-21] MEDS: POTASSIUM CHLORIDE 20 MEQ ER TABLET PO (09:37)
[2023-01-21] MEDS: LORATADINE 10 MG TABLET PO (09:38)
[2023-01-21] MEDS: ENOXAPARIN 40 MG/0.4 ML SYRINGE SUB-Q (09:38)
[2023-01-21] MEDS: ASCORBIC ACID 500 MG TABLET PO (09:38)
[2023-01-21] MEDS: FUROSEMIDE INJ 40 MG/4 ML VIAL 80 MG IV PUSH ×2 (09:39→16:40)
--- NOTE | 2023-01-21 14:10 | PM.IMPN ---
Progress Note: A&P Assessment and Plan (1) Acute on chronic diastolic heart failure: Code(s): I50.33 - Acute on chronic diastolic (congestive) heart failure Status: Acute Assessment and Plan: improving, strict Is/Os, daily weights appreciate cardio consult, cont IV diuresis monitor creat with lasix, increase dose 01/20 due to unchanged edema Appears somewhat improved with increased diuresis, will continue this dose (2) Elevated troponin: Code(s): R77.8 - Other specified abnormalities of plasma proteins Status: Acute Assessment and Plan: flattened, do not suspect acs (3) Aortic stenosis: Qualifiers: Cardiac valve disease etiology: nonrheumatic Qualified Code(s): I35.0 - Nonrheumatic aortic (valve) stenosis Code(s): I35.0 - Nonrheumatic aortic (valve) stenosis Status: Acute Assessment and Plan: per outpatient management (4) Essential thrombocytosis: Code(s): D47.3 - Essential (hemorrhagic) thrombocythemia Status: Acute Assessment and Plan: stable (5) Iron deficiency anemia: Qualifiers: Iron deficiency anemia type: other iron deficiency Qualified Code(s): D50.8 - Other iron deficiency anemias Code(s): D50.9 - Iron deficiency anemia, unspecified Status: Acute Assessment and Plan: stable (6) Overactive bladder: Code(s): N32.81 - Overactive bladder Status: Acute Assessment and Plan: stable (7) Chronic kidney disease: Code(s): N18.9 - Chronic kidney disease, unspecified Status: Acute Assessment and Plan: worsening with diuresis, monitor closely Appears somewhat stable, fluctuating around 1.5-1.7 Plan DVT prophylaxis with lovenox GI prophylaxis not indicated Code status full code Subjective Date/time seen: 01/21/23 14:10 Interval history: 87-year-old male with diastolic congestive heart failure, aortic stenosis, chronic kidney disease, paroxysmal atrial fibrillation, benign prostatic hyperplasia, essential thrombocytosis, and other comorbidities who presented to the ED from home for evaluation of shortness of breath and being treated for heart failure exacerbation. No overnight events noted. No chest pain, still with some shortness of breath on exertion. No nausea, vomiting or diarrhea. No fevers or chills. Review of Systems Review of Systems: 12 point review of systems was assessed and was negative except as noted in the HPI Exam Narrative: General: No acute distress, alert and oriented per baseline HEENT: Atraumatic, normocephalic, mucous membranes moist CV: Regular rate and rhythm, S1, S2 Lungs: Clear to auscultation bilaterally, no rales or crackles noted, no wheezes, good air entry Abdomen: Soft, nontender, nondistended Extremities: Normal to inspection, 2+ pitting edema B/L Skin: No rashes noted, no lesions or wounds seen Psych: Euthymic, normal affect Objective Data Vital Signs Vital Signs: Vital Signs - 24 hr 01/20/23 16:00 01/20/23 16:00 01/20/23 20:31 Temperature 99.6 F 97.5 F L Pulse Rate 103 H 102 H 93 Respiratory Rate 20 20 Blood Pressure 100/61 100/62 Pulse Oximetry 95 96 Oxygen Delivery 01/20/23 20:00 01/20/23 20:00 01/21/23 00:00 Temperature Pulse Rate 112 H 112 H 104 H Respiratory Rate 20 Blood Pressure Pulse Oximetry 96 Oxygen Delivery Room Air 01/21/23 04:00 01/21/23 05:11 01/21/23 08:00 Temperature 97.8 F 97 F L Pulse Rate 105 H 106 H 103 H Respiratory Rate 18 20 Blood Pressure 91/54 L 102/72 Pulse Oximetry 94 95 Oxygen Delivery 01/21/23 09:36 01/21/23 08:00 01/21/23 12:00 Temperature Pulse Rate 112 H 125 H 139 H Respiratory Rate Blood Pressure Pulse Oximetry Oxygen Delivery Intake/Output Intake/Output: Intake & Output 01/18/23 01/19/23 01/20/23 01/21/23 23:59 23:59 23:59 23:59 Intake Total 780 8151 8590 720 Output
--- NOTE | 2023-01-21 14:44 | PC.NURSE ---
This patient, Doni Cavazos, was transferred to [facility] on 01/21/23 at 1444. Personal belongings sent with patient. Report given to WENDY Scruggs. Appropriate documentation sent with patient.
--- NOTE | 2023-01-21 14:56 | ADMGEN ---
This patient, Doni Cavazos, was admitted to Medical Room [facility] @ [facility]. Patient/family oriented to hospital policies and general routines including ID bracelet, bed and alarms, visiting hours, pain management, procedures, bathroom and other care routines, personal items, smoking policy, room service/diet, and visiting hours. Information on how to activate the Rapid Response Team has been discussed. Patient/Family are encouraged to report perceived risks to care and to ask questions if they do not understand what they are told or what they should do.
[2023-01-21] MEDS: diphenhydrAMINE HCl CAP 25 MG CAPSULE PO (20:20)
[2023-01-21] MEDS: ACETAMINOPHEN 325 MG TABLET 650 MG PO (20:20)
[2023-01-21] MEDS: DIGOXIN INJ 250 MCG/ML 2 ML AMP (*BKC) IV PUSH (23:43)
[2023-01-22] VITALS (9 sets, daily range): BP systolic 102–122; BP diastolic 61–69; PULSE 91–120; RESP 16–20; TEMP 36.6–37.1; O2SAT 92–95
[2023-01-22 05:24] LABS: Alanine Aminotransferase 21 U/L (6-50); Albumin Level 3.9 g/dL (3.5-5.1); Alkaline Phosphatase 137 U/L (38-126); Anion Gap 6 mmol/L (8-16); Aspartate Amino Transferase 36 U/L (17-59); Bilirubin,Total 1.8 mg/dL (0.2-1.3); Blood Urea Nitrogen 52 mg/dL (9-20); Calcium 9.6 mg/dL (8.4-10.2); Carbon Dioxide 37 mmol/L (22-30); Chloride 97 mmol/L (98-107); Estimated CRCL calculation 29 ml/min; Estimated Glomerular Filt Rate 41; Glucose 88 mg/dL (65-110); Potassium 4.1 mmol/L (3.4-5.0); Sodium 140 mmol/L (137-145)
[2023-01-22 05:32] LABS: Basophils Absolute Auto 0.5 K/mm3 (0.0-0.1); Basophils Percent Auto 3.3 % (0.2-1.2); Eosinophils Absolute Auto 0.2 K/mm3 (0-0.3); Eosinophils Percent Auto 1.6 % (0-4.4); Hematocrit 43.9 % (42.0-52.0); Hemoglobin 13.6 g/dL (14.0-18.0); Immature Granulocyte Absolute 1.01 K/mm3 (0.00-0.031); Immature Granulocyte Percent A 7.2 % (0-0.5); Lymphocytes Absolute Auto 0.62 K/mm3 (0.9-3.2); Lymphocytes Percent Auto 4.4 % (18.3-44.2); Mean Corpuscular Hemoglobin 23.6 pg (26-34); Mean Corpuscular Volume 76.1 fl (80-100); Monocytes Absolute Auto 0.7 K/mm3 (0.1-0.6); Monocytes Percent Auto 4.7 % (2.6-8.5); Neutrophils Percent Auto 78.8 % (45.5-73.1); Nucleated Red Blood Cells Perc 0.1 % (0.0-0.2); Platelet Count Result 315 k/mm3 (150-375); Red Blood Count 5.77 M/mm3 (4.6-6.20); Red Cell Distribution Width 30.5 % (11.5-14.5)
[2023-01-22 06:10] LABS: Platelet Estimate Adequate (Adequate)
[2023-01-22 06:11] LABS: Poikilocytosis 2+ (NORMAL)
[2023-01-22 06:22] LABS: Ovalocytes 2+ (NORMAL); Schistocytes 1+ (NORMAL)
--- NOTE | 2023-01-22 08:02 | PM.IMPN ---
Progress Note: A&P Assessment and Plan (1) Acute on chronic diastolic heart failure: Code(s): I50.33 - Acute on chronic diastolic (congestive) heart failure Status: Acute Assessment and Plan: Improving, strict Is/Os, daily weights Appreciate cardio consult, cont IV diuresis Monitor creat with lasix, increase dose 01/20 due to unchanged edema and positive fluid balance Appears somewhat improved with increased diuresis, will continue this dose for now 01/22: appears to be fluid balance -2940 ml the last 24 hours, creat stable, cont current dose for now of lasix 80 mg IV BID (2) Elevated troponin: Code(s): R77.8 - Other specified abnormalities of plasma proteins Status: Acute Assessment and Plan: Flattened, do not suspect acs (3) Aortic stenosis: Qualifiers: Cardiac valve disease etiology: nonrheumatic Qualified Code(s): I35.0 - Nonrheumatic aortic (valve) stenosis Code(s): I35.0 - Nonrheumatic aortic (valve) stenosis Status: Acute Assessment and Plan: Per outpatient management (4) Essential thrombocytosis: Code(s): D47.3 - Essential (hemorrhagic) thrombocythemia Status: Acute Assessment and Plan: Stable (5) Iron deficiency anemia: Qualifiers: Iron deficiency anemia type: other iron deficiency Qualified Code(s): D50.8 - Other iron deficiency anemias Code(s): D50.9 - Iron deficiency anemia, unspecified Status: Acute Assessment and Plan: Stable (6) Overactive bladder: Code(s): N32.81 - Overactive bladder Status: Acute Assessment and Plan: Stable (7) Chronic kidney disease: Code(s): N18.9 - Chronic kidney disease, unspecified Status: Acute Assessment and Plan: Worsening with diuresis, monitor closely Appears somewhat stable, fluctuating around 1.5-1.7 Plan DVT prophylaxis with lovenox GI prophylaxis not indicated Code status full code Subjective Date/time seen: 01/22/23 08:02 Interval history: 87-year-old male with diastolic congestive heart failure, aortic stenosis, chronic kidney disease, paroxysmal atrial fibrillation, benign prostatic hyperplasia, essential thrombocytosis, and other comorbidities who presented to the ED from home for evaluation of shortness of breath and being treated for heart failure exacerbation. No overnight events noted. No chest pain, less sob than yesterday. No nausea, vomiting or diarrhea. No fevers or chills. Review of Systems Review of Systems: 12 point review of systems was assessed and was negative except as noted in the HPI Exam Narrative: General: No acute distress, alert and oriented per baseline HEENT: Atraumatic, normocephalic, mucous membranes moist CV: Regular rate and rhythm, S1, S2 Lungs: Clear to auscultation bilaterally, no wheeze or crackles noted Abdomen: Soft, nontender, nondistended Extremities: Normal to inspection, 1+ pitting edema B/L Skin: No rashes noted, no lesions or wounds seen Psych: Euthymic, normal affect Objective Data Vital Signs Vital Signs: Vital Signs - 24 hr 01/21/23 09:36 01/21/23 12:00 01/21/23 12:00 Temperature 97.2 F L Pulse Rate 112 H 139 H 108 H Respiratory Rate 18 Blood Pressure 109/62 Pulse Oximetry 95 Oxygen Delivery 01/21/23 16:00 01/21/23 20:41 01/21/23 20:00 Temperature 98.4 F Pulse Rate 120 H 108 H 133 H Respiratory Rate 16 Blood Pressure 96/68 L Pulse Oximetry 93 Oxygen Delivery 01/21/23 20:00 01/21/23 23:43 01/22/23 00:00 Temperature Pulse Rate 108 H 120 H Respiratory Rate Blood Pressure Pulse Oximetry Oxygen Delivery Room Air 01/22/23 04:00 01/22/23 05:33 Temperature 98.1 F Pulse Rate 100 91 Respiratory Rate 20 Blood Pressure 107/69 Pulse Oximetry 92 Oxygen Delivery Intake/Output Intake/Output: Intake & Output 01/19/23 01/20/23
[2023-01-22] MEDS: OPTI-GEN TAB 1 TABLET PO (09:15)
[2023-01-22] MEDS: FERROUS SULFATE 325 MG TABLET DR 324 MG PO (09:15)
[2023-01-22] MEDS: LORATADINE 10 MG TABLET PO (09:16)
[2023-01-22] MEDS: METOPROLOL SUCCINATE EXT REL 25 MG TABCR PO (09:16)
[2023-01-22] MEDS: ASCORBIC ACID 500 MG TABLET PO (09:16)
[2023-01-22] MEDS: FOLIC ACID 0.4 MG TABLET PO (09:16)
[2023-01-22] MEDS: CHOLECALCIFEROL 1,000 UNITS TABLET 1000 UNITS PO (09:16)
[2023-01-22] MEDS: POTASSIUM CHLORIDE 20 MEQ ER TABLET PO (09:17)
[2023-01-22] MEDS: ENOXAPARIN 40 MG/0.4 ML SYRINGE SUB-Q (09:17)
[2023-01-22] MEDS: FUROSEMIDE INJ 40 MG/4 ML VIAL 80 MG IV PUSH (09:17)
--- NOTE | 2023-01-22 09:29 | PC.NURSE ---
Patient refusing the bed alarm, wanting to ambulate on his own. Educated patient on the risk of ambulating without an assist, but understand that he has the right to refuse. Explained to patient that it is possible that he may fall and cause serious injury to self. Patient understands and wishes to proceed without alarm.
--- NOTE | 2023-01-22 10:59 | PM.PNCARD ---
Progress Note: A&P Assessment and Plan (1) CHF exacerbation: Qualifiers: Heart failure type: unspecified Qualified Code(s): I50.9 - Heart failure, unspecified Code(s): I50.9 - Heart failure, unspecified Status: Acute (2) A-fib: Qualifiers: Atrial fibrillation type: longstanding persistent Qualified Code(s): I48.11 - Longstanding persistent atrial fibrillation Code(s): I48.91 - Unspecified atrial fibrillation Status: Acute Plan 87-year-old man with chronic diastolic dysfunction and CHF decompensation. His volume status is nearly optimized. I am going to reduce his furosemide and change back to a p.o. regimen as he is approaching a state of euvolemia. Consider discharge in the next 24-48 hours if he remains stable. Outpatient follow-up in my clinic as already arranged. Billy Almanza MD [facility] Subjective Date/time seen: Date of service: 01/22/23 10:59 Interval history: Reason For Visit: Congestive heart failure HPI: We are consulted for congestive heart failure. This is an 87 year old male who follows with Dr. Almanza. He was last admitted in November 2022 for decompensated heart failure. Echocardiogram at that time showed mildly reduced LVEF 45-50% with reduced RV function. He had improvement with IV Lasix and was discharged on Lasix 20mg PO. He also has chronic moderate aortic stenosis. He followed up with Dr. Almanza in clinic on 12/28/2022. Patient stated at that visit, he had run out of his Metoprolol and Lasix because he was only given 30 day supply with no refills and had been out of them for about 2 weeks, and had recurrence of shortness of breath, orthopnea.? His Metoprolol and Lasix was refilled at that visit. Patient reports swelling in his abdomen and shortness of breath over the past couple of days. Patient's reports that he gained 10 pounds just over the past day.? BNP significantly elevated at 16,600. Abdomen/Pelvis CT showed anasarca with diffuse body wall, mesenteric and retroperitoneal edema, moderate right and trace left pleural effusions and small amount of ascites. CXR with minimal pleural effusions and minimal right basilar pulmonary edema/atelectasis. Date of service 01/19: Making urine. No chest pain. Feeling a little better. Date of service 01/20: Feeling okay, abdomen feels a little less swollen. No shortness of breath. No chest pain. Date of service 01/22/2023: Patient no longer having any shortness of breath. Has some mild persistent lower extremity edema at this time. Ambulating in the room without any complaints or problems. Exam Const: General: comfortable and no acute distress Other: Elderly frail gentleman. HENMT: Mouth: Yes moist mucous membranes Eyes: General: appearance normal, both eyes and all related structures Sclera: sclerae normal Resp: Effort & Inspection: normal respiratory effort Auscultation: diminished lung sounds Cardio: Rate: regular rate Rhythm: regular rhythm Heart sounds: Murmur heart sound present systolic Other: 2+ bilateral lower extremity edema GI: Inspection: distended Skin: General skin exam: normal color Neuro: Speech: normal speech Psych: Mental Status: mental status grossly normal Affect: normal affect Objective Data Vital Signs Vital Signs: Vital Signs - 24 hr 01/21/23 12:00 01/21/23 12:00 01/21/23 16:00 Temperature 36.2 C L Pulse Rate 139 H 108 H 120 H Respiratory Rate 18 Blood Pressure 109/62 Pulse Oximetry 95 Oxygen Delivery 01/21/23 20:41 01/21/23 20:00 01/21/23 20:00 Temperature 36.9 C Pulse Rate 108 H 133 H Respiratory Rate 16 Blood Pressure 96/68 L Pulse Oximetry 93 Oxygen Delivery Room Air 01/21/23 23:43 01/22/23 00:00 01/22/23 04:00 Temperature Pulse Rate 108 H 120 H 100 Respiratory Rate Blood Pressure Pulse Oximetry Oxygen Delivery 01/22/23 05:33 01/22/23 09:16 Temperature 36.7 C Pulse Rate 9
[2023-01-22] MEDS: ACETAMINOPHEN 325 MG TABLET 650 MG PO (20:59)
[2023-01-22] MEDS: diphenhydrAMINE HCl CAP 25 MG CAPSULE PO (20:59)
[2023-01-23] VITALS (10 sets, daily range): BP systolic 94–116; BP diastolic 54–67; PULSE 99–120; RESP 16–18; TEMP 36.6; O2SAT 90–97
[2023-01-23] MEDS: ONDANSETRON INJ 4 MG/2 ML VIAL IV PUSH (03:34)
[2023-01-23 05:21] LABS: Basophils Absolute Auto 0.7 K/mm3 (0.0-0.1); Basophils Percent Auto 2.1 % (0.2-1.2); Eosinophils Percent Auto 0.1 % (0-4.4); Hematocrit 54.2 % (42.0-52.0); Hemoglobin 16.5 g/dL (14.0-18.0); Immature Granulocyte Absolute 1.95 K/mm3 (0.00-0.031); Immature Granulocyte Percent A 5.7 % (0-0.5); Lymphocytes Absolute Auto 0.63 K/mm3 (0.9-3.2); Lymphocytes Percent Auto 1.8 % (18.3-44.2); Mean Corpuscular HGB Conc 30.4 g/dl (32-36); Mean Corpuscular Hemoglobin 23.5 pg (26-34); Mean Corpuscular Volume 77.1 fl (80-100); Monocytes Absolute Auto 1.4 K/mm3 (0.1-0.6); Monocytes Percent Auto 4.1 % (2.6-8.5); Neutrophils Absolute Auto 29.7 K/mm3 (1.3-6.7); Neutrophils Percent Auto 86.2 % (45.5-73.1); Nucleated Red Blood Cells Perc 0.1 % (0.0-0.2); Platelet Count Result 473 k/mm3 (150-375); Red Blood Count 7.03 M/mm3 (4.6-6.20); White Blood Count 34.4 K/mm3 (4.5-10.0)
[2023-01-23 05:36] LABS: Alanine Aminotransferase 23 U/L (6-50); Albumin Level 4.7 g/dL (3.5-5.1); Alkaline Phosphatase 163 U/L (38-126); Aspartate Amino Transferase 41 U/L (17-59); Bilirubin,Total 2.1 mg/dL (0.2-1.3); Blood Urea Nitrogen 61 mg/dL (9-20); Calcium 10.5 mg/dL (8.4-10.2); Carbon Dioxide > 40 mmol/L (22-30); Chloride 86 mmol/L (98-107); Estimated CRCL calculation 27 ml/min; Estimated Glomerular Filt Rate 38; Glucose 141 mg/dL (65-110); Potassium 4.3 mmol/L (3.4-5.0); Sodium 141 mmol/L (137-145)
[2023-01-23 07:12] LABS: Large Platelets Present; Platelet Estimate Increased (Adequate); Poikilocytosis 2+ (NORMAL)
[2023-01-23 07:13] LABS: Giant Platelets Present
[2023-01-23 07:14] LABS: Ovalocytes 1+ (NORMAL); Schistocytes 1+ (NORMAL); Target Cells 1+ (NORMAL)
--- NOTE | 2023-01-23 07:46 | ECG_ITS ---
Measurements Intervals [place] Rate: 107 P: 58 IA: 177 QRS: -87 QRSD: 94 T: 119 QT: 417 QTc: 557 Interpretive Statements SINUS TACHYCARDIA LEFT AXIS DEVIATION INCOMPLETE RIGHT BUNDLE BRANCH BLOCK CONSIDER ANTEROSEPTAL INFARCT, AGE INDETERMINATE BORDERLINE T WAVE ABNORMALITY- HIGH LATERAL LEADS BASELINE WANDER- V4 ABNORMAL ECG COMPARED TO ECG 01/18/2023 08:01:32 SINUS TACHYCARDIA NOW PRESENT LEFT-AXIS DEVIATION NOW PRESENT Electronically Signed On 01-23-2023 8:41:42 CDT by Roldan Bond D.O.
--- NOTE | 2023-01-23 08:20 | PM.IMPN ---
Progress Note: A&P Assessment and Plan (1) Hypoxia: Code(s): R09.02 - Hypoxemia Status: Acute Assessment and Plan: new onset hypoxia overnight 01/22-01/23 going from RA to 3L nc with associated nausea/vomiting, ddx includes PE, GI bleed with possible aspiration pna, ACS/HI, gastroenteritis, hepatitis also noted elevated LFTs, check RUQ US, hepatitis panel, KUB, initiate PPI BID, occult blood emesis hypoxia + leukocytosis, indicates possible infection, check CRP/PCT/CXR, blood cultures, consider broad spectrum abx update: CXR showed significant infiltrates concerning for aspiration vs flash pulm edema, initiate broad spectrum abx with vanc/cefepime/levaquin, MRSA screen sent, hold anagrelide for now, monitor closely KUB wnl (2) Acute on chronic diastolic heart failure: Code(s): I50.33 - Acute on chronic diastolic (congestive) heart failure Status: Acute Assessment and Plan: Improving, strict Is/Os, daily weights Appreciate cardio consult, cont IV diuresis Monitor creat with lasix, increase dose 01/20 due to unchanged edema and positive fluid balance Appears somewhat improved with increased diuresis, will continue this dose for now 01/22: appears to be fluid balance -2940 ml the last 24 hours, creat stable, cont current dose for now of lasix 80 mg IV BID 01/23: -1L yesterday, but CXR with significant volume overload concerning for flash pulm edema, see above for details (3) Elevated troponin: Code(s): R77.8 - Other specified abnormalities of plasma proteins Status: Acute Assessment and Plan: Initially was flattened, after episode of emesis, nausea, and sob with hypoxia, troponin bumped up to 0.124 from 0.083. Consult cardiology regarding these changes, trend troponins, check ECG update: ecg looks like there might be some new changes in lateral leads concerning for ischemia, defer to cardio for further management (4) Chronic kidney disease: Code(s): N18.9 - Chronic kidney disease, unspecified Status: Acute Assessment and Plan: Worsening with diuresis, monitor closely Appears somewhat stable, fluctuating around 1.5-1.7 (5) Aortic stenosis: Qualifiers: Cardiac valve disease etiology: nonrheumatic Qualified Code(s): I35.0 - Nonrheumatic aortic (valve) stenosis Code(s): I35.0 - Nonrheumatic aortic (valve) stenosis Status: Acute Assessment and Plan: Per outpatient management (6) Essential thrombocytosis: Code(s): D47.3 - Essential (hemorrhagic) thrombocythemia Status: Acute Assessment and Plan: Stable, hold anagrelide while on levaquin, monitor platelets closely (7) Iron deficiency anemia: Qualifiers: Iron deficiency anemia type: other iron deficiency Qualified Code(s): D50.8 - Other iron deficiency anemias Code(s): D50.9 - Iron deficiency anemia, unspecified Status: Acute Assessment and Plan: Stable (8) Overactive bladder: Code(s): N32.81 - Overactive bladder Status: Acute Assessment and Plan: Stable Plan DVT prophylaxis with lovenox--hold until emesis occult confirmed GI prophylaxis not indicated Code status full code Subjective Date/time seen: 01/23/23 08:20 Interval history: 87-year-old male with diastolic congestive heart failure, aortic stenosis, chronic kidney disease, paroxysmal atrial fibrillation, benign prostatic hyperplasia, essential thrombocytosis, and other comorbidities who presented to the ED from home for evaluation of shortness of breath and being treated for heart failure exacerbation. Overnight patient began to have sudden onset nausea with emesis, possibly coffee ground in appearance, as well as changes on telemetry strip. Nursing staff also noted patient began to have audible wheezing and hypoxia requiring 3L nc. Review of Systems Review of Systems: 12 point review of systems was asse
[2023-01-23 08:21] LABS: Troponin I 0.124 ng/mL (0.000-0.034)
[2023-01-23] MEDS: FUROSEMIDE INJ 100 MG/10 ML VIAL 80 MG IV PUSH (09:33)
[2023-01-23] MEDS: CEFEPIME 2 GM/NS 50 ML 2 GM/50 ML BAG IVPB (09:33)
[2023-01-23] MEDS: PANTOPRAZOLE SODIUM IV 40 MG VIAL IV PUSH ×2 (09:34→22:15)
[2023-01-23] MEDS: ASCORBIC ACID 500 MG TABLET PO (09:34)
[2023-01-23] MEDS: OPTI-GEN TAB 1 TABLET PO (09:34)
[2023-01-23] MEDS: FOLIC ACID 0.4 MG TABLET PO (09:34)
[2023-01-23] MEDS: FERROUS SULFATE 325 MG TABLET DR 324 MG PO (09:34)
[2023-01-23] MEDS: CHOLECALCIFEROL 1,000 UNITS TABLET 1000 UNITS PO (09:34)
[2023-01-23] MEDS: POTASSIUM CHLORIDE 20 MEQ ER TABLET PO (09:34)
[2023-01-23] MEDS: LORATADINE 10 MG TABLET PO (09:35)
[2023-01-23] MEDS: METOPROLOL SUCCINATE EXT REL 25 MG TABCR PO (09:35)
[2023-01-23 09:45] LABS: CRP 1.5 mg/dL (<1.0)
[2023-01-23] MEDS: levoFLOXacin 750 MG/D5W 150 ML 750 MG/150 ML BAG 150 MG IVPB (10:23)
[2023-01-23 11:01] LABS: Procalcitonin 0.2 ng/mL
[2023-01-23 11:24] LABS: HAV RESULT Negative (Negative); Hepatitis B Surface Antigen Negative (Negative)
[2023-01-23 11:28] LABS: Hepatitis C Virus Antibody Negative (Negative)
[2023-01-23 11:33] LABS: Troponin I 0.128 ng/mL (0.000-0.034)
[2023-01-23 14:12] LABS: Basophils Absolute Auto 0.4 K/mm3 (0.0-0.1); Basophils Percent Auto 1.5 % (0.2-1.2); Hematocrit 47.7 % (42.0-52.0); Hemoglobin 14.5 g/dL (14.0-18.0); Immature Granulocyte Absolute 1.34 K/mm3 (0.00-0.031); Immature Granulocyte Percent A 4.8 % (0-0.5); Immature Platelet Fraction Pct 26.6 % (0.9-11.2); Lymphocytes Absolute Auto 0.39 K/mm3 (0.9-3.2); Lymphocytes Percent Auto 1.4 % (18.3-44.2); Mean Corpuscular HGB Conc 30.4 g/dl (32-36); Mean Corpuscular Hemoglobin 23.8 pg (26-34); Mean Corpuscular Volume 78.2 fl (80-100); Monocytes Absolute Auto 1.2 K/mm3 (0.1-0.6); Monocytes Percent Auto 4.3 % (2.6-8.5); Neutrophils Absolute Auto 24.6 K/mm3 (1.3-6.7); Nucleated Red Blood Cells Perc 0.1 % (0.0-0.2); Platelet Count Result 365 k/mm3 (150-375); Red Cell Distribution Width 30.4 % (11.5-14.5)
--- NOTE | 2023-01-23 14:20 | PM.PNCARD ---
Progress Note: A&P Assessment and Plan (1) CHF exacerbation: Qualifiers: Heart failure type: unspecified Qualified Code(s): I50.9 - Heart failure, unspecified Code(s): I50.9 - Heart failure, unspecified Status: Acute Plan 87-year-old man with paroxysmal AFib and CHF. As I mentioned yesterday he appears to be essentially euvolemic. I do not believe the distress that he had last night is likely to be a cardiac problem principal complaints were some abdominal discomfort nausea and a lot of vomiting. It is certainly possible that he aspirated in this setting. By exam I do not see any evidence of decompensated heart failure at this time. Hopefully with symptomatic treatment his abdominal distress and nausea will resolve. Will continue to follow with you but at this point I believe his CHF remains compensated Billy Almanza MD [facility] Subjective Date/time seen: Date of service: 01/23/23 14:20 Interval history: Reason For Visit: Congestive heart failure HPI: We are consulted for congestive heart failure. This is an 87 year old male who follows with Dr. Almanza. He was last admitted in November 2022 for decompensated heart failure. Echocardiogram at that time showed mildly reduced LVEF 45-50% with reduced RV function. He had improvement with IV Lasix and was discharged on Lasix 20mg PO. He also has chronic moderate aortic stenosis. He followed up with Dr. Almanza in clinic on 12/28/2022. Patient stated at that visit, he had run out of his Metoprolol and Lasix because he was only given 30 day supply with no refills and had been out of them for about 2 weeks, and had recurrence of shortness of breath, orthopnea.? His Metoprolol and Lasix was refilled at that visit. Patient reports swelling in his abdomen and shortness of breath over the past couple of days. Patient's reports that he gained 10 pounds just over the past day.? BNP significantly elevated at 16,600. Abdomen/Pelvis CT showed anasarca with diffuse body wall, mesenteric and retroperitoneal edema, moderate right and trace left pleural effusions and small amount of ascites. CXR with minimal pleural effusions and minimal right basilar pulmonary edema/atelectasis. Date of service 01/19: Making urine. No chest pain. Feeling a little better. Date of service 01/20: Feeling okay, abdomen feels a little less swollen. No shortness of breath. No chest pain. Date of service 01/22/2023: Patient no longer having any shortness of breath. Has some mild persistent lower extremity edema at this time. Ambulating in the room without any complaints or problems. Date of service 01/23/2023: Patient resting in his room relatively comfortable at this time watching television. Had a bad night last night with some abdominal discomfort nausea a lot of vomiting and some diarrhea. Following this it was noticed that his FiO2 requirements increased he is now on 3 L of nasal cannula oxygen from room air. No cardiac symptoms. Exam Const: General: comfortable and no acute distress Other: Elderly frail gentleman. HENMT: Mouth: Yes moist mucous membranes Eyes: General: appearance normal, both eyes and all related structures Sclera: sclerae normal Resp: Effort & Inspection: normal respiratory effort Auscultation: diminished lung sounds Cardio: Rate: regular rate Rhythm: regular rhythm Heart sounds: Murmur heart sound present systolic Other: 2+ bilateral lower extremity edema GI: Inspection: distended Skin: General skin exam: normal color Neuro: Speech: normal speech Psych: Mental Status: mental status grossly normal Affect: normal affect Objective Data Vital Signs Vital Signs: Vital Signs - 24 hr 01/22/23 16:00 01/22/23 16:00 01/22/23 19:56 Temperature 36.6 C 37.1 C Pulse Rate 99 98 110 H Respiratory Rate 20 16 Blood Pressure 102/64 122/61 Pulse Oximetry 95 93 Oxygen Delivery Oxygen Flow Rate 01/22/23 20:00 01/22/23 20:00
[2023-01-23 14:31] LABS: Alanine Aminotransferase 22 U/L (6-50); Albumin Level 4.1 g/dL (3.5-5.1); Alkaline Phosphatase 116 U/L (38-126); Aspartate Amino Transferase 35 U/L (17-59); Bilirubin,Total 1.8 mg/dL (0.2-1.3); Blood Urea Nitrogen 68 mg/dL (9-20); Carbon Dioxide > 40 mmol/L (22-30); Chloride 90 mmol/L (98-107); Estimated CRCL calculation 27 ml/min; Estimated Glomerular Filt Rate 38; Glucose 143 mg/dL (65-110); Potassium 4.4 mmol/L (3.4-5.0); Sodium 138 mmol/L (137-145)
[2023-01-23 14:36] LABS: Anisocytosis 1+ (NORMAL); Ovalocytes 2+ (NORMAL); Platelet Estimate Adequate (Adequate); Poikilocytosis 2+ (NORMAL); Schistocytes None Seen (NORMAL)
[2023-01-23 14:51] LABS: Troponin I 0.133 ng/mL (0.000-0.034)
[2023-01-23 17:22] LABS: IFOB Positive Control Positive; Immunochemical Fecal Occult Bl Negative (N)
[2023-01-23] MEDS: ACETAMINOPHEN 325 MG TABLET 650 MG PO (22:11)
[2023-01-23] MEDS: diphenhydrAMINE HCl CAP 25 MG CAPSULE PO (22:12)
[2023-01-24] VITALS (14 sets, daily range): BP systolic 92–103; BP diastolic 54–66; PULSE 93–101; RESP 16–20; TEMP 36.4–36.9; O2SAT 92–100
[2023-01-24 02:32] LABS: Hepatitis B Core IgM Result Negative (Negative)
[2023-01-24 05:50] LABS: Basophils Absolute Auto 0.4 K/mm3 (0.0-0.1); Basophils Percent Auto 1.8 % (0.2-1.2); Eosinophils Absolute Auto 0.1 K/mm3 (0-0.3); Eosinophils Percent Auto 0.5 % (0-4.4); Hematocrit 47.4 % (42.0-52.0); Hemoglobin 13.8 g/dL (14.0-18.0); Immature Granulocyte Absolute 0.91 K/mm3 (0.00-0.031); Immature Granulocyte Percent A 4.4 % (0-0.5); Lymphocytes Absolute Auto 0.46 K/mm3 (0.9-3.2); Lymphocytes Percent Auto 2.2 % (18.3-44.2); Mean Corpuscular HGB Conc 29.1 g/dl (32-36); Mean Corpuscular Hemoglobin 23.4 pg (26-34); Mean Corpuscular Volume 80.3 fl (80-100); Monocytes Absolute Auto 1.2 K/mm3 (0.1-0.6); Monocytes Percent Auto 5.5 % (2.6-8.5); Neutrophils Absolute Auto 17.9 K/mm3 (1.3-6.7); Neutrophils Percent Auto 85.6 % (45.5-73.1); Nucleated Red Blood Cells Perc 0.1 % (0.0-0.2); Platelet Count Result 325 k/mm3 (150-375); Red Cell Distribution Width 30.1 % (11.5-14.5); White Blood Count 20.9 K/mm3 (4.5-10.0)
[2023-01-24 06:03] LABS: Alanine Aminotransferase 20 U/L (6-50); Alkaline Phosphatase 127 U/L (38-126); Aspartate Amino Transferase 33 U/L (17-59); Bilirubin,Total 1.8 mg/dL (0.2-1.3); Blood Urea Nitrogen 67 mg/dL (9-20); Calcium 8.4 mg/dL (8.4-10.2); Carbon Dioxide > 40 mmol/L (22-30); Chloride 89 mmol/L (98-107); Estimated CRCL calculation 22 ml/min; Estimated Glomerular Filt Rate 32; Glucose 96 mg/dL (65-110); Potassium 4.4 mmol/L (3.4-5.0); Sodium 141 mmol/L (137-145)
[2023-01-24 06:41] LABS: Anisocytosis 1+ (NORMAL); Hypochromasia 1+ (NORMAL); Large Platelets Present; Ovalocytes 2+ (NORMAL); Schistocytes Rare (NORMAL)
--- NOTE | 2023-01-24 07:48 | PM.IMPN ---
Progress Note: A&P Assessment and Plan (1) Hypoxia: Code(s): R09.02 - Hypoxemia Status: Acute Assessment and Plan: New onset hypoxia 01/22-01/23 going from RA to 3L nc with associated nausea/vomiting, suspect overdiuresis with aspiration pneumonia, hold lasix, start abx, CXR showed significant interstitial edema, improved on repeat CXR, gentle fluid resuscitation given, monitor closely. (2) Acute on chronic diastolic heart failure: Code(s): I50.33 - Acute on chronic diastolic (congestive) heart failure Status: Acute Assessment and Plan: Improving, strict Is/Os, daily weights Appreciate cardio consult, cont IV diuresis Monitor creat with lasix, increase dose 01/20 due to unchanged edema and positive fluid balance Appears somewhat improved with increased diuresis, will continue this dose for now 01/22: appears to be fluid balance -2940 ml the last 24 hours, creat stable, cont current dose for now of lasix 80 mg IV BID 01/23: -1L yesterday, but CXR with significant volume overload concerning for flash pulm edema, see above for details 01/24: up 265 ml today, will give gentle IVF bolus and reassess status (3) Elevated troponin: Code(s): R77.8 - Other specified abnormalities of plasma proteins Status: Acute Assessment and Plan: Initially was flattened, after episode of emesis, nausea, and sob with hypoxia, troponin bumped up to 0.124 from 0.083. Consult cardiology regarding these changes, trend troponins, check ECG ECG looks like there might be some new changes in lateral leads concerning for ischemia, defer to cardio for further management (4) Chronic kidney disease: Code(s): N18.9 - Chronic kidney disease, unspecified Status: Acute Assessment and Plan: bumped up to 2, concern for overdiuresis, monitor off lasix gentle IVF given today, reassess this afternoon (5) Aortic stenosis: Qualifiers: Cardiac valve disease etiology: nonrheumatic Qualified Code(s): I35.0 - Nonrheumatic aortic (valve) stenosis Code(s): I35.0 - Nonrheumatic aortic (valve) stenosis Status: Acute Assessment and Plan: Per outpatient management (6) Essential thrombocytosis: Code(s): D47.3 - Essential (hemorrhagic) thrombocythemia Status: Acute Assessment and Plan: Stable, hold anagrelide while on levaquin, monitor platelets closely (7) Iron deficiency anemia: Qualifiers: Iron deficiency anemia type: other iron deficiency Qualified Code(s): D50.8 - Other iron deficiency anemias Code(s): D50.9 - Iron deficiency anemia, unspecified Status: Acute Assessment and Plan: Stable (8) Overactive bladder: Code(s): N32.81 - Overactive bladder Status: Acute Assessment and Plan: Stable Plan DVT prophylaxis with lovenox--hold until emesis occult confirmed GI prophylaxis not indicated Code status full code Subjective Date/time seen: 01/24/23 07:48 Interval history: 87-year-old male with diastolic congestive heart failure, aortic stenosis, chronic kidney disease, paroxysmal atrial fibrillation, benign prostatic hyperplasia, essential thrombocytosis, and other comorbidities who presented to the ED from home for evaluation of shortness of breath and being treated for heart failure exacerbation. No overnight events noted. No chest pain or shortness of breath. No nausea, vomiting or diarrhea. No fevers or chills. Patient states he feels much better than yesterday. Review of Systems Review of Systems: 12 point review of systems was assessed and was negative except as noted in the HPI Exam Narrative: General: No acute distress, alert and oriented per baseline, comfortable on 3L nc HEENT: Atraumatic, normocephalic, mucous membranes moist CV: Regular rate and rhythm, S1, S2 Lungs: Scattered crackles with decreased BS throughout Abdomen: Soft, nontend
--- NOTE | 2023-01-24 09:51 | PM.PNCARD ---
Progress Note: A&P Assessment and Plan (1) CHF exacerbation: Qualifiers: Heart failure type: unspecified Qualified Code(s): I50.9 - Heart failure, unspecified Code(s): I50.9 - Heart failure, unspecified Status: Acute Assessment and Plan: Hold further Lasix. Continue metoprolol. No renal function (2) Elevated troponin: Code(s): R77.8 - Other specified abnormalities of plasma proteins Status: Acute Assessment and Plan: Not related a acute coronary syndrome (3) Acute renal failure: Code(s): N17.9 - Acute kidney failure, unspecified Status: Acute Assessment and Plan: Creatinine continues to rise and is at 2.0 today. Patient does not appear to be volume overloaded. Increasing creatinine is likely related to diuresis. Hold further diuretics at this point. Subjective Date/time seen: 01/24/23 09:51 Interval history: Reason For Visit: Congestive heart failure HPI: We are consulted for congestive heart failure. This is an 87 year old male who follows with Dr. Almanza. He was last admitted in November 2022 for decompensated heart failure. Echocardiogram at that time showed mildly reduced LVEF 45-50% with reduced RV function. He had improvement with IV Lasix and was discharged on Lasix 20mg PO. He also has chronic moderate aortic stenosis. He followed up with Dr. Almanza in clinic on 12/28/2022. Patient stated at that visit, he had run out of his Metoprolol and Lasix because he was only given 30 day supply with no refills and had been out of them for about 2 weeks, and had recurrence of shortness of breath, orthopnea.? His Metoprolol and Lasix was refilled at that visit. Patient reports swelling in his abdomen and shortness of breath over the past couple of days. Patient's reports that he gained 10 pounds just over the past day.? BNP significantly elevated at 16,600. Abdomen/Pelvis CT showed anasarca with diffuse body wall, mesenteric and retroperitoneal edema, moderate right and trace left pleural effusions and small amount of ascites. CXR with minimal pleural effusions and minimal right basilar pulmonary edema/atelectasis. Date of service 01/19: Making urine. No chest pain. Feeling a little better. Date of service 01/20: Feeling okay, abdomen feels a little less swollen. No shortness of breath. No chest pain. Date of service 01/22/2023: Patient no longer having any shortness of breath. Has some mild persistent lower extremity edema at this time. Ambulating in the room without any complaints or problems. Date of service 01/23/2023: Patient resting in his room relatively comfortable at this time watching television. Had a bad night last night with some abdominal discomfort nausea a lot of vomiting and some diarrhea. Following this it was noticed that his FiO2 requirements increased he is now on 3 L of nasal cannula oxygen from room air. No cardiac symptoms. Date of service 01/24/2023: Still on nasal cannula. No chest pain or shortness of breath. Very mild ankle edema Review of Systems Review of Systems: All systems reviewed & are unremarkable except as noted in HPI and below Eyes: Eyes: Denies blurry vision ENT: Reports Normal hearing present Cardiovascular: Cardiovascular: Denies chest pain Respiratory: Respiratory: Denies dyspnea Gastrointestinal: Gastrointestinal: Denies abdominal pain Hematologic/Lymphatic: Hematologic/Lymphatic: Denies easy bruising Exam Const: General: comfortable and no acute distress Other: Elderly frail gentleman. HENMT: Mouth: Yes moist mucous membranes Eyes: General: appearance normal, both eyes and all related structures Sclera: sclerae normal Neck: Neck: supple Resp: Effort & Inspection: normal respiratory effort Auscultation: diminished lung sounds Cardio: Rate: regular rate Rhythm: regular rhythm Heart sounds: Murmur heart sound present systolic Other: Mild bilateral lower extremity edema
[2023-01-24] MEDS: SODIUM CHLORIDE 0.9% IV 500 ML IV CONT (10:04)
[2023-01-24] MEDS: CEFEPIME 2 GM/NS 50 ML 2 GM/50 ML BAG IVPB (10:05)
[2023-01-24] MEDS: CHOLECALCIFEROL 1,000 UNITS TABLET 1000 UNITS PO (10:08)
[2023-01-24] MEDS: FOLIC ACID 0.4 MG TABLET PO (10:08)
[2023-01-24] MEDS: OPTI-GEN TAB 1 TABLET PO (10:08)
[2023-01-24] MEDS: LORATADINE 10 MG TABLET PO (10:09)
[2023-01-24] MEDS: PANTOPRAZOLE SODIUM IV 40 MG VIAL IV PUSH (10:10)
[2023-01-24] MEDS: ASCORBIC ACID 500 MG TABLET PO (11:01)
[2023-01-24] MEDS: METOPROLOL SUCCINATE EXT REL 25 MG TABCR PO (11:01)
[2023-01-24] MEDS: ENOXAPARIN 40 MG/0.4 ML SYRINGE SUB-Q (11:02)
[2023-01-24 14:49] LABS: Blood Urea Nitrogen 68 mg/dL (9-20); Calcium 8.2 mg/dL (8.4-10.2); Carbon Dioxide > 40 mmol/L (22-30); Chloride 91 mmol/L (98-107); Estimated CRCL calculation 25 ml/min; Estimated Glomerular Filt Rate 36; Glucose 99 mg/dL (65-110); Potassium 4.2 mmol/L (3.4-5.0); Sodium 140 mmol/L (137-145)
--- NOTE | 2023-01-24 15:11 | PCCCNOTE ---
On 01/24/23, the student, [Jennifer Shipman], provided care and completed [facility] documentation on this patient. I have reviewed the student's documentation and agree with the findings.
[2023-01-24 17:59] LABS: Magnesium 2.3 mg/dL (1.6-2.3); Phosphorus 4.9 mg/dL (2.5-4.5)
[2023-01-24] MEDS: ACETAMINOPHEN 325 MG TABLET 650 MG PO (20:32)
[2023-01-24] MEDS: diphenhydrAMINE HCl CAP 25 MG CAPSULE PO (20:33)
[2023-01-24] MEDS: VANCOMYCIN 1,000 MG/NS 250 ML 1,000 MG/250 ML BAG 250 MG IVPB (23:51)
[2023-01-25] VITALS (11 sets, daily range): BP systolic 98–102; BP diastolic 52–65; PULSE 88–98; RESP 17–18; TEMP 36.5–36.7; O2SAT 94–100
[2023-01-25 05:58] LABS: Basophils Absolute Auto 0.5 K/mm3 (0.0-0.1); Basophils Percent Auto 2.8 % (0.2-1.2); Eosinophils Absolute Auto 0.1 K/mm3 (0-0.3); Eosinophils Percent Auto 0.6 % (0-4.4); Hematocrit 43.1 % (42.0-52.0); Hemoglobin 12.6 g/dL (14.0-18.0); Immature Granulocyte Absolute 0.94 K/mm3 (0.00-0.031); Immature Granulocyte Percent A 5.3 % (0-0.5); Immature Platelet Fraction Pct 25.9 % (0.9-11.2); Lymphocytes Absolute Auto 0.46 K/mm3 (0.9-3.2); Lymphocytes Percent Auto 2.6 % (18.3-44.2); Mean Corpuscular HGB Conc 29.2 g/dl (32-36); Mean Corpuscular Hemoglobin 23.3 pg (26-34); Mean Corpuscular Volume 79.8 fl (80-100); Monocytes Absolute Auto 0.9 K/mm3 (0.1-0.6); Monocytes Percent Auto 4.9 % (2.6-8.5); Neutrophils Absolute Auto 14.8 K/mm3 (1.3-6.7); Neutrophils Percent Auto 83.8 % (45.5-73.1); Nucleated Red Blood Cells Perc 0.1 % (0.0-0.2); Platelet Count Result 289 k/mm3 (150-375); Red Cell Distribution Width 29.7 % (11.5-14.5); White Blood Count 17.7 K/mm3 (4.5-10.0)
[2023-01-25 06:23] LABS: Alanine Aminotransferase 18 U/L (6-50); Albumin Level 3.6 g/dL (3.5-5.1); Alkaline Phosphatase 108 U/L (38-126); Aspartate Amino Transferase 33 U/L (17-59); Bilirubin,Total 1.5 mg/dL (0.2-1.3); Blood Urea Nitrogen 62 mg/dL (9-20); Carbon Dioxide > 40 mmol/L (22-30); Chloride 92 mmol/L (98-107); Estimated CRCL calculation 26 ml/min; Estimated Glomerular Filt Rate 38; Glucose 114 mg/dL (65-110); Potassium 3.8 mmol/L (3.4-5.0); Sodium 139 mmol/L (137-145)
[2023-01-25 07:34] LABS: Platelet Estimate Adequate (Adequate)
[2023-01-25 07:36] LABS: Poikilocytosis 2+ (NORMAL)
[2023-01-25 07:37] LABS: Acanthocytes 1+ (NORMAL); Burr Cells 1+ (NORMAL); Ovalocytes 1+ (NORMAL)
[2023-01-25 07:38] LABS: Large Platelets Present; Schistocytes None Seen (NORMAL)
--- NOTE | 2023-01-25 09:12 | PM.IMPN ---
Progress Note: A&P Assessment and Plan (1) Hypoxia: Code(s): R09.02 - Hypoxemia Status: Acute Assessment and Plan: New onset hypoxia 01/22-01/23 going from RA to 3L nc with associated nausea/vomiting, suspect overdiuresis with aspiration pneumonia, hold lasix, start abx, CXR showed significant interstitial edema, improved on repeat CXR, gentle fluid resuscitation given, monitor closely. 01/25: improving, on 2L nc, suspect 2/2 aspiration pneumonia, recheck CXR today, cont abx, started 01/23, de-escalate to oral abx with levaquin alone and monitor (2) Acute on chronic diastolic heart failure: Code(s): I50.33 - Acute on chronic diastolic (congestive) heart failure Status: Acute Assessment and Plan: Improving, strict Is/Os, daily weights Appreciate cardio consult, cont IV diuresis Monitor creat with lasix, increase dose 01/20 due to unchanged edema and positive fluid balance Appears somewhat improved with increased diuresis, will continue this dose for now 01/22: appears to be fluid balance -2940 ml the last 24 hours, creat stable, cont current dose for now of lasix 80 mg IV BID 01/23: -1L yesterday, but CXR with significant volume overload concerning for flash pulm edema, see above for details 01/24: up 265 ml today, will give gentle IVF bolus and reassess status 01/25: up 179 ml today, cr improving, hold IVF, hold diuretics, observe on po fluids essentially resolved, observe off diuretics for now, restart when appropriate, on lasix 20 mg po daily at home, being held (3) Elevated troponin: Code(s): R77.8 - Other specified abnormalities of plasma proteins Status: Acute Assessment and Plan: Initially was flattened, after episode of emesis, nausea, and sob with hypoxia, troponin bumped up to 0.124 from 0.083. Consult cardiology regarding these changes, trend troponins, check ECG ECG looks like there might be some new changes in lateral leads concerning for ischemia, defer to cardio for further management (4) Chronic kidney disease: Code(s): N18.9 - Chronic kidney disease, unspecified Status: Acute Assessment and Plan: bumped up to 2, concern for overdiuresis, monitor off lasix gentle IVF given x 1, improved cr, see above euvolemic, cr trending down, monitor (5) Aortic stenosis: Qualifiers: Cardiac valve disease etiology: nonrheumatic Qualified Code(s): I35.0 - Nonrheumatic aortic (valve) stenosis Code(s): I35.0 - Nonrheumatic aortic (valve) stenosis Status: Acute Assessment and Plan: Per outpatient management (6) Essential thrombocytosis: Code(s): D47.3 - Essential (hemorrhagic) thrombocythemia Status: Acute Assessment and Plan: Stable, hold anagrelide while on levaquin, monitor platelets closely (7) Iron deficiency anemia: Qualifiers: Iron deficiency anemia type: other iron deficiency Qualified Code(s): D50.8 - Other iron deficiency anemias Code(s): D50.9 - Iron deficiency anemia, unspecified Status: Acute Assessment and Plan: Stable (8) Overactive bladder: Code(s): N32.81 - Overactive bladder Status: Acute Assessment and Plan: Stable Plan DVT prophylaxis with lovenox GI prophylaxis not indicated Code status full code Subjective Date/time seen: 01/25/23 09:12 Interval history: 87-year-old male with diastolic congestive heart failure, aortic stenosis, chronic kidney disease, paroxysmal atrial fibrillation, benign prostatic hyperplasia, essential thrombocytosis, and other comorbidities who presented to the ED from home for evaluation of shortness of breath and being treated for heart failure exacerbation. No overnight events noted. No chest pain or shortness of breath. No nausea, vomiting or diarrhea. No fevers or chills. Patient continues to improve each day. He is complaining of some left ankle swelling and pain, no
[2023-01-25] MEDS: CEFEPIME 2 GM/NS 50 ML 2 GM/50 ML BAG IVPB (09:34)
[2023-01-25] MEDS: ENOXAPARIN 40 MG/0.4 ML SYRINGE SUB-Q (09:35)
[2023-01-25] MEDS: CHOLECALCIFEROL 1,000 UNITS TABLET 1000 UNITS PO (09:35)
[2023-01-25] MEDS: POTASSIUM CHLORIDE 20 MEQ ER TABLET PO (09:35)
[2023-01-25] MEDS: ASCORBIC ACID 500 MG TABLET PO (09:35)
[2023-01-25] MEDS: LORATADINE 10 MG TABLET PO (09:36)
[2023-01-25] MEDS: FERROUS SULFATE 325 MG TABLET DR PO (09:36)
[2023-01-25] MEDS: METOPROLOL SUCCINATE EXT REL 25 MG TABCR PO (09:36)
[2023-01-25] MEDS: FOLIC ACID 0.4 MG TABLET PO (09:36)
[2023-01-25] MEDS: PANTOPRAZOLE 40 MG TABLET PO (09:37)
[2023-01-25] MEDS: OPTI-GEN TAB 1 TABLET PO (09:37)
[2023-01-25] MEDS: levoFLOXacin 750 MG/D5W 150 ML 750 MG/150 ML BAG 150 MG IVPB (11:00)
--- NOTE | 2023-01-25 13:26 | PCNWS ---
Weekly nutritional screen. Patient is tolerating current heart healthy diet with adequate intake at 75-100% most all meals. No weight loss reported. No nutritional needs at this time.
[2023-01-25] MEDS: ACETAMINOPHEN 325 MG TABLET 650 MG PO ×2 (15:55→20:18)
--- NOTE | 2023-01-25 17:09 | PCRCNOTE ---
RT notified Sheba Car RN of [facility] at 1323 and 1644. RN called lab at 1648 in order to obtain the [facility].
[2023-01-25] MEDS: diphenhydrAMINE HCl CAP 25 MG CAPSULE PO (22:48)
[2023-01-26] VITALS (12 sets, daily range): BP systolic 93–101; BP diastolic 52–65; PULSE 89–98; RESP 16–18; TEMP 36.5–36.6; O2SAT 94–99
[2023-01-26 05:22] LABS: Hematocrit 43.9 % (42.0-52.0); Hemoglobin 12.6 g/dL (14.0-18.0); Immature Platelet Fraction Pct 24.8 % (0.9-11.2); Mean Corpuscular HGB Conc 28.7 g/dl (32-36); Mean Corpuscular Hemoglobin 23.6 pg (26-34); Mean Corpuscular Volume 82.1 fl (80-100); Platelet Count Result 336 k/mm3 (150-375); Red Blood Count 5.35 M/mm3 (4.6-6.20); Red Cell Distribution Width 29.8 % (11.5-14.5); White Blood Count 14.8 K/mm3 (4.5-10.0)
[2023-01-26 05:46] LABS: Alanine Aminotransferase 19 U/L (6-50); Albumin Level 3.7 g/dL (3.5-5.1); Alkaline Phosphatase 117 U/L (38-126); Aspartate Amino Transferase 35 U/L (17-59); Bilirubin,Total 1.5 mg/dL (0.2-1.3); Blood Urea Nitrogen 53 mg/dL (9-20); Calcium 8.2 mg/dL (8.4-10.2); Carbon Dioxide > 40 mmol/L (22-30); Chloride 94 mmol/L (98-107); Estimated CRCL calculation 27 ml/min; Estimated Glomerular Filt Rate 38; Glucose 86 mg/dL (65-110); Potassium 4.2 mmol/L (3.4-5.0); Sodium 138 mmol/L (137-145)
[2023-01-26 06:30] LABS: Band Neutrophils Percent 5 % (0-6); Basophils Absolute Manual 0.44 K/mm3 (0.0-0.1); Basophils Percent Manual 3 % (0-1); Eosinophils Absolute Manual 0.14 K/mm3 (0.02-0.5); Eosinophils Percent Manual 1 % (0-4); Lymphocytes Absolute Manual 0.29 K/mm3 (1.1-4.5); Metamyelocytes Percent 2 %; Monocytes Absolute Manual 0.44 K/mm3 (0.1-0.90); Monocytes Percent Manual 3 % (3-9); Myelocytes Percent 1 %; Neutrophils Absolute Manual 12.87 K/mm3 (1.3-6.7); Neutrophils Percent Manual 82 % (46-73); Promyelocytes Percent 1 %; Total Cells Counted 100
[2023-01-26 06:31] LABS: Anisocytosis 1+ (NORMAL); Giant Platelets Present; Large Platelets Present; Ovalocytes 2+ (NORMAL); Platelet Estimate Increased (Adequate); Poikilocytosis 2+ (NORMAL)
[2023-01-26 06:32] LABS: Hypochromasia 2+ (NORMAL); Schistocytes Rare (NORMAL); Tear Drop Cells 1+ (NORMAL)
[2023-01-26] MEDS: ENOXAPARIN 40 MG/0.4 ML SYRINGE SUB-Q (09:11)
[2023-01-26] MEDS: CHOLECALCIFEROL 1,000 UNITS TABLET 1000 UNITS PO (09:12)
[2023-01-26] MEDS: ASCORBIC ACID 500 MG TABLET PO (09:12)
[2023-01-26] MEDS: POTASSIUM CHLORIDE 20 MEQ ER TABLET PO (09:12)
[2023-01-26] MEDS: FOLIC ACID 0.4 MG TABLET PO (09:13)
[2023-01-26] MEDS: PANTOPRAZOLE 40 MG TABLET PO (09:14)
[2023-01-26] MEDS: LORATADINE 10 MG TABLET PO (09:14)
[2023-01-26] MEDS: OPTI-GEN TAB 1 TABLET PO (09:14)
[2023-01-26] MEDS: METOPROLOL SUCCINATE EXT REL 25 MG TABCR PO (09:14)
--- NOTE | 2023-01-26 11:15 | PM.PNCARD ---
Progress Note: A&P Assessment and Plan (1) CHF exacerbation: Qualifiers: Heart failure type: unspecified Qualified Code(s): I50.9 - Heart failure, unspecified Code(s): I50.9 - Heart failure, unspecified Status: Acute Assessment and Plan: Hold further Lasix. Continue metoprolol. Wean oxygen (2) Elevated troponin: Code(s): R77.8 - Other specified abnormalities of plasma proteins Status: Acute Assessment and Plan: Not related a acute coronary syndrome (3) Acute renal failure: Code(s): N17.9 - Acute kidney failure, unspecified Status: Acute Assessment and Plan: Creatinine is down to 1.7 but still above baseline. Will continue hold furosemide for now but restarted upon discharge. Plan Regarding his left ankle pain, defer to hospitalist. Subjective Date/time seen: 01/26/23 11:15 Interval history: Reason For Visit: Congestive heart failure HPI: We are consulted for congestive heart failure. This is an 87 year old male who follows with Dr. Almanza. He was last admitted in November 2022 for decompensated heart failure. Echocardiogram at that time showed mildly reduced LVEF 45-50% with reduced RV function. He had improvement with IV Lasix and was discharged on Lasix 20mg PO. He also has chronic moderate aortic stenosis. He followed up with Dr. Almanza in clinic on 12/28/2022. Patient stated at that visit, he had run out of his Metoprolol and Lasix because he was only given 30 day supply with no refills and had been out of them for about 2 weeks, and had recurrence of shortness of breath, orthopnea.? His Metoprolol and Lasix was refilled at that visit. Patient reports swelling in his abdomen and shortness of breath over the past couple of days. Patient's reports that he gained 10 pounds just over the past day.? BNP significantly elevated at 16,600. Abdomen/Pelvis CT showed anasarca with diffuse body wall, mesenteric and retroperitoneal edema, moderate right and trace left pleural effusions and small amount of ascites. CXR with minimal pleural effusions and minimal right basilar pulmonary edema/atelectasis. Date of service 01/19: Making urine. No chest pain. Feeling a little better. Date of service 01/20: Feeling okay, abdomen feels a little less swollen. No shortness of breath. No chest pain. Date of service 01/22/2023: Patient no longer having any shortness of breath. Has some mild persistent lower extremity edema at this time. Ambulating in the room without any complaints or problems. Date of service 01/23/2023: Patient resting in his room relatively comfortable at this time watching television. Had a bad night last night with some abdominal discomfort nausea a lot of vomiting and some diarrhea. Following this it was noticed that his FiO2 requirements increased he is now on 3 L of nasal cannula oxygen from room air. No cardiac symptoms. Date of service 01/24/2023: Still on nasal cannula. No chest pain or shortness of breath. Very mild ankle edema Date of service 01/26/2023: Complains of left ankle pain with movement and with walking otherwise no significant edema, shortness breath or chest pain Review of Systems Review of Systems: 8 point ROS obtained. Negative, unless stated in HPI. All systems reviewed & are unremarkable except as noted in HPI and below Eyes: Eyes: Denies blurry vision ENT: Reports Normal hearing present Cardiovascular: Cardiovascular: Denies chest pain and Denies dyspnea Respiratory: Respiratory: Denies dyspnea Gastrointestinal: Gastrointestinal: Denies abdominal pain Neurologic: Reports Normal hearing present Hematologic/Lymphatic: Hematologic/Lymphatic: Denies easy bruising Exam Const: General: comfortable and no acute distress Other: Elderly frail gentleman. HENMT: Mouth: Yes moist mucous membranes Eyes: General: appearance normal, both eyes and all related structures Sclera: sclerae normal Neck:
[2023-01-26] MEDS: FERROUS SULFATE 325 MG TABLET DR PO (11:27)
[2023-01-26] MEDS: ACETAMINOPHEN 325 MG TABLET 650 MG PO ×2 (11:27→20:30)
[2023-01-26 14:03] LABS: Uric Acid 11.4 mg/dL (3.5-8.5)
--- NOTE | 2023-01-26 14:13 | PM.IMPN ---
Progress Note: A&P Assessment and Plan (1) Hypoxia: Code(s): R09.02 - Hypoxemia Status: Acute Assessment and Plan: New onset hypoxia 01/22-01/23 going from RA to 3L nc with associated nausea/vomiting, suspect possible aspiration pneumonia. CXR 01/23 showed interstitial edema and bibasilar infiltrates. Was treated with IV abx but not transtioned to oral Levaquin. He is on room air now. WBC peaked at 34K but better today at 14.8K Speech to assess swallowing ability (2) Acute on chronic diastolic heart failure: Code(s): I50.33 - Acute on chronic diastolic (congestive) heart failure Status: Acute Assessment and Plan: Patient presents with SOB and found to have anasarca by CT. CXR showing minimal pleural effusions and minimal right basilar pulmonary edema. ProBNP was 16.6K. He started on IV diuretics with good results. Echocardiogram from November shows EF of 45-50%, septal wall motion abnormalities consistent with bundle branch block, severely enlarged right ventricle with reduced systolic function, biatrial enlargement moderate aortic stenosis. Cardiology was consulted. Patient had good diuresis with the Lasix with negative fluid balance. Lasix is currently held. Creatinine stable. Will resume Lasix at discharge (3) Ankle pain, left: Code(s): M25.572 - Pain in left ankle and joints of left foot Status: Acute Assessment and Plan: Patient with new onset left ankle pain. No trauma. Uric acid level is 11.4. Probably gout. Order arthrocentesis. Prednisone x1. (4) Elevated troponin: Code(s): R77.8 - Other specified abnormalities of plasma proteins Status: Acute Assessment and Plan: Initially was flattened, after episode of emesis, nausea, and sob with hypoxia, troponin bumped up to 0.124 from 0.083. Cardiology was aware. Related to CHF> Plan for medical management. (5) Chronic kidney disease: Code(s): N18.9 - Chronic kidney disease, unspecified Status: Acute Assessment and Plan: Baseline Cr 1.3-1.5 Cr increased to 2 with concern for overdiuresis. Euvolemic so Lasix held and gentle IVF given x 1 Cr better at 1.7 Follow. (6) Aortic stenosis: Qualifiers: Cardiac valve disease etiology: nonrheumatic Qualified Code(s): I35.0 - Nonrheumatic aortic (valve) stenosis Code(s): I35.0 - Nonrheumatic aortic (valve) stenosis Status: Acute Assessment and Plan: Per outpatient management (7) Essential thrombocytosis: Code(s): D47.3 - Essential (hemorrhagic) thrombocythemia Status: Acute Assessment and Plan: Stable, hold anagrelide while on levaquin, monitor platelets closely (8) Iron deficiency anemia: Qualifiers: Iron deficiency anemia type: other iron deficiency Qualified Code(s): D50.8 - Other iron deficiency anemias Code(s): D50.9 - Iron deficiency anemia, unspecified Status: Acute Assessment and Plan: Stable (9) Overactive bladder: Code(s): N32.81 - Overactive bladder Status: Acute Assessment and Plan: Stable Plan DVT prophylaxis with lovenox GI prophylaxis not indicated Code status full code Subjective Date/time seen: 01/26/23 14:13 Interval history: 87-year-old male with diastolic congestive heart failure, aortic stenosis, CKD, pAFib, BPH and HTN who presented to the ED from home for evaluation of shortness of breath and being treated for heart failure exacerbation. Assuming care. Chart reviewed. Patient does not have a history of gout. His left ankle has been painful for the past 4-5 days. No change in the pain scale. No chest pain. No shortness of breath. Having difficulty walking on the left ankle. Exam Narrative: AF 97.7 92/53 89 19 94% ra Gen - NARD Chest -left base inspiratory crackles otherwise clear. CV - RRR S1/S2. Telemetry showing no significant dysrhythmias Abd - So
--- NOTE | 2023-01-26 15:20 | PCPTNOTE ---
Pt out of room for procedure. Will Follow.
[2023-01-26] MEDS: predniSONE 20 MG TABLET 40 MG PO (17:02)
[2023-01-26 18:46] LABS: Appearance Synovial Fluid Bloody (Clear); Color Synovial Fluid Red (Colorless); Nucleated Cell Synovial Fluid 10955 /uL (0-200); Source Synovial Fluid Synovial fluid
[2023-01-26 18:47] LABS: Lymphocytes Synovial Fluid 5 %; Monocytes Synovial Fluid 2 %; Neutrophils Synovial Fluid 93 % (0-25)
[2023-01-26 18:49] LABS: Crystals Synovial Fluid None Seen (None Seen)
[2023-01-26] MEDS: diphenhydrAMINE HCl CAP 25 MG CAPSULE PO (20:30)
[2023-01-27] VITALS (10 sets, daily range): BP systolic 102–124; BP diastolic 54–63; PULSE 84–99; RESP 16–18; TEMP 36.6; O2SAT 94–100
[2023-01-27 05:39] LABS: Basophils Absolute Auto 0.3 K/mm3 (0.0-0.1); Basophils Percent Auto 1.7 % (0.2-1.2); Eosinophils Percent Auto 0.1 % (0-4.4); Hemoglobin 12.9 g/dL (14.0-18.0); Immature Granulocyte Percent A 7.5 % (0-0.5); Immature Platelet Fraction Pct 22.6 % (0.9-11.2); Lymphocytes Percent Auto 2.3 % (18.3-44.2); Mean Corpuscular HGB Conc 29.3 g/dl (32-36); Mean Corpuscular Hemoglobin 23.6 pg (26-34); Mean Corpuscular Volume 80.6 fl (80-100); Monocytes Absolute Auto 0.4 K/mm3 (0.1-0.6); Monocytes Percent Auto 2.3 % (2.6-8.5); Neutrophils Absolute Auto 14.8 K/mm3 (1.3-6.7); Neutrophils Percent Auto 86.1 % (45.5-73.1); Nucleated Red Blood Cells Perc 0.1 % (0.0-0.2); Platelet Count Result 382 k/mm3 (150-375); Red Blood Count 5.46 M/mm3 (4.6-6.20); Red Cell Distribution Width 30.1 % (11.5-14.5); White Blood Count 17.2 K/mm3 (4.5-10.0)
[2023-01-27 06:00] LABS: Alanine Aminotransferase 21 U/L (6-50); Albumin Level 3.8 g/dL (3.5-5.1); Alkaline Phosphatase 143 U/L (38-126); Anion Gap 3 mmol/L (8-16); Aspartate Amino Transferase 34 U/L (17-59); Bilirubin,Total 1.5 mg/dL (0.2-1.3); Blood Urea Nitrogen 46 mg/dL (9-20); Calcium 8.2 mg/dL (8.4-10.2); Carbon Dioxide 39 mmol/L (22-30); Chloride 96 mmol/L (98-107); Estimated CRCL calculation 30 ml/min; Estimated Glomerular Filt Rate 44; Glucose 149 mg/dL (65-110); Potassium 4.2 mmol/L (3.4-5.0); Sodium 138 mmol/L (137-145)
[2023-01-27 06:19] LABS: Anisocytosis 2+ (NORMAL); Hypochromasia 1+ (NORMAL); Large Platelets Present; Ovalocytes 2+ (NORMAL); Platelet Estimate Increased (Adequate); Poikilocytosis 2+ (NORMAL)
[2023-01-27 06:21] LABS: Burr Cells 1+ (NORMAL); Schistocytes Rare (NORMAL); Tear Drop Cells 1+ (NORMAL)
[2023-01-27] MEDS: METOPROLOL SUCCINATE EXT REL 25 MG TABCR PO (08:40)
[2023-01-27] MEDS: OPTI-GEN TAB 1 TABLET PO (08:40)
[2023-01-27] MEDS: CHOLECALCIFEROL 1,000 UNITS TABLET 1000 UNITS PO (08:41)
[2023-01-27] MEDS: ASCORBIC ACID 500 MG TABLET PO (08:41)
[2023-01-27] MEDS: LORATADINE 10 MG TABLET PO (08:41)
[2023-01-27] MEDS: FOLIC ACID 0.4 MG TABLET PO (08:41)
[2023-01-27] MEDS: PANTOPRAZOLE 40 MG TABLET PO (08:41)
[2023-01-27] MEDS: POTASSIUM CHLORIDE 20 MEQ ER TABLET PO (08:41)
[2023-01-27] MEDS: levoFLOXacin 750 MG TABLET PO (08:41)
[2023-01-27] MEDS: ENOXAPARIN 40 MG/0.4 ML SYRINGE SUB-Q (08:48)
--- NOTE | 2023-01-27 09:11 | PM.PNCARD ---
Progress Note: A&P Assessment and Plan (1) CHF exacerbation: Qualifiers: Heart failure type: unspecified Qualified Code(s): I50.9 - Heart failure, unspecified Code(s): I50.9 - Heart failure, unspecified Status: Acute Assessment and Plan: Improved with diuresis. He is euvolemic at this point. Lasix has been held because of SILVESTRE, but should be resumed on discharge. (2) Elevated troponin: Code(s): R77.8 - Other specified abnormalities of plasma proteins Status: Acute Assessment and Plan: Not related a acute coronary syndrome (3) Acute renal failure: Code(s): N17.9 - Acute kidney failure, unspecified Status: Acute Assessment and Plan: Creatinine is down to 1.5, looks like baseline is ~1.3 Will continue hold furosemide for now but restarted upon discharge. Subjective Date/time seen: 01/27/23 09:11 Interval history: Reason For Visit: Congestive heart failure HPI: We are consulted for congestive heart failure. This is an 87 year old male who follows with Dr. Almanza. He was last admitted in November 2022 for decompensated heart failure. Echocardiogram at that time showed mildly reduced LVEF 45-50% with reduced RV function. He had improvement with IV Lasix and was discharged on Lasix 20mg PO. He also has chronic moderate aortic stenosis. He followed up with Dr. Almanza in clinic on 12/28/2022. Patient stated at that visit, he had run out of his Metoprolol and Lasix because he was only given 30 day supply with no refills and had been out of them for about 2 weeks, and had recurrence of shortness of breath, orthopnea.? His Metoprolol and Lasix was refilled at that visit. Patient reports swelling in his abdomen and shortness of breath over the past couple of days. Patient's reports that he gained 10 pounds just over the past day.? BNP significantly elevated at 16,600. Abdomen/Pelvis CT showed anasarca with diffuse body wall, mesenteric and retroperitoneal edema, moderate right and trace left pleural effusions and small amount of ascites. CXR with minimal pleural effusions and minimal right basilar pulmonary edema/atelectasis. Date of service 01/19: Making urine. No chest pain. Feeling a little better. Date of service 01/20: Feeling okay, abdomen feels a little less swollen. No shortness of breath. No chest pain. Date of service 01/22/2023: Patient no longer having any shortness of breath. Has some mild persistent lower extremity edema at this time. Ambulating in the room without any complaints or problems. Date of service 01/23/2023: Patient resting in his room relatively comfortable at this time watching television. Had a bad night last night with some abdominal discomfort nausea a lot of vomiting and some diarrhea. Following this it was noticed that his FiO2 requirements increased he is now on 3 L of nasal cannula oxygen from room air. No cardiac symptoms. Date of service 01/24/2023: Still on nasal cannula. No chest pain or shortness of breath. Very mild ankle edema Date of service 01/26/2023: Complains of left ankle pain with movement and with walking otherwise no significant edema, shortness breath or chest pain Date of service 01/27/2023: Feeling well today. States ankle pain is better today. No shortness of breath, chest pain, or swelling Review of Systems Review of Systems: 8 point ROS obtained. Negative, unless stated in HPI. All systems reviewed & are unremarkable except as noted in HPI and below Eyes: Eyes: Denies blurry vision ENT: Reports Normal hearing present Cardiovascular: Cardiovascular: Denies chest pain and Denies dyspnea Respiratory: Respiratory: Denies dyspnea Gastrointestinal: Gastrointestinal: Denies abdominal pain Neurologic: Reports Normal hearing present Hematologic/Lymphatic: Hematologic/Lymphatic: Denies easy bruising Exam Const: General: comfortable and no acute distress Other: Elderly frail gentleman.
[2023-01-27 09:27] LABS: Erythrocyte Sedimentation Rate 3 mm/hr (0-20)
--- NOTE | 2023-01-27 09:47 | PCSTNOTE ---
Please refer to the Bedside Swallow Evaluation in the EMR. Please note, silent aspiration cannot be ruled out at bedside.
[2023-01-27 09:54] LABS: CRP 1.8 mg/dL (<1.0)
[2023-01-27] MEDS: FERROUS SULFATE 325 MG TABLET DR PO (12:20)
--- NOTE | 2023-01-27 16:19 | PCPTNOTE ---
On 01/27/23, the student, RICARDO Schulz, provided care and completed [facility] documentation on this patient. I have reviewed the student's documentation and agree with the findings.
[2023-01-27] MEDS: methylPREDNISolone (MEDROL) DOSEPACK 4 MG TABLETS 8 MG PO (17:33)
--- NOTE | 2023-01-27 17:39 | PM.IMPN ---
Progress Note: A&P Assessment and Plan (1) Hypoxia: Code(s): R09.02 - Hypoxemia Status: Acute Assessment and Plan: New onset hypoxia 01/22-01/23 going from RA to 3L nc with associated nausea/vomiting, suspect possible aspiration pneumonia. CXR 01/23 showed interstitial edema and bibasilar infiltrates. Was treated with IV abx but now transitioned to oral Levaquin. He is on room air now. WBC peaked at 34K but down to 14.8K (17K today due to steroids). Speech therapy assessment showing no concerns (2) Acute on chronic diastolic heart failure: Code(s): I50.33 - Acute on chronic diastolic (congestive) heart failure Status: Acute Assessment and Plan: Patient presents with SOB and found to have anasarca by CT. CXR showing minimal pleural effusions and minimal right basilar pulmonary edema. ProBNP was 16.6K. He started on IV diuretics with good results. Echocardiogram from November shows EF of 45-50%, septal wall motion abnormalities consistent with bundle branch block, severely enlarged right ventricle with reduced systolic function, biatrial enlargement moderate aortic stenosis. Cardiology was consulted. Patient had good diuresis with the Lasix with negative fluid balance. Lasix is currently held. Creatinine stable. Will resume Lasix at discharge (3) Ankle pain, left: Code(s): M25.572 - Pain in left ankle and joints of left foot Status: Acute Assessment and Plan: Patient with new onset left ankle pain. No trauma. Uric acid level is 11.4. Arthrocentesis with 3mL dark red fluid removed. Appears to be hemarthrosis with 4M RBC and 11K WBC mostly neutrophils. No crystals seen. Would still consider gout. Prednisone x1 given yesterday and clinically much better. Ortho consult. (4) Elevated troponin: Code(s): R77.8 - Other specified abnormalities of plasma proteins Status: Acute Assessment and Plan: Initially was flattened. after episode of emesis, nausea, and sob with hypoxia, troponin bumped up to 0.124 from 0.083. Cardiology was aware. Related to CHF. Plan for medical management. (5) Chronic kidney disease: Code(s): N18.9 - Chronic kidney disease, unspecified Status: Acute Assessment and Plan: Baseline Cr 1.3-1.5 Cr increased to 2 with concern for overdiuresis. Euvolemic so Lasix held and gentle IVF given x 1 Cr better at 1.5 Follow. (6) Aortic stenosis: Qualifiers: Cardiac valve disease etiology: nonrheumatic Qualified Code(s): I35.0 - Nonrheumatic aortic (valve) stenosis Code(s): I35.0 - Nonrheumatic aortic (valve) stenosis Status: Acute Assessment and Plan: Per outpatient management (7) Essential thrombocytosis: Code(s): D47.3 - Essential (hemorrhagic) thrombocythemia Status: Acute Assessment and Plan: Stable, hold anagrelide while on levaquin, monitor platelets closely (8) Iron deficiency anemia: Qualifiers: Iron deficiency anemia type: other iron deficiency Qualified Code(s): D50.8 - Other iron deficiency anemias Code(s): D50.9 - Iron deficiency anemia, unspecified Status: Acute Assessment and Plan: Stable (9) Overactive bladder: Code(s): N32.81 - Overactive bladder Status: Acute Assessment and Plan: Stable Plan DVT prophylaxis with lovenox GI prophylaxis not indicated Code status full code Subjective Date/time seen: 01/27/23 0830 Interval history: 87-year-old male with diastolic congestive heart failure, aortic stenosis, CKD, pAFib, BPH and HTN who presented to the ED from home for evaluation of shortness of breath and being treated for heart failure exacerbation. Ankle pain much better. No CP or SOB. Requesting discharge. He had not been walking at the time of this visit. Exam Narrative: AF 97.8 124/54 84 18 100% ra Gen - NARD Chest - mild left base inspiratory crackles o
[2023-01-27] MEDS: methylPREDNISolone (MEDROL) DOSEPACK 4 MG TABLETS PO ×3 (18:47→21:40)
--- NOTE | 2023-01-27 19:22 | PC.NURSE ---
Medrol dose pack started at [address] Fleming orders.
[2023-01-27] MEDS: ACETAMINOPHEN 325 MG TABLET 650 MG PO (21:40)
[2023-01-27] MEDS: diphenhydrAMINE HCl CAP 25 MG CAPSULE PO (21:44)
[2023-01-28] VITALS: PULSE 90
[2023-01-28 07:47] LABS: Alanine Aminotransferase 31 U/L (6-50); Albumin Level 3.9 g/dL (3.5-5.1); Alkaline Phosphatase 136 U/L (38-126); Anion Gap 5 mmol/L (8-16); Aspartate Amino Transferase 45 U/L (17-59); Bilirubin,Total 1.4 mg/dL (0.2-1.3); Blood Urea Nitrogen 47 mg/dL (9-20); Calcium 8.5 mg/dL (8.4-10.2); Carbon Dioxide 35 mmol/L (22-30); Chloride 97 mmol/L (98-107); Estimated CRCL calculation 36 ml/min; Estimated Glomerular Filt Rate 52; Glucose 130 mg/dL (65-110); Potassium 4.6 mmol/L (3.4-5.0); Sodium 137 mmol/L (137-145)
[2023-01-28 08:00] VITALS: PULSE 98
[2023-01-28 09:29] LABS: Basophils Absolute Auto 0.2 K/mm3 (0.0-0.1); Eosinophils Percent Auto 0.1 % (0-4.4); Hematocrit 42.6 % (42.0-52.0); Hemoglobin 12.5 g/dL (14.0-18.0); Immature Granulocyte Absolute 1.16 K/mm3 (0.00-0.031); Immature Granulocyte Percent A 6.2 % (0-0.5); Immature Platelet Fraction Pct 22.3 % (0.9-11.2); Lymphocytes Percent Auto 2.1 % (18.3-44.2); Mean Corpuscular HGB Conc 29.3 g/dl (32-36); Mean Corpuscular Hemoglobin 23.3 pg (26-34); Mean Corpuscular Volume 79.3 fl (80-100); Monocytes Absolute Auto 0.6 K/mm3 (0.1-0.6); Monocytes Percent Auto 3.4 % (2.6-8.5); Neutrophils Absolute Auto 16.2 K/mm3 (1.3-6.7); Neutrophils Percent Auto 87.2 % (45.5-73.1); Nucleated Red Blood Cells Perc 0.2 % (0.0-0.2); Platelet Count Result 418 k/mm3 (150-375); Red Blood Count 5.37 M/mm3 (4.6-6.20); Red Cell Distribution Width 30.2 % (11.5-14.5); White Blood Count 18.6 K/mm3 (4.5-10.0)
[2023-01-28] MEDS: ENOXAPARIN 40 MG/0.4 ML SYRINGE SUB-Q (09:45)
[2023-01-28] MEDS: CHOLECALCIFEROL 1,000 UNITS TABLET 1000 UNITS PO (09:45)
[2023-01-28] MEDS: OPTI-GEN TAB 1 TABLET PO (09:45)
[2023-01-28 09:46] VITALS: BP 113/57; PULSE 89
[2023-01-28] MEDS: METOPROLOL SUCCINATE EXT REL 25 MG TABCR PO (09:46)
[2023-01-28] MEDS: FOLIC ACID 0.4 MG TABLET PO (09:46)
[2023-01-28] MEDS: PANTOPRAZOLE 40 MG TABLET PO (09:46)
[2023-01-28] MEDS: LORATADINE 10 MG TABLET PO (09:46)
[2023-01-28] MEDS: ASCORBIC ACID 500 MG TABLET PO (09:46)
[2023-01-28 10:10] LABS: Ovalocytes 1+ (NORMAL); Platelet Estimate Adequate (Adequate); Schistocytes Rare (NORMAL)
[2023-01-28 10:11] LABS: Anisocytosis 1+ (NORMAL); Burr Cells 1+ (NORMAL); Microcytosis 1+ (NORMAL)
[2023-01-28 10:12] LABS: Poikilocytosis 2+ (NORMAL)
[2023-01-28 10:38] VITALS: O2SAT 95
[2023-01-28 12:00] VITALS: PULSE 90
[2023-01-28] MEDS: methylPREDNISolone (MEDROL) DOSEPACK 4 MG TABLETS PO (12:05)
[2023-01-28] MEDS: FERROUS SULFATE 325 MG TABLET DR PO (12:05)
--- NOTE | 2023-01-28 12:51 | PM.CNOR ---
History of Present Illness HPI Consult date: 01/28/23 Chief complaint: CHF exacerbation Narrative: He is have year old male who we were consulted to see regarding left ankle pain. Patient was admitted for fluid overload has been getting diuresed. He developed sudden onset pain and swelling in the left ankle. The did do an aspiration the ankle yesterday and most this was blood. No crystals were seen. His uric acid level was 11.4. He was started on a Medrol Dosepak last night. At this point patient is having minimal symptoms. He has been up walking to the restroom with minimal pain in the ankle. He states overall he is feeling much better. He has been completely diuresed at this point is comfortable overall. Physical exam: 87-year-old male very alert pleasant. He has trace swelling in the left ankle none on the right. He has no tenderness to the left ankle. Again no pain with weight-bearing. No swelling in the foot. Skin is all intact. Impression: 87-year-old male who had a gout attack to the left ankle following diuresis fluid overload. This is not an uncommon situation to happen when patients are diuresed and have gout. They will get gout flares from that. I talked with the patient and he states he has no prior diagnosis of gout. The Medrol Dosepak that he was started on last night is working well and he will be sent home with remainder of that. I advised him he needs to talk with his primary care doctor to get started on allopurinol to prevent gout attacks in the future. His has family members that have dealt with gout in the past and he is very familiar with this. At this point patient is comfortable. Again he has been walking in the restroom without any significant discomfort with weight-bearing he is going to be discharged home today. He can follow-up with us on an as-needed basis. [facility] Past Medical History Medical History Aortic stenosis Arthritis Basal cell carcinoma Benign prostatic hyperplasia Chronic kidney disease Decreased hearing of left ear Diastolic congestive heart failure Echocardiogram in December 2021 showed low end of normal LV systolic function and diastolic dysfunction with superimposed basal inferoseptal hypokinesis. Essential thrombocytosis Glaucoma Hypertension Iron deficiency anemia Overactive bladder Paroxysmal atrial fibrillation Vitamin D deficiency Surgical History Surgical History History of abdominal aortic aneurysm repair (2016) History of back surgery Godfrey rods in the lower thoracic spine. History of basal cell carcinoma excision History of colon resection (2001) History of incisional hernia repair History of left hip replacement (2006) History of right hip replacement (2004) Family History Family History Sibling Carcinoma of colon Social History Social History Social History: Surrogate decision maker: Vianey RodriguezNeil, spouse. Code status: Full code. Smoking packs per day: 2 Smoking cigarettes per day: 40.0 Years smoked: 45 Smoking pack-years: 90.00 Smoking status: Former smoker Tobacco type: cigarettes Second hand tobacco smoke exposure: No Smoking end date: 07/11/94 Alcohol intake: never Substance use: never Substance use type: does not use Lack of Transportation: No Lack of Food: Never True Current Housing: I Have Housing Concerned About Future Housing: No Difficulty Paying Gas/Electric Bills: No Difficulty Paying for Meds: No Currently Unemployed: No Education: Grade School Difficulty w/ Childcare or Family Care: No Living arrangements: with family Additional living arrangements comments: The patient lives with his in [place]. Occupation/Education: retired Additional occupation/education
--- NOTE | 2023-01-28 13:47 | PM.DS ---
DS: Admitting Diagnosis Discharge Date 01/28/23 Admitting Diagnosis Shortness of breath DS: Discharge Diagnosis Discharge Diagnosis (1) Hypoxia: Code(s): R09.02 - Hypoxemia Status: Acute (2) Acute on chronic diastolic heart failure: Code(s): I50.33 - Acute on chronic diastolic (congestive) heart failure Status: Acute (3) Ankle pain, left: Code(s): M25.572 - Pain in left ankle and joints of left foot Status: Acute (4) Elevated troponin: Code(s): R77.8 - Other specified abnormalities of plasma proteins Status: Acute (5) Chronic kidney disease: Code(s): N18.9 - Chronic kidney disease, unspecified Status: Acute (6) Aortic stenosis: Qualifiers: Cardiac valve disease etiology: nonrheumatic Qualified Code(s): I35.0 - Nonrheumatic aortic (valve) stenosis Code(s): I35.0 - Nonrheumatic aortic (valve) stenosis Status: Acute (7) Essential thrombocytosis: Code(s): D47.3 - Essential (hemorrhagic) thrombocythemia Status: Acute (8) Iron deficiency anemia: Qualifiers: Iron deficiency anemia type: other iron deficiency Qualified Code(s): D50.8 - Other iron deficiency anemias Code(s): D50.9 - Iron deficiency anemia, unspecified Status: Acute (9) Overactive bladder: Code(s): N32.81 - Overactive bladder Status: Acute DS: Summary Hospital Course Reason for hospitalization: 87-year-old male with diastolic congestive heart failure, aortic stenosis, CKD, pAFib, BPH and HTN who presented to the ED from home for evaluation of shortness of breath and being treated for heart failure exacerbation. Please see H&P for details. Hospital Course: Patient presents with SOB and found to have anasarca by CT. CXR showing minimal pleural effusions and minimal right basilar pulmonary edema.? ProBNP was 16.6K.? He started on IV diuretics with good results.? Echocardiogram from November shows EF of 45-50%, septal wall motion abnormalities consistent with bundle branch block, severely enlarged right ventricle with reduced systolic function, biatrial enlargement moderate aortic stenosis. Cardiology was consulted.? Patient had good diuresis with the Lasix with negative fluid balance.? Lasix was held.? Creatinine stable.?Plan to resume Lasix at discharge. He developed new onset hypoxia 01/22-01/23 going from RA to 3L nc with associated nausea/vomiting, suspect possible aspiration pneumonia. CXR 01/23 showed interstitial edema and bibasilar infiltrates. He was treated with IV abx but then transitioned to oral Levaquin. He is on room air now. WBC peaked at 34K but down to 14.8K (back up to 17K but felt due to steroids). Speech therapy assessment showing no concerns. Patient also developed new onset left ankle pain.? No trauma.? Uric acid level is 11.4.? Arthrocentesis with 3mL dark red fluid removed. Appears to be hemarthrosis with 4M RBC and 11K WBC mostly neutrophils. No crystals seen. Despite no crystals, still felt this was gout.? Prednisone x1 given with improvement. Medrol Dose packet given. Ortho consulted and agreed with this assessment.Troponin was initially elevated but flattened. After episode of emesis with hypoxia, troponin bumped up to 0.124 from 0.083. Cardiology was aware but overall felt elevated Trop related to CHF. Patient has CKD with baseline Cr 1.3-1.5. Cr increased to 2 with concern for overdiuresis. Lasix held and Cr has trended down to 1.3. Patient overall did well and was able to be discharged home on 01/28/23. Status at Discharge Cognitive/behavioral status at discharge: stable Time Spent with Patient Time attestation: Total time spent providing and/or coordinating discharge services: 35 minutes Time spent: Greater than 30 minutes Exam Narrative: AF 97.9 113/57 89 16 95% ra Gen - NARD Chest - L>R bibasilar inspiratory crackles otherwise clear. CV - RRR S1/S2 Abd - Soft, NT/ND, Positive BS Ext
[2023-02-07 08:46] LABS: Total Protein Synovial Fluid 17.4
--- NOTE | 2023-02-18 07:54 | PC.NURSE ---
Body fluid culture is negative. Dr. John kemp.
== END 2023-01-28 15:38 | disposition home health service (06) | DRG 291 ==
LOC: ANHED 10:26 → ANHIMU 11:01 → ANH2MED 01-21 14:39
PROVIDERS: Orthopaedic Surgery; Student in an Organized Health Care Education/Training Program; Admitting Provider Family Medicine; Emergency Provider Preventive Medicine Aerospace Medicine; PCP Family Medicine; Visit Provider Internal Medicine
DX: I13.0 Hypertensive heart and chronic kidney disease with heart failure and stage 1 through stage 4 chronic kidney disease, or unspecified chronic kidney disease (principal); I50.33 Acute on chronic diastolic (congestive) heart failure; N17.9 Acute kidney failure, unspecified; M25.072 Hemarthrosis, left ankle; N18.9 Chronic kidney disease, unspecified; I35.0 Nonrheumatic aortic (valve) stenosis; M19.90 Unspecified osteoarthritis, unspecified site; R09.02 Hypoxemia; N40.0 Benign prostatic hyperplasia without lower urinary tract symptoms; H40.9 Unspecified glaucoma; D50.9 Iron deficiency anemia, unspecified; M10.9 Gout, unspecified; N32.81 Overactive bladder; I48.0 Paroxysmal atrial fibrillation; E55.9 Vitamin D deficiency, unspecified; D47.3 Essential (hemorrhagic) thrombocythemia; R77.8 Other specified abnormalities of plasma proteins; Z96.643 Presence of artificial hip joint, bilateral; Z85.828 Personal history of other malignant neoplasm of skin; Z87.891 Personal history of nicotine dependence
CPT/HCPCS: 20605; 36415; 71045; 71046; 73610; 74018; 74176; 76705; 77002; 80048; 80053; 80074; 82274; 82803; 82945; 82948; 83735; 83880; 84100; 84145; 84157; 84484; 84550; 85025; 85055; 85610; 85652; 85730; 86140; 87040; 87070; 87075; 87081; 87205; 89051; 89060; 92610; 93005; 96374; 97161; 97165; 99285; A9270; C9113; G0378; J0692; J1100; J1160; J1650; J1940; J1956; J2405; J3370; J7040; J7512

== ENCOUNTER 2023-04-04 08:18 | Outpatient (CLI) | payer OTHER, MEDICARE, SELFPAY ==
[2023-04-04 08:36] LABS: Basophils Absolute Auto 0.5 K/mm3 (0.0-0.1); Basophils Percent Auto 2.8 % (0.2-1.2); Eosinophils Absolute Auto 0.1 K/mm3 (0-0.3); Eosinophils Percent Auto 0.8 % (0-4.4); Hematocrit 43.7 % (42.0-52.0); Hemoglobin 13.2 g/dL (14.0-18.0); Immature Granulocyte Absolute 1.43 K/mm3 (0.00-0.031); Immature Granulocyte Percent A 8.1 % (0-0.5); Immature Platelet Fraction Pct 22.7 % (0.9-11.2); Lymphocytes Absolute Auto 0.76 K/mm3 (0.9-3.2); Lymphocytes Percent Auto 4.3 % (18.3-44.2); Mean Corpuscular HGB Conc 30.2 g/dl (32-36); Mean Corpuscular Hemoglobin 24.5 pg (26-34); Mean Corpuscular Volume 81.1 fl (80-100); Monocytes Absolute Auto 0.9 K/mm3 (0.1-0.6); Monocytes Percent Auto 5.2 % (2.6-8.5); Neutrophils Absolute Auto 13.9 K/mm3 (1.3-6.7); Neutrophils Percent Auto 78.8 % (45.5-73.1); Nucleated Red Blood Cells Perc 0.1 % (0.0-0.2); Platelet Count Result 321 k/mm3 (150-375); Red Blood Count 5.39 M/mm3 (4.6-6.20); Red Cell Distribution Width 28.1 % (11.5-14.5); White Blood Count 17.6 K/mm3 (4.5-10.0)
[2023-04-04 08:38] LABS: Anisocytosis 1+ (NORMAL); Atypical Lymphocytes Present; Hypochromasia 1+ (NORMAL); Ovalocytes 2+ (NORMAL); Platelet Estimate Adequate (Adequate); Poikilocytosis 2+ (NORMAL); Schistocytes None Seen (NORMAL)
[2023-04-04 08:39] LABS: Blood Urea Nitrogen 26 mg/dL (8-26); Carbon Dioxide 28 mmol/L (22-30); Chloride 104 mmol/L (98-109); Potassium 4.3 mmol/L (3.5-4.9); Sodium 142 mmol/L (138-146)
[2023-04-04 08:40] LABS: Estimated Glomerular Filt Rate 44; Glucose 139 mg/dL (70-105); Ionized Calcium (POC) 1.16 mmol/L (1.11-1.31)
== END 2023-04-04 08:19 | disposition home or self-care (01) ==
PROVIDERS: PCP Family Medicine; Visit Provider Internal Medicine Hematology & Oncology
DX: D47.3 Essential (hemorrhagic) thrombocythemia (principal)
CPT/HCPCS: 36415; 80047; 85025; 85055

== ENCOUNTER 2023-04-17 08:57 | Inpatient (IN) | payer OTHER, MEDICARE, SELFPAY ==
[2023-04-17] VITALS (29 sets, daily range): BP systolic 98–123; BP diastolic 66–86; PULSE 98–113; RESP 18–35; TEMP 36.2–36.6; O2SAT 90–98; BMI 23.3
--- NOTE | ~2023-04-17 | CT_ITS ---
EXAMINATION: CTA chest PE abdomen pel DATE: 04/17/2023 10:24 INDICATION: Increased shortness of breath, abdominal swelling TECHNIQUE: Computed tomography angiography (CTA) of the chest, abdomen and pelvis was performed with 100 mL Omnipaque-350 intravenous contrast timed to evaluate the pulmonary arteries. Coronal maximum i ntensity projection 3D-reconstructions were created by the technologist. Automated exposure control a nd iterative reconstruction technique were employed. Exam dose: 1173.39 mGy-cm total exam DLP. COMPARISON: 04/17/2023 AP and lateral chest 01/18/2023 CT abdomen pelvis 03/06/2022 CT chest FINDINGS: There is diagnostic contrast enhancement of the pulmonary arteries and no evidence of pulmo nary embolism. Cardiomegaly. Coronary artery prominent calcifications. No thoracic aortic aneurysm or dissection is evident. There is thoracic aortic and great vessel calci fication. No hilar or mediastinal mass lesion or lymphadenopathy. Moderate right and minimal left pleural effusion. There is right lower lobe compressive atelectasis. Mild to moderate emphysematous changes of the lung s. Mild ascites. Approximately 8.5 mm left hepatic cyst. No hepatic space-occupying mass lesion is evident otherwise. Status post cholecystectomy. Splenomegaly, the spleen measuring approximately 15 cm vertical dimensio n. There are multiple pancreatic calcifications consistent with chronic pancreatitis usually alcohol ind uced. No pancreatic duct dilatation or pancreatic mass lesion is evident. No bile duct dilatation. Bilateral renal scarring. 2 cm right renal circumscribed mass with attenuation of 54 Hounsfield units, consistent with hemorrha gic or complicated cyst versus hypernephroma. 6 mm and 7 mm hypoenhancing nonspecific lesions of the left kidney. There is an abdominal smril-me-fipsv stent. There is extensive abdominal aortic and iliac arterial c alcifications. No intraperitoneal or retroperitoneal or pelvic mass lesion or adenopathy. Small sliding hiatal hernia. There is a suture line in the rectosigmoid area. Diverticulosis of the colon; no bowel obstruction or intraperitoneal free air is detected. Old healed left rib fractures. Thoracolumbar spinal rods chronic fracture deformity of T12, L4 Grade 1 anterolisthesis at L5-S1 due to degenerative change at the apophyseal joints. Severe degenera tive disc disease at L5-S1. Status post bilateral total hip replacements. There is extensive streak artifact from the hip replace ment hardware, partially obscuring portions of the pelvis including urinary bladder and prostate bed. IMPRESSION: No evidence of pulmonary embolism Cardiomegaly, coronary atherosclerosis Moderate right and minimal left pleural effusion Right lower lobe compressive atelectasis Mild to moderate emphysema Mild ascites 8.5 mm left hepatic cyst Status post cholecystectomy Splenomegaly Chronic pancreatitis Nonspecific renal lesions and bilateral renal scarring Endovascular abdominal aortic and biiliac stent Small sliding hiatal hernia Postoperative change at rectosigmoid area Colon diverticulosis Reviewed, dictated and finalized at [facility] Reviewed, dictated and finalized at [facility].
--- NOTE | ~2023-04-17 | XR_ITS ---
XR chest 2V DATE: 04/17/2023 09:27 INDICATION: Shortness of breath, swelling of extremities TECHNIQUE: AP and lateral views COMPARISON: 01/25/2023 portable AP chest FINDINGS: There is cardiomegaly. Is aortic calcification and mild tortuosity. Patchy bilateral lower lung infiltrates and/or atelectasis, right greater than left. No pleural effusion or pulmonary mass congestion or pneumothorax. Old left clavicular shaft fracture and multiple old left rib fracture deformities. Bilateral thoracolumbar spinal rods. IMPRESSION: Persistent infiltrate and/atelectasis in both lower lung zones Cardiomegaly, aortic atherosclerosis Reviewed, dictated and finalized at [facility].
--- NOTE | 2023-04-17 08:59 | ECG_ITS ---
Measurements Intervals [place] Rate: 110 P: 64 MS: 183 QRS: -70 QRSD: 97 T: 124 QT: 334 QTc: 452 Interpretive Statements SINUS TACHYCARDIA WITH FREQUENT SUPRAVENTRICULAR PREMATURE COMPLEXES INDETERMINATE AXIS NONSPECIFIC T-WAVE ABNORMALITY ABNORMAL ECG COMPARED TO ECG 01/23/2023 08:20:46 T-WAVE ABNORMALITY NOW PRESENT Electronically Signed On 04-18-2023 9:21:48 CDT by Tonio Damon M.D.
[2023-04-17 09:18] LABS: Basophils Absolute Auto 0.6 K/mm3 (0.0-0.1); Basophils Percent Auto 2.6 % (0.2-1.2); Eosinophils Absolute Auto 0.1 K/mm3 (0-0.3); Eosinophils Percent Auto 0.3 % (0-4.4); Hematocrit 43.1 % (42.0-52.0); Hemoglobin 12.9 g/dL (14.0-18.0); Immature Granulocyte Percent A 8.5 % (0-0.5); Immature Platelet Fraction Pct 22.3 % (0.9-11.2); Lymphocytes Absolute Auto 0.65 K/mm3 (0.9-3.2); Lymphocytes Percent Auto 3.1 % (18.3-44.2); Mean Corpuscular HGB Conc 29.9 g/dl (32-36); Mean Corpuscular Hemoglobin 24.2 pg (26-34); Mean Corpuscular Volume 80.9 fl (80-100); Monocytes Absolute Auto 0.9 K/mm3 (0.1-0.6); Monocytes Percent Auto 4.2 % (2.6-8.5); Neutrophils Absolute Auto 17.2 K/mm3 (1.3-6.7); Neutrophils Percent Auto 81.3 % (45.5-73.1); Nucleated Red Blood Cells Perc 0.1 % (0.0-0.2); Platelet Count Result 324 k/mm3 (150-375); Red Blood Count 5.33 M/mm3 (4.6-6.20); Red Cell Distribution Width 28.4 % (11.5-14.5); White Blood Count 21.2 K/mm3 (4.5-10.0)
[2023-04-17 09:27] LABS: Alanine Aminotransferase 16 U/L (6-50); Albumin Level 3.9 g/dL (3.5-5.1); Alkaline Phosphatase 170 U/L (38-126); Anion Gap 7 mmol/L (8-16); Aspartate Amino Transferase 29 U/L (17-59); Bilirubin,Total 1.4 mg/dL (0.2-1.3); Blood Urea Nitrogen 21 mg/dL (9-20); Calcium 8.7 mg/dL (8.4-10.2); Carbon Dioxide 27 mmol/L (22-30); Chloride 106 mmol/L (98-107); Estimated CRCL calculation 39 ml/min; Estimated Glomerular Filt Rate 57; Glucose 164 mg/dL (65-110); Potassium 4.3 mmol/L (3.4-5.0); Sodium 140 mmol/L (137-145)
--- NOTE | 2023-04-17 09:32 | ED.GENADULT ---
HPI - General Adult General Chief complaint: Shortness of Breath/Dyspnea Stated complaint: CHF w/ SOB & swollen abd Time Seen by Provider: 04/17/23 09:02 History of Present Illness HPI narrative: Doni Cavazos is an 87 y/o male with PMHx of CHF who presents with reports of increased SOB/ increased fluid to his lower extremities and abdomen. believes he has gained about 8 pounds over the past two days. Patient is sating 90-91 on RA and placed on 2L nasal canula on arrival. Denies chest pain/ recent illness/cough/fever/chills. Related Data Home Medications Medication Instructions Recorded Confirmed anagrelide 1 mg capsule 1 mg PO BID 01/05/22 04/17/23 acetaminophen 325 mg capsule 650 mg PO HS PRN Pain (Scale Score 11/09/22 04/17/23 (Tylenol) 1-3) fexofenadine 180 mg tablet 180 mg PO DAILY 01/19/23 04/17/23 folic acid 400 mcg tablet 0.4 mg PO DAILY 01/19/23 04/17/23 vit C 250 mg-vit E 200 unit-zinc 1 cap PO DAILY 01/19/23 04/17/23 ox 12.5 [id number] capsule (ICaps AREDS2) ferrous sulfate 325 mg (65 mg 325 mg PO DAILY 04/17/23 04/17/23 iron) tablet (iron) Allergies Allergy/AdvReac Type Severity Reaction Status Date / Time No Known Allergies Allergy Verified 04/17/23 09:08 Review of Systems Review of Systems: CONSTITUTIONAL: Denies fever, chills, or sweats./ Decreased PO intake, increased fatigue EYES: Denies visual changes, redness, or discharge. ENT: Denies rhinorrhea, congestion, sore throat, or otalgia. CARDIOVASCULAR: Denies chest pain, palpitations, or edema. RESPIRATORY: Reports increased SOB over the past two days GASTROINTESTINAL: Denies abdominal pain, nausea, vomiting, or diarrhea. GENITOURINARY: Denies dysuria or hematuria. SKIN: Denies rash or itching. MUSCULOSKELETAL: Denies back pain, joint pain, or myalgia. NEUROLOGIC: Denies headache, numbness, dizziness, or weakness. PSYCHIATRIC: Denies anxiety or depression. [facility] Past Medical History Medical History Aortic stenosis Arthritis Basal cell carcinoma Benign prostatic hyperplasia Chronic kidney disease Decreased hearing of left ear Diastolic congestive heart failure Echocardiogram in December 2021 showed low end of normal LV systolic function and diastolic dysfunction with superimposed basal inferoseptal hypokinesis. Essential thrombocytosis Glaucoma Hypertension Iron deficiency anemia Overactive bladder Paroxysmal atrial fibrillation Vitamin D deficiency Surgical History Surgical History History of abdominal aortic aneurysm repair (2016) History of back surgery Godfrey rods in the lower thoracic spine. History of basal cell carcinoma excision History of colon resection (2001) History of incisional hernia repair History of left hip replacement (2006) History of right hip replacement (2004) Family History Family History Sibling Carcinoma of colon Social History Social History Social History: Surrogate decision maker: Vianey Cavazos, spouse. Code status: Full code. Smoking packs per day: 2 Smoking cigarettes per day: 40.0 Years smoked: 45 Smoking pack-years: 90.00 Smoking status: Former smoker Second hand tobacco smoke exposure: No Alcohol intake: never Substance use: never Substance use type: does not use Lack of Transportation: No Lack of Food: Never True Current Housing: I Have Housing Concerned About Future Housing: No Difficulty Paying Gas/Electric Bills: No Difficulty Paying for Meds: No Currently Unemployed: No Education: Grade School Difficulty w/ Childcare or Family Care: No Living arrangements: with family Additional living arrangements comments: The patient lives with his in [place]. Occupation/Education: retired Additional occupation/educa
[2023-04-17 09:35] LABS: INR 1.4; Partial Thromboplastin Time 38.9 SECONDS (22.3-36.8)
[2023-04-17 09:43] LABS: Hypochromasia 1+ (NORMAL); Platelet Estimate Adequate (Adequate)
[2023-04-17 09:45] LABS: Anisocytosis 1+ (NORMAL); Atypical Lymphocytes Present; Ovalocytes 1+ (NORMAL); Poikilocytosis 2+ (NORMAL); Schistocytes None Seen (NORMAL)
[2023-04-17 09:50] LABS: NT Pro B Type Natriuretic Pept 22100 pg/mL (19.9-100); Troponin I 0.069 ng/mL (0.000-0.034)
[2023-04-17] MEDS: FUROSEMIDE INJ 40 MG/4 ML VIAL 60 MG IV PUSH (10:52)
[2023-04-17] MEDS: METOPROLOL SUCCINATE EXT REL 25 MG TABCR PO (10:58)
--- NOTE | 2023-04-17 13:19 | ADMGEN ---
This patient, Doni Cavazos, was admitted to 2 Medical Room 257-. Patient/family oriented to hospital policies and general routines including ID bracelet, bed and alarms, visiting hours, pain management, procedures, bathroom and other care routines, personal items, smoking policy, room service/diet, and visiting hours. Information on how to activate the Rapid Response Team has been discussed. Patient/Family are encouraged to report perceived risks to care and to ask questions if they do not understand what they are told or what they should do.
[2023-04-17 13:56] LABS: Alveolar/Arterial O2 Gradient 76.3 mmHg; Base Excess ABG -1.7 mEq/l (+/-2.0); Device NASAL CANNULA; Fractional Inspired Oxygen 28 %; Modified Allen's Test Pass; Oxygen Saturation ABG 96.5 % (95.0-100.0); PCO2 ABG 34.4 mmHg (35.0-45.0); PO2 ABG 82.8 mmHg (80.0-100.0); PO2 FiO2 Ratio Arterial Blood 2.96 %; Site Drawn RIGHT RADIAL; pH ABG 7.423 (7.350-7.450)
--- NOTE | 2023-04-17 15:45 | PM.IMHP ---
H&P: HPI History of Present Illness Date/Time: 04/17/23 15:45 Chief Complaint: Shortness of breath and weight gain. Narrative: This is a very pleasant 87-year-old male with diastolic congestive heart failure, aortic stenosis, chronic kidney disease, paroxysmal atrial fibrillation, benign prostatic hyperplasia, essential thrombocytosis, and other comorbidities who presented to the ED from home for evaluation of shortness of breath and weight gain. The patient provides the following history. Over the last week or so he has noticed increasing shortness of breath on lesser and lesser exertion as well as increased swelling in his abdomen and legs. He gained 8 lb in the last 2 days and his sent him in for evaluation. He states compliance with his home medications. He has not had any recent cold or flu symptoms. He denies lightheadedness, sweats, chest pain, pleuritic pain, palpitations, cough, nausea, vomiting, diarrhea, dysuria, and decrease in urine output. In the ED: He was afebrile on arrival with stable blood pressures. He has been in a sinus tachycardia with rates in the low 100s since arrival. EKG showed sinus tachycardia with frequent supraventricular complexes and nonspecific T-wave abnormalities. Baseline troponin was elevated 0.069 and has remained flat. ProBNP was 90549 which is the highest it has ever been at this facility. He has chronic leukocytosis which is unchanged. Chest CTA was negative for pulmonary embolism and showed moderate right and minimal left pleural effusions. He was given furosemide 60 mg IV x1 and he is being admitted for further diuresis. At the time my evaluation he reports good urine output and he has no current complaints. Review of Systems Review of Systems: Twelve systems were reviewed and are negative except for as per HPI. [facility] Past Medical History Medical History Aortic stenosis Arthritis Basal cell carcinoma Benign prostatic hyperplasia Chronic kidney disease Decreased hearing of left ear Diastolic congestive heart failure Echocardiogram in December 2021 showed low end of normal LV systolic function and diastolic dysfunction with superimposed basal inferoseptal hypokinesis. Essential thrombocytosis Glaucoma Hypertension Iron deficiency anemia Overactive bladder Paroxysmal atrial fibrillation Vitamin D deficiency Surgical History Surgical History History of abdominal aortic aneurysm repair (2017) History of back surgery Godfrey rods in the lower thoracic spine. History of basal cell carcinoma excision History of colon resection (2001) History of incisional hernia repair History of left hip replacement (2006) History of right hip replacement (2004) Family History Family History Sibling Carcinoma of colon Social History Social History Social History: Surrogate decision maker: Vianey Carmen, spouse. Code status: Full code. Smoking packs per day: 2 Smoking cigarettes per day: 40.0 Years smoked: 45 Smoking pack-years: 90.00 Smoking status: Former smoker Second hand tobacco smoke exposure: No Alcohol intake: never Substance use: never Substance use type: does not use Lack of Transportation: No Lack of Food: Never True Current Housing: I Have Housing Concerned About Future Housing: No Difficulty Paying Gas/Electric Bills: No Difficulty Paying for Meds: No Currently Unemployed: No Education: Grade School Difficulty w/ Childcare or Family Care: No Living arrangements: with family Additional living arrangements comments: The patient lives with his in [place]. 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 Spiritual care concerns: No Meds Home Medi
[2023-04-17 16:37] LABS: Troponin I 0.064 ng/mL (0.000-0.034)
[2023-04-17] MEDS: FUROSEMIDE INJ 40 MG/4 ML VIAL 20 MG IV PUSH (17:02)
[2023-04-17] MEDS: ENOXAPARIN 40 MG/0.4 ML SYRINGE SUB-Q (17:02)
[2023-04-18] VITALS (13 sets, daily range): BP systolic 102–114; BP diastolic 59–73; PULSE 93–108; RESP 17–18; TEMP 36.2–36.7; O2SAT 93–97; BMI 23.5
[2023-04-18 06:05] LABS: Hematocrit 45.8 % (42.0-52.0); Hemoglobin 13.7 g/dL (14.0-18.0); Immature Platelet Fraction Pct 26.9 % (0.9-11.2); Mean Corpuscular HGB Conc 29.9 g/dl (32-36); Mean Corpuscular Hemoglobin 24.3 pg (26-34); Mean Corpuscular Volume 81.2 fl (80-100); Platelet Count Result 304 k/mm3 (150-375); Red Blood Count 5.64 M/mm3 (4.6-6.20); Red Cell Distribution Width 28.6 % (11.5-14.5); White Blood Count 22.9 K/mm3 (4.5-10.0)
[2023-04-18 06:16] LABS: Alanine Aminotransferase 17 U/L (6-50); Albumin Level 4.1 g/dL (3.5-5.1); Alkaline Phosphatase 176 U/L (38-126); Anion Gap 9 mmol/L (8-16); Aspartate Amino Transferase 29 U/L (17-59); Bilirubin,Total 1.4 mg/dL (0.2-1.3); Blood Urea Nitrogen 26 mg/dL (9-20); Calcium 8.9 mg/dL (8.4-10.2); Carbon Dioxide 29 mmol/L (22-30); Chloride 102 mmol/L (98-107); Estimated CRCL calculation 33 ml/min; Estimated Glomerular Filt Rate 48; Glucose 98 mg/dL (65-110); Magnesium 2.3 mg/dL (1.6-2.3); Potassium 4.4 mmol/L (3.4-5.0); Sodium 140 mmol/L (137-145)
[2023-04-18] MEDS: FERROUS SULFATE 325 MG TABLET DR PO (08:28)
[2023-04-18] MEDS: OPTI-GEN TAB 1 TABLET PO (08:28)
[2023-04-18] MEDS: FOLIC ACID 0.4 MG TABLET PO (08:28)
[2023-04-18] MEDS: METOPROLOL SUCCINATE EXT REL 25 MG TABCR PO (08:28)
[2023-04-18] MEDS: LORATADINE 10 MG TABLET PO (08:29)
[2023-04-18] MEDS: FUROSEMIDE INJ 40 MG/4 ML VIAL 20 MG IV PUSH ×2 (08:33→16:30)
[2023-04-18] MEDS: ANAGRELIDE HCL 0.5 MG CAPSULE 1 MG PO ×2 (10:27→16:30)
--- NOTE | 2023-04-18 10:37 | PM.IMPN ---
Progress Note: A&P Assessment and Plan (1) Acute on chronic diastolic heart failure: Code(s): I50.33 - Acute on chronic diastolic (congestive) heart failure Status: Acute Assessment and Plan: Continue diuresis (2) Elevated troponin: Code(s): R77.8 - Other specified abnormalities of plasma proteins Status: Acute Assessment and Plan: No chest pain (3) Leukocytosis: Qualifiers: Leukocytosis type: other Qualified Code(s): D72.828 - Other elevated white blood cell count Code(s): D72.829 - Elevated white blood cell count, unspecified Status: Acute Assessment and Plan: No signs of infection. Monitor (4) Chronic kidney disease: Qualifiers: Chronic kidney disease stage: stage 3 (moderate) Chronic kidney disease stage 3 subtype: stage 3a (GFR 45-59) Qualified Code(s): N18.31 - Chronic kidney disease, stage 3a Code(s): N18.9 - Chronic kidney disease, unspecified Status: Acute (5) Aortic stenosis: Qualifiers: Cardiac valve disease etiology: nonrheumatic Qualified Code(s): I35.0 - Nonrheumatic aortic (valve) stenosis Code(s): I35.0 - Nonrheumatic aortic (valve) stenosis Status: Acute (6) Essential thrombocytosis: Code(s): D47.3 - Essential (hemorrhagic) thrombocythemia Status: Acute Subjective Date/time seen: 04/18/23 10:37 Interval history: No new complaints. Breathing is a little better. Exam Narrative: General:?Chronically ill-appearing gentleman sitting up in bed in no acute distress. Weight: 71.5 kg. BMI: 23.3. HEENT:?Wearing corrective lenses. PERRL, EOMI. Sclera anicteric. Conjunctiva mildly injected. Neck:??Supple. Mild jugular venous distension. Respiratory:?Mild conversational dyspnea. He appears in no respiratory distress. Lung sounds are diminished at both bases, right greater than left, with scattered crackles. Cardiovascular:??Regular rate and rhythm with S1-S2. Occasional ectopy. 2/6 systolic murmur at upper sternal border. Gastrointestinal:??Abdomen is soft, protuberant, and nontender with positive bowel sounds. Skin:??Warm and dry.? No rash or lesions on limited exam. Extremities:??No cyanosis or clubbing. One to 2+ lower extremity edema to the knees. Neurological:??Alert.? Cranial nerves 2-12 are grossly intact. No gross focal deficits to casual conversation. Psychiatric:??Pleasant and cooperative with normal mood and affect. Objective Data Vital Signs Vital Signs: Vital Signs - 24 hr 04/17/23 10:58 04/17/23 10:45 04/17/23 10:59 Temperature Pulse Rate 109 H 108 H 110 H Respiratory Rate 28 H 23 H Blood Pressure 111/84 Pulse Oximetry Oxygen Delivery Oxygen Flow Rate 04/17/23 11:00 04/17/23 11:01 04/17/23 11:15 Temperature Pulse Rate 109 H 107 H 112 H Respiratory Rate 19 27 H 30 H Blood Pressure 123/82 123/86 Pulse Oximetry Oxygen Delivery Oxygen Flow Rate 04/17/23 11:16 04/17/23 11:31 04/17/23 11:58 Temperature Pulse Rate 111 H 107 H Respiratory Rate 35 H 28 H Blood Pressure Pulse Oximetry 98 Oxygen Delivery Nasal Cannula Oxygen Flow Rate 2 04/17/23 11:53 04/17/23 12:00 04/17/23 12:01 Temperature Pulse Rate 105 H 101 H 102 H Respiratory Rate 26 H 24 H 26 H Blood Pressure 98/74 L Pulse Oximetry Oxygen Delivery Oxygen Flow Rate 04/17/23 12:22 04/17/23 12:30 04/17/23 12:31 Temperature Pulse Rate 103 H 98 103 H Respiratory Rate 28 H 24 H 24 H Blood Pressure 107/78 Pulse Oximetry Oxygen Delivery Oxygen Flow Rate 04/17/23 13:35 04/17/23 14:00 04/17/23 16:00 Temperature 98 F Pulse Rate 103 H 105 H Respiratory Rate 20 Blood Pressure 105/69 Pulse Oximetry 98 97 Oxygen Delivery Nasal Cannula Oxygen Flow Rate 2 04/17/23 21:10 04/17/23 21:18 04/17/23 20:00 Temperature 97.2 F L Pulse Rate 108 H 106 H Respiratory Rate 18 Blood Pressure
[2023-04-18] MEDS: ENOXAPARIN 40 MG/0.4 ML SYRINGE SUB-Q (17:01)
[2023-04-19] VITALS (16 sets, daily range): BP systolic 100–106; BP diastolic 50–64; PULSE 99–110; RESP 16–18; TEMP 36.4–36.9; O2SAT 87–96
[2023-04-19] MEDS: ANAGRELIDE HCL 0.5 MG CAPSULE 1 MG PO ×2 (10:39→17:35)
[2023-04-19] MEDS: METOPROLOL SUCCINATE EXT REL 25 MG TABCR PO (10:39)
[2023-04-19] MEDS: OPTI-GEN TAB 1 TABLET PO (10:39)
[2023-04-19] MEDS: LORATADINE 10 MG TABLET PO (10:40)
[2023-04-19] MEDS: FOLIC ACID 0.4 MG TABLET PO (10:40)
[2023-04-19] MEDS: FERROUS SULFATE 325 MG TABLET DR PO (10:40)
[2023-04-19] MEDS: FUROSEMIDE INJ 40 MG/4 ML VIAL 20 MG IV PUSH ×2 (10:41→17:35)
--- NOTE | 2023-04-19 10:45 | PM.IMPN ---
Progress Note: A&P Assessment and Plan (1) Acute on chronic diastolic heart failure: Code(s): I50.33 - Acute on chronic diastolic (congestive) heart failure Status: Acute Assessment and Plan: Continue diuresis Currently on 1-2 L of oxygen. (2) Elevated troponin: Code(s): R77.8 - Other specified abnormalities of plasma proteins Status: Acute Assessment and Plan: No chest pain (3) Leukocytosis: Qualifiers: Leukocytosis type: other Qualified Code(s): D72.828 - Other elevated white blood cell count Code(s): D72.829 - Elevated white blood cell count, unspecified Status: Acute Assessment and Plan: No signs of infection, no fever. Hematology consult. (4) Chronic kidney disease: Qualifiers: Chronic kidney disease stage: stage 3 (moderate) Chronic kidney disease stage 3 subtype: stage 3a (GFR 45-59) Qualified Code(s): N18.31 - Chronic kidney disease, stage 3a Code(s): N18.9 - Chronic kidney disease, unspecified Status: Acute Assessment and Plan: Monitor. (5) Aortic stenosis: Qualifiers: Cardiac valve disease etiology: nonrheumatic Qualified Code(s): I35.0 - Nonrheumatic aortic (valve) stenosis Code(s): I35.0 - Nonrheumatic aortic (valve) stenosis Status: Acute (6) Essential thrombocytosis: Code(s): D47.3 - Essential (hemorrhagic) thrombocythemia Status: Acute Assessment and Plan: Hematology consult Improved Subjective Date/time seen: 04/19/23 10:45 Interval history: Reports that his breathing is better. Exam Narrative: General:?Chronically ill-appearing gentleman sitting up in bed in no acute distress. Weight: 71.5 kg. BMI: 23.3. HEENT:?Wearing corrective lenses. PERRL, EOMI. Sclera anicteric. Conjunctiva mildly injected. Neck:??Supple. Mild jugular venous distension. Respiratory:?Mild conversational dyspnea. He appears in no respiratory distress. Lung sounds are diminished at both bases, right greater than left, with scattered crackles. Cardiovascular:??Regular rate and rhythm with S1-S2. Occasional ectopy. 2/6 systolic murmur at upper sternal border. Gastrointestinal:??Abdomen is soft, protuberant, and nontender with positive bowel sounds. Skin:??Warm and dry.? No rash or lesions on limited exam. Extremities:??No cyanosis or clubbing. One to 2+ lower extremity edema to the knees. Neurological:??Alert.? Cranial nerves 2-12 are grossly intact. No gross focal deficits to casual conversation. Psychiatric:??Pleasant and cooperative with normal mood and affect. Objective Data Vital Signs Vital Signs: Vital Signs - 24 hr 04/18/23 12:01 04/18/23 14:24 04/18/23 16:03 Temperature 98.1 F Pulse Rate 105 H 93 108 H Respiratory Rate 17 Blood Pressure 102/59 L Pulse Oximetry 95 Oxygen Delivery Oxygen Flow Rate Fraction of Inspired Oxygen 04/18/23 20:16 04/18/23 20:33 04/18/23 20:45 Temperature 98.1 F Pulse Rate 100 108 H Respiratory Rate 18 Blood Pressure 113/65 Pulse Oximetry 93 95 95 Oxygen Delivery Nasal Cannula Nasal Cannula Oxygen Flow Rate 2 2 Fraction of Inspired Oxygen 28 04/18/23 20:00 04/19/23 00:00 04/19/23 03:43 Temperature 97.5 F L Pulse Rate 108 H 110 H 108 H Respiratory Rate 18 Blood Pressure 100/63 Pulse Oximetry 96 Oxygen Delivery Oxygen Flow Rate Fraction of Inspired Oxygen 04/19/23 04:00 04/19/23 10:39 04/19/23 10:40 Temperature Pulse Rate 103 H 100 100 Respiratory Rate Blood Pressure 106/64 Pulse Oximetry 96 Oxygen Delivery Oxygen Flow Rate Fraction of Inspired Oxygen Intake/Output Intake/Output: Intake & Output 04/16/23 04/17/23 04/18/23 04/19/23 23:59 23:59 23:59 23:59 Intake Total 422 2340 530 Output Total 2700 1875 200 Balance -2278 857 330 Meds/Results Medications: Active Medications Generic Name Dose Route Start Last Admin Tra
[2023-04-19] MEDS: ENOXAPARIN 40 MG/0.4 ML SYRINGE SUB-Q (17:35)
--- NOTE | 2023-04-19 18:39 | PDONCCN ---
HPI - Date of Consult Date/Time: 04/19/23 18:39 Requesting Physician: Velia Mcnair DO Primary Care Provider: Shona Jean MD - Consult Narrative Reason for consult: Leukocytosis and essential thrombocythemia Narrative: Doni Cavazos is a 87 year old male with history of essential thrombocythemia JAK2 mutation positive currently on and Agrylin 1 mg twice a day started on November 2022. Patient was treated with hydroxyurea discontinued due to progressive thrombocytopenia and renal insufficiency. He was last seen in the office just recently. Patient also has a history of congestive heart failure, aortic stenosis, chronic kidney disease, atrial fibrillation and BPH. He was came into the hospital with shortness of breath and weight gain along with abdominal distention and lower extremity edema. He has gained 8 lb weight. CTA chest was negative for pulmonary embolism there was some right and left minimal pleural effusion. Patient was started on furosemide. His complaining of abdominal distension. CTA chest PE abdomen protocol showed mild ascites with multiple pancreatic calcification consistent with chronic pancreatitis. There was 2 cm right renal mass consistent with hemorrhagic cyst. Labs showed elevated WBC count 21,000 and normal platelet of 324,000. Review of Systems - Review of Systems All systems reviewed & are unremarkable except as noted in [facility] and [facility] Medical History: Medical History (Last Reviewed 04/17/23 @ 22:52 by Sary Ospina PA-C) Aortic stenosis Arthritis Basal cell carcinoma Benign prostatic hyperplasia Chronic kidney disease Decreased hearing of left ear Diastolic congestive heart failure Echocardiogram in December 2021 showed low end of normal LV systolic function and diastolic dysfunction with superimposed basal inferoseptal hypokinesis. Essential thrombocytosis Glaucoma Hypertension Iron deficiency anemia Overactive bladder Paroxysmal atrial fibrillation Vitamin D deficiency Surgical History: Surgical History (Last Reviewed 04/17/23 @ 18:48 by Mini Decker APRN) History of abdominal aortic aneurysm repair Onset Date: 2016 History of back surgery Godfrey rods in the lower thoracic spine. History of basal cell carcinoma excision History of colon resection Onset Date: 2001 History of incisional hernia repair History of left hip replacement Onset Date: 2006 History of right hip replacement Onset Date: 2004 Family History: Family History (Last Reviewed 04/17/23 @ 18:48 by Mini Decker APRN) Sibling Carcinoma of colon - Social History Social History: Social History (Last Reviewed 04/17/23 @ 18:48 by Mini Decker APRN) Alcohol Use: Alcohol intake: never Substance Use: Substance use: never Substance use type: does not use Others: Spiritual care concerns: No Living Arrangements: Living arrangements: with family Oppucation/Education: Occupation/Education: retired Smoking Status: Smoking status: Former smoker Second hand tobacco smoke exposure: No Smoking Pack-years: Smoking packs per day: 2 Smoking cigarettes per day: 40.0 Years smoked: 45 Smoking pack-years: 90.00 Social Determinants of Health: Has the Lack of Transportation Kept You From Medical Appointments or From Getting Medications?: No Within the Past 12 Months, Were You Worried Whether Your Food Would Run Out Before You Got Money to Buy More?: Never True What is Your Housing Situation Today?: I Have Housing Are You Worried That in the Next 2 Months, You May Not Have Your Own Housing to Live In?: No Do You Have Trouble Paying Your Heating Or Electricity Bill?: No Do You Have Trouble Paying For Medicines?: No Are You Currently Unemployed and Looking for Work?: No Highest Level of Education Completed: Grade School Do You Have Trouble With Childcare or the Care of a Family Member?: No E
[2023-04-19 19:38] LABS: CRP 1.7 mg/dL (<1.0)
[2023-04-19 20:31] LABS: Erythrocyte Sedimentation Rate 3 mm/hr (0-20)
[2023-04-20] VITALS (12 sets, daily range): BP systolic 104–109; BP diastolic 52–71; PULSE 99–117; RESP 16–18; TEMP 36.4–36.9; O2SAT 90–96
[2023-04-20] MEDS: ANAGRELIDE HCL 0.5 MG CAPSULE 1 MG PO ×2 (08:37→16:45)
[2023-04-20] MEDS: METOPROLOL SUCCINATE EXT REL 25 MG TABCR PO (08:37)
[2023-04-20] MEDS: LORATADINE 10 MG TABLET PO (08:37)
[2023-04-20] MEDS: FUROSEMIDE INJ 40 MG/4 ML VIAL 20 MG IV PUSH ×2 (08:38→16:45)
[2023-04-20] MEDS: OPTI-GEN TAB 1 TABLET PO (08:38)
[2023-04-20] MEDS: FERROUS SULFATE 325 MG TABLET DR PO (08:38)
[2023-04-20] MEDS: FOLIC ACID 0.4 MG TABLET PO (08:38)
--- NOTE | 2023-04-20 09:02 | PM.IMPN ---
Progress Note: A&P Assessment and Plan (1) Acute exacerbation of CHF (congestive heart failure): Qualifiers: Heart failure type: unspecified Qualified Code(s): I50.9 - Heart failure, unspecified Code(s): I50.9 - Heart failure, unspecified Status: Acute Plan 87 w/ PMH , HFpEF, BPH, CKD stage III, essential thrombocytosis, HTN presented with SOB 1) HFpEF - acute on chronic decompensation. improved but still on 2 L NC - acute hypoxic respiratory failure - on lasix 20mg IV BID. not enough, will give extra 40mg IV x2 today. CTM I/Os - home weight was 152 lbs 2) leukocytosis - non toxic appearing. oncology consulted - raised today. trend again tomorrow - check procalcitonin lovenox stable. full code Subjective Date/time seen: 04/20/23 09:02 Interval history: pt has no complaints. he believes his legs are not swollen, breathing is better, and abdomen is improved. he denies urinary symptoms, cough. he is hungry Review of Systems Cardiovascular: Cardiovascular: Denies chest pain and Denies dyspnea Respiratory: Respiratory: Denies cough and Denies dyspnea Gastrointestinal: Gastrointestinal: Denies abdominal pain and Denies vomiting Exam Const: General: no acute distress, alert and Physically active Resp: Effort & Inspection: normal respiratory effort Auscultation: crackles (moderate) diffuse Cardio: Rate: regular rate Rhythm: regular rhythm Heart sounds: S1 normal heart sound present and S2 normal heart sound present GI: Inspection: non-distended GI Palp: No abdominal tenderness Auscultation: normal bowel sounds Extrem: Right upper extremity: no edema Objective Data Vital Signs Vital Signs: Vital Signs - 24 hr 04/19/23 10:39 04/19/23 10:40 04/19/23 09:55 Temperature Pulse Rate 100 100 Respiratory Rate Blood Pressure 106/64 Pulse Oximetry 96 94 Oxygen Delivery Nasal Cannula Oxygen Flow Rate 2 Fraction of Inspired Oxygen 28 04/19/23 10:04 04/19/23 10:05 04/19/23 10:06 Temperature Pulse Rate Respiratory Rate Blood Pressure Pulse Oximetry 87 L 89 L 93 Oxygen Delivery Room Air Nasal Cannula Nasal Cannula Oxygen Flow Rate 1 2 Fraction of Inspired Oxygen 21 24 28 04/19/23 14:38 04/19/23 10:40 04/19/23 12:01 Temperature 98.1 F Pulse Rate 106 H 100 107 H Respiratory Rate 16 Blood Pressure 106/64 Pulse Oximetry 95 96 Oxygen Delivery Nasal Cannula Oxygen Flow Rate 2 Fraction of Inspired Oxygen 04/19/23 16:03 04/19/23 19:59 04/19/23 21:05 Temperature 98.5 F Pulse Rate 103 H 100 Respiratory Rate 16 Blood Pressure 102/50 L Pulse Oximetry 93 93 Oxygen Delivery Nasal Cannula Oxygen Flow Rate 2 Fraction of Inspired Oxygen 04/19/23 20:00 04/20/23 00:00 04/20/23 04:00 Temperature Pulse Rate 105 H 107 H 101 H Respiratory Rate Blood Pressure Pulse Oximetry Oxygen Delivery Oxygen Flow Rate Fraction of Inspired Oxygen 04/20/23 04:58 04/20/23 08:37 04/20/23 08:52 Temperature 97.5 F L Pulse Rate 103 H 103 H Respiratory Rate 18 Blood Pressure 109/71 Pulse Oximetry 93 90 Oxygen Delivery Nasal Cannula Oxygen Flow Rate 2 Fraction of Inspired Oxygen Intake/Output Intake/Output: Intake & Output 04/17/23 04/18/23 04/19/23 04/20/23 23:59 23:59 23:59 23:59 Intake Total 422 2340 2375 390 Output Total 2700 1875 1000 400 Balance -2278 465 1375 -10 Meds/Results Medications: Active Medications Generic Name Dose Route Start Last Admin Trade Name Freq PRN Reason Stop Dose Admin Acetaminophen 650 mg 04/17/23 15:49 Acetaminophen 325 Mg Tablet PO HS PRN Pain (Scale Score 1-3) Anagrelide HCl 1 mg 04/17/23 17:00 04/20/23 08:37 Anagrelide Hcl 0.5 Mg Capsule PO 05/17/23 16:59 1 mg BID JEFF Administration Enoxaparin Sodium 40 mg 04/17/23 18:00 04/19/23 17:35 Enoxaparin 40 Mg/0.4 Ml Syringe SUB-Q 40 mg Q24H [facility] Ad
[2023-04-20] MEDS: FUROSEMIDE INJ 40 MG/4 ML VIAL IV PUSH (09:19)
[2023-04-20] MEDS: ENOXAPARIN 40 MG/0.4 ML SYRINGE SUB-Q (17:42)
[2023-04-21] VITALS (14 sets, daily range): BP systolic 101–140; BP diastolic 52–70; PULSE 99–112; RESP 13–18; TEMP 36.4–36.9; O2SAT 88–97
[2023-04-21 06:06] LABS: Hematocrit 40.3 % (42.0-52.0); Hemoglobin 12.2 g/dL (14.0-18.0); Immature Platelet Fraction Pct 21.7 % (0.9-11.2); Mean Corpuscular HGB Conc 30.3 g/dl (32-36); Mean Corpuscular Hemoglobin 24.1 pg (26-34); Mean Corpuscular Volume 79.6 fl (80-100); Platelet Count Result 358 k/mm3 (150-375); Red Blood Count 5.06 M/mm3 (4.6-6.20); Red Cell Distribution Width 27.9 % (11.5-14.5); White Blood Count 16.6 K/mm3 (4.5-10.0)
[2023-04-21 06:16] LABS: Anion Gap 5 mmol/L (8-16); Blood Urea Nitrogen 35 mg/dL (9-20); Calcium 8.9 mg/dL (8.4-10.2); Carbon Dioxide 36 mmol/L (22-30); Chloride 95 mmol/L (98-107); Estimated CRCL calculation 36 ml/min; Estimated Glomerular Filt Rate 52; Glucose 99 mg/dL (65-110); Potassium 4.2 mmol/L (3.4-5.0); Sodium 136 mmol/L (137-145)
[2023-04-21 06:51] LABS: Band Neutrophils Percent 3 % (0-6); Basophils Absolute Manual 0.99 K/mm3 (0.0-0.1); Basophils Percent Manual 6 % (0-1); Monocytes Absolute Manual 0.66 K/mm3 (0.1-0.90); Monocytes Percent Manual 4 % (3-9); Myelocytes Percent 4 %; Neutrophils Absolute Manual 14.11 K/mm3 (1.3-6.7); Neutrophils Percent Manual 82 % (46-73); Platelet Estimate Adequate (Adequate); Promyelocytes Percent 1 %; Total Cells Counted 100
[2023-04-21 06:52] LABS: Ovalocytes 1+ (NORMAL)
[2023-04-21 06:53] LABS: Large Platelets Present; Poikilocytosis 2+ (NORMAL); Schistocytes 1+ (NORMAL)
[2023-04-21 06:54] LABS: Burr Cells 1+ (NORMAL)
[2023-04-21 07:00] LABS: Procalcitonin 0.1 ng/mL
--- NOTE | 2023-04-21 08:32 | PM.IMPN ---
Progress Note: A&P Assessment and Plan (1) Acute exacerbation of CHF (congestive heart failure): Qualifiers: Heart failure type: unspecified Qualified Code(s): I50.9 - Heart failure, unspecified Code(s): I50.9 - Heart failure, unspecified Status: Acute (2) Elevated troponin: Code(s): R79.89 - Other specified abnormal findings of blood chemistry Status: Acute (3) Pleural effusion: Code(s): J90 - Pleural effusion, not elsewhere classified Status: Acute Plan 87 w/ PMH , HFpEF, BPH, CKD stage III, essential thrombocytosis, HTN presented with SOB 1) HFpEF - acute on chronic decompensation. improved but still on 2 L NC - acute hypoxic respiratory failure - good UOP but still has room to go. increasing lasix to 40mg IV TID today. asked nursing staff to cont to wean o2 - will also add spironolactone. monitor potassium - home weight was 152 lbs. 158lbs this AM - daily weights, fluid restrictions, strict I/Os 2) leukocytosis - non toxic appearing. oncology consulted - raised today. trend again tomorrow - check procalcitonin 3) troponin elevation - likely 2/2 to demand ischemia - .069 --> .064 4) moderate right, minimal left pleural effusions - CTM cardiac diet lovenox stable. full code Subjective Date/time seen: 04/21/23 08:32 Interval history: NAOE. pt is w/o shortness of breath. denies pain or fever Review of Systems Cardiovascular: Cardiovascular: Denies chest pain and Denies dyspnea Respiratory: Respiratory: Denies cough and Denies dyspnea Gastrointestinal: Gastrointestinal: Denies abdominal pain and Denies vomiting Exam Const: General: no acute distress, alert and Physically active Resp: Effort & Inspection: normal respiratory effort Auscultation: crackles Other: moderate/severe diffusely Cardio: Rate: regular rate Rhythm: regular rhythm Heart sounds: S1 normal heart sound present and S2 normal heart sound present GI: Inspection: non-distended GI Palp: No abdominal tenderness Auscultation: normal bowel sounds Extrem: Right upper extremity: no edema Objective Data Vital Signs Vital Signs: Vital Signs - 24 hr 04/20/23 08:37 04/20/23 08:52 04/20/23 08:38 Temperature Pulse Rate 103 H 103 H Respiratory Rate 18 Blood Pressure Pulse Oximetry 90 92 Oxygen Delivery Nasal Cannula Nasal Cannula Oxygen Flow Rate 2 2 Fraction of Inspired Oxygen 04/20/23 12:01 04/20/23 14:00 04/20/23 16:03 Temperature 97.9 F Pulse Rate 107 H 108 H 102 H Respiratory Rate 16 Blood Pressure 104/52 L Pulse Oximetry 96 Oxygen Delivery Oxygen Flow Rate Fraction of Inspired Oxygen 04/20/23 20:09 04/20/23 21:30 04/20/23 20:00 Temperature 98.4 F Pulse Rate 111 H 117 H Respiratory Rate 18 Blood Pressure 104/60 Pulse Oximetry 93 Oxygen Delivery Nasal Cannula Oxygen Flow Rate 2 Fraction of Inspired Oxygen 04/21/23 00:00 04/21/23 04:00 04/21/23 06:00 Temperature 97.7 F Pulse Rate 101 H 102 H 99 Respiratory Rate 18 Blood Pressure 113/69 Pulse Oximetry 97 Oxygen Delivery Oxygen Flow Rate Fraction of Inspired Oxygen 04/21/23 07:47 Temperature Pulse Rate Respiratory Rate Blood Pressure Pulse Oximetry 93 Oxygen Delivery Nasal Cannula Oxygen Flow Rate 2 Fraction of Inspired Oxygen 28 Intake/Output Intake/Output: Intake & Output 04/18/23 04/19/23 04/20/23 04/21/23 23:59 23:59 23:59 23:59 Intake Total 2340 2375 1394 Output Total 1875 1000 2300 500 Balance 465 6492 -904 -186 Meds/Results Medications: Active Medications Generic Name Dose Route Start Last Admin Trade Name Freq PRN Reason Stop Dose Admin Acetaminophen 650 mg 04/17/23 15:49 Acetaminophen 325 Mg Tablet PO HS PRN Pain (Scale Score 1-3) Anagrelide HCl 1 mg 04/17/23 17:00 04/20/23 16:45 Anagrelide Hcl 0.5 Mg Capsule PO 05/17/23 16:59 1 mg BID JEFF Adminis
[2023-04-21] MEDS: METOPROLOL SUCCINATE EXT REL 25 MG TABCR PO (09:00)
[2023-04-21] MEDS: FUROSEMIDE INJ 40 MG/4 ML VIAL IV PUSH ×3 (09:00→17:00)
[2023-04-21] MEDS: OPTI-GEN TAB 1 TABLET PO (09:01)
[2023-04-21] MEDS: LORATADINE 10 MG TABLET PO (09:01)
[2023-04-21] MEDS: ANAGRELIDE HCL 0.5 MG CAPSULE 1 MG PO ×2 (09:01→17:00)
[2023-04-21] MEDS: FOLIC ACID 0.4 MG TABLET PO (09:01)
[2023-04-21] MEDS: FERROUS SULFATE 325 MG TABLET DR PO (09:01)
[2023-04-21] MEDS: SPIRONOLACTONE 12.5 MG TABLET PO (09:25)
[2023-04-21] MEDS: ENOXAPARIN 40 MG/0.4 ML SYRINGE SUB-Q (17:03)
[2023-04-22] VITALS (14 sets, daily range): BP systolic 96–114; BP diastolic 54–64; PULSE 97–118; RESP 16–22; TEMP 36.4–36.6; O2SAT 91–97
[2023-04-22 05:14] LABS: Hematocrit 43.2 % (42.0-52.0); Mean Corpuscular HGB Conc 30.1 g/dl (32-36); Mean Corpuscular Hemoglobin 24.3 pg (26-34); Mean Corpuscular Volume 80.6 fl (80-100); Platelet Count Result 399 k/mm3 (150-375); Red Blood Count 5.36 M/mm3 (4.6-6.20); White Blood Count 21.1 K/mm3 (4.5-10.0)
[2023-04-22 05:41] LABS: Blood Urea Nitrogen 46 mg/dL (9-20); Carbon Dioxide > 40 mmol/L (22-30); Chloride 93 mmol/L (98-107); Estimated CRCL calculation 36 ml/min; Estimated Glomerular Filt Rate 52; Glucose 120 mg/dL (65-110); Potassium 4.1 mmol/L (3.4-5.0); Sodium 137 mmol/L (137-145)
[2023-04-22 05:57] LABS: Band Neutrophils Percent 2 % (0-6); Basophils Absolute Manual 0.84 K/mm3 (0.0-0.1); Basophils Percent Manual 4 % (0-1); Eosinophils Absolute Manual 0.42 K/mm3 (0.02-0.5); Eosinophils Percent Manual 2 % (0-4); Hypochromasia 1+ (NORMAL); Lymphocytes Absolute Manual 2.11 K/mm3 (1.1-4.5); Monocytes Absolute Manual 2.11 K/mm3 (0.1-0.90); Monocytes Percent Manual 10 % (3-9); Neutrophils Absolute Manual 15.61 K/mm3 (1.3-6.7); Neutrophils Percent Manual 72 % (46-73); Schistocytes Rare (NORMAL); Total Cells Counted 100
[2023-04-22 05:58] LABS: Target Cells 1+ (NORMAL)
[2023-04-22] MEDS: FERROUS SULFATE 325 MG TABLET DR PO (09:35)
[2023-04-22] MEDS: ANAGRELIDE HCL 0.5 MG CAPSULE 1 MG PO ×2 (09:35→18:33)
[2023-04-22] MEDS: OPTI-GEN TAB 1 TABLET PO (09:35)
[2023-04-22] MEDS: FOLIC ACID 0.4 MG TABLET PO (09:35)
[2023-04-22] MEDS: LORATADINE 10 MG TABLET PO (09:35)
--- NOTE | 2023-04-22 10:35 | PCNFU ---
Nutrition Follow-Up Complete: Unintended weight loss as related to CHF exacerbation as evidenced by 15 ibs weight loss(9%) in 3 months. goal: Adequate Intake of at least 75% of meals/supplements No further weight loss reported during admit. Patient is progressing towards goal. We will continue current goal. Pt current nutrition is on a heart healthy/1800 ml FR Last recorded weight is 65.7 kg, down from 72.2 kg on admit. Bowel Motility:+BM reported 04/21 Labs Reviewed:Glu 120, GFR 52, BUN 46 Meds Noted:Folic Acid Skin:WNL Additional Notes: Patient remains on a heart healthy diet with FR. Oral intake has been 75-100% of meals. Diet supplements of ensure compact BID providing an additional 220 kcals and 9 gms protein. Agree with diet orders. Will monitor, weight, labs, skin, oral intake every 7 days.
[2023-04-22] MEDS: SPIRONOLACTONE 12.5 MG TABLET PO (11:08)
--- NOTE | 2023-04-22 12:02 | PM.IMPN ---
Progress Note: A&P Assessment and Plan (1) Acute exacerbation of CHF (congestive heart failure): Qualifiers: Heart failure type: unspecified Qualified Code(s): I50.9 - Heart failure, unspecified Code(s): I50.9 - Heart failure, unspecified Status: Acute Plan 87 w/ PMH , HFpEF, BPH, CKD stage III, essential thrombocytosis, HTN, a fib presented with SOB 1) HFpEF - acute on chronic decompensation. improved but still on 2 L NC - largely volume negative since admission. now with low BP, high HR, and elevated BUN/Scr ratio. consult cardiology in light of difficult to optimize status. suspect he is mostly euvolemic and may need thoracentesis instead. family is also very insistent Dr. Sawyer see the patient - spironolactone added 04/21. monitor potassium - home weight was 152 lbs. close to that now. - daily weights, fluid restrictions, strict I/Os 2) acute hypoxic respiratory failure - may require o2 going home. 3) leukocytosis - non toxic appearing. oncology consulted - chronic, no bands. check procalcitonin - will need f/u with oncology consultation before discharge - non toxic appearing 4) troponin elevation - likely 2/2 to demand ischemia - .069 --> .064 5) a fib - no on AC, patient does not know why - don't see this addressed in notes. will let cardiology address 6) moderate right, minimal left pleural effusions - consider thoracentesis. pending cardiology recs 7) CKD stage III - cTM cardiac diet lovenox on hold stable. full code More than 35 minutes spent on chart review, patient interaction and assessment and plan. Subjective Date/time seen: 04/22/23 12:02 Interval history: NAOE. pt has no complaints. family at bedside and they are very insistent Dr. Sawyer see the patient. Review of Systems Cardiovascular: Cardiovascular: Denies chest pain and Denies dyspnea Respiratory: Respiratory: Denies cough and Denies dyspnea Gastrointestinal: Gastrointestinal: Denies abdominal pain and Denies vomiting Exam Const: General: comfortable and no acute distress Eyes: Pupils: Equal, round and reactive pupils present Resp: Effort & Inspection: normal respiratory effort Auscultation: crackles Cardio: Rate: regular rate Rhythm: regular rhythm GI: GI Palp: No Tenderness to palpation present (GI) and No Guarding due to palpation present (GI) Extrem: General: no edema Objective Data Vital Signs Vital Signs: Vital Signs - 24 hr 04/21/23 14:00 04/21/23 16:10 04/21/23 16:19 Temperature 97.6 F Pulse Rate 100 103 H 103 H Respiratory Rate 13 18 18 Blood Pressure 140/70 Pulse Oximetry 97 88 L 93 Oxygen Delivery Oxygen Flow Rate 04/21/23 16:04 04/21/23 19:26 04/21/23 21:15 Temperature 98.4 F Pulse Rate 101 H 112 H Respiratory Rate 18 Blood Pressure 101/52 L Pulse Oximetry 94 Oxygen Delivery Nasal Cannula Oxygen Flow Rate 2 04/21/23 20:00 04/22/23 00:00 04/22/23 04:00 Temperature Pulse Rate 110 H 104 H 108 H Respiratory Rate Blood Pressure Pulse Oximetry Oxygen Delivery Oxygen Flow Rate 04/22/23 05:53 04/22/23 09:25 04/22/23 10:04 Temperature 97.5 F L Pulse Rate 97 98 Respiratory Rate 18 16 Blood Pressure 96/57 L 102/54 L Pulse Oximetry 97 95 92 Oxygen Delivery Nasal Cannula Oxygen Flow Rate 1 04/22/23 08:00 04/22/23 09:40 04/22/23 10:35 Temperature Pulse Rate 101 H Respiratory Rate Blood Pressure 100/58 L Pulse Oximetry 92 Oxygen Delivery Nasal Cannula Oxygen Flow Rate 1 Intake/Output Intake/Output: Intake & Output 04/19/23 04/20/23 04/21/23 04/22/23 23:59 23:59 23:59 23:59 Intake Total 2375 1394 610 600 Output Total 1000 2300 5510 780 Balance 1375 -906 -4900 -180 Meds/Results Medications: Active Medications Generic Name Dose Route Start Last Admin Trade Name Freq PRN Reason Stop Dose Admin Acetaminophen 650 mg 04/17/23 15:49 Acetaminophe
[2023-04-22] MEDS: FUROSEMIDE INJ 40 MG/4 ML VIAL IV PUSH (13:04)
--- NOTE | 2023-04-22 15:22 | PCRCNOTE ---
HOLD HOME O2 EVAL UNTIL CLOSER TO DISCHARGE. PT TO HAVE CARDIO CONSULT AND POSS. THORACENTESIS. NO DISCHARGE PLAN TODAY PER RN.
--- NOTE | 2023-04-22 15:55 | PM.CNCAR ---
Assessment and Plan Assessment and plan (1) Acute exacerbation of CHF (congestive heart failure): Qualifiers: Heart failure type: unspecified Qualified Code(s): I50.9 - Heart failure, unspecified Code(s): I50.9 - Heart failure, unspecified Status: Acute Plan This is an 87-year-old man with several recent hospitalizations with some recurrent CHF with more right-sided findings and left-sided findings. He was high been in the hospital now for about 6 days and we are asked to see him in consultation. He appears to be basically euvolemic on physical exam far as right-sided findings are concerned he still has some modest left basilar rales. This is been a challenging management situation since hypotension has made it difficult to maintain good guideline directed medical therapy. I am going to stop his furosemide at this time since he is not volume overloaded at this time and he is metabolic profile indicates some development of a pre renal state. I hope tolerates the low dose of spironolactone that is been added. I am going to try adding a very low dose of Entresto starting with this evening and see how his blood pressure tolerates that. Obviously his prognosis is limited given his advanced age and several admissions this year with volume overload. With respect to atrial fib I see no evidence on recent records that he has any atrial fibrillation and I would wish not to anticoagulate this frail elderly man at this time. Billy Almanza MD [facility] History of Present Illness History of Present Illness Consult date/time: 04/22/23 15:55 Reason For Visit: CHF Exacerbation Narrative: This is an 87-year-old man who is known to me with a history of congestive heart failure, mild to moderate aortic valve stenosis and mild LV systolic dysfunction and severe right ventricular dysfunction. He has been followed in our office since the 2018 when he had an echocardiogram done demonstrating mild aortic valve stenosis valve area about 1.5 cm2. He has been in the hospital several times this year and once I believe in 2021 with shortness of breath edema/abdominal distension and 6 symptoms of volume overload and shortness of breath. Previous hospitalization he was also moderately anemic as well. He has recent echocardiogram in November of this year demonstrating his ejection fraction to be 45-50% with wall motion abnormalities consistent with his bundle branch block as well as severe right ventricular dysfunction. Esophageal ECHO done last year when his condition deteriorated demonstrated mild to moderate, not severe aortic valve stenosis. He was seen in my office as recently as a month ago at which time he felt to be relatively stable he was taking only a modest dose of furosemide and low-dose of metoprolol daily at that time. In the past attempts to start a ASHLEE-inhibitor therapy were met with problematic hypotension and this was then stopped. He has never been treated with Entresto. Since admission to the hospital this time on Tuesday of last weekend he has been treated with q.8 hours furosemide regimen which has resulted in mild pre renal state and in this setting I am seeing him in consultation since spironolactone was started on a during this hospitalization by the hospitalists he remains on modest dose of metoprolol. There are statements in the chart that this gentleman has paroxysmal atrial fibrillation. During recent hospitalizations nothing but sinus rhythm has been seen upon my review of his records. Review of Systems Constitutional: Constitutional: Reports weakness Eyes: Eyes: Reports no additional eye complaints ENT: Reports system reviewed and no additional complaints, except as documented Cardiovascular: Cardiovascular: Reports as per HPI Respiratory: Respiratory: Reports dyspnea on exertion Gastrointestinal: Gastrointestinal: Reports no additional gastrointestinal complaints Musculoskeletal: Musculoskeletal
[2023-04-22] MEDS: SACUBITRIL/VALSARTAN 12-13 MG TABLET 1 TAB PO (20:23)
[2023-04-23] VITALS (13 sets, daily range): BP systolic 94–105; BP diastolic 54–62; PULSE 101–125; RESP 16–20; TEMP 36.1–36.5; O2SAT 92–100
[2023-04-23 05:53] LABS: Basophils Absolute Auto 0.9 K/mm3 (0.0-0.1); Basophils Percent Auto 4.3 % (0.2-1.2); Eosinophils Absolute Auto 0.4 K/mm3 (0-0.3); Eosinophils Percent Auto 1.9 % (0-4.4); Hematocrit 46.7 % (42.0-52.0); Hemoglobin 13.8 g/dL (14.0-18.0); Immature Granulocyte Absolute 2.52 K/mm3 (0.00-0.031); Immature Granulocyte Percent A 11.4 % (0-0.5); Immature Platelet Fraction Pct 20.2 % (0.9-11.2); Lymphocytes Absolute Auto 0.87 K/mm3 (0.9-3.2); Lymphocytes Percent Auto 3.9 % (18.3-44.2); Mean Corpuscular HGB Conc 29.6 g/dl (32-36); Mean Corpuscular Hemoglobin 24.3 pg (26-34); Mean Corpuscular Volume 82.2 fl (80-100); Monocytes Absolute Auto 1.3 K/mm3 (0.1-0.6); Monocytes Percent Auto 5.9 % (2.6-8.5); Neutrophils Percent Auto 72.6 % (45.5-73.1); Nucleated Red Blood Cells Perc 0.1 % (0.0-0.2); Platelet Count Result 418 k/mm3 (150-375); Red Blood Count 5.68 M/mm3 (4.6-6.20); Red Cell Distribution Width 28.1 % (11.5-14.5)
[2023-04-23 06:04] LABS: Alanine Aminotransferase 21 U/L (6-50); Albumin Level 3.9 g/dL (3.5-5.1); Alkaline Phosphatase 190 U/L (38-126); Aspartate Amino Transferase 38 U/L (17-59); Bilirubin,Total 1.2 mg/dL (0.2-1.3); Blood Urea Nitrogen 51 mg/dL (9-20); Calcium 9.1 mg/dL (8.4-10.2); Carbon Dioxide > 40 mmol/L (22-30); Chloride 95 mmol/L (98-107); Estimated CRCL calculation 26 ml/min; Estimated Glomerular Filt Rate 38; Glucose 104 mg/dL (65-110); Sodium 140 mmol/L (137-145)
[2023-04-23 06:51] LABS: Procalcitonin 0.2 ng/mL
[2023-04-23 07:35] LABS: Anisocytosis 2+ (NORMAL); Hypochromasia 1+ (NORMAL); Ovalocytes 2+ (NORMAL); Platelet Estimate Increased (Adequate); Schistocytes None Seen (NORMAL)
[2023-04-23] MEDS: OPTI-GEN TAB 1 TABLET PO (09:53)
[2023-04-23] MEDS: FERROUS SULFATE 325 MG TABLET DR PO (09:53)
[2023-04-23] MEDS: FOLIC ACID 0.4 MG TABLET PO (09:53)
[2023-04-23] MEDS: ANAGRELIDE HCL 0.5 MG CAPSULE 1 MG PO ×2 (09:53→16:51)
[2023-04-23] MEDS: LORATADINE 10 MG TABLET PO (10:05)
--- NOTE | 2023-04-23 10:55 | PM.IMPN ---
Progress Note: A&P Assessment and Plan (1) Acute exacerbation of CHF (congestive heart failure): Qualifiers: Heart failure type: unspecified Qualified Code(s): I50.9 - Heart failure, unspecified Code(s): I50.9 - Heart failure, unspecified Status: Acute (2) Pleural effusion: Code(s): J90 - Pleural effusion, not elsewhere classified Status: Acute Plan 87 w/ PMH , HFpEF, BPH, CKD stage III, essential thrombocytosis, HTN, a fib presented with SOB. Admitted for acute hypoxic respiratory failure, decompensated CHF 1) HFpEF - acute on chronic decompensation. improved but still on 2 L NC. may need this going forward - largely volume negative since admission. overzealous diuresis and now he is slightly hypovolemic evidenced by renal function, exam, and BP. lasix stopped 04/22 and cardiology consulted. optimize medically then discharge. - spironolactone added 04/21. monitor potassium. entresto started 04/22 - home weight was 152 lbs. close to that now. - daily weights, fluid restrictions, strict I/Os 2) acute hypoxic respiratory failure - may require o2 going home. after optimization with cardiology. but he is currently refusing oxygen 3) leukocytosis - non toxic appearing. oncology consulted. likely related to myeloproliferative disorder versus reactive. procalcitonin WNL. f/u oncology as outpatient 4) troponin elevation - likely 2/2 to demand ischemia. resolved. - .069 --> .064 5) a fib - no on AC, patient does not know why. he is ok not starting AC as cardiology had discussed due to his frailty and risk of falls. 6) moderate right, minimal left pleural effusions - pt does not want tap. restart lovenox 7) CKD stage III - CTM FEN: saline lock IV, cardiac diet GI prophylaxis: not indicated DVT prophylaxis: lovenox Lines: pIV Code Status: Full code Dispo: home pending optimization of cardiac meds More than 25 minutes spent on chart review, patient interaction and assessment and plan. Subjective Date/time seen: 04/23/23 10:55 Interval history: NAOE. pt does not want lung tap. he does not even want to go home on oxygen. he denies any respiratory symptoms or pain Review of Systems Review of Systems: All systems reviewed & are unremarkable except as noted in HPI and below Exam Const: General: comfortable Eyes: Pupils: Equal, round and reactive pupils present Resp: Auscultation: crackles (L>R) Cardio: Rate: regular rate Rhythm: regular rhythm GI: Inspection: non-distended Extrem: General: no edema Objective Data Vital Signs Vital Signs: Vital Signs - 24 hr 04/22/23 12:00 04/22/23 14:35 04/22/23 14:58 Temperature 97.8 F Pulse Rate 115 H 118 H 114 H Respiratory Rate 16 Blood Pressure 112/54 L 100/54 L Pulse Oximetry 94 Oxygen Delivery Oxygen Flow Rate 04/22/23 16:00 04/22/23 21:47 04/22/23 20:00 Temperature 97.7 F Pulse Rate 109 H 116 H Respiratory Rate 22 H Blood Pressure 114/64 Pulse Oximetry 91 93 Oxygen Delivery Nasal Cannula Oxygen Flow Rate 1 04/23/23 06:00 04/22/23 20:00 04/23/23 00:00 Temperature 97.7 F Pulse Rate 101 H 115 H 121 H Respiratory Rate 20 Blood Pressure 101/55 L Pulse Oximetry 100 Oxygen Delivery Oxygen Flow Rate 04/23/23 04:00 04/23/23 09:00 04/23/23 09:45 Temperature 97.4 F L Pulse Rate 108 H 104 H Respiratory Rate 16 Blood Pressure 102/54 L Pulse Oximetry 92 93 Oxygen Delivery Nasal Cannula Oxygen Flow Rate 1 Intake/Output Intake/Output: Intake & Output 04/20/23 04/21/23 04/22/23 04/23/23 23:59 23:59 23:59 23:59 Intake Total 0577 450 7677 440 Output Total 2300 5593 2275 650 [facility] -906 -4900 -625 -210 Meds/Results Medications: Active Medications Generic Name Dose Route Start Last Admin Trade Name Freq PRN Reason Stop Dose Admin Acetaminophen 650 mg 04/17/23 15:49 Acetaminophen 325 Mg Tablet PO HS PRN Pain (Scale Score
--- NOTE | 2023-04-23 14:10 | PM.PNCARD ---
Progress Note: A&P Assessment and Plan (1) Acute exacerbation of CHF (congestive heart failure): Qualifiers: Heart failure type: unspecified Qualified Code(s): I50.9 - Heart failure, unspecified Code(s): I50.9 - Heart failure, unspecified Status: Acute Assessment and Plan: CHF with borderline LV systolic function. No significant volume overload at present. -unable to initiate optimize guideline directed medical treatment due to hypotension. -hold sacubitril/valsartan for now. -change metoprolol succinate to metoprolol tartrate with holding parameters for sinus tachycardia. -gentle diuresis as needed. (2) Elevated troponin: Code(s): R79.89 - Other specified abnormal findings of blood chemistry Status: Acute Assessment and Plan: Nonspecific, likely non ACS. (3) PAF (paroxysmal atrial fibrillation): Code(s): I48.0 - Paroxysmal atrial fibrillation Status: Acute Assessment and Plan: Currently in sinus rhythm/sinus tachycardia. Has not been deemed to be a good candidate for anticoagulation due to frailty and fall risk. (4) Nonrheumatic aortic (valve) stenosis: Code(s): I35.0 - Nonrheumatic aortic (valve) stenosis Status: Acute Assessment and Plan: Outpatient clinical and echo surveillance. Subjective Date/time seen: 04/23/23: Patient lying in the bed, reports generalized fatigue. Denies any chest pain or shortness of breath at present. Patient has been mildly hypotensive with sinus tachycardia on the telemetry. Interval history: 04/23/2023- Exam Narrative: PHYSICAL EXAMINATION: GENERAL: Elderly male, no acute distress MENTAL STATUS: affect appropriate to mood EYES: Extraocular movements intact, no pallor EARS: External ears appear normal, hearing grossly normal NOSE: Normal and patent, no discharge MOUTH: Mucous membranes moist, tongue normal NECK: Supple, no JVD CHEST: Decreased effort, decreased breath sounds HEART: Tachycardia, ectopic beats, systolic murmur ABDOMEN: Soft, nontender NEUROLOGICAL: Alert, oriented, normal speech, no gross motor deficits MUSCULOSKELETAL: No major deformity, no amputation EXTREMITIES: No pedal edema, no clubbing, no cyanosis SKIN: no rash on the exposed area, no cyanosis PSYCHIATRIC: Normal mood, appropriate affect Objective Data Vital Signs Vital Signs: Vital Signs - 24 hr 04/22/23 14:35 04/22/23 14:58 04/22/23 16:00 Temperature 36.6 C Pulse Rate 118 H 114 H 109 H Respiratory Rate 16 Blood Pressure 112/54 L 100/54 L Pulse Oximetry 94 Oxygen Delivery Oxygen Flow Rate 04/22/23 21:47 04/22/23 20:00 04/23/23 06:00 Temperature 36.5 C 36.5 C Pulse Rate 116 H 101 H Respiratory Rate 22 H 20 Blood Pressure 114/64 101/55 L Pulse Oximetry 91 93 100 Oxygen Delivery Nasal Cannula Oxygen Flow Rate 1 04/22/23 20:00 04/23/23 00:00 04/23/23 04:00 Temperature Pulse Rate 115 H 121 H 108 H Respiratory Rate Blood Pressure Pulse Oximetry Oxygen Delivery Oxygen Flow Rate 04/23/23 09:00 04/23/23 09:45 04/23/23 08:00 Temperature 36.3 C L Pulse Rate 104 H 102 H Respiratory Rate 16 Blood Pressure 102/54 L Pulse Oximetry 92 93 Oxygen Delivery Nasal Cannula Oxygen Flow Rate 1 04/23/23 09:45 04/23/23 12:04 04/23/23 13:33 Temperature 36.1 C L Pulse Rate 125 H 114 H Respiratory Rate 18 Blood Pressure 94/62 L Pulse Oximetry 93 94 Oxygen Delivery Nasal Cannula Oxygen Flow Rate 1 Intake/Output Intake/Output: Intake & Output 04/20/23 04/21/23 04/22/23 04/23/23 23:59 23:59 23:59 23:59 Intake Total 9674 822 0039 440 Output Total 2300 5510 2275 650 [facility] -906 [phone] -625 -210 Meds/Results Medications: Active Medications Generic Name Dose Route Start Last Admin Trade Name Sara PRN Reason Stop Dose Admin Acetaminophen 650 mg 04/17/23 15:49 Acetaminophen 325 Mg Tablet P
[2023-04-23] MEDS: METOPROLOL TARTRATE 12.5 MG TABLET PO (20:15)
[2023-04-23] MEDS: SACUBITRIL/VALSARTAN 12-13 MG TABLET 1 TAB PO (20:16)
[2023-04-24] VITALS (15 sets, daily range): BP systolic 89–103; BP diastolic 48–61; PULSE 105–128; RESP 16–18; TEMP 36.4–36.9; O2SAT 92–95
[2023-04-24 05:17] LABS: Basophils Percent Auto 3.8 % (0.2-1.2); Eosinophils Absolute Auto 0.4 K/mm3 (0-0.3); Eosinophils Percent Auto 1.5 % (0-4.4); Hematocrit 43.5 % (42.0-52.0); Hemoglobin 13.2 g/dL (14.0-18.0); Immature Granulocyte Absolute 2.39 K/mm3 (0.00-0.031); Immature Granulocyte Percent A 9.6 % (0-0.5); Lymphocytes Absolute Auto 0.84 K/mm3 (0.9-3.2); Lymphocytes Percent Auto 3.4 % (18.3-44.2); Mean Corpuscular HGB Conc 30.3 g/dl (32-36); Mean Corpuscular Hemoglobin 24.6 pg (26-34); Monocytes Absolute Auto 1.6 K/mm3 (0.1-0.6); Monocytes Percent Auto 6.5 % (2.6-8.5); Neutrophils Absolute Auto 18.6 K/mm3 (1.3-6.7); Neutrophils Percent Auto 75.2 % (45.5-73.1); Nucleated Red Blood Cells Perc 0.1 % (0.0-0.2); Platelet Count Result 425 k/mm3 (150-375); Red Blood Count 5.37 M/mm3 (4.6-6.20); Red Cell Distribution Width 27.9 % (11.5-14.5); White Blood Count 24.8 K/mm3 (4.5-10.0)
[2023-04-24 05:26] LABS: Anion Gap 4 mmol/L (8-16); Blood Urea Nitrogen 51 mg/dL (9-20); Calcium 8.8 mg/dL (8.4-10.2); Carbon Dioxide 36 mmol/L (22-30); Chloride 98 mmol/L (98-107); Estimated CRCL calculation 36 ml/min; Estimated Glomerular Filt Rate 57; Glucose 152 mg/dL (65-110); Potassium 4.3 mmol/L (3.4-5.0); Sodium 138 mmol/L (137-145)
[2023-04-24] MEDS: OPTI-GEN TAB 1 TABLET PO (09:16)
[2023-04-24] MEDS: FERROUS SULFATE 325 MG TABLET DR PO (09:16)
[2023-04-24] MEDS: LORATADINE 10 MG TABLET PO (09:16)
[2023-04-24] MEDS: ANAGRELIDE HCL 0.5 MG CAPSULE 1 MG PO ×2 (09:16→16:14)
[2023-04-24] MEDS: FOLIC ACID 0.4 MG TABLET PO (09:16)
--- NOTE | 2023-04-24 13:52 | PM.IMPN ---
Progress Note: A&P Assessment and Plan (1) PAF (paroxysmal atrial fibrillation): Code(s): I48.0 - Paroxysmal atrial fibrillation Status: Acute (2) Acute exacerbation of CHF (congestive heart failure): Qualifiers: Heart failure type: unspecified Qualified Code(s): I50.9 - Heart failure, unspecified Code(s): I50.9 - Heart failure, unspecified Status: Acute Plan 87 w/ PMH , HFpEF, BPH, CKD stage III, essential thrombocytosis, HTN, a fib presented with SOB. Admitted for acute hypoxic respiratory failure, decompensated CHF 1) acute hypoxic respiratory failure 2/2 acute decompensation of HFpEF - resolved. on RA. overzealous diuresis caused hypovolemia, lasix now stopped, entresto stopped. metoprolol switched from succinate to tartrate. cardiology consulted, to manage. - daily weights, fluid restrictions, strict I/Os 2) leukocytosis - non toxic appearing. oncology consulted, asked for further recommendations as his white count has trended up since admission. 3) troponin elevation - likely 2/2 to demand ischemia. resolved. - .069 --> .064 4) a fib - no on AC, patient does not know why. he is ok not starting AC as cardiology had discussed due to his frailty and risk of falls. 5) moderate right, minimal left pleural effusions - pt does not want tap 6) SILVESTRE on CKD stage III - SILVESTRE resolved after lasix stopped. discharge when hypovolemia/hypotension resolved. cardiology to recommend medical mgmt on discharge. awaiting recs from oncology FEN: saline lock IV, cardiac diet GI prophylaxis: not indicated DVT prophylaxis: lovenox Lines: pIV Code Status: Full code Dispo: home pending optimization of cardiac meds Subjective Date/time seen: 04/24/23 13:52 Interval history: NAOE. pt is without complaints Review of Systems Review of Systems: All systems reviewed & are unremarkable except as noted in HPI and below Cardiovascular: Cardiovascular: Denies chest pain Respiratory: Respiratory: Denies dyspnea and Denies wheezing Exam Const: General: comfortable Eyes: Pupils: Equal, round and reactive pupils present Resp: Effort & Inspection: normal respiratory effort Auscultation: crackles (dry crackles, scant, diffuse) Cardio: Rate: regular rate Rhythm: regular rhythm GI: GI Palp: Yes Soft to palpation and No Guarding due to palpation present (GI) Auscultation: normal bowel sounds Extrem: General: no edema Objective Data Vital Signs Vital Signs: Vital Signs - 24 hr 04/23/23 16:00 04/23/23 19:42 04/23/23 20:15 Temperature 97.4 F L Pulse Rate 113 H 120 H 122 H Respiratory Rate 17 Blood Pressure 105/61 Pulse Oximetry 95 Oxygen Delivery Oxygen Flow Rate 04/23/23 21:11 04/23/23 20:00 04/23/23 20:00 Temperature Pulse Rate 121 H Respiratory Rate Blood Pressure Pulse Oximetry 92 93 Oxygen Delivery Nasal Cannula Nasal Cannula Oxygen Flow Rate 1 1 04/24/23 04:22 04/24/23 00:00 04/24/23 04:00 Temperature 97.6 F Pulse Rate 109 H 109 H 109 H Respiratory Rate 17 Blood Pressure 89/50 L Pulse Oximetry 94 Oxygen Delivery Oxygen Flow Rate 04/24/23 09:11 04/24/23 08:00 04/24/23 09:45 Temperature Pulse Rate 108 H 105 H Respiratory Rate 16 Blood Pressure 90/48 L Pulse Oximetry 92 92 Oxygen Delivery Nasal Cannula Oxygen Flow Rate 1 04/24/23 11:10 04/24/23 11:35 04/24/23 12:00 Temperature Pulse Rate 114 H Respiratory Rate Blood Pressure Pulse Oximetry 94 95 Oxygen Delivery Room Air Room Air Oxygen Flow Rate 04/24/23 13:29 04/24/23 13:31 Temperature 98.5 F Pulse Rate 113 H Respiratory Rate 16 Blood Pressure 97/58 L Pulse Oximetry 93 92 Oxygen Delivery Room Air Oxygen Flow Rate Intake/Output Intake/Output: Intake & Output 04/21/23 04/22/23 04/23/23 04/24/23 23:59 23:59 23:59 23:59 Intake Total 610 1650 1090 880 Output Total 5510 2275 1601 500 Balance -9919
[2023-04-24] MEDS: METOPROLOL TARTRATE 12.5 MG TABLET PO (20:52)
[2023-04-25] VITALS (12 sets, daily range): BP systolic 100–134; BP diastolic 54–96; PULSE 100–126; RESP 17–18; TEMP 36.4–37.1; O2SAT 92–93
[2023-04-25] MEDS: ACETAMINOPHEN 325 MG TABLET 650 MG PO ×2 (00:13→18:38)
[2023-04-25 05:31] LABS: Hematocrit 47.4 % (42.0-52.0); Hemoglobin 14.2 g/dL (14.0-18.0); Immature Platelet Fraction Pct 20.2 % (0.9-11.2); Mean Corpuscular Hemoglobin 24.6 pg (26-34); Mean Corpuscular Volume 82.1 fl (80-100); Platelet Count Result 418 k/mm3 (150-375); Red Blood Count 5.77 M/mm3 (4.6-6.20); Red Cell Distribution Width 28.3 % (11.5-14.5); White Blood Count 27.9 K/mm3 (4.5-10.0)
[2023-04-25 05:44] LABS: Anion Gap 6 mmol/L (8-16); Blood Urea Nitrogen 49 mg/dL (9-20); Carbon Dioxide 35 mmol/L (22-30); Chloride 96 mmol/L (98-107); Estimated CRCL calculation 33 ml/min; Estimated Glomerular Filt Rate 52; Glucose 129 mg/dL (65-110); Potassium 4.6 mmol/L (3.4-5.0); Sodium 137 mmol/L (137-145)
[2023-04-25 06:02] LABS: Anisocytosis 1+ (NORMAL); Band Neutrophils Percent 8 % (0-6); Basophils Absolute Manual 0.83 K/mm3 (0.0-0.1); Basophils Percent Manual 3 % (0-1); Eosinophils Absolute Manual 0.27 K/mm3 (0.02-0.5); Eosinophils Percent Manual 1 % (0-4); Giant Platelets Present; Large Platelets Present; Lymphocytes Absolute Manual 0.55 K/mm3 (1.1-4.5); Metamyelocytes Percent 3 %; Monocytes Absolute Manual 1.95 K/mm3 (0.1-0.90); Monocytes Percent Manual 7 % (3-9); Neutrophils Absolute Manual 23.43 K/mm3 (1.3-6.7); Neutrophils Percent Manual 76 % (46-73); Ovalocytes 2+ (NORMAL); Platelet Estimate Increased (Adequate); Poikilocytosis 2+ (NORMAL); Target Cells 1+ (NORMAL); Total Cells Counted 100
[2023-04-25 06:03] LABS: Schistocytes None Seen (NORMAL); Tear Drop Cells 1+ (NORMAL)
[2023-04-25] MEDS: ANAGRELIDE HCL 0.5 MG CAPSULE 1 MG PO ×2 (07:54→17:07)
[2023-04-25] MEDS: LORATADINE 10 MG TABLET PO (07:55)
[2023-04-25] MEDS: FOLIC ACID 0.4 MG TABLET PO (07:55)
[2023-04-25] MEDS: FERROUS SULFATE 325 MG TABLET DR PO (07:55)
[2023-04-25] MEDS: METOPROLOL TARTRATE 12.5 MG TABLET PO ×2 (07:55→20:28)
[2023-04-25] MEDS: OPTI-GEN TAB 1 TABLET PO (07:56)
[2023-04-25] MEDS: SPIRONOLACTONE 12.5 MG TABLET PO (07:56)
--- NOTE | 2023-04-25 15:36 | ECHO_ITS ---
Patient Info Name: Doni Cavazos Age: 87 years : 1935 Gender: Male Ht: 69 in Wt: 144 lbs BSA: 1.78 m2 HR: 114 bpm BP: 100 / 57 mmHg Heart Rhythm: Tachycardia Technical Quality: Fair Exam Date: 04/25/2023 4:16 PM Exam Location: [facility] Patient Status: Inpatient Admit Date: 04/17/2023 Staff Ordering Physician: Klaus Russ MD Donor Relations Coordinator: Nanda Serrato RDCS Attending Provider: Velia Mcnair DO Exam Type: CA echo doppler color flow Study Info Indications - re-evaluate RV failure and septum flattening Complete two-dimensional, color flow and Doppler transthoracic echocardiogram is performed. Summary 1. Complete two-dimensional, color flow and Doppler transthoracic echocardiogram is performed. 2. Left ventricular chamber dimension is normal. 3. Left ventricular systolic function is moderately reduced, estimated at 40-45%. 4. There is mildly increased left ventricular wall thickness. 5. The left ventricular diastolic function is abnormal. 6. Right ventricular systolic function is mild to moderately reduced. TAPSE 1.4. 7. Right ventricular chamber dimension is mildly enlarged. 8. Left atrial chamber dimension is mildly enlarged. 9. Right atrial chamber dimension is severely enlarged. 10. The aortic valve is trileaflet. 11. There is moderate to severe aortic valve stenosis with a peak velocity of 181 cm/s, mean gradient of 8 mmHg, and aortic valve area of 0.9 cm2. Consider low-flow low gradient aortic stenosis. 12. There is trace aortic valve regurgitation. 13. There is severe aortic valve calcification with moderate to severe leaflet restriction most pronounced in the right coronary cusp. 14. There is mild tricuspid valve regurgitation. 15. Mild pulmonary hypertension, estimated pulmonary arterial systolic pressure is 35 mmHg. 16. Dilated inferior vena cava with <50% collapse upon inspiration consistent with elevated right atrial pressure, 10 mmHg. Left Ventricle Left ventricular chamber dimension is normal. Left ventricular systolic function is moderately reduced, estimated at 40-45%. There is mildly increased left ventricular wall thickness. The left ventricular diastolic function is abnormal. Right Ventricle Right ventricular chamber dimension is mildly enlarged. Right ventricular systolic function is mild to moderately reduced. TAPSE 1.4. Prominent moderator band. Left Atria Left atrial chamber dimension is mildly enlarged. Right Atria Right atrial chamber dimension is severely enlarged. Aortic Valve The aortic valve is trileaflet. There is moderate to severe aortic valve stenosis with a peak velocity of 181 cm/s, mean gradient of 8 mmHg, and aortic valve area of 0.9 cm2. Consider low-flow low gradient aortic stenosis. There is trace aortic valve regurgitation. There is severe aortic valve calcification with moderate to severe leaflet restriction most pronounced in the right coronary cusp. Pulmonic Valve The pulmonic valve is not well visualized. There is trace pulmonic regurgitation. Mitral Valve The mitral valve has thickened leaflets. There is mild mitral valve regurgitation. The mitral valve annulus is mildly calcified. Tricuspid Valve The tricuspid valve leaflets are thickened. There is mild tricuspid valve regurgitation. Mild pulmonary hypertension, estimated pulmonary arterial systolic pressure is 35 mmHg. Pericardium/Pleural The pericardium appears normal. There is no pericardial effusion. Inferior Vena Cava Dilated inferior vena cava with <50% collapse upon inspiration consistent with elevated right
--- NOTE | 2023-04-25 16:02 | PM.IMPN ---
Progress Note: A&P Assessment and Plan (1) PAF (paroxysmal atrial fibrillation): Code(s): I48.0 - Paroxysmal atrial fibrillation Status: Acute (2) Acute exacerbation of CHF (congestive heart failure): Qualifiers: Heart failure type: unspecified Qualified Code(s): I50.9 - Heart failure, unspecified Code(s): I50.9 - Heart failure, unspecified Status: Acute (3) Elevated troponin: Code(s): R79.89 - Other specified abnormal findings of blood chemistry Status: Acute (4) Pleural effusion: Code(s): J90 - Pleural effusion, not elsewhere classified Status: Acute (5) Nonrheumatic aortic (valve) stenosis: Code(s): I35.0 - Nonrheumatic aortic (valve) stenosis Status: Acute (6) Abrasion shoulder/arm: Code(s): S40.219A - Abrasion of unspecified shoulder, initial encounter Status: Acute (7) Ankle pain, left: Code(s): M25.572 - Pain in left ankle and joints of left foot Status: Acute (8) Acute renal failure: Code(s): N17.9 - Acute kidney failure, unspecified Status: Acute (9) Emesis: Code(s): R11.10 - Vomiting, unspecified Status: Acute (10) Hypoxia: Code(s): R09.02 - Hypoxemia Status: Acute (11) CHF exacerbation: Qualifiers: Heart failure type: unspecified Qualified Code(s): I50.9 - Heart failure, unspecified Code(s): I50.9 - Heart failure, unspecified Status: Acute (12) Elevated troponin: Code(s): R77.8 - Other specified abnormalities of plasma proteins Status: Acute (13) A-fib: Qualifiers: Atrial fibrillation type: longstanding persistent Qualified Code(s): I48.11 - Longstanding persistent atrial fibrillation Code(s): I48.91 - Unspecified atrial fibrillation Status: Acute (14) Dyspnea: Qualifiers: Dyspnea type: unspecified Qualified Code(s): R06.00 - Dyspnea, unspecified Code(s): R06.00 - Dyspnea, unspecified Status: Acute Plan 1) acute hypoxic respiratory failure 2/2 acute decompensation of HFpEF - resolved. on? RA. overzealous diuresis caused hypovolemia, lasix now stopped, entresto stopped. metoprolol switched from succinate to tartrate. cardiology consulted, to manage. - daily weights, fluid restrictions, strict I/Os - resolved. now on metop 12.5 mg bid, aldactone 12.5 mg qd 2. Hypotension with tachycardia suspect RV dilation impinging on LV (flattening of septum seen on echo)- this was seen on echo done in 11/2022 but was not acted upon From echo in 11/2022 Right Ventricle ? Flattening of the septum in diastole and systole consistent with right ventricular volume and pressure overload. ? Right ventricular chamber dimension is severely enlarged. ? Right ventricular systolic function is reduced. These findings were commented on, but the pt was not started on minimal diuretics 3. leukocytosis - non toxic appearing. oncology consulted, asked for further recommendations as his white count has trended up since admission. 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 He previously responded to hydroxyurea outpt with Dr. Lu, but this was stopped for thrombocytopenia + renal failure. He likely needs this restarted. I would like to talk to Dr. Lu prior to restarting this. I have placed a call out. 4) troponin elevation - likely 2/2 to demand ischemia. resolved. - .069 --> .064 resolved 5) a fib - no on AC, patient does not know why. he is ok not starting AC as cardiology had discussed due to his frailty and risk of falls. on metop, in sinus tach, not on AC 6) moderate right, minimal left pleural effusions - pt does not want tap 7) SILVESTRE on CKD stage III - SILVESTRE resolved after lasix stopped. This is complicated and will likely re-occur with treatment for RV volume overload and failure 04/25: I am waiting stat echo. I let Dr. Jimenez from the ICU know that if this pt has
--- NOTE | 2023-04-25 18:41 | PC.NURSE ---
1600 Dr Russ on floor and notified patient has been ST 110-130's on tele today, patient asymptomatic.
[2023-04-26] VITALS (11 sets, daily range): BP systolic 93–108; BP diastolic 50–60; PULSE 104–121; RESP 17–26; TEMP 36.7–36.9; O2SAT 92–94
--- NOTE | 2023-04-26 08:53 | PM.PNCARD ---
Progress Note: A&P Assessment and Plan (1) Acute exacerbation of CHF (congestive heart failure): Qualifiers: Heart failure type: unspecified Qualified Code(s): I50.9 - Heart failure, unspecified Code(s): I50.9 - Heart failure, unspecified Status: Acute Assessment and Plan: CHF with borderline LV systolic function EF 40 - 45% on echo yesterday. No significant volume overload at present. Clinically stable. -unable to initiate optimize guideline directed medical treatment due to hypotension. -hold sacubitril/valsartan for now. Can consider resuming as outpatient if BP stable. -Continue spironolactone 12.5mg daily -can add jardiance as this should not affect his blood pressure -Continue metoprolol with holding parameters -gentle diuresis as needed (RA pressure slightly elevated, 10mmHg). If renal function stable today can resume home dose of furosemide (20mg daily) -Check BMP -Anticipate discharge home tomorrow (2) Elevated troponin: Code(s): R79.89 - Other specified abnormal findings of blood chemistry Status: Acute Assessment and Plan: Nonspecific, likely non ACS. (3) PAF (paroxysmal atrial fibrillation): Code(s): I48.0 - Paroxysmal atrial fibrillation Status: Acute Assessment and Plan: Currently in sinus rhythm/sinus tachycardia. Has not been deemed to be a good candidate for anticoagulation due to frailty and fall risk. (4) Nonrheumatic aortic (valve) stenosis: Code(s): I35.0 - Nonrheumatic aortic (valve) stenosis Status: Acute Assessment and Plan: Echo from yesterday showed moderate to severe aortic valve stenosis with a peak velocity of 181 cm/s, mean gradient of 8 mmHg, and aortic valve area of 0.9 cm2. May represent LFLG . Outpatient clinical and echo surveillance. Subjective Date/time seen: 04/26/23 08:53 Interval history: Cardiology follow up for CHF, Feeling well this morning. Denies any shortness of breath or chest pain. Review of Systems Review of Systems: All systems reviewed & are unremarkable except as noted in HPI and below Constitutional: Constitutional: Reports weakness Eyes: Eyes: Reports no additional eye complaints ENT: Reports system reviewed and no additional complaints, except as documented Cardiovascular: Cardiovascular: Reports as per HPI and Reports dyspnea on exertion Respiratory: Respiratory: Reports dyspnea on exertion Gastrointestinal: Gastrointestinal: Reports no additional gastrointestinal complaints Musculoskeletal: Musculoskeletal: Reports arthralgias Integumentary/Breasts: Skin/Breast: Reports system reviewed and no additional complaints, except as docu Neurologic: Reports weakness Endocrine: Endocrine: Reports no additional endocrine complaints Hematologic/Lymphatic: Hematologic/Lymphatic: Reports no additional hematologic/lymphatic complaints Allergic/Immunologic: Allergic/Immunologic: Reports no additional allergic/immunologic complaints Exam Const: General: comfortable HENMT: Mouth: Yes dry mucous membranes Other: Hard of hearing Eyes: Sclera: sclerae normal Neck: Neck: supple and no JVD Resp: Effort & Inspection: normal respiratory effort Auscultation: rales (rales left lower lobe ) on the left Cardio: Rate: regular rate and tachycardic Rhythm: regular rhythm Heart sounds: Murmur heart sound present systolic GI: Auscultation: normal bowel sounds Neuro: Other: Alert and oriented x3 Extrem: Other: No edema, good distal pulses Objective Data Vital Signs Vital Signs: Vital Signs - 24 hr 04/25/23 12:00 04/25/23 14:00 04/25/23 16:00 Temperature 37.1 C Pulse Rate 119 H 100 115 H Respiratory Rate 18 Blood Pressure 100/57 L Pulse Oximetry 93 Oxygen Delivery Fraction of Inspired Oxygen 04/25/23 20:05 04/25/23 20:28 04/25/23 20:00 Temperature 36.4 C Pulse Rate 123 H 123 H Respiratory Rate 18
[2023-04-26] MEDS: ANAGRELIDE HCL 0.5 MG CAPSULE 1 MG PO ×2 (09:30→16:14)
[2023-04-26] MEDS: FOLIC ACID 0.4 MG TABLET PO (09:31)
[2023-04-26] MEDS: FERROUS SULFATE 325 MG TABLET DR PO (09:31)
[2023-04-26] MEDS: LORATADINE 10 MG TABLET PO (09:31)
[2023-04-26] MEDS: OPTI-GEN TAB 1 TABLET PO (09:31)
[2023-04-26] MEDS: ENOXAPARIN 40 MG/0.4 ML SYRINGE SUB-Q (09:31)
[2023-04-26] MEDS: METOPROLOL TARTRATE 12.5 MG TABLET PO ×2 (09:42→20:24)
[2023-04-26] MEDS: SPIRONOLACTONE 12.5 MG TABLET PO (09:43)
[2023-04-26 10:27] LABS: Anion Gap 4 mmol/L (8-16); Blood Urea Nitrogen 51 mg/dL (9-20); Calcium 8.8 mg/dL (8.4-10.2); Carbon Dioxide 36 mmol/L (22-30); Chloride 97 mmol/L (98-107); Estimated CRCL calculation 33 ml/min; Estimated Glomerular Filt Rate 52; Glucose 204 mg/dL (65-110); Potassium 4.5 mmol/L (3.4-5.0); Sodium 137 mmol/L (137-145)
[2023-04-26] MEDS: EMPAGLIFLOZIN 10 MG TABLET PO (10:38)
--- NOTE | 2023-04-26 14:28 | PC.NURSE ---
On 04/26/23, the student, [Shahbaz Ireland], provided care and completed [facility] documentation on this patient. I have reviewed the student's documentation and agree with the findings.
--- NOTE | 2023-04-26 15:26 | PM.IMPN ---
Progress Note: A&P Assessment and Plan (1) PAF (paroxysmal atrial fibrillation): Code(s): I48.0 - Paroxysmal atrial fibrillation Status: Acute (2) Acute exacerbation of CHF (congestive heart failure): Qualifiers: Heart failure type: unspecified Qualified Code(s): I50.9 - Heart failure, unspecified Code(s): I50.9 - Heart failure, unspecified Status: Acute (3) Elevated troponin: Code(s): R79.89 - Other specified abnormal findings of blood chemistry Status: Acute (4) Pleural effusion: Code(s): J90 - Pleural effusion, not elsewhere classified Status: Acute (5) Nonrheumatic aortic (valve) stenosis: Code(s): I35.0 - Nonrheumatic aortic (valve) stenosis Status: Acute (6) Abrasion shoulder/arm: Code(s): S40.219A - Abrasion of unspecified shoulder, initial encounter Status: Acute (7) Ankle pain, left: Code(s): M25.572 - Pain in left ankle and joints of left foot Status: Acute (8) Acute renal failure: Code(s): N17.9 - Acute kidney failure, unspecified Status: Acute (9) Emesis: Code(s): R11.10 - Vomiting, unspecified Status: Acute (10) Hypoxia: Code(s): R09.02 - Hypoxemia Status: Acute (11) CHF exacerbation: Qualifiers: Heart failure type: unspecified Qualified Code(s): I50.9 - Heart failure, unspecified Code(s): I50.9 - Heart failure, unspecified Status: Acute (12) Elevated troponin: Code(s): R77.8 - Other specified abnormalities of plasma proteins Status: Acute (13) A-fib: Qualifiers: Atrial fibrillation type: longstanding persistent Qualified Code(s): I48.11 - Longstanding persistent atrial fibrillation Code(s): I48.91 - Unspecified atrial fibrillation Status: Acute (14) Dyspnea: Qualifiers: Dyspnea type: unspecified Qualified Code(s): R06.00 - Dyspnea, unspecified Code(s): R06.00 - Dyspnea, unspecified Status: Acute Plan 1) acute hypoxic respiratory failure 2/2 acute decompensation of HFpEF - resolved. on? RA. overzealous diuresis caused hypovolemia, lasix now stopped, entresto stopped. metoprolol switched from succinate to tartrate. cardiology consulted, to manage. - daily weights, fluid restrictions, strict I/Os - resolved. now on metop 12.5 mg bid, aldactone 12.5 mg qd 2. Hypotension with tachycardia suspect RV dilation impinging on LV (flattening of septum seen on echo)- this was seen on echo done in 11/2022 but was not acted upon From echo in 11/2022 Right Ventricle ? Flattening of the septum in diastole and systole consistent with right ventricular volume and pressure overload. ? Right ventricular chamber dimension is severely enlarged. ? Right ventricular systolic function is reduced. These findings were commented on, but the pt was not started on minimal diuretics Unclear what the cause is. It appears to be a preload issue. From echo yesterday, it could be 1. Severe aortic stenosis with low preload He appears to have Low flow, low gradient aortic stenosis. Would like to discuss this with a maintenance planner to see if he needs to have dobutamine stress echo to see if he needs to have aortic valve replacement. 2. Right ventricular systolic dysfunction Fortunately echo does not clearly say interventricular septal flattening, but previous echo did However he has both RV enlargement and decrease LV function. Unclear if they are related to the decreased LV function is related to the aortic stenosis. Again would like to discuss with a maintenance planner. Fortunately the pt does not have symptoms. Therefore, it would be best not to start additional diuretics. Unclear if empagliflozin will offer any benefits to him as he is not diabetic. Right now he is only on metoprolol 12.5 mg bid and spironolactone 12.5 mg qd. He seems to be stable on this regimen. 3. leukocytosis - non toxic appearing. oncol
[2023-04-26] MEDS: ACETAMINOPHEN 325 MG TABLET 650 MG PO (18:38)
[2023-04-27] VITALS (7 sets, daily range): BP systolic 98–105; BP diastolic 62–63; PULSE 93–110; RESP 24; TEMP 36.4; O2SAT 96–100
[2023-04-27] MEDS: ACETAMINOPHEN 325 MG TABLET 650 MG PO (02:40)
[2023-04-27 05:27] LABS: Anion Gap 5 mmol/L (8-16); Blood Urea Nitrogen 53 mg/dL (9-20); Calcium 8.8 mg/dL (8.4-10.2); Carbon Dioxide 33 mmol/L (22-30); Chloride 100 mmol/L (98-107); Estimated CRCL calculation 31 ml/min; Estimated Glomerular Filt Rate 48; Glucose 114 mg/dL (65-110); Potassium 4.6 mmol/L (3.4-5.0); Sodium 138 mmol/L (137-145)
[2023-04-27] MEDS: FERROUS SULFATE 325 MG TABLET DR PO (09:47)
[2023-04-27] MEDS: METOPROLOL TARTRATE 12.5 MG TABLET PO (09:47)
[2023-04-27] MEDS: LORATADINE 10 MG TABLET PO (09:47)
[2023-04-27] MEDS: ANAGRELIDE HCL 0.5 MG CAPSULE 1 MG PO (09:47)
[2023-04-27] MEDS: OPTI-GEN TAB 1 TABLET PO (09:47)
[2023-04-27] MEDS: FOLIC ACID 0.4 MG TABLET PO (09:48)
[2023-04-27] MEDS: ENOXAPARIN 40 MG/0.4 ML SYRINGE SUB-Q (09:48)
--- NOTE | 2023-04-27 10:48 | PCOTNOTE ---
Attempted to see Patient at this time. Patient verbalized he had just returned to bed and requested therapy come back this afternoon. Will try back.
--- NOTE | 2023-04-27 10:50 | PM.DS ---
DS: Admitting Diagnosis Discharge Date April 27, 2023 Admitting Diagnosis CHF exacerbation. EF 40% DS: Discharge Diagnosis Discharge Diagnosis (1) PAF (paroxysmal atrial fibrillation): Code(s): I48.0 - Paroxysmal atrial fibrillation Status: Acute (2) Acute exacerbation of CHF (congestive heart failure): Qualifiers: Heart failure type: unspecified Qualified Code(s): I50.9 - Heart failure, unspecified Code(s): I50.9 - Heart failure, unspecified Status: Acute (3) Elevated troponin: Code(s): R79.89 - Other specified abnormal findings of blood chemistry Status: Acute (4) Pleural effusion: Code(s): J90 - Pleural effusion, not elsewhere classified Status: Acute (5) Nonrheumatic aortic (valve) stenosis: Code(s): I35.0 - Nonrheumatic aortic (valve) stenosis Status: Acute (6) Abrasion shoulder/arm: Code(s): S40.219A - Abrasion of unspecified shoulder, initial encounter Status: Acute (7) Ankle pain, left: Code(s): M25.572 - Pain in left ankle and joints of left foot Status: Acute (8) Acute renal failure: Code(s): N17.9 - Acute kidney failure, unspecified Status: Acute (9) Emesis: Code(s): R11.10 - Vomiting, unspecified Status: Acute (10) Hypoxia: Code(s): R09.02 - Hypoxemia Status: Acute (11) A-fib: Qualifiers: Atrial fibrillation type: longstanding persistent Qualified Code(s): I48.11 - Longstanding persistent atrial fibrillation Code(s): I48.91 - Unspecified atrial fibrillation Status: Acute (12) Dyspnea: Qualifiers: Dyspnea type: unspecified Qualified Code(s): R06.00 - Dyspnea, unspecified Code(s): R06.00 - Dyspnea, unspecified Status: Acute Plan 1) acute hypoxic respiratory failure 2/2 acute decompensation of HFpEF - resolved. on? RA. overzealous diuresis caused hypovolemia, lasix now stopped, entresto stopped. metoprolol switched from succinate to tartrate. cardiology consulted, to manage. - daily weights, fluid restrictions, strict I/Os - resolved. now on metop 12.5 mg bid, aldactone 12.5 mg qd 2. Hypotension with tachycardia suspect RV dilation impinging on LV (flattening of septum seen on echo)- this was seen on echo done in 11/2022 but was not acted upon From echo in 11/2022 Right Ventricle ? Flattening of the septum in diastole and systole consistent with right ventricular volume and pressure overload. ? Right ventricular chamber dimension is severely enlarged. ? Right ventricular systolic function is reduced. These findings were commented on, but the pt was not started on minimal diuretics Unclear what the cause is. It appears to be a preload issue. From echo yesterday, it could be 1. Severe aortic stenosis with low preload He appears to have Low flow, low gradient aortic stenosis. Would like to discuss this with a imaging engineer to see if he needs to have dobutamine stress echo to see if he needs to have aortic valve replacement. 2. Right ventricular systolic dysfunction Fortunately echo does not clearly say interventricular septal flattening, but previous echo did However he has both RV enlargement and decrease LV function. Unclear if they are related to the decreased LV function is related to the aortic stenosis. Again would like to discuss with a imaging engineer. Fortunately the pt does not have symptoms. Therefore, it would be best not to start additional diuretics. Unclear if empagliflozin will offer any benefits to him as he is not diabetic. Right now he is only on metoprolol 12.5 mg bid and spironolactone 12.5 mg qd. He seems to be stable on this regimen. 3. leukocytosis - non toxic appearing. oncology consulted, asked for further recommendations as his white count has trended up since admission. 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 He previously responded to hydroxyurea outpt with
[2023-04-28 15:31] LABS: Erythropoietin (EPO) 4.9 mIU/mL (2.6-18.5)
== END 2023-04-27 13:45 | disposition home health service (06) | DRG 291 ==
LOC: ANHED 09:29 → ANH2MED 13:44
PROVIDERS: Emergency Medicine; General Practice; Internal Medicine; Internal Medicine Hematology & Oncology; Nurse Practitioner; Physician Assistant; Admitting Provider Student in an Organized Health Care Education/Training Program; Emergency Provider Nurse Practitioner Family; PCP Family Medicine; Visit Provider Chiropractor
DX: I13.0 Hypertensive heart and chronic kidney disease with heart failure and stage 1 through stage 4 chronic kidney disease, or unspecified chronic kidney disease (principal); I50.33 Acute on chronic diastolic (congestive) heart failure; J96.01 Acute respiratory failure with hypoxia; I24.89 Other forms of acute ischemic heart disease; N17.9 Acute kidney failure, unspecified; J90 Pleural effusion, not elsewhere classified; N18.31 Chronic kidney disease, stage 3a; I95.9 Hypotension, unspecified; I48.0 Paroxysmal atrial fibrillation; M25.572 Pain in left ankle and joints of left foot; D72.828 Other elevated white blood cell count; R00.0 Tachycardia, unspecified; I35.0 Nonrheumatic aortic (valve) stenosis; D72.829 Elevated white blood cell count, unspecified; H40.9 Unspecified glaucoma; D50.9 Iron deficiency anemia, unspecified; N32.81 Overactive bladder; D47.3 Essential (hemorrhagic) thrombocythemia; S40.219A Abrasion of unspecified shoulder, initial encounter; X58.XXXA Exposure to other specified factors, initial encounter; N40.0 Benign prostatic hyperplasia without lower urinary tract symptoms; Z96.643 Presence of artificial hip joint, bilateral; M19.90 Unspecified osteoarthritis, unspecified site; Z85.828 Personal history of other malignant neoplasm of skin; Z87.891 Personal history of nicotine dependence
CPT/HCPCS: 36415; 36600; 71046; 71275; 74177; 80048; 80053; 82668; 82805; 83735; 83880; 84145; 84484; 85025; 85027; 85055; 85610; 85652; 85730; 86140; 93005; 93306; 96374; 97110; 97161; 97165; 97530; 99285; A9270; J0696; J1650; J1940; Q9967

== ENCOUNTER 2023-06-28 12:34 | Outpatient (CLI) | payer OTHER, MEDICARE, SELFPAY ==
[2023-06-28 12:57] LABS: Basophils Absolute Auto 0.7 K/mm3 (0.0-0.1); Eosinophils Absolute Auto 0.1 K/mm3 (0-0.3); Eosinophils Percent Auto 0.3 % (0-4.4); Hematocrit 45.5 % (42.0-52.0); Hemoglobin 13.6 g/dL (14.0-18.0); Immature Granulocyte Absolute 1.09 K/mm3 (0.00-0.031); Immature Granulocyte Percent A 5.1 % (0-0.5); Immature Platelet Fraction Pct 15.9 % (0.9-11.2); Lymphocytes Absolute Auto 0.75 K/mm3 (0.9-3.2); Lymphocytes Percent Auto 3.5 % (18.3-44.2); Mean Corpuscular HGB Conc 29.9 g/dl (32-36); Mean Corpuscular Hemoglobin 24.3 pg (26-34); Mean Corpuscular Volume 81.3 fl (80-100); Monocytes Absolute Auto 1.1 K/mm3 (0.1-0.6); Monocytes Percent Auto 5.2 % (2.6-8.5); Neutrophils Absolute Auto 17.7 K/mm3 (1.3-6.7); Neutrophils Percent Auto 82.9 % (45.5-73.1); Nucleated Red Blood Cells Perc 0.1 % (0.0-0.2); Platelet Count Result 583 k/mm3 (150-375); Red Cell Distribution Width 27.4 % (11.5-14.5); White Blood Count 21.4 K/mm3 (4.5-10.0)
[2023-06-28 12:57] LABS: Blood Urea Nitrogen 27 mg/dL (8-26); Carbon Dioxide 26 mmol/L (22-30); Chloride 108 mmol/L (98-109); Estimated Glomerular Filt Rate 48; Glucose 93 mg/dL (70-105); Ionized Calcium (POC) 1.24 mmol/L (1.11-1.31); Potassium 4.8 mmol/L (3.5-4.9); Sodium 143 mmol/L (138-146)
[2023-06-28 12:59] LABS: Ovalocytes 1+ (NORMAL); Platelet Estimate Increased (Adequate); Schistocytes None Seen (NORMAL)
[2023-06-28 13:00] LABS: Anisocytosis 1+ (NORMAL); Giant Platelets Present; Poikilocytosis 1+ (NORMAL)
== END 2023-06-28 12:35 | disposition home or self-care (01) ==
LOC: ANHLAB 12:42
PROVIDERS: PCP Family Medicine; Visit Provider Internal Medicine Hematology & Oncology
DX: D47.3 Essential (hemorrhagic) thrombocythemia (principal)
CPT/HCPCS: 36415; 80047; 85025; 85055

== ENCOUNTER 2023-08-29 01:03 | Emergency (ER) | payer OTHER, MEDICARE, SELFPAY ==
--- NOTE | ~2023-08-29 | XR_ITS ---
Right Knee Technique: AP and lateral views were obtained. Clinical History: Pain Findings: No fracture or dislocation is seen. Osseous alignment is anatomic. Joint spaces are preserv ed without degenerative or erosive change. Soft tissues are unremarkable. No joint effusion is seen. Impression: Unremarkable right knee radiographs. Reviewed, dictated and finalized at [facility]. UCTION SANITIZER Impression: Unremarkable right knee radiographs.
--- NOTE | ~2023-08-29 | XR_ITS ---
AP and lateral views of the right femur Clinical History: Pain Findings: No acute fracture or dislocation is seen. Right hip arthroplasty in place, without evidence of hardware complication. Joint spaces at the right knee are preserved. Soft tissues are unremarkabl e. Impression: No acute abnormality. Right hip arthroplasty. Reviewed, dictated and finalized at location . HER Impression: No acute abnormality. Right hip arthroplasty.
[2023-08-29 01:03] VITALS: BP 107/77; PULSE 106; RESP 17; TEMP 36.4; O2SAT 97
--- NOTE | 2023-08-29 01:05 | PC.NURSE ---
software quality analyst PH# [phone] to call with updates
--- NOTE | 2023-08-29 01:10 | ED.FALL ---
HPI - Fall General Chief Complaint: Fall Stated Complaint: fall, leg pain History of Present Illness HPI Narrative: 88-year-old male presenting to the emergency department by EMS for evaluation of some right leg swelling. Patient reports he had a fall from bed yesterday and ended up slipping to the floor. Patient denies striking his head denies any loss of consciousness. Patient is under hospice care. Hospice wanted the patient checked out for evaluation a femur fracture. Related Data Home Medications Medication Instructions Recorded Confirmed anagrelide 1 mg capsule 1 mg PO BID 01/05/22 05/06/23 acetaminophen 325 mg capsule 650 mg PO HS PRN Pain (Scale Score 11/09/22 05/06/23 (Tylenol) 1-3) vit C 250 mg-vit E 200 unit-zinc 1 cap PO DAILY 01/19/23 05/06/23 ox 12.5 im-jtcgfv-zpisls-zeax capsule (ICaps AREDS2) Allergies Allergy/AdvReac Type Severity Reaction Status Date / Time No Known Allergies Allergy Verified 08/02/23 10:45 Review of Systems Review of Systems: All systems reviewed & are unremarkable except as noted in HPI and below PMFSH Past Medical History Medical History Aortic stenosis Arthritis Basal cell carcinoma Benign prostatic hyperplasia Chronic kidney disease Decreased hearing of left ear Diastolic congestive heart failure Echocardiogram in December 2021 showed low end of normal LV systolic function and diastolic dysfunction with superimposed basal inferoseptal hypokinesis. Essential thrombocytosis Glaucoma Hypertension Iron deficiency anemia Overactive bladder Paroxysmal atrial fibrillation Vitamin D deficiency Surgical History Surgical History History of abdominal aortic aneurysm repair (2016) History of back surgery Godfrey rods in the lower thoracic spine. History of basal cell carcinoma excision History of colon resection (2001) History of incisional hernia repair History of left hip replacement (2006) History of right hip replacement (2004) Family History Family History Sibling Carcinoma of colon Social History Social History (Updated 08/02/23 @ 10:45 by Cassia Diego) Social History: Surrogate decision maker: Vianey Carmen, spouse. Code status: Full code. Smoking packs per day: 2 Smoking cigarettes per day: 40.0 Years smoked: 45 Smoking pack-years: 90.00 Smoking status: Former smoker Second hand tobacco smoke exposure: No Alcohol intake: never Substance use: never Substance use type: does not use Do You Feel Safe in your Home?: Yes Lack of Transportation: No Lack of Food: Never True Current Housing: I Have Housing Concerned About Future Housing: No Difficulty Paying Gas/Electric Bills: No Difficulty Paying for Meds: No Currently Unemployed: No Education: Grade School Difficulty w/ Childcare or Family Care: No Living arrangements: with family Additional living arrangements comments: The patient lives with his in [place]. 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 Gender identity (if verbalized by the patient): Male Sexual Orientation (if Verbalized by the Patient): Straight or Heterosexual Spiritual care concerns: No Exam Narrative: APPEARANCE: Well appearing, no pain, no distress, well-nourished. HEAD: normocephalic, atraumatic. EYES: PERRLA/EOMI, conjunctivae clear. NOSE: Normal no drainage EARS:TMS clear with good light reflex. THROAT: Pharynx clear, no exudate. NECK: Supple. No adenopathy, no masses. RESPIRATORY: Airway patent, respirations nonlabored. Clear to auscultation bilaterally, no rales, rhonchi, wheezing. CARDIOVASCULAR: Regular rate and rhythm without murmurs rubs or gallops. ABDOMINAL: Soft, nontender, nondistended, normal bowel sounds MUSCULOSKELETAL
[2023-08-29 01:30] VITALS: BP 117/77; PULSE 105; RESP 18; O2SAT 100
[2023-08-29 02:15] VITALS: BP 103/71; PULSE 108; RESP 20; O2SAT 92
--- NOTE | 2023-08-29 02:30 | PC.NURSE ---
this rn spoke with varnish blender, Brina about update on pt. RN stated pt was okay to be sent home and then seen by home RN in the morning.
[2023-08-29 02:42] VITALS: BP 95/72; PULSE 102; RESP 20; O2SAT 100
== END 2023-08-29 03:55 | disposition hospice, home (50) ==
PROVIDERS: Emergency Provider Emergency Medicine; PCP Family Medicine
DX: R22.41 Localized swelling, mass and lump, right lower limb (principal); I35.0 Nonrheumatic aortic (valve) stenosis; N40.0 Benign prostatic hyperplasia without lower urinary tract symptoms; I13.0 Hypertensive heart and chronic kidney disease with heart failure and stage 1 through stage 4 chronic kidney disease, or unspecified chronic kidney disease; N18.9 Chronic kidney disease, unspecified; I50.30 Unspecified diastolic (congestive) heart failure; I48.0 Paroxysmal atrial fibrillation; H40.9 Unspecified glaucoma; N32.81 Overactive bladder; D50.9 Iron deficiency anemia, unspecified; E55.9 Vitamin D deficiency, unspecified; M19.90 Unspecified osteoarthritis, unspecified site; Z85.828 Personal history of other malignant neoplasm of skin; Z87.891 Personal history of nicotine dependence; Z90.49 Acquired absence of other specified parts of digestive tract; Z96.643 Presence of artificial hip joint, bilateral
CPT/HCPCS: 73552; 73560; 99284

== ENCOUNTER 2023-09-02 02:35 | Emergency (ER) | payer OTHER, MEDICARE, SELFPAY ==
--- NOTE | ~2023-09-02 | CT_ITS ---
Noncontrast CT scan of the cervical spine Technique: Multiple contiguous axial [address] images of the cervical spine were obtained and rec onstructed in 2D sagittal and coronal planes on the acquisition scanner. Dose reduction technique was used on this scan by utilizing automated exposure control, adjustment of the mA and/or kV according to patient size. The dose-length product (DLP) was 492.00 mGy-cm. Clinical History: Pain Findings: No fractures or dislocations. There are mild degenerative disc changes scattered in the ce rvical spine. There is degenerative change at the reticulation of the odontoid process with the anter ior arch of C1. There is probable mild to moderate osseous canal stenosis at C2-C3 and C3-C4. There i s probable bilateral neural foraminal narrowing at C3-C4. There is probable mild osseous canal stenos is at C4-C5 with bilateral neural foraminal narrowing. There is minimal bilateral neural foraminal na rrowing at C5-C6. No prevertebral soft tissue swelling. Partially imaged right pleural effusion noted . Impression: No fracture or subluxation of the cervical spine. Moderate degenerative spondylosis, with mild to moderate canal stenosis from C2 through C4. Follow-up MR can be performed, as indicated. Partially imaged small to possibly moderate right pleural effusion. Reviewed, dictated and finalized at location . S SUPERINTENDENT Impression: No fracture or subluxation of the cervical spine. Moderate degenerative spondylosis, with mild to moderate canal stenosis from C2 through C4. Follow-up MR can be performed, as indicated. Partially imaged small to possibly moderate right pleural effusion.
--- NOTE | ~2023-09-02 | CT_ITS ---
Noncontrast CT scan of the thoracic spine CLINICAL HISTORY: Back pain TECHNIQUE: Axial noncontrast imaging of the thoracic spine was performed. Sagittal and coronal reform atted images were constructed. Dose reduction technique was used on this scan by utilizing automated exposure control and iterative reconstruction technique. The dose-length product (DLP) was 1279.83 mG y-cm. FINDINGS: No acute fracture or subluxation seen. There is probable mild chronic compression deformity of T12. There is extensive posterior fusion hardware extending from T7 through the visualized upper lumbar spine. There are scattered mild degenerative disc changes throughout the thoracic spine. No de finite canal stenosis identified. Small right pleural effusion present. Abdominal aortic stent graft is partially imaged. Impression: No definite acute abnormality of the thoracic spine. Extensive posterior fusion hardware lower thoracic to upper lumbar spine, with probable chronic compr ession deformity of T12. Small right pleural effusion. Reviewed, dictated and finalized at [facility]. SURE SEALER AND TESTER Impression: No definite acute abnormality of the thoracic spine. Extensive posterior fusion hardware lower thoracic to upper lumbar spine, with probable chronic compression deformity of T12. Small right pleural effusion.
--- NOTE | ~2023-09-02 | CT_ITS ---
CT head without contrast Indication: Status post fall COMPARISON: 03/06/2022 Technique: Serial scans were obtained through the brain without the administration of contrast. Dose reduction technique was used on this scan by utilizing automated exposure control and iterative recon struction technique. The dose-length product (DLP) was 681.00 mGy-cm. Findings: There is no evidence of intracranial hemorrhage, mass lesion, or acute infarct. The ventri cles and subarachnoid spaces are dilated, consistent with mild atrophy. Low attenuation regions are seen within the periventricular white matter bilaterally, likely representing changes from chronic mi crovascular ischemic disease. There is no evidence of edema, mass effect or midline shift. The visu alized paranasal sinuses and mastoid air cells are clear. Impression: No intracranial hemorrhage, mass, or acute infarct. Atrophy and chronic white matter changes, as above. Reviewed, dictated and finalized at [facility]. SEPARATOR Impression: No intracranial hemorrhage, mass, or acute infarct. Atrophy and chronic white matter changes, as above.
[2023-09-02 02:33] VITALS: PULSE 130; RESP 34; TEMP 36.5; O2SAT 88
[2023-09-02 02:42] VITALS: BP 102/70; PULSE 125; PULSE 132; RESP 33; TEMP 36.5; O2SAT 96
--- NOTE | 2023-09-02 02:42 | ECG_ITS ---
Measurements Intervals [place] Rate: 148 P: AR: 0 QRS: 223 QRSD: 106 T: 55 QT: 306 QTc: 482 Interpretive Statements ATRIAL FIBRILLATION WITH RAPID VENTRICULAR RESPONSE INDETERMINATE AXIS INCOMPLETE RIGHT BUNDLE BRANCH BLOCK [90+ ms QRS DURATION, TERMINAL R IN V1/V2, 40+ ms S IN I/aVL/V4/V5/V6] ABNORMAL ECG COMPARED TO ECG 04/17/2023 09:06:58 ATRIAL FIBRILLATION REPLACES SINUS TACHYCARDIA Electronically Signed On 09-02-2023 12:37:37 COBBLER APPRENTICE by Billy Almanza M.D.
[2023-09-02 02:47] VITALS: O2SAT 96
[2023-09-02 02:48] VITALS: O2SAT 96
--- NOTE | 2023-09-02 03:16 | ED.SYNCOPE ---
HPI - Syncope General Chief Complaint: Syncope Stated Complaint: FALL, ?SYNCOPAL EPISODE Time Seen by Provider: 09/02/23 02:59 Source: patient and family (patient's and stepdaughter) Mode of arrival: EMS History of Present Illness HPI narrative: 88 yo on hospice for CHF presents after a syncopal episode. It is reported patient stood up from a seated position in a chair and immediately lost consciousness and fell to the ground. In the process, a TV fell onto him. Denies loose/broken dentition. On anticoagulation but unknown which. Reportedly uses O2 at home, QHS 3 LPM NC. Related Data Home Medications Medication Instructions Recorded Confirmed anagrelide 1 mg capsule 1 mg PO BID 01/05/22 05/06/23 acetaminophen 325 mg capsule 650 mg PO HS PRN Pain (Scale Score 11/09/22 05/06/23 (Tylenol) 1-3) vit C 250 mg-vit E 200 unit-zinc 1 cap PO DAILY 01/19/23 05/06/23 ox 12.5 at-lmnrva-vifayc-zeax capsule (ICaps AREDS2) Allergies Allergy/AdvReac Type Severity Reaction Status Date / Time No Known Allergies Allergy Verified 08/02/23 10:45 [facility] Past Medical History Medical History (Updated 09/03/23 @ 00:01 by Hugo Brand) Aortic stenosis Arthritis Basal cell carcinoma Benign prostatic hyperplasia Chronic kidney disease Decreased hearing of left ear Diastolic congestive heart failure Echocardiogram in December 2021 showed low end of normal LV systolic function and diastolic dysfunction with superimposed basal inferoseptal hypokinesis. Essential thrombocytosis Glaucoma Hypertension Iron deficiency anemia Overactive bladder Paroxysmal atrial fibrillation Vitamin D deficiency Surgical History Surgical History History of abdominal aortic aneurysm repair (2016) History of back surgery Godfrey rods in the lower thoracic spine. History of basal cell carcinoma excision History of colon resection (2001) History of incisional hernia repair History of left hip replacement (2006) History of right hip replacement (2004) Family History Family History Sibling Carcinoma of colon Social History Social History (Updated 08/02/23 @ 10:45 by Cassia Diego) Social History: Surrogate decision maker: Vianey Carmen, spouse. Code status: Full code. Smoking packs per day: 2 Smoking cigarettes per day: 40.0 Years smoked: 45 Smoking pack-years: 90.00 Smoking status: Former smoker Second hand tobacco smoke exposure: No Alcohol intake: never Substance use: never Substance use type: does not use Do You Feel Safe in your Home?: Yes Lack of Transportation: No Lack of Food: Never True Current Housing: I Have Housing Concerned About Future Housing: No Difficulty Paying Gas/Electric Bills: No Difficulty Paying for Meds: No Currently Unemployed: No Education: Grade School Difficulty w/ Childcare or Family Care: No Living arrangements: with family Additional living arrangements comments: The patient lives with his in [place]. 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 Gender identity (if verbalized by the patient): Male Sexual Orientation (if Verbalized by the Patient): Straight or Heterosexual Spiritual care concerns: No Exam Narrative: GENERAL: Well-appearing, well-nourished. HEAD: Normocephalic, atraumatic. EYES: Non injected, non icteric ENT: Nares clear, no rhinorrhea or epistaxis but dried blood on mouth. Lip bloody. No areas of active bleeding. NECK: C-collar in place. CHEST: Slightly labored breathing. Coarse breath sounds with crackles bilaterally. . HEART: Tachycardic rate and rhythm. . ABDOMEN: Soft, nondistended. EXTREMITIES: Normal range of motion. No edema. SKIN: Warm, dry, no rash. Skin abrasion right arm. NEURO: No focal deficits. Alert but not oriented to g
[2023-09-02 03:54] VITALS: PULSE 149
[2023-09-02] MEDS: ACETAMINOPHEN 500 MG TABLET 1000 MG PO (03:54)
[2023-09-02] MEDS: METOPROLOL TARTRATE INJ 5 MG/5 ML VIAL IV PUSH (03:54)
[2023-09-02 04:03] LABS: Hemoglobin 12.2 g/dL (14.0-18.0); Immature Platelet Fraction Pct 22.7 % (0.9-11.2); Mean Corpuscular Hemoglobin 22.7 pg (26-34); Mean Corpuscular Volume 78.2 fl (80-100); Platelet Count Result 667 k/mm3 (150-375); Red Blood Count 5.37 M/mm3 (4.6-6.20); Red Cell Distribution Width 26.5 % (11.5-14.5); White Blood Count 28.6 K/mm3 (4.5-10.0)
[2023-09-02 04:15] LABS: Anion Gap 8 mmol/L (8-16); Blood Urea Nitrogen 54 mg/dL (9-20); Calcium 8.6 mg/dL (8.4-10.2); Carbon Dioxide 29 mmol/L (22-30); Chloride 100 mmol/L (98-107); Estimated CRCL calculation 27 ml/min; Estimated Glomerular Filt Rate 38; Glucose 148 mg/dL (65-110); Potassium 4.1 mmol/L (3.4-5.0); Sodium 137 mmol/L (137-145)
[2023-09-02 04:17] LABS: INR 1.5
[2023-09-02 04:18] LABS: Partial Thromboplastin Time 39.2 SECONDS (22.3-36.8)
[2023-09-02 04:27] LABS: Band Neutrophils Percent 2 % (0-6); Basophils Absolute Manual 0.57 K/mm3 (0.0-0.1); Basophils Percent Manual 2 % (0-1); Lymphocytes Absolute Manual 0.57 K/mm3 (1.1-4.5); Lymphocytes Percent Manual 2 % (18-44); Metamyelocytes Percent 1 %; Monocytes Absolute Manual 1.43 K/mm3 (0.1-0.90); Monocytes Percent Manual 5 % (3-9); Neutrophils Absolute Manual 25.74 K/mm3 (1.3-6.7); Neutrophils Percent Manual 88 % (46-73); Total Cells Counted 100
[2023-09-02 04:28] LABS: Anisocytosis 1+ (NORMAL); Large Platelets Present; Ovalocytes 1+ (NORMAL); Platelet Estimate Increased (Adequate); Poikilocytosis 1+ (NORMAL)
[2023-09-02 04:29] LABS: Schistocytes None Seen (NORMAL)
[2023-09-02] MEDS: SODIUM CHLORIDE 0.9% IV 500 ML 999 ML IV CONT (04:54)
[2023-09-02] MEDS: MORPHINE SULFATE (*CRX) 4 MG/ML INJ IV PUSH (05:13)
[2023-09-02 05:40] VITALS: BP 86/64; PULSE 109; RESP 30; O2SAT 96
== END 2023-09-02 07:22 | disposition hospice, home (50) ==
PROVIDERS: Emergency Provider Student in an Organized Health Care Education/Training Program; PCP Family Medicine
DX: R55 Syncope and collapse (principal); D72.829 Elevated white blood cell count, unspecified; D50.9 Iron deficiency anemia, unspecified; D75.839 Thrombocytosis, unspecified; I48.0 Paroxysmal atrial fibrillation; I13.0 Hypertensive heart and chronic kidney disease with heart failure and stage 1 through stage 4 chronic kidney disease, or unspecified chronic kidney disease; N18.9 Chronic kidney disease, unspecified; I50.30 Unspecified diastolic (congestive) heart failure; I35.0 Nonrheumatic aortic (valve) stenosis; N40.0 Benign prostatic hyperplasia without lower urinary tract symptoms; N32.81 Overactive bladder; E55.9 Vitamin D deficiency, unspecified; M19.90 Unspecified osteoarthritis, unspecified site; Z99.81 Dependence on supplemental oxygen; Z96.643 Presence of artificial hip joint, bilateral; Z85.828 Personal history of other malignant neoplasm of skin; Z87.891 Personal history of nicotine dependence; Z90.49 Acquired absence of other specified parts of digestive tract; I45.10 Unspecified right bundle-branch block; M47.812 Spondylosis without myelopathy or radiculopathy, cervical region; M48.02 Spinal stenosis, cervical region
CPT/HCPCS: 36415; 70450; 72125; 72128; 80048; 85025; 85055; 85610; 85730; 93005; 96361; 96374; 96375; 99284; A9270; J2270; J7040